=== PATIENT | female | born 1980 | race Caucasian/White ===

== ENCOUNTER 2018-04-13 21:25 | Emergency (ER) | payer MEDICAID, SELFPAY ==
[2018-04-13 21:27] VITALS: BP 140/98; PULSE 75; RESP 24; TEMP 36.5; O2SAT 97; BMI 44.1
--- NOTE | 2018-04-13 21:43 | EKG12_ITS ---
Test Reason : CP Blood Pressure : / mmHG Vent. Rate : 077 BPM Atrial Rate : 077 BPM P-R Int : 132 ms QRS Dur : 072 ms QT Int : 406 ms P-R-T Axes : 064 058 047 degrees QTc Int : 459 ms Normal sinus rhythm Nonspecific ST abnormality Abnormal ECG Confirmed by ASHLI OLIVAS, POLLY ([id number]), editor managing newspaper SHAHEEN REILLY ([id number]) on 04/18/2018 1:58:03 PM Referred By: Confirmed By:POLLY CORNELIUS MD
--- NOTE | 2018-04-13 21:45 | RAD_ITS ---
STUDY: X-RAY CHEST REASON FOR EXAM: Female, 37 years old. Chest pain TECHNIQUE: Single AP portable view of the chest. COMPARISON: 04/28/2017. FINDINGS: The lungs are clear and expanded. There is no demonstrated pleural abnormality. Normal size heart. Normal mediastinum and juan a. Normal visualized pulmonary arteries. Normal visualized aortic arch and descending thoracic aorta. Normal visualized thoracic spine. Normal visualized ribs, clavicles, and shoulders. There is no demonstrated abnormality of the visualized soft tissue structures of the upper abdomen. RAD/Chest 1 View (Portable) IMPRESSION: Normal x-ray examination of the chest. Electronically Signed: Romulo Hatfield MD at 22:01 EDT , Service support ,
[2018-04-13 22:14] LABS: Absolute Lymphocyte Count 3.07 X10^3/ul (0.83-4.51); Absolute Neutrophil Count 4.2 X10^3/uL (2.0-7.7); Basophil# 0.01 X10^3/uL; Basophil% 0.1 % (0-1); Eosinophil# 0.15 X10^3/uL; Hematocrit 41.8 % (37-47); Hemoglobin 14.4 g/dl (12.0-15.0); Lymphocyte # 3.07 X10^3/ul (4.0); Lymphocyte % 40.1 % (19-41); Mean Corp Hgb Conc 34.4 g/gl (32-36); Mean Corpuscular Hgb 30.1 pg (27.0-32.0); Mean Corpuscular Volume 87.4 fL (81-99); Mean Platelet Vol. 9.5 fl (6.2-12.0); Monocyte# 0.23 X10^3/uL; Neutrophil # 4.19 X10^3/uL (2.7-7.7); Neutrophil % 54.7 % (47-70); POSITIVE COUNT NO; POSITIVE DIFFERENTIAL NO; POSITIVE MORPHOLOGY NO; Platelet Count 190 K/mm3 (150-450); RBC Distribution Width CV 13.1 % (11.6-14.6); RBC Distribution Width SD 41.9 fl (35.1-43.9); Red Blood Count 4.78 M/mm3 (4.2-5.4); White Blood Count 7.7 K/mm3 (4.4-11.0)
[2018-04-13 22:31] LABS: Anion Gap 7 (5-15); BUN 10 mg/dL (7-18); BUN/Creat Ratio 14.8 RATIO (10-20); Calcium,Total 8.2 mg/dL (8.5-10.1); Chloride 107 mmol/L (98-107); Creatinine, Serum 0.68 mg/dL (0.55-1.02); EST Glomerular Filtration Rate 103 mL/min (>60); Est Glom Filt Rate - Afr Amer 125 mL/min (>60); Estimated Creatinine Clearance 84.65 ml/min; Glucose 115 mg/dL (74-106); Potassium 3.8 mmol/L (3.5-5.1); Sodium Level 141 mmol/L (136-145)
[2018-04-13 23:16] LABS: D-Dimer Quantitative (DVT/PE) 0.45 FEU/ug/m (0.27-0.49)
[2018-04-13 23:19] VITALS: BP 142/99; PULSE 67; RESP 15; O2SAT 99
[2018-04-14 00:25] VITALS: BP 162/94; PULSE 71; RESP 14; O2SAT 96
[2018-04-14 01:47] VITALS: BP 168/96; PULSE 77; RESP 22; O2SAT 98
[2018-04-14 02:06] VITALS: BP 144/81; PULSE 70; RESP 10; O2SAT 96
--- NOTE | 2018-04-14 02:11 | ED.VISSUMM ---
- ER Visit Summary Date of Service: 04/14/18 Chief Complaint: Acute shortness of breath and chest pain. History of Present Illness: The patient is a 37 F who presents with acute shortness of breath and chest pain that started at 1999. The pain is not as intense. There is no alleviating, exacerbating or precipitate factors. She states she was sitting when this occurred. She had similar episode in the past. She did not seem medical attention because he did not have a ride at that time. She denies history of PE or DVT. She has no risk factors for PE or DVT. She denies any fever, chills night sweats. Denies a ocular, visual auditory symptoms. She denies any GI, or symptoms. She denies myalgias arthralgias, neck or back pain. She denies headache, weakness, anesthesia, paresthesia or motor weakness. There is a history of depression/anxiety. She has no other complaints. Past medical history of bipolar depressive disorder, morbid obesity. She denies history of hiatal hernia or reflux. Physical Examination: Vital signs are marked for an elevated blood pressure 140/98. Head is atraumatic normocephalic. Pupils are equal round reactive. Extraocular muscles are intact. TMs are pearly white with landmarks noted. Nares patent with no drainage. Posterior pharynx without erythema or exudate. Uvula is midline. There is no dysphonia or dysphasia. Trachea is midline. There is no stridor with auscultation of the neck. Heart is regular without murmur, gallop or rub. S1 and S2 are normal. Lungs are clear to auscultation with good movement of air bilaterally. There is no reproducible chest pain. There are no skin lesions noted. Abdomen is soft and nontender. There is no guarding or peritoneal findings. There is no palpable pulsatile mass. There is no abdominal bruit. Mosley sign is negative. Negative Rovsing sign. There is no evidence of inguinal or umbilical hernia. There is no asymmetry, swelling, discoloration, leg vein distention, palpable cords or tenderness along the distribution of the deep venous system. Neuro exam is nonfocal. Test Results: CBC is normal. BMP is remarkable glucose of 115 which is insignificant. D-dimer is normal, 0.45. Total chest x-ray interpreted by me as negative. Cardiac silhouette, mediastinum and lung parenchyma normal. There is no normality of the muscle skeletal structures. Emergency Department Course and Treatment: Since patient has not PERC negative a d-dimer was obtained. To evaluate her acute shortness of breath with chest pain a chest x-ray was obtained. Since she reports similar episode and believe she had improvement when she took an antacid she was treated with GI cocktail. Treatment Plan: Patient was reassessed at 0210. Her pain has resolved. She was informed that her workup is negative. Disposition: Discharged to home with prescription for H2 rubén. She states she is in the process of changing doctors. Impression: Chest pain secondary to GI etiology, gastritis This note was generated with [employer] dictation software. It may contain incorrect words, spelling, and punctuation that were not noted in review of the chart prior to signing ED Disposition - Plan for ED Patient: Disposition: Home or Assisted Living Chief Complaint: Chest Pain Instructions: ED Gastritis Prescriptions: Famotidine [Pepcid] 20 mg PO BID #60 tab Referrals: Care Physician,No Primary [Primary Care Provider] - Doctor,Your [STAFF PHYSICIAN] - 1-2 Weeks Additional Instructions: Your prescription was electronically transmitted to [facility]
--- NOTE | 2018-04-14 02:17 | ED.DCSUM_ITS ---
- ER Visit Summary Date of Service: 04/14/18 Chief Complaint: Acute shortness of breath and chest pain. History of Present Illness: The patient is a 37 F who presents with acute shortness of breath and chest pain that started at 1999. The pain is not as intense. There is no alleviating, exacerbating or precipitate factors. She states she was sitting when this occurred. She had similar episode in the past. She did not seem medical attention because he did not have a ride at that time. She denies history of PE or DVT. She has no risk factors for PE or DVT. She denies any fever, chills night sweats. Denies a ocular, visual auditory symptoms. She denies any GI, or symptoms. She denies myalgias arthralgias, neck or back pain. She denies headache, weakness, anesthesia, paresthesia or motor weakness. There is a history of depression/anxiety. She has no other complaints. Past medical history of bipolar depressive disorder, morbid obesity. She denies history of hiatal hernia or reflux. Physical Examination: Vital signs are marked for an elevated blood pressure 140/ 98. Head is atraumatic normocephalic. Pupils are equal round reactive. Extraocular muscles are intact. TMs are pearly white with landmarks noted. Nares patent with no drainage. Posterior pharynx without erythema or exudate. Uvula is midline. There is no dysphonia or dysphasia. Trachea is midline. There is no stridor with auscultation of the neck. Heart is regular without murmur, gallop or rub. S1 and S2 are normal. Lungs are clear to auscultation with good movement of air bilaterally. There is no reproducible chest pain. There are no skin lesions noted. Abdomen is soft and nontender. There is no guarding or peritoneal findings. There is no palpable pulsatile mass. There is no abdominal bruit. Mosley sign is negative. Negative Rovsing sign. There is no evidence of inguinal or umbilical hernia. There is no asymmetry, swelling , discoloration, leg vein distention, palpable cords or tenderness along the distribution of the deep venous system. Neuro exam is nonfocal. Test Results: CBC is normal. BMP is remarkable glucose of 115 which is insignificant. D-dimer is normal, 0.45. Total chest x-ray interpreted by me as negative. Cardiac silhouette, mediastinum and lung parenchyma normal. There is no normality of the muscle skeletal structures. Emergency Department Course and Treatment: Since patient has not PERC negative a d-dimer was obtained. To evaluate her acute shortness of breath with chest pain a chest x-ray was obtained. Since she reports similar episode and believe she had improvement when she took an antacid she was treated with GI cocktail. Treatment Plan: Patient was reassessed at 0210. Her pain has resolved. She was informed that her workup is negative. Disposition: Discharged to home with prescription for H2 rubén. She states she is in the process of changing doctors. Impression: Chest pain secondary to GI etiology, gastritis This note was generated with [employer] dictation software. It may contain incorrect words, spelling, and punctuation that were not noted in review of the chart prior to signing ED Disposition - Plan for ED Patient: Disposition: Home or Assisted Living Chief Complaint: Chest Pain Instructions: ED Gastritis Prescriptions: Famotidine [Pepcid] 20 mg PO BID #60 tab Referrals: Care Physician,No Primary [Primary Care Provider] - Doctor,Your [STAFF PHYSICIAN] - 1-2 Weeks Additional Instructions: Your prescription was electronically transmitted to [facility]
[2018-04-14 02:26] VITALS: BP 144/81; PULSE 68; RESP 15; O2SAT 95
--- NOTE | 2018-04-14 02:26 | ED.RN ---
IV DC'ED, CATHETER INTACT, SMALL GAUZE DRESSING PLACED. DISCHARGE INSTRUCTIONS GIVEN TO AND REVIEWED WITH PATIENT, PATIENT DENIES QUESTIONS OR CONCERNS AND VOICES UNDERSTANDING OF DISCHARGE INSTRUCTIONS. PT AMBULATES OUT OF ROOM WITHOUT DIFFICULTY.
== END 2018-04-14 02:27 | disposition home or self-care (01) ==
PROVIDERS: Emergency Provider Emergency Medicine
DX: R07.89 Other chest pain (principal); K29.70 Gastritis, unspecified, without bleeding; R06.00 Dyspnea, unspecified; F41.9 Anxiety disorder, unspecified; F32.9 Major depressive disorder, single episode, unspecified; E66.01 Morbid (severe) obesity due to excess calories; Z79.899 Other long term (current) drug therapy; Z72.0 Tobacco use
CPT/HCPCS: 71045; 80048; 84484; 85025; 85379; 93005; 99285; A4216

== ENCOUNTER 2021-04-24 14:52 | Emergency (ER) | payer MEDICAID, SELFPAY ==
[2021-04-24 14:53] VITALS: BP 160/89; PULSE 88; RESP 18; TEMP 36.7; O2SAT 94; BMI 39.4
--- NOTE | 2021-04-24 15:24 | EX.ED.UPPERE ---
HPI History of Present Illness Chief Complaint: Wound Check Informant: patient Occured/Mechanism Comment: Wound check status post left wrist carpal tunnel surgery 2 days ago. Onset/Context/Timing Context: Gradual Onset Timing: Continuous Associated Symptoms Associated Symptoms: Negative for Parasthesia, Weakness and Loss of Funtion Narrative Narrative: 40-year-old female no severe past medical history. 2 to 3 weeks ago had carpal tunnel surgery done on her right wrist is doing very well. 2 to 3 days ago had carpal tunnel surgery done in her left wrist and she noticed fatty tissue and minor dehiscence of the wound in 1 to have it evaluated. She denies any bleeding. She denies any worse pain. She denies any fever, chills, pus or streaks. Prior similar symptoms: No Recent Illness/Hospitalization: No PFSH PFSH Home Medications citalopram 40 mg PO QHS 04/17/16 [History Last Taken 04/12/18] albuterol sulfate [Ventolin HFA] 2 puff INHALATION Q4H PRN PRN #1 inhaler 05/01/17 [Rx Last Taken Unknown] clonazepam [Klonopin] 0.5 mg PO DAILY 08/14/17 [History Last Taken 04/13/18] albuterol sulfate 2.5 mg INHALATION Q6HWA.RT PRN 09/28/17 [History Last Taken Unknown] famotidine 20 mg PO BID #60 tab 04/14/18 [Rx Last Taken Unknown] Allergy/AdvReac Type Severity Reaction Status Date / Time No Known Allergies Allergy Verified 04/24/21 14:56 Social History Smoking Status: Former smoker ROS ROS ED ROS Narrative Patient denies any recent illness. Review of Systems ROS Unobtainable: Denies due to encephalopathy Constitutional Constitutional ED: Denies frequent falls Eyes Eyes: Denies change in vision ENT ENT ED: Denies ear pain or sore throat Cardiovascular Cardiovascular: Denies chest pain Respiratory/Chest Respiratory/Chest: Denies dyspnea Gastrointestinal Gastrointestinal: Denies abdominal pain or vomiting Genitourinary Genitourinary ED: Denies dysuria Musculoskeletal Musculoskeletal: Denies myalgias Integumentary Denies rash Neurologic Neurologic: Denies headache(s) Psychiatric Psychiatric: Denies depression Endocrine Endocrinology: Denies polyuria Hematologic/Lymphatic Hematologic/Lymphatic: Denies easy bruising Allergic/Immunologic Allergic/Immunologic ED: Denies urticaria EXAM Physical Exam Narrative Exam Narrative: Middle-aged female no acute distress. Clinically looks well. Status post carpal tunnel in the left wrist. Wound is clean and dry. There is minimal dehiscence. There is small amount of adipose tissue coming out of the wound. There is no signs of infection nor bleeding. No redness. No pus no streaks. She has normal range of motion of her left wrist. Able to open close her left hand. Has normal cap refill and touch sensation. Hand is neurovascular intact. Otherwise exam unremarkable. Const Vital Signs: 04/24/21 14:53 Temperature 98.0 F Temperature Source Temporal Pulse Rate 88 Respiratory Rate 18 Blood Pressure 160/89 H Blood Pressure Mean 112 Pulse Ox 94 Oxygen Delivery Method Room Air HEENT normocephalic and atraumatic Eyes PERRL and EOMs intact bilaterally Neck full ROM and supple General: Negative for tenderness Chest Wall inspection of chest normal Resp normal respiratory effort and clear to auscultation bilaterally Cardio regular rate, regular rhythm, S1 normal heart sound and no murmurs GI non-tender and non-distended Auscultation: normoactive bowel sounds Palpation: soft Back/Spine no CVA tenderness Extremity normal to inspection and full ROM Extremity Narrative: Well-healed right wrist carpal tunnel incision dry and clean. Healing left wrist more recent carpal tunnel incision small dehiscence. Small amount of adipose tissue. No signs of infection. Left hand neurovascular intact. General Extremety ED: Negative for edema General Extremity: Negative for edema Neuro oriented x3, moves all extremities and no focal motor deficits Sensorium / Orientation: alert, oriented to person, oriented to place and oriented to time Psych mental status grossly normal Skin Rashes: no rashes MDM MDM MDM Narrative Medical decision making narrative: Her left wrist carpal tunnel surgery incision has a small dehiscence and a small amount of adipose tissue. There is no signs of infection. I reassured the patient. Its healing well. There is no signs of infection. To be cleaned and dressed to be discharged home. Follow-up with orthopedic physician as needed. Discharge Plan Triage Chief Complaint: Wound Check ED Provider: Jonn Preciado Dx/Rx/DC Orders Clinical Impression: Encounter for post surgical wound check Instructions: ED Post Op Wound Check, General Prescriptions: No Action citalopram 20 MG tablet 40 mg PO QHS RF: 0 albuterol sulfate [Ventolin HFA] 1 INHALER inhaler 2 puff inhalation Q4H PRN PRN (Reason: Wheezing) Qty: 1 RF: 0 clonazepam [Klonopin] 0.5 MG tablet 0.5 mg PO DAILY RF: 0 albuterol sulfate 2.5 MG/3 ML Vial.Neb. 2.5 mg inhalation Q6HWA.RT PRN (Reason: Sob &/Or Wheezing) RF: 0 famotidine 20 MG tablet 20 mg PO BID Qty: 60 RF: 0 Primary Care Provider: Joe White Referrals: Joe White MD [Primary Care Provider] - None Activity Restrictions/Additional Instructions: Keep your left wrist incision clean. Apply antibiotic ointment daily. Watch for any signs of infection such as pus, redness, fever, red streaks or swelling is seen follow-up with orthopedic physician or return to the emergency department. Keep your scheduled appointment with your orthopedic physician. Disposition Disposition: Home, self care
[2021-04-24 16:15] VITALS: RESP 18
== END 2021-04-24 16:20 | disposition home or self-care (01) ==
PROVIDERS: Emergency Provider Emergency Medicine; PCP Family Medicine
DX: T81.30XA Disruption of wound, unspecified, initial encounter (principal); Z87.891 Personal history of nicotine dependence
CPT/HCPCS: 99282

== ENCOUNTER → 2021-06-09 14:01 | Outpatient (CLI) | payer MEDICAID, SELFPAY ==
--- NOTE | 2021-06-09 14:05 | VDLE_ITS ---
Reason For Study: PAIN RIGHT GSV is normal. CFV is compressible, spontaneous, phasic, competent and demonstrates normal augmentation. FV is compressible, spontaneous, phasic, competent and demonstrates normal augmentation. POP V is compressible, spontaneous, phasic, competent and demonstrates normal augmentation. T/P Trunk is compressible. PTV is compressible. RT PerV is compressible. Procedure Exam performed in department. A preliminary report was called and/or faxed to [facility]. VL/Venous Duplex US, Unilateral Interpretation Summary There is no evidence of right lower extremity deep vein thrombosis. Right great saphenous vein appears patent and compressible segmentally. Ordering Physician: Carmencita Bravo Referring Physician: SAJAN IVY Performed By: Amada Bah, RDCS, RVT
== END ==
PROVIDERS: PCP Family Medicine; Referring Provider Physician Assistant; Visit Provider Physician Assistant
DX: M79.661 Pain in right lower leg (principal)
CPT/HCPCS: 93971

== ENCOUNTER 2021-08-13 10:22 | Emergency (ER) | payer MEDICAID, SELFPAY ==
[2021-08-13 10:26] VITALS: BP 153/99; PULSE 103; RESP 18; TEMP 36.3; O2SAT 96; BMI 37.8
--- NOTE | 2021-08-13 11:21 | EDS_ITS ---
HPI History of Present Illness Chief Complaint: Wound Informant: patient Narrative Narrative: Patient is a 40-year-old female with history of skin abscesses presenting with left breast abscess. Patient states she think she has infected cyst. She notes it feels warm is been worse over the past few days. Has been draining on its own. Patient was on a course of clindamycin last month for a groin abscess. She has been applying mupirocin to this 1. She notes has been having ongoing issues with nausea and is out of Phenergan. She states that helps her the best. She does have a couple doses of Zofran left. It is unchanged. She denies any fever or chills. No other complaints at this time. [facility] Medical History Carpal tunnel syndrome, bilateral Home Medications albuterol sulfate [Ventolin HFA] 2 puff INHALATION Q4H PRN PRN #1 inhaler 05/01/17 [Rx Last Taken Unknown] albuterol sulfate 2.5 mg INHALATION Q6HWA.RT PRN 09/28/17 [History Last Taken Unknown] famotidine 20 mg PO BID #60 tab 04/14/18 [Rx Last Taken Unknown] cephalexin 500 mg PO Q6 7 Days #28 cap 08/13/21 [Rx Last Taken Unknown] ondansetron 4 mg PO Q6H PRN #14 tab 08/13/21 [Rx Last Taken Unknown] promethazine 12.5 mg PO Q6H PRN #14 tab 08/13/21 [Rx Last Taken Unknown] sulfamethoxazole-trimethoprim [Bactrim DS] 1 tab PO Q12H #14 tab 08/13/21 [Rx Last Taken Unknown] Allergy/AdvReac Type Severity Reaction Status Date / Time No Known Allergies Allergy Verified 08/13/21 10:23 Social History Smoking Status: Current every day smoker tobacco type: cigarettes ROS ROS ED Constitutional Constitutional ED: Denies chills or fever(s) Eyes Eyes: Denies change in vision ENT ENT ED: Denies sore throat Cardiovascular Cardiovascular: Denies chest pain Respiratory/Chest Respiratory/Chest: Denies cough or dyspnea Gastrointestinal Gastrointestinal: Reports nausea; Denies abdominal pain, diarrhea or vomiting Genitourinary Genitourinary ED: Denies dysuria Musculoskeletal Musculoskeletal: Denies arthralgias or myalgias Integumentary Denies rash Neurologic Neurologic: Denies headache(s) Psychiatric Psychiatric: Denies depression EXAM Physical Exam Const Vital Signs: 08/13/21 10:26 08/13/21 12:27 Temperature 97.4 F L Temperature Source Temporal Pulse Rate 103 H 86 Respiratory Rate 18 16 Blood Pressure 153/99 H Blood Pressure Mean 117 Pulse Ox 96 96 Oxygen Delivery Method Room Air Positive well nourished and well developed General Appearance ED: well developed HEENT Reports moist mucous membranes Negative for tenderness Eyes PERRL Neck no lymphadenopathy and supple Chest Wall inspection of chest normal Resp normal respiratory effort and clear to auscultation bilaterally Cardio regular rate, regular rhythm and no murmurs GI normal to inspection, nondistended, normoactive bowel sounds Extremity normal to inspection General Extremety ED: Negative for tenderness Neuro oriented x3 Sensorium / Orientation: alert Motor Exam: Negative for general weakness Psych mental status grossly normal Skin Skin Narrative: Patient has a 2 cm x 3 cm area of erythema with central induration and a central draining area on the left breast and a left outer quadrant. No fluctuance appreciated. MDM MDM MDM Narrative Medical decision making narrative: Patient is evaluated for abscess to her left breast. It does not involve the nipple. It is already partially midrange. Will apply let and deroof it to encourage further drainage. No purulence is ex pressed with this. Will place on Bactrim and Keflex. Will refer to surgery on- call, Dr. Cooper for further outpatient follow-up. Patient is given a prescription for Zofran and Phenergan to help with her chronic nausea and to help her better tolerate antibiotics. Patient counseled on return precautions. Discharge Plan Triage Chief Complaint: Wound ED Provider: Chio Tyson Dx/Rx/DC Orders Clinical Impression: Abscess of breast, left Instructions: ED Abscess Antibiotic Treatment Only Prescriptions: New ondansetron 4 mg tablet,disintegrating 4 mg PO Q6H PRN (Reason: nausea and vomiting) Qty: 14 RF: 0 promethazine 12.5 mg tablet 12.5 mg PO Q6H PRN (Reason: nausea and vomiting) Qty: 14 RF: 0 sulfamethoxazole-trimethoprim [Bactrim DS] 800-160 mg tablet 1 tab PO Q12H Qty: 14 RF: 0 cephalexin 500 mg capsule 500 mg PO Q6 7 Days Qty: 28 RF: 0 No Action albuterol sulfate [Ventolin HFA] 1 INHALER inhaler 2 puff inhalation Q4H PRN PRN (Reason: Wheezing) Qty: 1 RF: 0 albuterol sulfate 2.5 MG/3 ML solution for nebulization 2.5 mg inhalation Q6HWA.RT PRN (Reason: Sob &/Or Wheezing) RF: 0 famotidine 20 MG tablet 20 mg PO BID Qty: 60 RF: 0 Primary Care Provider: Joe White Referrals: Leonidas Cooper MD [STAFF PHYSICIAN] - Joe White MD [Primary Care Provider] - Activity Restrictions/Additional Instructions: Continue to do warm compresses. Follow-up with surgery for further evaluation. Disposition Disposition: Home, Self Care Discharge Date/Time: 08/13/21 12:28
[2021-08-13] MEDS: Smz/Tmp Ds Tablet 1 TABLET PO (11:36)
[2021-08-13] MEDS: Cephalexin 250 MG Capsule 500 MG PO (11:36)
[2021-08-13] MEDS: proMETHazine 25 MG Tablet 12.5 MG PO (11:36)
[2021-08-13] MEDS: Lidocaine/Epi/Tetracaine 50 ML 1 APPLIC TOPICAL (11:39)
[2021-08-13 12:27] VITALS: PULSE 86; RESP 16; O2SAT 96
== END 2021-08-13 12:28 | disposition home or self-care (01) ==
PROVIDERS: Emergency Provider Emergency Medicine; PCP Family Medicine
DX: N61.1 Abscess of the breast and nipple (principal); G56.03 Carpal tunnel syndrome, bilateral upper limbs; Z79.899 Other long term (current) drug therapy; F17.210 Nicotine dependence, cigarettes, uncomplicated
CPT/HCPCS: 99283

== ENCOUNTER 2021-08-31 13:29 | Emergency (ER) | payer MEDICAID, SELFPAY ==
[2021-08-31 13:30] VITALS: BP 171/103; PULSE 93; RESP 16; TEMP 37.2; O2SAT 95; BMI 37.4
[2021-08-31 13:34] VITALS: BP 171/103; PULSE 93; RESP 16; TEMP 37.2; O2SAT 95
--- NOTE | 2021-08-31 14:06 | CT_ITS ---
STUDY: CT ABDOMEN AND PELVIS WITH CONTRAST REASON FOR EXAM: Female, 40 years old. abd pain x yrs. mucus in stool x days. diarrhea. RADIATION DOSAGE (If Supplied By Facility): CTDIvol = ( 17.30 ) mGy, DLP = ( 1017.33 ) mGycm TECHNIQUE: Transaxial images were obtained from the dome of the diaphragm to the symphysis pubis with oral contrast. Oral and amp;amp; IV Gastrografin and amp;amp; 100mL Isovue-300 was administered. Sagittal and coronal images were reconstructed. Individualized dose optimization techniques were used for this CT. COMPARISON: None. FINDINGS: The visualized lung bases are unremarkable. The visualized portions of the heart are within normal limits. Normal liver. Normal gallbladder and extrahepatic biliary system. Normal spleen. Normal pancreas. Normal bilateral adrenal glands. Normal right kidney. Normal left kidney. Normal visualized stomach. Normal small intestine. Normal colon. The appendix is visualized and appears normal. Normal abdominal aorta. Normal inferior vena cava. Normal retroperitoneum. Normal urinary bladder. Unremarkable uterus and ovaries. A left adnexal clip is present. A second left lower adnexal clip is also present, likely displaced from the right adnexal region. Normal abdominal wall. Normal osseous structures. CT/Abdomen/Pelvis WITH Contrast IMPRESSION: 1. No demonstrated acute process of the abdomen and pelvis. Electronically Signed: Jose Morin MD at 16:49 EDT , Service support ,
[2021-08-31 14:13] LABS: Absolute Lymphocyte Count 2.88 X10^3/uL (0.83-4.51); Absolute Neutrophil Count 6.2 X10^3/uL (2.0-7.7); Basophil# 0.04 X10^3/uL; Basophil% 0.4 % (0-1); Eosinophil# 0.13 X10^3/uL; Eosinophils% 1.3 % (0-5); Hematocrit 39.9 % (37-47); Hemoglobin 14.3 g/dL (12.0-15.0); Lymphocyte # 2.88 X10^3/ul (0.83-4.51); Lymphocyte % 29.8 % (19-41); Mean Corp Hgb Conc 35.8 g/dL (32-36); Mean Corpuscular Hgb 30.7 pg (27.0-32.0); Mean Corpuscular Volume 85.6 fL (81-99); Mean Platelet Vol. 9.8 fl (6.2-12.0); Monocyte# 0.33 X10^3/uL; Monocyte% 3.4 % (0-10); NRBC Flagged by Analyzer 0 % (0-5); Neutrophil # 6.24 X10^3/uL (2.7-7.7); Neutrophil % 64.8 % (47-70); Platelet Count 229 K/mm3 (150-450); RBC Distribution Width CV 12.8 % (11.6-14.6); RBC Distribution Width SD 39.5 fl (35.1-43.9); Red Blood Count 4.66 M/mm3 (4.2-5.4); White Blood Count 9.7 K/mm3 (4.4-11.0)
[2021-08-31] MEDS: 0.9% Normal Saline 1,000 ML 1000 ML IV (14:15)
[2021-08-31] MEDS: Ondansetron 4 MG/2 ML Vial IV (14:16)
[2021-08-31 14:25] LABS: ALB/GLOB Ratio 0.9 RATIO (0.9-2.4); AST(SGOT) 15 U/L (15-37); Alanine Aminotransfer ALT/SGPT 24 U/L (13-56); Albumin, Serum 3.4 g/dL (3.2-5.0); Alkaline Phosphatase 75 U/L (45-117); Anion Gap 8 (5-15); BUN 7 mg/dL (7-18); Calcium,Total 8.5 mg/dL (8.5-10.1); Chloride 107 mmol/L (98-107); Creatinine, Serum 0.78 mg/dL (0.55-1.02); EST Glomerular Filtration Rate 86 mL/min (>60); Est Glom Filt Rate - Afr Amer 104 mL/min (>60); Estimated Creatinine Clearance 71.62 ml/min; Globulin 3.6 g/dL (2.2-4.2); Glucose 119 mg/dL (74-106); Potassium 3.4 mmol/L (3.5-5.1); Sodium Level 142 mmol/L (136-145)
[2021-08-31 14:26] LABS: Red Blood Cells-Urine 0 SEEN /hpf (0-5)
[2021-08-31 14:28] LABS: Color, Urine Yellow (Yellow); Glucose, Dipstick Normal (Normal); Ketone-Dipstick 5 mg/dl (Negative); Leukocyte Esterase-Dipstick 500 /ul (Negative); Nitrite-Dipstick Negative (Negative); Occult Blood-Urine Negative /ul (Negative); Protein-Dipstick 15 mg/dl (Negative); Urine Bilirubin Dipstick Negative (Negative); Urine Clarity Cloudy (Clear); Urine Urobilinogen Normal (Normal)
[2021-08-31 14:35] LABS: Bacteria 1+ /hpf (None Seen); Mucous, Urine 1+ /hpf (<or=2+); Squamous Epithelial Cells - UA 5-10 SEEN /hpf (5-10); White Blood Cells 5-10 SEEN /hpf (0-5)
[2021-08-31 14:39] LABS: Internal QC Validated? YES +Cl - CLEAR BKGD; Pregnancy, Serum, hCG Quali. NEGATIVE Negative
--- NOTE | 2021-08-31 14:58 | EDS_ITS ---
HPI History of Present Illness Chief Complaint: Abd Pain Informant: patient Narrative Narrative: 40-year-old female presenting with abdominal pain. Patient states this has been going on for quite some time but worsened over the past several days. She complains of mucousy stool. She has nausea with no vomiting. She denies fever. Prior similar symptoms: Yes Recent Illness/Hospitalization: No PFSH PFSH Medical History Carpal tunnel syndrome, bilateral Home Medications albuterol sulfate [Ventolin HFA] 2 puff INHALATION Q4H PRN PRN #1 inhaler 05/01/17 [Rx Last Taken Unknown] albuterol sulfate 2.5 mg INHALATION Q6HWA.RT PRN 09/28/17 [History Last Taken Unknown] ondansetron 4 mg PO Q6H PRN #14 tab 08/13/21 [Rx Last Taken Unknown] promethazine 12.5 mg PO Q6H PRN #14 tab 08/13/21 [Rx Last Taken Unknown] gabapentin 300 mg PO TID 08/31/21 [History Last Taken Unknown] Allergy/AdvReac Type Severity Reaction Status Date / Time carbinoxamine [From [facility]] Allergy Rash Verified 08/31/21 13:32 pseudoephedrine [From [facility]] Allergy Rash Verified 08/31/21 13:32 Social History Smoking Status: Current every day smoker tobacco type: cigarettes ROS ROS ED Constitutional Constitutional ED: Denies fever(s) Eyes Eyes: Denies change in vision ENT ENT ED: Denies rhinorrhea or sore throat Cardiovascular Cardiovascular: Denies chest pain or palpitations Respiratory/Chest Respiratory/Chest: Denies cough or dyspnea Gastrointestinal Gastrointestinal: Reports abdominal pain, diarrhea and nausea; Denies vomiting Genitourinary Genitourinary ED: Denies dysuria Musculoskeletal Musculoskeletal: Denies myalgias Integumentary Denies rash Neurologic Neurologic: Denies headache(s) Psychiatric Psychiatric: Denies suicidal thoughts EXAM Physical Exam Const Vital Signs: 08/31/21 13:30 08/31/21 13:34 Temperature 98.9 F 98.9 F Temperature Source Temporal Temporal Pulse Rate 93 93 Respiratory Rate 16 16 Blood Pressure 171/103 H 171/103 H Blood Pressure Mean 125 125 Pulse Ox 95 95 Oxygen Delivery Method Room Air Room Air Positive well nourished and well developed General Appearance ED: well developed HEENT Reports normocephalic and head/scalp atraumatic Eyes PERRL and EOMs intact bilaterally Neck supple General: Negative for tenderness Chest Wall inspection of chest normal Resp normal respiratory effort and clear to auscultation bilaterally Cardio regular rate and regular rhythm GI non-distended Palpation: soft and tender LLQ and RLQ; Negative for guarding or rebound tenderness present no CVA tenderness Extremity normal to inspection Neuro oriented x3 Sensorium / Orientation: alert Psych mental status grossly normal Skin no rashes or lesions noted MDM MDM MDM Narrative Medical decision making narrative: Patient was given IV fluids, Zofran. CBC, chemistries unremarkable. hCG negative. CT abdomen pelvis is pending at this time. Patient will be signed out to oncoming physician for further evaluation. Lab Data Attestation: I reviewed the patient's lab results. Labs: Laboratory Results - last 24 hr 08/31/21 08/31/21 08/31/21 13:40 13:40 14:15 WBC 9.7 RBC 4.66 Hgb 14.3 Hct 39.9 MCV 85.6 MCH 30.7 MCHC 35.8 RDW Std Deviation 39.5 RDW Coeff of Camille 12.8 Plt Count 229 MPV 9.8 Immature Gran % (Auto) 0.300 Neut % (Auto) 64.8 Lymph % (Auto) 29.8 [place] % (Auto) 3.4 Eos % (Auto) 1.3 Baso % (Auto) 0.4 Absolute Neuts (auto) 6.2 Absolute Lymphs (auto) 2.88 Nucleated RBC % 0 Sodium 142 Potassium 3.4 L Chloride 107 Carbon Dioxide 27.0 Anion Gap 8 BUN 7 Creatinine 0.78 Estim Creat Clear Calc 71.62 Est GFR (MDRD) Af Amer 104 Est GFR (MDRD) Non-Af 86 BUN/Creatinine Ratio 9.0 L Glucose 119 H Calcium 8.5 Total Bilirubin 0.40 AST 15 ALT 24 Alkaline Phosphatase 75 Total Protein 7.0 Albumin 3.4 Globulin 3.6 Albumin/Globulin Ratio 0.9 Serum , Qual NEGATIVE Urine Color Urine Clarity Urine pH Ur Specific [place] Urine Protein Urine Glucose (UA) Urine Ketones Urine Occult Blood Urine Nitrite Urine Bilirubin Urine Urobilinogen Ur Leukocyte Esterase Urine RBC Urine WBC Ur Squamous Epith Cells Urine Bacteria Urine Mucus 08/31/21 14:15 WBC RBC Hgb Hct MCV MCH MCHC RDW Std Deviation RDW Coeff of Camille Plt Count MPV Immature Gran % (Auto) Neut % (Auto) Lymph % (Auto) [place] % (Auto) Eos % (Auto) Baso % (Auto) Absolute Neuts (auto) Absolute Lymphs (auto) Nucleated RBC % Sodium Potassium Chloride Carbon Dioxide Anion Gap BUN Creatinine Estim Creat Clear Calc Est GFR (MDRD) Af Amer Est GFR (MDRD) Non-Af BUN/Creatinine Ratio Glucose Calcium Total Bilirubin AST ALT Alkaline Phosphatase Total Protein Albumin Globulin Albumin/Globulin Ratio Serum , Qual Urine Color Yellow Urine Clarity Cloudy Urine pH 5.0 Ur Specific [place] 1.020 Urine Protein 15 H Urine Glucose (UA) Normal Urine Ketones 5 H Urine Occult Blood Negative Urine Nitrite Negative Urine Bilirubin Negative Urine Urobilinogen Normal Ur Leukocyte Esterase 500 H Urine RBC 0 SEEN Urine WBC 5-10 SEEN Ur Squamous Epith Cells 5-10 SEEN Urine Bacteria 1+ Urine Mucus 1+ Discharge Plan Triage Chief Complaint: Abd Pain ED Provider: Rosio Salinas Dx/Rx/DC Orders Clinical Impression: Abdominal pain Prescriptions: No Action albuterol sulfate [Ventolin HFA] 1 INHALER inhaler 2 puff inhalation Q4H PRN PRN (Reason: Wheezing) Qty: 1 RF: 0 albuterol sulfate 2.5 MG/3 ML solution for nebulization 2.5 mg inhalation Q6HWA.RT PRN (Reason: Sob &/Or Wheezing) RF: 0 ondansetron 4 mg tablet,disintegrating 4 mg PO Q6H PRN (Reason: nausea and vomiting) Qty: 14 RF: 0 promethazine 12.5 mg tablet 12.5 mg PO Q6H PRN (Reason: nausea and vomiting) Qty: 14 RF: 0 gabapentin 300 mg Capsule 300 mg PO TID RF: 0 Primary Care Provider: Joe White Referrals: Joe White MD [Primary Care Provider] -
[2021-08-31 16:08] VITALS: BP 137/98; PULSE 73; RESP 16; O2SAT 96
[2021-08-31] MEDS: Dicyclomine 10 MG Capsule 20 MG PO (16:53)
[2021-08-31] MEDS: Ketorolac 30 MG/ML Syringe IV (16:53)
[2021-08-31 18:33] VITALS: BP 154/94; PULSE 78; RESP 16; TEMP 36.9; O2SAT 95
== END 2021-08-31 18:35 | disposition home or self-care (01) ==
PROVIDERS: Emergency Provider Emergency Medicine; PCP Family Medicine
DX: R10.9 Unspecified abdominal pain (principal); R11.0 Nausea; K52.9 Noninfective gastroenteritis and colitis, unspecified; G56.03 Carpal tunnel syndrome, bilateral upper limbs; F17.210 Nicotine dependence, cigarettes, uncomplicated
CPT/HCPCS: 74177; 80053; 81001; 84703; 85025; 96361; 96374; 96375; 99284; J7030; Q9967; A4216; J2405

== ENCOUNTER 2021-09-01 23:13 | Emergency (ER) | payer MEDICAID, SELFPAY ==
[2021-09-01 23:14] VITALS: BP 149/101; PULSE 96; RESP 18; TEMP 36.6; O2SAT 98; BMI 36.6
--- NOTE | 2021-09-02 00:05 | EX.ED.DYSGE1 ---
HPI History of Present Illness Chief Complaint: GI Bleed Informant: patient Narrative Narrative: 40-year-old female presented to the emergency room with abdominal pain. Patient states that she was seen in the emergency room yesterday with several days of diarrhea mucousy stools. She notes nausea but no vomiting. She states that anytime she eats or drinks anything she has diarrhea. She notes dark red blood with the bowel movements. She had CBC CMP lipase and a CT scan that were negative as well as a negative urinalysis. She was discharged home with Ilya and referred to GI. She states she did not receive a GI call back today has presented here to the emergency room tonight stating that she did not sleep last night and that she is getting worse. [facility] Medical History Carpal tunnel syndrome, bilateral Home Medications gabapentin 300 mg PO TID 08/31/21 [History Last Taken Unknown] ketorolac 10 mg PO Q8H PRN #15 tab 09/02/21 [Rx Last Taken Unknown] Allergy/AdvReac Type Severity Reaction Status Date / Time carbinoxamine [From [facility]] Allergy Rash Verified 08/31/21 13:32 pseudoephedrine [From [facility]] Allergy Rash Verified 08/31/21 13:32 Social History (Updated 09/02/21 @ 00:[address] Cayetano Collins DO) Smoking Status: Current every day smoker tobacco type: cigarettes substance use type: does not use ROS ROS ED Constitutional Constitutional ED: Denies chills or weight loss Eyes Eyes: Denies change in vision or diplopia ENT ENT ED: Denies ear pain, rhinorrhea or sore throat Cardiovascular Cardiovascular: Denies chest pain, orthopnea, palpitations or racing heartbeat Respiratory/Chest Respiratory/Chest: Denies cough, dyspnea or orthopnea Gastrointestinal Gastrointestinal: Reports abdominal pain, diarrhea, nausea and other Details: Dark blood with bowel movements ; Denies vomiting Genitourinary Genitourinary ED: Denies dysuria, hematuria or urinary frequency Musculoskeletal Musculoskeletal: Denies arthralgias or myalgias Integumentary Denies abscess or rash Neurologic Neurologic: Denies headache(s) or weakness Psychiatric Psychiatric: Denies anxiety, depression, suicidal ideation or suicidal thoughts Endocrine Endocrinology: Denies polydipsia, polyphagia or polyuria Allergic/Immunologic Allergic/Immunologic ED: Denies mouth swelling, tongue swelling or urticaria EXAM Physical Exam Const Vital Signs: 09/01/21 23:14 Temperature 98 F Temperature Source Temporal Pulse Rate 96 Respiratory Rate 18 Blood Pressure 149/101 H Blood Pressure Mean 117 Pulse Ox 98 Oxygen Delivery Method Room Air Positive well nourished, well developed and obese General Appearance ED: well developed Nutritional Appearance: obese HEENT Reports normocephalic, head/scalp atraumatic and moist mucous membranes Eyes PERRL and EOMs intact bilaterally Neck no lymphadenopathy, supple and no JVD Resp normal respiratory effort and clear to auscultation bilaterally Cardio regular rate, regular rhythm and no murmurs GI non-distended GI Narrative: Diffuse tenderness to palpation out of proportion to examination Auscultation: normoactive bowel sounds Palpation: soft; Negative for guarding or rebound tenderness present Back/Spine no CVA tenderness and normal ROM Extremity normal to inspection General Extremety ED: Negative for edema General Extremity: Negative for edema Neuro oriented x3 and CN's II-XII intact bilaterally Sensorium / Orientation: alert Motor Exam: strength 5/5 throughout Psych mental status grossly normal Mood & Affect: Negative for depressed or tearful Skin no rashes or lesions noted and no wounds MDM MDM MDM Narrative Medical decision making narrative: Basic blood work showed a potassium of 3.1. Hemoglobin is stable. White count 10.6. Lipase of 81. Patient received a dose of Toradol and on repeat examination is sleeping. At this point I think the patient is stable. I will write for her to have Toradol at home as it seems to be very helpful for her. She already has Bentyl and Zofran. Following up with GI Lab Data Attestation: I reviewed the patient's lab results. Labs: Laboratory Results - last 24 hr 09/02/21 09/02/21 00:10 00:10 WBC 10.6 RBC 4.96 Hgb 15.1 H Hct 42.7 MCV 86.1 MCH 30.4 MCHC 35.4 RDW Std Deviation 39.7 RDW Coeff of Camille 12.8 Plt Count 238 MPV 9.7 Immature Gran % (Auto) 0.400 Neut % (Auto) 60.3 Lymph % (Auto) 33.0 [place] % (Auto) 4.3 Eos % (Auto) 1.4 Baso % (Auto) 0.6 Absolute Neuts (auto) 6.4 Absolute Lymphs (auto) 3.49 Nucleated RBC % 0 Sodium 140 Potassium 3.1 L Chloride 105 Carbon Dioxide 30.0 Anion Gap 5 BUN 7 Creatinine 0.81 Estim Creat Clear Calc 68.97 Est GFR (MDRD) Af Amer 100 Est GFR (MDRD) Non-Af 83 BUN/Creatinine Ratio 8.7 L Glucose 115 H Calcium 9.0 Total Bilirubin 0.50 AST 23 ALT 27 Alkaline Phosphatase 73 Total Protein 7.3 Albumin 3.6 Globulin 3.7 Albumin/Globulin Ratio 1.0 Lipase 81 Discharge Plan Triage Chief Complaint: GI Bleed ED Provider: Cayetano Collins Dx/Rx/DC Orders Clinical Impression: Abdominal pain, Hematochezia Instructions: ED Lower GI Bleeding (Stable) Prescriptions: New ketorolac 10 mg tablet 10 mg PO Q8H PRN (Reason: pain) Qty: 15 RF: 0 No Action gabapentin 300 mg Capsule 300 mg PO TID RF: 0 Primary Care Provider: Joe White Referrals: Joe White MD [Primary Care Provider] - Johny Chauhan DO [STAFF PHYSICIAN] - As soon as possible Disposition Disposition: Home, Self Care
[2021-09-02] MEDS: Ketorolac 30 MG/ML Syringe IV (00:18)
[2021-09-02 00:21] LABS: Absolute Lymphocyte Count 3.49 X10^3/uL (0.83-4.51); Absolute Neutrophil Count 6.4 X10^3/uL (2.0-7.7); Basophil# 0.06 X10^3/uL; Basophil% 0.6 % (0-1); Eosinophil# 0.15 X10^3/uL; Eosinophils% 1.4 % (0-5); Hematocrit 42.7 % (37-47); Hemoglobin 15.1 g/dL (12.0-15.0); Lymphocyte # 3.49 X10^3/ul (0.83-4.51); Mean Corp Hgb Conc 35.4 g/dL (32-36); Mean Corpuscular Hgb 30.4 pg (27.0-32.0); Mean Corpuscular Volume 86.1 fL (81-99); Mean Platelet Vol. 9.7 fl (6.2-12.0); Monocyte# 0.45 X10^3/uL; Monocyte% 4.3 % (0-10); NRBC Flagged by Analyzer 0 % (0-5); Neutrophil # 6.38 X10^3/uL (2.7-7.7); Neutrophil % 60.3 % (47-70); Platelet Count 238 K/mm3 (150-450); RBC Distribution Width CV 12.8 % (11.6-14.6); RBC Distribution Width SD 39.7 fl (35.1-43.9); Red Blood Count 4.96 M/mm3 (4.2-5.4); White Blood Count 10.6 K/mm3 (4.4-11.0)
[2021-09-02 00:51] LABS: AST(SGOT) 23 U/L (15-37); Alanine Aminotransfer ALT/SGPT 27 U/L (13-56); Albumin, Serum 3.6 g/dL (3.2-5.0); Alkaline Phosphatase 73 U/L (45-117); Anion Gap 5 (5-15); BUN 7 mg/dL (7-18); BUN/Creat Ratio 8.7 RATIO (10-20); Chloride 105 mmol/L (98-107); Creatinine, Serum 0.81 mg/dL (0.55-1.02); EST Glomerular Filtration Rate 83 mL/min (>60); Est Glom Filt Rate - Afr Amer 100 mL/min (>60); Estimated Creatinine Clearance 68.97 ml/min; Globulin 3.7 g/dL (2.2-4.2); Glucose 115 mg/dL (74-106); Lipase 81 U/L (73-393); Potassium 3.1 mmol/L (3.5-5.1); Protein, Total 7.3 g/dL (6.4-8.2); Sodium Level 140 mmol/L (136-145)
== END 2021-09-02 01:37 | disposition home or self-care (01) ==
PROVIDERS: Emergency Provider Emergency Medicine; PCP Family Medicine
DX: R10.9 Unspecified abdominal pain (principal); K92.1 Melena; R19.7 Diarrhea, unspecified; R11.0 Nausea; E66.9 Obesity, unspecified; Z68.36 Body mass index [BMI] 36.0-36.9, adult; G56.03 Carpal tunnel syndrome, bilateral upper limbs; F17.210 Nicotine dependence, cigarettes, uncomplicated
CPT/HCPCS: 80053; 83690; 85025; 96374; 99282; A4216

== ENCOUNTER 2021-09-27 10:46 | Day surgery (SDC) | payer MEDICAID, SELFPAY ==
[2021-09-27] VITALS (7 sets, daily range): BP systolic 117–154; BP diastolic 89–99; PULSE 84–92; RESP 16–20; TEMP 36.1–36.5; O2SAT 97–100; BMI 37.5
--- NOTE | 2021-09-27 | COLBX_PTH ---
PATIENT: RG DIA LOC: EN U#:[id number] AGE/SX: 40/F ROOM: RE09/27/[address]: Dr. Johny Chauhan DO : 1980 BED: DIS: 09/27/2021 SPEC #: [id number] RECD: 09/27/21 12:20 STATUS: YINA EDGARDO #: [id number] LANDEN: 09/27/21 00:[address]: Johny Chauhan DEPT: SURGICAL PATHOLOGY RECD BY: James Ferrara ENTERED: 09/27/21 13:34 SP TYPE: COLON BX OTHR DR: Dr. Joe White MD Tissues: A - Duodenum, NOS B - Gastric mucous membrane C - Esophageal mucous membrane D - Ileum, NOS E - COLON BIOPSY Procedures: Special Stain Group II Surgery Specimen Level IV Alcian Blue/PAS (control) HEADER OPERATION: Colonoscopy, EGD ([facility]) PRE-OP DIAGNOSIS: Nausea, vomiting, abdominal pain TISSUE SUBMITTED: A ? Duodenum biopsy, B ? Antrum biopsy for H. pylori and pathology, C ? Distal esophagus biopsy, D ? Terminal ileum biopsy, E ? Random colonic biopsy MICROSCOPIC DIAGNOSIS A. Duodenum, biopsy: Focal gastric metaplasia. B. Gastric antrum, biopsy: Chronic gastritis, moderate to severe. See comment. C. Distal esophagus, biopsy: Gastroesophageal junctional mucosa with moderate chronic gastritis. Focal changes of reflux. No evidence of goblet cell metaplasia. See comment. D. Terminal ileum, biopsy: No pathologic change. E. Colon, random biopsy: No significant pathologic change. See comment. AM:thuy 09/28/2021 COMMENT B. The results of immunohistochemistry for Helicobacter pylori will be reported separately ([id number]). C. Alcian blue/PAS stain with matched control supports the above diagnosis. E. The mucosa contains increased number of eosinophils. The significance of this is unclear. Clinical correlation is suggested. MICROSCOPIC DESCRIPTION Slides are reviewed. GROSS DESCRIPTION A - Received in fixative is one container labeled with the patient's name and designated duodenum biopsy. The specimen consists of multiple irregular fragments of light castellanos soft tissue that in aggregate measure 1 x 0.2 x 0.1 cm. The specimen is totally submitted in one cassette. B - Received in fixative is one container labeled with the patient's name and designated gastric antrum. The specimen consists of multiple irregular fragments of light castellanos soft tissue that in aggregate measure 1 x 0.3 x 0.1 cm. The specimen is totally submitted in one cassette. C - Received in fixative is one container labeled with the patient's name and designated distal esophagus biopsy. The specimen consists of two irregular fragments of light castellanos soft tissue that in aggregate measure 1 x 0.5 x 0.1 cm. The specimen is totally submitted in one cassette. D - Received in fixative is one container labeled with the patient's name and designated terminal ileum biopsy. The specimen consists of two irregular fragments of light castellanos soft tissue that in aggregate measure 0.3 x 0.2 x 0.1 cm. The specimen is totally submitted in one cassette. E - Received in fixative is one container labeled with the patient's name and designated random colon biopsy. The specimen consists of multiple irregular fragments of light castellanos soft tissue that in aggregate measure 2 x 0.6 x 0.1 cm. The specimen is totally submitted in one cassette. / SJ:rg 09/27/21 TC:3 CPT: 36001 x5, 61839
[2021-09-27] MEDS: Lactated Ringers 1,000 ML 15 ML IV (11:05)
--- NOTE | 2021-09-27 11:12 | HP.PCM_ITS ---
History and Physical Date of Admission: 09/27/21 HPI Chief Complaint: Increased SOB Details: RG DIA, is a 40 F who presents to the office today for further evaluation of intractable nausea vomiting. She says she has had episodes where she felt bloated on intermittent basis. Now she feels bloated on a daily basis and is making her nauseous and not been able to eat anything solid. She is able to keep down chicken broth and other liquids to avoid dehydration. She went to the ED twice on 1011 and 1013 for the evaluation of intractable nausea vomiting. Her biochemical profile was normal. She did have increase hemoglobin of 15.6. She has a pre-existing diagnosis of asthma. And she does smoke cigarettes. She denied any marijuana usage. She also had a CT scan abdomen pelvis that was reported to be normal. She has also been having some lower GI bleeding. She has no family history of colon cancer or inflammatory bowel disease. She took antibiotics approximately 3 months ago for a sebaceous cyst infection of the breast. The ER physicians sent her for referral to gastroenterology due to the negative work-up in the ED. She has been having intermittent nausea with feelings of fullness for the last week that has progressed to almost constant nausea. Dark blood and mucous noted in stool on a couple occasions. She is now having black diarrhea. ED visit the last Monday and Monday where they did a CT scan which she reports as being normal. They gave her a blue pill to stop intestinal spasms. ED documentation reports Ketorolac but she does not think this is what it's called. Ongoing issues for the last several years include bloating and gassiness with alternating constipation and diarrhea with no blood in stool. Diet changes include greasy food limitation. NO history of EGD or colonoscopy ROS Const Constitutional: Positive for fatigue Eyes Eyes: Positive for blurry vision Gastro GI: Positive for bloating, change in bowel habits, diarrhea, heartburn, Blood in stool and nausea/dyspepsia Musc Musculoskeletal: Positive for back pain Psych Psychiatric: Positive for anxiety and Positive for depression Endo Endocrine: Positive for fatigue Exam Const General: cooperative and comfortable Nutritional Appearance: average body habitus and well nourished [facility] Head: normal to inspection Ears: hearing grossly normal bilaterally Nose: external nose normal Face and sinus: normal facial exam Mouth: oral mucosae normal Throat: posterior oropharynx normal Eyes General: appearance normal, both eyes and all related structures Neck Neck: normal visual inspection Chest Chest palpation & inspection: normal inspection of the chest and normal palpation of entire chest wall Resp Effort & Inspection: normal respiratory effort Auscultation: Bilateral: Clear to Auscultation Cardio Palpation: normal PMI Rate: regular rate Rhythm: regular rhythm GI Inspection: normal to inspection Auscultation: normal bowel sounds Percussion: normal to percussion Palpation: no hepatosplenomegaly Skin General: no rashes or lesions noted Neuro General: patient alert Extrem General: normal to inspection Psych Affect: normal affect Quality Reporting Tobacco Screening ([facility] 138) Smoking Status: Current every day smoker Assessment and Plan Assessment and Plan (1) Tobacco dependence: Status: Chronic Plan - Dr. Mcclain Friend, DO: Discussed effects of nicotine on a system that is already sensitive and not under control. This is not the best option for relaxation. I think she does not because she is not on any medicines for her anxiety and the nicotine helps her relax and sometimes helps her stomach. I will give her a short course of Xanax for 5 days to take twice a day to hopefully alleviate some of the symptoms as she gets transitioned onto a longer acting medicine. (2) Hyperglycemia, drug-induced: Status: Acute Plan - Dr. Mcclain Friend, DO: Glucose tolerance test was was abnormal. This could mean that she has diabetes mellitus. She may need to get a hemoglobin A1c. But this would definitely contribute to some of the GI symptoms that she is having. (3) Nausea & vomiting: Status: Acute Plan - Dr. Mcclain Friend, DO: Nausea vomiting could be secondary to underlying gastroparesis, gastritis or peptic ulcer disease. This will be evaluated upper GI tract evaluation. I will give her a twice a day PPI therapy also along with a scopolamine patch. (4) Abdominal pain: Status: Acute
[2021-09-27 11:16] LABS: Internal QC Validated? YES +Cl - CLEAR BKGD; Pregnancy, Urine Negative Negative
--- NOTE | 2021-09-27 11:44 | OP.EGD_ITS ---
Patient Name: Pricila Kearns Procedure Date: 09/27/2021 11:14 AM Date of : 1980 Age: 40 Procedure: Upper GI endoscopy Indications: Epigastric abdominal pain Providers: Johny Chauhan DO Referring MD: Joe White Medicines: See the Anesthesia note for documentation of the administered medications Patient Profile: This is a 40 year old female. Refer to note in patient chart for documentation of history and physical. Patient has symptoms. The symptoms first began 2014. She is status post EGD for biopsy within the past five years. Complications: No immediate complications. Procedure: Pre-Anesthesia Assessment: - Prior to the procedure, a History and Physical was performed, and patient medications and allergies were reviewed. The patient is competent. The risks and benefits of the procedure and the sedation options and risks were discussed with the patient. All questions were answered and informed consent was obtained. Patient identification and proposed procedure were verified by the physician in the pre-procedure area. Mental Status Examination: alert and oriented. Airway Examination: normal oropharyngeal airway and neck mobility. Respiratory Examination: clear to auscultation. CV Examination: normal. Prophylactic Antibiotics: The patient does not require prophylactic antibiotics. Prior Anticoagulants: The patient has taken no previous anticoagulant or antiplatelet agents. ASA Grade Assessment: II - A patient with mild systemic disease. After reviewing the risks and benefits, the patient was deemed in satisfactory condition to undergo the procedure. The anesthesia plan was to use moderate sedation / analgesia (conscious sedation). Immediately prior to administration of medications, the patient was re-assessed for adequacy to receive sedatives. The heart rate, respiratory rate, oxygen saturations, blood pressure, adequacy of pulmonary ventilation, and response to care were monitored throughout the procedure. The physical status of the patient was re-assessed after the procedure. After obtaining informed consent, the endoscope was passed under direct vision. Throughout the procedure, the patient's blood pressure, pulse, and oxygen saturations were monitored continuously. The Endoscope was introduced through the mouth, and advanced to the second part of duodenum. The upper GI endoscopy was accomplished without difficulty. The patient tolerated the procedure well. Moderate Sedation: Moderate (conscious) sedation was administered by the endoscopy nurse and supervised by the endoscopist. The patient's oxygen saturation, heart rate, blood pressure and response to care were monitored. Total physician intraservice time was 15 minutes. Moderate (conscious) sedation was administered by the endoscopy nurse and supervised by the endoscopist. The patient's oxygen saturation, heart rate, blood pressure and response to care were monitored. Total physician intraservice time was 15 minutes. Scope In: 11:31:21 AM Scope Out: 11:40:02 AM Total Procedure Duration Time 0 hours 8 minutes 41 seconds Findings: LA Grade A (one or more mucosal breaks less than 5 mm, not extending between tops of 2 mucosal folds) esophagitis with no bleeding was found 34 to 35 cm from the incisors. Biopsies were taken with a cold forceps for histology. Verification of patient identification for the specimen was done. Estimated blood loss was minimal. Patchy mild inflammation characterized by congestion (edema), erythema and linear erosions was found in the entire examined stomach. Biopsies were taken with a cold forceps for histology. Verification of patient identification for the specimen was done. Estimated blood loss was minimal. Scattered mild inflammation characterized by congestion (edema) was found in the duodenal bulb. Biopsies were taken with a cold forceps for histology. Impression: - LA Grade A reflux esophagitis. Biopsied. - Gastritis. Biopsied. - Duodenitis. Biopsied. Recommendation: - Await pathology results. - Repeat upper endoscopy in 1 year for surveillance based on pathology results. - Return to GI clinic in 2 weeks. - Continue present medications. Procedure Code(s): --- Professional --- 58024, Esophagogastroduodenoscopy, flexible, transoral; with biopsy, single or multiple G0500, Moderate sedation services provided by the same physician or other qualified health home health caregiver performing a gastrointestinal endoscopic service that sedation supports, requiring the presence of an independent trained observer to assist in the monitoring of the patient's level of consciousness and physiological status; initial 15 minutes of intra-service time; patient age 5 years or older (additional time may be reported with 57331, as appropriate) G0500, Moderate sedation services provided by the same physician or other qualified health home health caregiver performing a gastrointestinal endoscopic service that sedation supports, requiring the presence of an independent trained observer to assist in the monitoring of the patient's level of consciousness and physiological status; initial 15 minutes of intra-service time; patient age 5 years or older (additional time may be reported with 58426, as appropriate) CPT copyright 2017 [employer]. All rights reserved. The codes documented in this report are preliminary and upon pattern ruler review may be revised to meet current compliance requirements. Johny Chauhan DO 09/27/2021 11:44:09 AM This report has been signed electronically. Number of Addenda: 1 Note Initiated On: 09/27/2021 11:14 AM Addendum Number: 1 Addendum Date: 07/22/2022 6:18:41 AM MAC was used instead of moderate sedation for this patient. Johny Chauhan DO 07/22/2022 6:18:46 AM This report has been signed electronically.
--- NOTE | 2021-09-27 11:45 | IMM_PTH ---
PATIENT: RG DIA LOC: EN U#:[id number] AGE/SX: 40/F ROOM: RE09/27/[address]: Dr. Johny Chauhan DO : 1980 BED: DIS: 09/27/2021 SPEC #: [id number] RECD: 09/27/21 14:56 STATUS: YINA RELeonor #: [id number] LANDEN: 09/27/21 11:[address]: Johny Chauhan DEPT: IMMUNOHISTOCHEMISTRY RECD BY: Elda Tavera ENTERED: 09/27/21 14:57 SP TYPE: IMMUNO OTHR DR: Dr. Joe White MD Tissues: B - Stomach, NOS Procedures: H Pylori (initial) PHYSICIAN & INSTITUTION [place] [id number] SPECIMEN INFORMATION: Tissue Source: B ? Antrum biopsy Clinical Info: Nausea, vomiting, abdominal pain Specimen Number: [id number] CPT code: 18330 METHODOLOGY: Deparaffinized sections of prefer/formalin-fixed tissue or PAP/DQ stained slides are incubated with monoclonal/polyclonal antibodies/oligonucleotide probes. Localization is made via biotin free immunoperoxidase method. Appropriate controls are performed and reacted as expected. Results on target cell population are indicated in the following table: RESULTS: ANTIBODY / CLONE RESULT Block B H Pylori (polyclonal) negative These tests were developed and their performance characteristics determined by [facility]. They may not have been cleared or approved by the U.S. Food and Drug Administration. The FDA has determined that such clearance or approval is not necessary. INTERPRETATION: B. Antrum biopsy: Negative for Helicobacter pylori organisms. AM:thuy 09/28/2021
--- NOTE | 2021-09-27 11:45 | OP.CCLET_ITS ---
07/22/2022 Joe White [address] [place] [address] Re : Upper GI endoscopy procedure for Pricila Kearns Dear Dr. White This procedure was performed on Monday, September 27, 2021. My impressions and recommendations are as follows: Impressions : - LA Grade A reflux esophagitis. Biopsied. - Gastritis. Biopsied. - Duodenitis. Biopsied. Recommendations : - Await pathology results. - Repeat upper endoscopy in 1 year for surveillance based on pathology results. - Return to GI clinic in 2 weeks. - Continue present medications. My findings are described in the full procedure note, which is enclosed. If I can be of further assistance, please feel free to contact me at . Sincerely, Johny Chauhan, 09/27/2021 11:44:09 AM This report has been signed electronically.
--- NOTE | 2021-09-27 12:10 | OP.COLON_ITS ---
Patient Name: Pricila Kearns Procedure Date: 09/27/2021 11:42 AM Date of : 1980 Age: 40 Procedure: Colonoscopy Indications: Abdominal pain in the left lower quadrant, Chronic diarrhea, Clinically significant diarrhea of unexplained origin Providers: Johny Chauhan DO Referring MD: Joe White Medicines: See the Anesthesia note for documentation of the administered medications Patient Profile: This is a 40 year old female. Refer to note in patient chart for documentation of history and physical. Patient has symptoms. The symptoms first began 2014. She is status post EGD for biopsy within the past five years. Last Colonoscopy: 3 years ago. Complications: No immediate complications. Procedure: Pre-Anesthesia Assessment: - Prior to the procedure, a History and Physical was performed, and patient medications and allergies were reviewed. The patient is competent. The risks and benefits of the procedure and the sedation options and risks were discussed with the patient. All questions were answered and informed consent was obtained. Patient identification and proposed procedure were verified by the physician in the pre-procedure area. Mental Status Examination: alert and oriented. Airway Examination: normal oropharyngeal airway and neck mobility. Respiratory Examination: clear to auscultation. CV Examination: normal. Prophylactic Antibiotics: The patient does not require prophylactic antibiotics. Prior Anticoagulants: The patient has taken no previous anticoagulant or antiplatelet agents. ASA Grade Assessment: II - A patient with mild systemic disease. After reviewing the risks and benefits, the patient was deemed in satisfactory condition to undergo the procedure. The anesthesia plan was to use moderate sedation / analgesia (conscious sedation). Immediately prior to administration of medications, the patient was re-assessed for adequacy to receive sedatives. The heart rate, respiratory rate, oxygen saturations, blood pressure, adequacy of pulmonary ventilation, and response to care were monitored throughout the procedure. The physical status of the patient was re-assessed after the procedure. After I obtained informed consent, the scope was passed under direct vision. Throughout the procedure, the patient's blood pressure, pulse, and oxygen saturations were monitored continuously. The Colonoscope was introduced through the anus and advanced to the terminal ileum. The colonoscopy was performed without difficulty. The patient tolerated the procedure well. The quality of the bowel preparation was good. Moderate Sedation: Moderate (conscious) sedation was administered by the endoscopy nurse and supervised by the endoscopist. The patient's oxygen saturation, heart rate, blood pressure and response to care were monitored. Moderate (conscious) sedation was personally administered by an anesthesia professional. The following parameters were monitored: oxygen saturation, heart rate, blood pressure, and response to care. Total physician intraservice time was 15 minutes. Scope In: 11:48:18 AM Scope Withdrawal Time 0 hours 11 minutes 37 seconds Scope Out: 12:04:40 PM Total Procedure Duration Time 0 hours 16 minutes 22 seconds Findings: The perianal and digital rectal examinations were normal. The colon (entire examined portion) appeared normal. Biopsies for histology were taken with a cold forceps from the ascending colon, right colon, left colon, transverse colon, right transverse colon, left transverse colon, descending colon, sigmoid colon and rectum for evaluation of microscopic colitis. Estimated blood loss was minimal. A few small-mouthed diverticula were found in the sigmoid colon. A patchy area of the terminal ileum was congested. This was biopsied with a cold forceps. Verification of patient identification for the specimen was done. Estimated blood loss was minimal. Impression: - The entire examined colon is normal. Biopsied. - Diverticulosis in the sigmoid colon. - Congested mucosa in the terminal ileum. Biopsied. Recommendation: - Discharge patient to home. - Resume previous diet. - Continue present medications. - Await pathology results. - Repeat colonoscopy in 5 years for surveillance based on pathology results. - Return to GI office in 2 weeks. Procedure Code(s): --- Professional --- 76080, Colonoscopy, flexible; with biopsy, single or multiple Diagnosis Code(s): --- Professional --- K63.89, Other specified diseases of intestine R10.32, Left lower quadrant pain K52.9, Noninfective gastroenteritis and colitis, unspecified R19.7, Diarrhea, unspecified K57.30, Diverticulosis of large intestine without perforation or abscess without bleeding CPT copyright 2017 [employer]. All rights reserved. The codes documented in this report are preliminary and upon belt buckle maker review may be revised to meet current compliance requirements. Johny Chauhan DO 09/27/2021 12:09:50 PM This report has been signed electronically. Number of Addenda: 1 Note Initiated On: 09/27/2021 11:42 AM Addendum Number: 1 Addendum Date: 07/22/2022 6:18:57 AM MAC was used instead of moderate sedation for this patient. Johny Chauhan DO 07/22/2022 6:19:05 AM This report has been signed electronically.
--- NOTE | 2021-09-27 12:11 | OP.CCLET_ITS ---
07/22/2022 Joe White [address] [place] [address] Re : Colonoscopy procedure for Priicla Kearns Dear Dr. White This procedure was performed on Monday, September 27, 2021. My impressions and recommendations are as follows: Impressions : - The entire examined colon is normal. Biopsied. - Diverticulosis in the sigmoid colon. - Congested mucosa in the terminal ileum. Biopsied. Recommendations : - Discharge patient to home. - Resume previous diet. - Continue present medications. - Await pathology results. - Repeat colonoscopy in 5 years for surveillance based on pathology results. - Return to GI office in 2 weeks. My findings are described in the full procedure note, which is enclosed. If I can be of further assistance, please feel free to contact me at . Sincerely, Johny Friend, 09/27/2021 12:09:50 PM This report has been signed electronically.
== END 2021-09-27 12:57 | disposition home or self-care (01) ==
LOC: EN 10:46 → AC 10:50
PROVIDERS: Anesthesiology; PCP Family Medicine; Referring Provider Family Medicine; Visit Provider Internal Medicine Gastroenterology
PROC: 0DJD8ZZ Inspection of Lower Intestinal Tract, Via Natural or Artificial Opening Endoscopic (ICD-10-PCS; CPT 45378; principal; 2021-09-27 11:40)
DX: K29.50 Unspecified chronic gastritis without bleeding (principal); K29.80 Duodenitis without bleeding; K57.30 Diverticulosis of large intestine without perforation or abscess without bleeding; K21.00 Gastro-esophageal reflux disease with esophagitis, without bleeding; K52.9 Noninfective gastroenteritis and colitis, unspecified; K63.89 Other specified diseases of intestine; F41.9 Anxiety disorder, unspecified; F31.9 Bipolar disorder, unspecified; G56.03 Carpal tunnel syndrome, bilateral upper limbs; F43.10 Post-traumatic stress disorder, unspecified; J44.9 Chronic obstructive pulmonary disease, unspecified; Z79.899 Other long term (current) drug therapy; F17.210 Nicotine dependence, cigarettes, uncomplicated
CPT/HCPCS: 43239; 45380; 81025; 87426; 88305; 88313; 88342; C9803; J7120; J2405

== ENCOUNTER → 2021-10-13 10:34 | Outpatient (CLI) | payer MEDICAID, SELFPAY ==
[2021-10-17 04:06] LABS: Beef <0.10 kU/L (Class 0); Clam <0.10 kU/L (Class 0); Codfish <0.10 kU/L (Class 0); Corn <0.10 kU/L (Class 0); Egg, White <0.10 kU/L (Class 0); Egg, Whole <0.10 kU/L (Class 0); Milk (Cow) <0.10 kU/L (Class 0); Peanut <0.10 kU/L (Class 0); Pork <0.10 kU/L (Class 0); SCALLOP <0.10 kU/L (Class 0); SESAME SEED <0.10 kU/L (Class 0); Shrimp <0.10 kU/L (Class 0); Soybean <0.10 kU/L (Class 0); Walnut, (Food) <0.10 kU/L (Class 0); Wheat <0.10 kU/L (Class 0)
[2021-10-17 08:02] LABS: Chocolate <0.10 kU/L (Class 0)
== END ==
PROVIDERS: PCP Family Medicine; Referring Provider Internal Medicine Gastroenterology; Visit Provider Internal Medicine Gastroenterology
DX: R10.9 Unspecified abdominal pain (principal); R11.2 Nausea with vomiting, unspecified
CPT/HCPCS: 36415; 86003; 86005

== ENCOUNTER 2021-12-11 16:39 | Emergency (ER) | payer MEDICAID, SELFPAY ==
[2021-12-11 16:39] VITALS: BP 179/103; PULSE 94; RESP 16; TEMP 36.5; O2SAT 97; BMI 37.8
--- NOTE | 2021-12-11 16:54 | ED.VIS.LOWEX ---
HPI History of Present Illness Chief Complaint: Lower Extremity Injury Detail of Chief Complaint: Atraumatic left foot pain Informant: patient Occured/Mechanism Mechanism/Context: No injury and No blunt trauma Onset/Context/Timing Onset: Days Context: Gradual Onset Timing: Continuous Current Severity: Mild Maximum Severity: Mild Associated Symptoms Associated Symptoms: Negative for Parasthesia, Weakness and Loss of Funtion Narrative Narrative: 41-year-old female denies any past medical history the chart has listed bipolar disorder. Complaining of left foot pain for approximately a month. She denies any known fall injury or trauma but is just assuming that she may have injured it. She denies any fever or redness. Is never had surgery to this extremity. Has been worked up in the past but has never had a DVT. She denies any calf or upper leg pain. Says is more uncomfortable with walking. She denies any fever. Prior similar symptoms: No Recent Illness/Hospitalization: No PFSH PFSH Medical History Abdominal pain Anxiety Asthma Back pain Bipolar disorder Carpal tunnel syndrome, bilateral COPD (chronic obstructive pulmonary disease) Depression Easy bruising History of echocardiogram History of posttraumatic stress disorder (PTSD) Marijuana use Nausea Nausea & vomiting Shortness of breath on exertion Smoker Home Medications gabapentin 300 mg PO TID 08/31/21 [History Last Taken Unknown] ketorolac 10 mg PO Q8H PRN #15 tab 09/02/21 [Rx Last Taken Unknown] alprazolam 0.5 mg tablet 0.5 mg PO BID #14 tab 09/03/21 [Rx Last Taken Unknown] scopolamine base 1 mg over 3 days transdermal patch 1 patch TRANSDERMAL Q3D PRN #4 ea 09/03/21 [Rx Last Taken Unknown] albuterol sulfate 1 inh INHALATION Q6H PRN 09/09/21 [History Last Taken Unknown] tiotropium bromide [Spiriva with HandiHaler] 1 cap INHALATION BID 09/09/21 [History Last Taken Unknown] pantoprazole 40 mg tablet,delayed release 40 mg PO DAILY #180 tab 10/05/21 [Rx Last Taken Unknown] sucralfate 1 gram tablet 1 g PO BID #60 tab 10/05/21 [Rx Last Taken Unknown] Allergy/AdvReac Type Severity Reaction Status Date / Time carbinoxamine [From [facility]] Allergy Rash Verified 12/11/21 16:41 pseudoephedrine [From [facility]] Allergy Rash Verified 12/11/21 16:41 Surgical History History of History of carpal tunnel surgery of left wrist History of carpal tunnel surgery of right wrist History of hysteroscopy History of loop electrical excision procedure (LEEP) History of open reduction and internal fixation (ORIF) procedure Hx of prior ablation treatment Social History Smoking Status: Current every day smoker tobacco type: cigarettes substance use type: does not use ROS ROS ED ROS Narrative Denies recent illness. Review of Systems ROS Unobtainable: Denies due to encephalopathy Constitutional Constitutional ED: Denies fever(s) Eyes Eyes: Denies change in vision ENT ENT ED: Denies ear pain Cardiovascular Cardiovascular: Denies chest pain Respiratory/Chest Respiratory/Chest: Denies dyspnea Gastrointestinal Gastrointestinal: Denies abdominal pain, diarrhea, nausea or vomiting Genitourinary Genitourinary ED: Denies dysuria Musculoskeletal Musculoskeletal: Denies myalgias Integumentary Denies rash Neurologic Neurologic: Denies headache(s) Psychiatric Psychiatric: Denies depression Endocrine Endocrinology: Denies polyuria Hematologic/Lymphatic Hematologic/Lymphatic: Denies easy bruising Allergic/Immunologic Allergic/Immunologic ED: Denies urticaria EXAM Physical Exam Narrative Exam Narrative: 41-year-old female no acute distress. Vital signs stable blood pressure elevated 179/103. H EENT exam unremarkable. Neck nontender. Lungs clear to auscultation. Heart regular rhythm. Abdomen soft nontender. Moving all 4 extremities. Neurovascularly intact. Specifically left thigh, knee, lower leg and calf are nontender no deformity. No noted redness or swelling. Left ankle nontender. Normal DP pulse. Achilles tendon intact. Normal dorsi plantarflexion. She complains of discomfort in her foot and states it is swollen. The foot does not look swollen to me compared to the other. There is no redness or warmth. No cellulitis. She is able to wiggle her toes. There is no bony deformity. There is no signs of a puncture wound. There is no cellulitis. Otherwise exam unremarkable. Const Vital Signs: 12/11/21 16:39 Temperature 97.7 F L Temperature Source Temporal Pulse Rate 94 Respiratory Rate 16 Blood Pressure 179/103 H Blood Pressure Mean 128 Pulse Ox 97 Oxygen Delivery Method Room Air Positive well nourished, well developed and obese; Negative for cachectic, contractures or unkempt General Appearance ED: well developed and NAD; Negative for unkempt, cachectic or contractures Nutritional Appearance: obese; Negative for cachectic HEENT Reports moist mucous membranes normocephalic and atraumatic Neck full ROM and supple Thyroid: Negative for tender Chest Wall inspection of chest normal and palpation of chest normal Resp normal respiratory effort, no retractions and clear to auscultation bilaterally Auscultation: Negative for rales, rhonchi or wheezes Cardio regular rate, regular rhythm, S1 normal heart sound, S2 normal heart sound and no murmurs GI non-tender, non-distended and no masses Auscultation: normoactive bowel sounds Palpation: soft; Negative for tender, guarding or rebound tenderness present Back/Spine no CVA tenderness General Back: Negative for CVA tenderness Cervical Spine: Negative for cervical spine tenderness Thoracic Spine / Upper Back: Negative for thoracic spinal tenderness Extremity normal to inspection and full ROM Extremity Narrative: Left foot appears normal. Normal dorsi plantarflexion. Normal DP pulse. No redness. No swelling. No bony deformity. Normal cap refill. Able to wiggle her toes. Normal touch sensation. No signs of gout. General Extremety ED: Negative for cyanosis or edema General Extremity: Negative for cyanosis or edema Neuro oriented x3 and moves all extremities Sensorium / Orientation: alert, oriented to person, oriented to place and oriented to time; Negative for orientation impaired, confused, lethargic or stuporous Motor Exam: strength 5/5 throughout Psych mental status grossly normal Appearance: Negative for unkempt Mood & Affect: anxious Skin no wounds Lesions: no lesions Rashes: no rashes MDM MDM MDM Narrative Medical decision making narrative: 41-year-old female history of bipolar complaining of left atraumatic foot pain. Exam is benign. X-ray being obtained. There is no signs of infection. Repeat exam likely to change. Discharged home. Motrin for pain. Follow-up with podiatry if not improving. Radiography Diagnostic Testing: Clinical Impression(s) from Imaging Studies Foot X-Ray 12/11/21 16:58 IMPRESSION: Unremarkable x-ray examination of the foot. Electronically Signed: Ham Vo MD ([place]) at 17:13 EST , Service support , Left foot x-ray, 3 views, interpreted by myself shows no acute abnormality. No fracture. No foreign body. Also read by the radiologist. Discharge Plan Triage Chief Complaint: Lower Extremity Injury ED Provider: Jonn Preciado Dx/Rx/DC Orders Clinical Impression: Foot pain Prescriptions: No Action scopolamine base 1 mg over 3 days patch 3 day 1 patch transdermal Q3D PRN (Reason: nausea and vomiting) Qty: 4 RF: 0 alprazolam 0.5 mg tablet 0.5 mg PO BID Qty: 14 RF: 0 gabapentin 300 mg Capsule 300 mg PO TID RF: 0 ketorolac 10 mg tablet 10 mg PO Q8H PRN (Reason: pain) Qty: 15 RF: 0 albuterol sulfate 90 mcg/actuation Hfa Aerosol Inhaler 1 inh INHALATION Q6H PRN (Reason: SOB) RF: 0 Spiriva with HandiHaler 18 mcg Capsule, W/Inhalation Device 1 cap INHALATION BID RF: 0 sucralfate [Carafate] 1 gram tablet 1 g PO BID Qty: 60 RF: 0 pantoprazole [Protonix] 40 mg tablet,delayed release (DR/EC) 40 mg PO DAILY Qty: 180 RF: 0 Primary Care Provider: Joe White Referrals: Homero Gibbs DPM [STAFF PHYSICIAN] - 1 Week if not improving Joe White MD [Primary Care Provider] - As Needed Activity Restrictions/Additional Instructions: Motrin for pain and swelling. Follow-up with your doctor or a local [facility]riman helper for further evaluation if not improving. Your x-rays today were unremarkable. Disposition Disposition: Home, Self Care
--- NOTE | 2021-12-11 16:58 | RAD_ITS ---
STUDY: X-RAY - LEFT FOOT CLINICAL: Female, 41 years old. INCREASING PAIN TO LATERAL LEFT FOOT ANKLE AREA. SWELLING. TECHNIQUE: 3 view(s) of the foot. COMPARISON: None. FINDINGS: Normal talus, calcaneus, and tarsal bones. Normal visualized subtalar, talonavicular, calcaneocuboid, tarsal and tarsometatarsal articulations. Normal metatarsi. Normal metatarsophalangeal joint of the great toe. Normal tibial and fibular sesamoid bones. Normal interphalangeal joint of the great toe. Normal phalanges of the great toe. Normal second through fifth metatarsophalangeal joints. Normal interphalangeal joints and phalanges of the lesser toes. The soft tissue structures are unremarkable. RAD/Foot min 3 Views IMPRESSION: Unremarkable x-ray examination of the foot. Electronically Signed: Ham Vo MD ([place]) at 17:13 EST , Service support ,
== END 2021-12-11 17:36 | disposition home or self-care (01) ==
PROVIDERS: Emergency Provider Emergency Medicine; PCP Family Medicine; Visit Provider Emergency Medicine
DX: M79.672 Pain in left foot (principal); F17.210 Nicotine dependence, cigarettes, uncomplicated; E66.9 Obesity, unspecified
CPT/HCPCS: 73630; 99282

== ENCOUNTER 2022-12-25 15:49 | Emergency (ER) | payer MEDICAID, SELFPAY ==
[2022-12-25 15:50] VITALS: BP 137/97; PULSE 90; RESP 18; TEMP 36.1; O2SAT 98; BMI 39.6
--- NOTE | 2022-12-25 16:08 | EDS_ITS ---
HPI HPI - GI History of Present Illness Chief Complaint: Abd Pain Detail of Chief Complaint: Right-sided abdominal pain Informant: patient Abdominal Pain/Flank Pain Onset: Today (070) Timing: Continuous Quality: Aching Location: - (10 cm to the right of the umbilicus and radiates to the back) Current Severity: Mild Maximum Severity: Moderate Worsened by: Movement Relieved by: - (Supine position) Nausea/Vomiting/Emesis GI Symptom: Positive for Nausea; Negative for Vomiting Diarrhea/Melena/Hematochezia GI Symptom: Negative for Diarrhea, Melena or Hematochezia Associated Symptoms Associated Symptoms: Negative for Dysuria, Frequency, Hematuria or Urgency LMP: Status post uterine ablation Narrative Narrative: Patient is a 42-year-old woman who presents with right-sided abdominal pain that wraps around her back that started at 0730. She does endorse nausea without vomiting or diarrhea. She denies anorexia. 3 hours prior to presentation she had chicken strips. She does report intolerance to greasy and fried foods. There is no family history of cholelithiasis. She denies pain radiating to the intrascapular region. She denies fever, chills night sweats. She denies cough, shortness of breath or difficulty breathing. She denies history of renal or ureteral lithiasis. She denies history of ovarian cysts. She denies dysuria, frequency, urgency or hematuria. She denies trauma. She has not noted a rash. She has not taken anything for the discomfort. She denies prior symptoms. Prior similar symptoms: No Recent Illness/Hospitalization: No PFSH PFSH Medical History Abdominal pain Anxiety Asthma Back pain Bipolar disorder Carpal tunnel syndrome, bilateral COPD (chronic obstructive pulmonary disease) Depression Easy bruising History of echocardiogram History of posttraumatic stress disorder (PTSD) Marijuana use Nausea Nausea & vomiting Shortness of breath on exertion Smoker Home Medications gabapentin 300 mg capsule 300 mg PO TID 08/31/21 [History Last Taken Unknown] ketorolac 10 mg tablet 10 mg PO Q8H PRN pain #15 tabs 09/02/21 [Rx Last Taken Unknown] albuterol sulfate 90 mcg/actuation aerosol inhaler 1 inh inhalation Q6H PRN SOB 09/09/21 [History Last Taken Unknown] tiotropium bromide 18 mcg capsule with inhalation device (Spiriva with HandiHaler) 1 cap inhalation BID 09/09/21 [History Last Taken Unknown] Allergy/AdvReac Type Severity Reaction Status Date / Time carbinoxamine [From [facility]] Allergy Rash Verified 12/25/22 15:51 pseudoephedrine [From [facility]] Allergy Rash Verified 12/25/22 15:51 Surgical History History of History of carpal tunnel surgery of left wrist History of carpal tunnel surgery of right wrist History of hysteroscopy History of loop electrical excision procedure (LEEP) History of open reduction and internal fixation (ORIF) procedure Hx of prior ablation treatment Social History (Updated 12/25/22 @ 16:[address] Jamie Bess MD) household members: children Smoking Status: Current every day smoker tobacco type: cigarettes substance use type: does not use ROS ROS ED Constitutional Constitutional ED: Denies chills, fever(s), subjective, sweats or weight loss ENT ENT ED: Denies ear pain, rhinorrhea or sore throat Cardiovascular Cardiovascular: Denies chest pain or palpitations Respiratory/Chest Respiratory/Chest: Denies cough, dyspnea or dyspnea on exertion Gastrointestinal Gastrointestinal: Reports abdominal pain and nausea; Denies constipation, diarrhea, melena or vomiting Genitourinary Genitourinary ED: Denies dysuria, hematuria or urinary frequency Musculoskeletal Musculoskeletal: Reports other Details: Right flank ; Denies arthralgias, back pain, myalgias or neck pain Integumentary Denies Abrasions or rash Neurologic Neurologic: Denies headache(s) or paresthesias Psychiatric Psychiatric: Denies anxiety or depression Endocrine Endocrinology: Denies polydipsia, polyphagia or polyuria Hematologic/Lymphatic Hematologic/Lymphatic: Denies easy bleeding or easy bruising EXAM Physical Exam Const Vital Signs: 12/25/22 15:50 12/25/22 18:00 12/25/22 20:54 Temperature 97 F L 98.2 F Temperature Source Temporal Temporal Pulse Rate 90 78 68 Respiratory Rate 18 16 16 Blood Pressure 137/97 H 148/78 H 143/90 H Blood Pressure Mean 110 101 107 Pulse Ox 98 98 95 Oxygen Delivery Method Room Air Room Air Room Air Positive well nourished, well developed and obese Constitutional Narrative: Patient does not appear well. She grimaces when asked to rise from supine position. General Appearance ED: well developed; Negative for pallor Nutritional Appearance: obese HEENT Reports TM's clear and moist mucous membranes HEENT Narrative: Nares patent. Posterior pharynx out erythema or exudate. Uvula midline. normocephalic and atraumatic Tympanic Membrane ED: Yes TM's clear Eyes PERRL and EOMs intact bilaterally General Eye ED: Negative for pale conjunctiva or scleral icterus Neck no lymphadenopathy, supple and no JVD Resp normal respiratory effort and clear to auscultation bilaterally Cardio regular rate, regular rhythm, S1 normal heart sound, S2 normal heart sound and no murmurs GI non-distended and no masses; Negative for non-tender Auscultation: hypoactive bowel sounds Palpation: soft and tender other (Right side. There is also tenderness in the right upper quadrant with a negative [place] sign.); Negative for guarding, rigid, hepatomegaly, splenomegaly, hernia, mass, pulsatile mass or rebound tenderness present Back/Spine Back/Spine Narrative: Reports right sided CVA tenderness. General Back: CVA tenderness Cervical Spine: Negative for cervical spine tenderness Thoracic Spine / Upper Back: Negative for thoracic spinal tenderness Lumbar Spine / Lower Back: Negative for lumbar spinal tenderness Extremity full ROM General Extremety ED: Negative for edema or tenderness General Extremity: Negative for edema Neuro CN's II-XII intact bilaterally, moves all extremities and no sensory deficits noted Sensorium / Orientation: alert Psych Mood & Affect: depressed Skin no wounds General Skin Exam: Negative for jaundice or pallor Lesions: no lesions Rashes: no rashes MDM MDM MDM Narrative Medical decision making narrative: Patient presents with right-sided abdominal pain this may represent appendicitis, gynecologic pathology i.e. ovarian cyst, urologic i.e. ureteral lithiasis also need to consider infection. Since patient is not having diarrhea, blood or mucus per rectum doubt inflammatory bowel disorder. Patient did have an EGD performed by Dr. Chauhan that revealed grade 1 esophageal reflux with esophagitis. Biopsies were taken. Biopsies were negative. Review of past history also indicates that patient had a uterine ablation. There was no complication. To evaluate patient's presentation laboratory studies were ordered as well as UA. Since patient drove herself she was treated with IV Toradol since she has no contraindication for pain and Zofran for nausea. CAT scan reveals no abnormality. Uncertain the cause of her leukocytosis. Plan charge to home with close follow-up. Lab Data Attestation: I reviewed the patient's lab results. Lab results narrative: White count is elevated with mild shift. There is no bandemia. Comprehensive metabolic panel is unremarkable i.e. electrolytes, CO2 anion gap, transaminases. Glucose is elevated. UA reveals 5-10 epithelial cells with only 0-5 WBCs and no bacteria. With right lower quadrant abdominal pain elevated white count will obtain CT to assess for atypical appendicitis. This may represent a retrocecal appendicitis. Labs: Laboratory Results - last 24 hr 12/25/22 12/25/22 12/25/22 16:00 16:00 17:10 WBC 14.1 H RBC 4.83 Hgb 14.8 Hct 42.8 MCV 88.6 MCH 30.6 MCHC 34.6 RDW Std Deviation 42.4 RDW Coeff of Camille 13.0 Plt Count 270 MPV 9.8 Immature Gran % (Auto) 0.900 Neut % (Auto) 71.4 H Lymph % (Auto) 22.8 [place] % (Auto) 3.8 Eos % (Auto) 0.8 Baso % (Auto) 0.3 Absolute Neuts (auto) 10.1 H Absolute Lymphs (auto) 3.21 Nucleated RBC % 0 Sodium 138 Potassium 3.9 Chloride 105 Carbon Dioxide 24.0 Anion Gap 9 BUN 7 Creatinine 0.77 Estim Creat Clear Calc 71.09 Est GFR (MDRD) Af Amer 106 Est GFR (MDRD) Non-Af 88 BUN/Creatinine Ratio 9.1 L Glucose 218 H Calcium 8.3 L Total Bilirubin 0.30 Direct Bilirubin 0.06 AST 10 L ALT 26 Alkaline Phosphatase 92 Total Protein 6.8 Albumin 3.4 Globulin 3.4 Lipase 185 Urine Color Yellow Urine Clarity Sl. Cloudy Urine pH 7.0 Ur Specific [place] 1.010 Urine Protein 15 H Urine Glucose (UA) 50 H Urine Ketones Negative Urine Occult Blood Negative Urine Nitrite Negative Urine Bilirubin Negative Urine Urobilinogen 1 H Ur Leukocyte Esterase 25 H Urine RBC 0 SEEN Urine WBC 0-5 SEEN Ur Squamous Epith Cells 5-10 SEEN Amorphous Sediment 1+ PHOS Urine Bacteria 0 SEEN Urine Mucus 0 SEEN Radiography Diagnostic Testing: Clinical Impression(s) from Imaging Studies Abdomen/Pelvis CT 12/25/22 18:15 IMPRESSION: 1. Fatty liver. 2. Collapsed follicle measuring 1.8 cm left ovary. 3. No acute abdominal pelvic abnormality. Electronically Signed: Leonidas Harris MD at 19:23 EST , Discharge Plan Triage Chief Complaint: Abd Pain ED Provider: Jamie Bess Dx/Rx/DC Orders Clinical Impression: Right-sided abdominal pain of unknown cause, Leukocytosis, Cyst of left ovary Instructions: ED Abdominal Pain Unkn Cause Fem, ED Ovarian Cyst Prescriptions: No Action gabapentin 300 mg Capsule 300 mg PO TID ketorolac 10 mg tablet 10 mg PO Q8H PRN (Reason: pain) Qty: 15 0RF albuterol sulfate 90 mcg/actuation Hfa Aerosol Inhaler 1 inh INHALATION Q6H PRN (Reason: SOB) Spiriva with HandiHaler 18 mcg Capsule, W/Inhalation Device 1 cap INHALATION BID Primary Care Provider: Joe White Referrals: Joe White MD [Primary Care Provider] - 1-2 Days if not improving Disposition Disposition: Home, Self Care
[2022-12-25] MEDS: Ondansetron 4 MG/2 ML Vial IV (16:19)
[2022-12-25] MEDS: Ketorolac 15 MG/ML Vial IV (16:19)
[2022-12-25] MEDS: 0.9% Normal Saline 1,000 ML 125 ML IV (16:19)
[2022-12-25 16:31] LABS: Absolute Lymphocyte Count 3.21 X10^3/uL (0.83-4.51); Absolute Neutrophil Count 10.1 X10^3/uL (2.0-7.7); Basophil# 0.04 X10^3/uL; Basophil% 0.3 % (0-1); Eosinophil# 0.11 X10^3/uL; Eosinophils% 0.8 % (0-5); Hematocrit 42.8 % (37-47); Hemoglobin 14.8 g/dL (12.0-15.0); Lymphocyte # 3.21 X10^3/ul (0.83-4.51); Lymphocyte % 22.8 % (19-41); Mean Corp Hgb Conc 34.6 g/dL (32-36); Mean Corpuscular Hgb 30.6 pg (27.0-32.0); Mean Corpuscular Volume 88.6 fL (81-99); Mean Platelet Vol. 9.8 fl (6.2-12.0); Monocyte# 0.53 X10^3/uL; Monocyte% 3.8 % (0-10); NRBC Flagged by Analyzer 0 % (0-5); Neutrophil # 10.05 X10^3/uL (2.7-7.7); Neutrophil % 71.4 % (47-70); Platelet Count 270 K/mm3 (150-450); RBC Distribution Width SD 42.4 fl (35.1-43.9); Red Blood Count 4.83 M/mm3 (4.2-5.4); White Blood Count 14.1 K/mm3 (4.4-11.0)
[2022-12-25 16:38] LABS: AST(SGOT) 10 U/L (15-37); Alanine Aminotransfer ALT/SGPT 26 U/L (13-56); Albumin, Serum 3.4 g/dL (3.2-5.0); Alkaline Phosphatase 92 U/L (45-117); Anion Gap 9 (5-15); BUN 7 mg/dL (7-18); BUN/Creat Ratio 9.1 RATIO (10-20); Bilirubin, Direct 0.06 mg/dL (0.00-0.30); Calcium,Total 8.3 mg/dL (8.5-10.1); Chloride 105 mmol/L (98-107); Creatinine, Serum 0.77 mg/dL (0.55-1.02); EST Glomerular Filtration Rate 88 mL/min (>60); Est Glom Filt Rate - Afr Amer 106 mL/min (>60); Estimated Creatinine Clearance 71.09 ml/min; Globulin 3.4 g/dL (2.2-4.2); Glucose 218 mg/dL (74-106); Lipase 185 U/L (73-393); Potassium 3.9 mmol/L (3.5-5.1); Protein, Total 6.8 g/dL (6.4-8.2); Sodium Level 138 mmol/L (136-145)
[2022-12-25 17:15] LABS: Bacteria 0 SEEN /hpf (None Seen); Mucous, Urine 0 SEEN /hpf (<or=2+); Red Blood Cells-Urine 0 SEEN /hpf (0-5)
[2022-12-25 17:18] LABS: Color, Urine Yellow (Yellow); Glucose, Dipstick 50 mg/dl (Normal); Ketone-Dipstick Negative (Negative); Leukocyte Esterase-Dipstick 25 /ul (Negative); Nitrite-Dipstick Negative (Negative); Occult Blood-Urine Negative /ul (Negative); Protein-Dipstick 15 mg/dl (Negative); Urine Bilirubin Dipstick Negative (Negative); Urine Clarity Sl. Cloudy (Clear); Urine Urobilinogen 1 mg/dl (Normal)
[2022-12-25 17:26] LABS: Amorphous Sediment 1+ PHOS; Squamous Epithelial Cells - UA 5-10 SEEN /hpf (5-10); White Blood Cells 0-5 SEEN /hpf (0-5)
[2022-12-25 18:00] VITALS: BP 148/78; PULSE 78; RESP 16; O2SAT 98
--- NOTE | 2022-12-25 18:15 | CT_ITS ---
EXAM: CT ABDOMEN AND PELVIS WITH INTRAVENOUS CONTRAST CLINICAL INDICATION: Right lower quadrant pain, leukocytosis TECHNIQUE: Helically acquired images were obtained of the abdomen and pelvis with intravenous contrast. This CT exam was performed using one or more of the following dose reduction techniques: automated exposure control, adjustment of the mA and/or kV according to patient size, and/or use of iterative reconstruction technique. This report was created using [employer] report generation technology. CONTRAST: 100 cc of Isovue-370 IV. RADIATION DOSE: CTDIvol = 17.79 mGy, DLP = 1064.00 mGy-cm. COMPARISON: 08/31/2021. FINDINGS: LOWER THORAX: Unremarkable. Lung bases are clear. No cardiomegaly. No significant pericardial effusion. ABDOMEN: LIVER: There is diffuse low-attenuation of the liver. GALLBLADDER AND BILE DUCTS: Unremarkable. No calcified gallstones. No gallbladder distention or wall edema. No intra- or extrahepatic biliary ductal dilation. PANCREAS: Unremarkable. No focal cystic or solid mass. SPLEEN: Unremarkable. Normal size without focal cystic or solid mass. ADRENALS: Unremarkable. No nodules. KIDNEYS AND URETERS: Unremarkable. Normal renal size and position. No hydronephrosis. STOMACH AND BOWEL: Unremarkable. No stomach or bowel distention. No focal inflammatory change. PELVIS: APPENDIX: Normal appendix. BLADDER: Unremarkable. REPRODUCTIVE: Collapsed follicle measuring 1.8 cm left ovary. ABDOMEN and PELVIS: INTRAPERITONEAL SPACE: Unremarkable. No ascites or other fluid collection. No free air. BONES/JOINTS: Unremarkable. No suspicious lytic or blastic abnormality. SOFT TISSUES: Unremarkable. No discrete abdominal or pelvic wall hernia. VASCULATURE: Unremarkable. Abdominal aorta is non-dilated. LYMPH NODES: Unremarkable. No enlarged lymph nodes. CT/Abdomen/Pelvis W IV Cont ONLY IMPRESSION: 1. Fatty liver. 2. Collapsed follicle measuring 1.8 cm left ovary. 3. No acute abdominal pelvic abnormality. Electronically Signed: Leonidas Harris MD at 19:23 EST ,
[2022-12-25 20:54] VITALS: BP 143/90; PULSE 68; RESP 16; TEMP 36.8; O2SAT 95
--- NOTE | 2022-12-25 22:10 | ED.RN ---
Patient upset she had to wait for discharge during 2 stroke alerts with same MD on those alerts. She removed her own IV and requested a band aid when this nurse offered to remove it for her. Patient upset and states she has seen people walk by her room ten times. We still do not have papers/orders for dc/ Bandage given to patient and Dr Bess aware to get dc ready. Went back to let patient know but already gone from the room.
== END 2022-12-25 22:13 | disposition home or self-care (01) ==
PROVIDERS: Emergency Provider Emergency Medicine; PCP Family Medicine; Visit Provider Emergency Medicine
DX: R10.9 Unspecified abdominal pain (principal); D72.829 Elevated white blood cell count, unspecified; N83.202 Unspecified ovarian cyst, left side; F17.210 Nicotine dependence, cigarettes, uncomplicated; E66.9 Obesity, unspecified
CPT/HCPCS: 74177; 80048; 80076; 81001; 83690; 85025; 96374; 96375; 99283; J7030; Q9967; A4216; J2405

== ENCOUNTER 2023-01-30 07:45 | Emergency (ER) | payer MEDICAID, SELFPAY ==
[2023-01-30] VITALS (9 sets, daily range): BP systolic 153–180; BP diastolic 86–97; PULSE 72–118; RESP 12–24; TEMP 35.9–37.2; O2SAT 91–95; BMI 40.6
--- NOTE | 2023-01-30 07:52 | EDS_ITS ---
HPI History of Present Illness Chief Complaint: Shortness of Breath Informant: patient Onset/Context/Timing Onset: Yesterday Context: gradual Timing: Continuous Quality: Positive for Orthopnea and Wheezing Worsened by: Lying flat Relieved by: other (Sitting up) Associated Symptoms cough and sore throat; Negative for rhinorrhea, post nasal drip, ear pain, fever, chills or sweats Chest Pain: Positive for Continuous and Tightness Narrative Narrative: Patient presents with shortness of breath that has been getting worse since yesterday. Patient states she started having some cold symptoms yesterday. Patient states it is gotten progressively worse throughout the night. Patient states her breathing feels like it is shallow. Patient states it is worse whenever she lays down and better with sitting up. Patient has a COPD. Patient also admits to a sore throat and cough. Patient denies any sputum production. Patient denies any fevers or chills. PE Risk Factors: Negative for Cancer, OCP + Smoking + > 35, Prior DVT or PE, Recent immobilization, Recent surgery or Recent travel PFSH PFSH Medical History Abdominal pain Anxiety Asthma Back pain Bipolar disorder Carpal tunnel syndrome, bilateral COPD (chronic obstructive pulmonary disease) Depression Easy bruising History of echocardiogram History of posttraumatic stress disorder (PTSD) Marijuana use Nausea Nausea & vomiting Shortness of breath on exertion Smoker Home Medications gabapentin 300 mg capsule 300 mg PO TID 08/31/21 [History Last Taken Unknown] ketorolac 10 mg tablet 10 mg PO Q8H PRN pain #15 tabs 09/02/21 [Rx Last Taken Unknown] tiotropium bromide 18 mcg capsule with inhalation device (Spiriva with HandiHaler) 1 cap inhalation BID 09/09/21 [History Last Taken Unknown] albuterol sulfate 90 mcg/actuation aerosol inhaler 1 inh inhalation Q6H PRN SOB #1 g 01/30/23 [Rx Last Taken Unknown] prednisone 20 mg tablet 60 mg PO DAILY #15 TABLETS 01/30/23 [Rx Last Taken Unknown] sucralfate 1 gram tablet 1 g PO TIDCM 01/30/23 [History Last Taken Unknown] Allergy/AdvReac Type Severity Reaction Status Date / Time carbinoxamine [From [facility]] Allergy Rash Verified 01/30/23 07:51 pseudoephedrine [From [facility]] Allergy Rash Verified 01/30/23 07:51 Surgical History History of History of carpal tunnel surgery of left wrist History of carpal tunnel surgery of right wrist History of hysteroscopy History of loop electrical excision procedure (LEEP) History of open reduction and internal fixation (ORIF) procedure Hx of prior ablation treatment Social History household members: children Smoking Status: Current every day smoker tobacco type: cigarettes substance use type: does not use ROS ROS ED Constitutional Constitutional ED: Denies chills or fever(s) Eyes Eyes: Denies blurry vision or change in vision ENT ENT ED: Reports sore throat; Denies rhinorrhea Cardiovascular Cardiovascular: Reports chest pain; Denies palpitations Respiratory/Chest Respiratory/Chest: Reports cough and dyspnea Gastrointestinal Gastrointestinal: Reports nausea; Denies vomiting Genitourinary Genitourinary ED: Denies dysuria or hematuria Musculoskeletal Musculoskeletal: Reports back pain; Denies neck pain Integumentary Denies abscess or rash Neurologic Neurologic: Reports headache(s); Denies weakness Allergic/Immunologic Allergic/Immunologic ED: Denies mouth swelling or urticaria EXAM Physical Exam Const Vital Signs: 01/30/23 07:46 01/30/23 07:52 01/30/23 07:52 Temperature 96.7 F L 96.7 F L Temperature Source Oral Oral Pulse Rate 118 H 109 H Respiratory Rate 20 H 24 H Respiratory Effort Short of Breath Respiratory Depth Deep Respiratory Pattern Tachypnea Blood Pressure 180/97 H 180/97 H Blood Pressure Mean 124 124 Pulse Ox 95 94 Oxygen Delivery Method Room Air Room Air Room Air 01/30/23 08:22 01/30/23 09:20 01/30/23 09:25 Temperature 98.9 F Temperature Source Oral Pulse Rate 108 H 108 H 110 H Respiratory Rate 20 H 12 18 Respiratory Effort Respiratory Depth Respiratory Pattern Normal Normal Blood Pressure 162/90 H Blood Pressure Mean 114 Pulse Ox 91 Oxygen Delivery Method Room Air 01/30/23 10:13 01/30/23 10:13 01/30/23 10:31 Temperature 98.3 F Temperature Source Temporal Pulse Rate 112 H 112 H 118 H Respiratory Rate 18 18 18 Respiratory Effort Respiratory Depth Respiratory Pattern Normal Blood Pressure 153/90 H 153/90 H Blood Pressure Mean 111 111 Pulse Ox 92 92 Oxygen Delivery Method Room Air Room Air 01/30/23 11:13 Temperature 97.5 F L Temperature Source Temporal Pulse Rate 118 H Respiratory Rate 22 H Respiratory Effort Respiratory Depth Respiratory Pattern Blood Pressure 156/86 H Blood Pressure Mean 109 Pulse Ox 93 Oxygen Delivery Method Room Air Positive well nourished, well developed and obese General Appearance ED: well developed and NAD Nutritional Appearance: obese HEENT Reports moist mucous membranes Neck supple and no JVD Resp normal respiratory effort Auscultation: wheezes expiratory wheezes and throughout Cardio regular rhythm Rate: tachycardic GI normal to inspection, nondistended, normoactive bowel sounds and non-tender Palpation: soft Extremity normal to inspection General Extremety ED: Negative for edema or tenderness General Extremity: Negative for edema Neuro oriented x3, CN's II-XII intact bilaterally and no sensory deficits noted Sensorium / Orientation: alert Motor Exam: strength 5/5 throughout Psych mental status grossly normal Skin no rashes or lesions noted MDM MDM MDM Narrative Medical decision making narrative: Differential diagnosis includes COPD exacerbation, pneumonia, upper respiratory infection, COVID infection, influenza infection, cardiac ischemia, cardiac dysrhythmia, pulmonary embolism, and pneumothorax. EKG will be obtained to assess for cardiac dysrhythmia and cardiac ischemia. Chest x-ray will be obtained to assess for pneumonia, pneumothorax, and congestive heart failure. CBC will be obtained to assess for anemia and leukocytosis. Basic metabolic pro file will be obtained to assess for electrolyte abnormality and renal function. High-sensitivity troponin will be obtained to assess for cardiac ischemia. D- dimer will be obtained to assess for pulmonary embolism. COVID-19 rapid antigen will be obtained to assess for COVID infection. Influenza A and B antigens will be obtained to assess for influenza infection. Lab Data Attestation: I reviewed the patient's lab results. Lab results narrative: CBC was reviewed and was within normal limits. Basic metabolic profile was reviewed and was within normal limits except for mildly elevated glucose of 207. D-dimer was reviewed and was normal at 0.32. High-sensitivity troponin was reviewed and was normal at 6. COVID-19 rapid antigen was reviewed and was negative. Influenza A and influenza B rapid antigens were reviewed and were negative. Labs: Laboratory Results - last 24 hr 01/30/23 01/30/23 01/30/23 07:56 07:56 07:56 WBC 10.2 RBC 4.96 Hgb 15.0 Hct 44.8 MCV 90.3 MCH 30.2 MCHC 33.5 RDW Std Deviation 43.7 RDW Coeff of Camille 13.3 Plt Count 220 MPV 9.7 Immature Gran % (Auto) 0.500 Neut % (Auto) 87.5 H Lymph % (Auto) 7.4 L [place] % (Auto) 3.6 Eos % (Auto) 0.7 Baso % (Auto) 0.3 Absolute Neuts (auto) 8.9 H Absolute Lymphs (auto) 0.75 L Nucleated RBC % 0 D-Dimer Quant (PE/DVT) 0.32 Sodium 139 Potassium 3.9 Chloride 102 Carbon Dioxide 30.0 Anion Gap 7 BUN 5 L Creatinine 0.69 Estim Creat Clear Calc 79.33 Est GFR (MDRD) Af Amer 120 Est GFR (MDRD) Non-Af 99 BUN/Creatinine Ratio 7.3 L Glucose 207 H Calcium 9.0 Troponin I High Sens 6 Radiography Chest X-Ray - ED: 2 View, Read by ED Physician, Read by Radiologist and No Acute Disease Diagnostic Testing: Clinical Impression(s) from Imaging Studies Chest X-Ray 01/30/23 08:10 IMPRESSION: No acute pulmonary process Electronically Signed: Gera Scherer MD at 8:53 EDT Reading Location ID and State: [facility] / [place] , Service support , [place] and lateral chest x-ray was obtained. There are 2 views. On my independent interpretation, lung madrigal are clear. There is normal cardiac silhouette. Bony thorax is normal. There is no acute process noted. Radiologist also interpreted the x-ray and agrees. EKG Initial EKG: Attestation: I personally reviewed and interpreted this EKG as follows: Interpretation: Sinus Tachycardia (108) and Non-Specific ST Changes Comments: EKG was obtained. On my independent interpretation, it showed a sinus tachycardia with a rate of 108. UT interval, QRS interval, and QTc intervals were all normal. [place] was normal. There are nonspecific ST-T wave changes. Prior EKG tracings: available for review Prior: Unchanged (04/13/2018) Treatment and Re-Evaluation :: Smoking cessation was discussed. Patient was given a DuoNeb aerosol here. Patient was still having some wheezing on reevaluation. Patient was given a dose of prednisone. Patient was given a repeat albuterol aerosol. The patient was advised of her findings. Patient was advised that this is most likely an exacerbation of her COPD. Patient still having some wheezing on reevaluation. Patient was given a repeat albuterol aerosol. Patient was able to ambulate to the bathroom and back without any difficulty. Patient feels better and wants to go home. Patient was given a prescription for prednisone. Patient was also given a prescription for an albuterol inhaler. Patient was instructed to follow-up with her primary care physician in 5 to 7 days. Patient understood and was agreeable with the plan. All questions were answered. Discharge Plan Triage Chief Complaint: Shortness of Breath ED Provider: Haroon Garcia Dx/Rx/DC Orders Clinical Impression: COPD with acute exacerbation, Tobacco dependence Instructions: ED COPD Flare Prescriptions: New prednisone 20 mg tablet 60 mg PO DAILY Qty: 15 0RF Continued albuterol sulfate 90 mcg/actuation Hfa Aerosol Inhaler 1 inh INHALATION Q6H PRN (Reason: SOB) Qty: 1 0RF No Action gabapentin 300 mg Capsule 300 mg PO TID ketorolac 10 mg tablet 10 mg PO Q8H PRN (Reason: pain) Qty: 15 0RF Spiriva with HandiHaler 18 mcg Capsule, W/Inhalation Device 1 cap INHALATION BID sucralfate 1 gram tablet 1 g PO TIDCM Label Comments: Take 1 tablet by mouth before meals and at bedtime. Primary Care Provider: Joe White Referrals: Joe White MD [Primary Care Provider] - 3-5 Days Disposition Disposition: Home, Self Care
--- NOTE | 2023-01-30 07:59 | EKG12_ITS ---
Test Reason : SOB Blood Pressure : / mmHG Vent. Rate : 108 BPM Atrial Rate : 108 BPM P-R Int : 126 ms QRS Dur : 074 ms QT Int : 348 ms P-R-T Axes : 054 057 038 degrees QTc Int : 466 ms Sinus tachycardia Nonspecific ST and T wave abnormality Abnormal ECG When compared with ECG of 13-APR-2018 21:32, Nonspecific T wave abnormality now evident in Lateral leads Confirmed by CHARMAINE OLIVAS, JANEL ([id number]), editor newspaper BATSHEVA MURPHY ([id number]) on 02/01/2023 11:31:11 AM Referred By: Confirmed By:JANEL MONTANO MD
--- NOTE | 2023-01-30 08:10 | RAD_ITS ---
STUDY: X-RAY CHEST REASON FOR EXAM: Female, 42 years old. Diffuse shortness of breath TECHNIQUE: PA and lateral views of the chest. COMPARISON: 04/13/2018 FINDINGS: EKG leads overlie the chest The lungs are clear and expanded. There is no demonstrated pleural abnormality. Normal size heart. Normal mediastinum and juan a. Normal visualized pulmonary arteries. Normal visualized aortic arch and descending thoracic aorta. Normal visualized thoracic spine. Normal visualized ribs, clavicles, and shoulders. There is no demonstrated abnormality of the visualized soft tissue structures of the upper abdomen. RAD/Chest PA and Lateral IMPRESSION: No acute pulmonary process Electronically Signed: Gera Scherer MD at 8:53 EDT ,
[2023-01-30 08:15] LABS: Absolute Lymphocyte Count 0.75 X10^3/uL (0.83-4.51); Absolute Neutrophil Count 8.9 X10^3/uL (2.0-7.7); Basophil# 0.03 X10^3/uL; Basophil% 0.3 % (0-1); Eosinophil# 0.07 X10^3/uL; Eosinophils% 0.7 % (0-5); Hematocrit 44.8 % (37-47); Lymphocyte # 0.75 X10^3/ul (0.83-4.51); Lymphocyte % 7.4 % (19-41); Mean Corp Hgb Conc 33.5 g/dL (32-36); Mean Corpuscular Hgb 30.2 pg (27.0-32.0); Mean Corpuscular Volume 90.3 fL (81-99); Mean Platelet Vol. 9.7 fl (6.2-12.0); Monocyte# 0.37 X10^3/uL; Monocyte% 3.6 % (0-10); NRBC Flagged by Analyzer 0 % (0-5); Neutrophil # 8.93 X10^3/uL (2.7-7.7); Neutrophil % 87.5 % (47-70); Platelet Count 220 K/mm3 (150-450); RBC Distribution Width CV 13.3 % (11.6-14.6); RBC Distribution Width SD 43.7 fl (35.1-43.9); Red Blood Count 4.96 M/mm3 (4.2-5.4); White Blood Count 10.2 K/mm3 (4.4-11.0)
[2023-01-30] MEDS: Ipratropium/Albuterol Sulfate 3 ML AMPUL.NEB INHALATION (08:18)
[2023-01-30 08:29] LABS: D-Dimer Quantitative (DVT/PE) 0.32 FEU/ug/m (0.27-0.49)
[2023-01-30 08:33] LABS: Anion Gap 7 (5-15); BUN 5 mg/dL (7-18); BUN/Creat Ratio 7.3 RATIO (10-20); Chloride 102 mmol/L (98-107); Creatinine, Serum 0.69 mg/dL (0.55-1.02); EST Glomerular Filtration Rate 99 mL/min (>60); Est Glom Filt Rate - Afr Amer 120 mL/min (>60); Estimated Creatinine Clearance 79.33 ml/min; Glucose 207 mg/dL (74-106); Potassium 3.9 mmol/L (3.5-5.1); Sodium Level 139 mmol/L (136-145); Troponin-I HS 6 pg/mL (3.0-54.0)
[2023-01-30] MEDS: Albuterol 2.5 MG/3 ML VIAL.NEB. INHALATION ×2 (09:25→10:30)
[2023-01-30] MEDS: Acetaminophen 500 MG Tablet 1000 MG PO (09:27)
[2023-01-30] MEDS: predniSONE 20 MG Tablet 60 MG PO (09:27)
== END 2023-01-30 11:49 | disposition home or self-care (01) ==
PROVIDERS: Emergency Provider Emergency Medicine; PCP Family Medicine; Visit Provider Emergency Medicine
DX: J44.1 Chronic obstructive pulmonary disease with (acute) exacerbation (principal); J02.9 Acute pharyngitis, unspecified; R06.01 Orthopnea; R73.9 Hyperglycemia, unspecified; Z20.822 Contact with and (suspected) exposure to COVID-19; E66.9 Obesity, unspecified; F17.210 Nicotine dependence, cigarettes, uncomplicated; Z79.899 Other long term (current) drug therapy
CPT/HCPCS: 71046; 80048; 84484; 85025; 85379; 87428; 93005; 94640; 99285; A4216

== ENCOUNTER 2023-08-08 11:20 | Emergency (ER) | payer MEDICAID, SELFPAY ==
[2023-08-08 11:21] VITALS: BP 168/99; PULSE 86; RESP 18; TEMP 36.1; O2SAT 96; BMI 42.1
--- NOTE | 2023-08-08 11:49 | EDS_ITS ---
HPI <AG Antonio - Last Filed: 08/08/23 14:19> History of Present Illness Chief Complaint: Nausea/Vomiting/Diarrhea Narrative Narrative: Patient is a 42-year-old female with history of anxiety, depression, COPD, asthma, chronic stomach issues who presents to the emergency department for ongoing abdominal discomfort, nausea and vomiting diarrhea. Patient did used to see Dr. Chauhan from gastroenterology however she missed the appointment she is not sure if she is allowed back to the practice. Patient has had Carafate, she is on Prilosec, however states last evening she began vomiting bile and having diarrhea. She believe this is a flareup, this has happened several times before. Patient denies any fever or chills. Patient denies any localized abdominal pain. Last abdominal surgery was a 8 years ago. Patient states that she does eat marijuana daily secondary to PTSD which she has a marijuana card. PFSH <AG Antonio - Last Filed: 08/08/23 14:19> PFSH Medical History Abdominal pain Anxiety Asthma Back pain Bipolar disorder Carpal tunnel syndrome, bilateral COPD (chronic obstructive pulmonary disease) Depression Easy bruising History of echocardiogram History of posttraumatic stress disorder (PTSD) Marijuana use Nausea Nausea & vomiting Shortness of breath on exertion Smoker Home Medications gabapentin 300 mg capsule 300 mg PO TID 08/31/21 [History Last Taken Unknown] ketorolac 10 mg tablet 10 mg PO Q8H PRN pain #15 tabs 09/02/21 [Rx Last Taken Unknown] tiotropium bromide 18 mcg capsule with inhalation device (Spiriva with HandiHaler) 1 cap inhalation BID 09/09/21 [History Last Taken Unknown] albuterol sulfate 90 mcg/actuation aerosol inhaler 1 inh inhalation Q6H PRN SOB #1 g 01/30/23 [Rx Last Taken Unknown] prednisone 20 mg tablet 60 mg (3 x 20 mg) PO DAILY #15 TABLETS 01/30/23 [Rx Last Taken Unknown] sucralfate 1 gram tablet 1 g PO TIDCM 01/30/23 [History Last Taken Unknown] promethazine 25 mg tablet 25 mg PO TID PRN nausea and vomiting #20 tabs 08/08/23 [Rx Last Taken Unknown] Allergy/AdvReac Type Severity Reaction Status Date / Time carbinoxamine [From [facility]] Allergy Rash Verified 08/08/23 11:21 pseudoephedrine [From [facility]] Allergy Rash Verified 08/08/23 11:21 Surgical History History of History of carpal tunnel surgery of left wrist History of carpal tunnel surgery of right wrist History of hysteroscopy History of loop electrical excision procedure (LEEP) History of open reduction and internal fixation (ORIF) procedure Hx of prior ablation treatment Social History household members: children Smoking Status: Light Smoker (<10/day) substance use type: does not use ROS <AG Antonio - Last Filed: 08/08/23 14:19> ROS ED ROS Narrative Constitutional: Negative for fever, chills, weight loss, weakness Eyes: Negative for vision loss, vision change, double vision ENT: Negative for any sore throat, ear pain, congestion Cardiovascular: Negative for any chest pain, tightness, palpitations Respiratory: Negative for any cough, sputum production, hemoptysis, dyspnea, dyspnea on exertion, orthopnea Gastrointestinal: Negative for any constipation, blood in stool, blood in vomit. Positive for abdominal pain, nausea, vomiting, diarrhea : Negative for any urinary frequency, dysuria, retention, blood in urine Muscle skeletal: Negative for any muscle joint pain, stiffness, myalgias, arthralgias, neck pain, back pain Neurological: Negative for any headache, syncope, numbness or tingling, dizziness Skin: Negative for any rashes, lumps, itching, abrasions, lacerations Psychiatric: Negative for any depression, anxiety, stress, suicidal ideation, homicidal ideation Hematologic: Negative for any easy bruising, excessive bruising, easy bleeding Allergies: Negative for any eczema, hives, rash EXAM <AG Antonio - Last Filed: 08/08/23 14:19> Physical Exam Narrative Exam Narrative: Vital signs reviewed. Patient looks generally well, patient appears nontoxic. She has had issues like this in the past. HEET: Head normocephalic atraumatic, TMs clear bilaterally. Posterior pharynx is clear, dry mucous membranes. Nares clear bilaterally. Neck: Supple with no lymphadenopathy or tenderness. No signs of meningismus, negative jolt sign. Cardiac: Regular rate and rhythm no murmurs gallops or rubs, equal peripheral pu lses bilaterally. Respiratory: Lungs clear to auscultation bilaterally. No chest tenderness. Abdomen: Soft, nontender, nondistended. No abdominal bruit or pulsatile masses. No hepatosplenomegaly Extremities: No peripheral edema, no signs of gross trauma or deformity. Active full range of motion of all extremities. Neuro: Cranial nerves II through XII intact, no focal neurological deficits. Skin: Clean dry and intact with no rash, purpura, petechiae, vesicles or pustules. Backs/flank: No CVA tenderness, no midline spinal tenderness, no deformity. Psych: Normal mood and affect. No SI, HI or acute psychosis. Const Vital Signs: 08/08/23 11:21 Temperature 96.9 F L Temperature Source Temporal Pulse Rate 86 Respiratory Rate 18 Blood Pressure 168/99 H Blood Pressure Mean 122 Pulse Ox 96 Oxygen Delivery Method Room Air <Dr. Haroon Garcia DO - Last Filed: 08/08/23 15:49> Physical Exam Const Vital Signs: 08/08/23 11:21 Temperature 96.9 F L Temperature Source Temporal Pulse Rate 86 Respiratory Rate 18 Blood Pressure 168/99 H Blood Pressure Mean 122 Pulse Ox 96 Oxygen Delivery Method Room Air MDM <AG Antonio - Last Filed: 08/08/23 14:19> [facility] Lab Data Labs: Laboratory Results - last 24 hr 08/08/23 08/08/23 12:12 12:20 WBC 7.3 RBC 4.37 Hgb 13.3 Hct 38.6 MCV 88.3 MCH 30.4 MCHC 34.5 RDW Std Deviation 40.5 RDW Coeff of Camille 12.5 Plt Count 210 MPV 9.4 Immature Gran % (Auto) 0.400 Neut % (Auto) 70.2 H Lymph % (Auto) 23.5 [place] % (Auto) 4.0 Eos % (Auto) 1.5 Baso % (Auto) 0.4 Absolute Neuts (auto) 5.1 Absolute Lymphs (auto) 1.72 Nucleated RBC % 0 Sodium 135 L Potassium 3.8 Chloride 100 Carbon Dioxide 30.0 Anion Gap 5 BUN 12 Creatinine 0.78 Estim Creat Clear Calc 70.18 Est GFR (MDRD) Af Amer 103 Est GFR (MDRD) Non-Af 85 BUN/Creatinine Ratio 15.4 Glucose 210 H Calcium 8.2 L Total Bilirubin 0.70 AST 39 H ALT 74 H Alkaline Phosphatase 71 Total Protein 6.5 Albumin 3.1 L Globulin 3.4 Albumin/Globulin Ratio 0.9 Lipase 17 Urine Color Yellow Urine Clarity Sl. Cloudy Urine pH 6.0 Ur Specific [place] 1.015 Urine Protein 15 H Urine Glucose (UA) Normal Urine Ketones Negative Urine Occult Blood Negative Urine Nitrite Negative Urine Bilirubin Negative Urine Urobilinogen Normal Ur Leukocyte Esterase 25 H Urine RBC 0 SEEN Urine WBC 0-5 SEEN Ur Squamous Epith Cells 0-5 SEEN Urine Bacteria 0 SEEN Urine Mucus 0 SEEN Urine Test Negative Treatment and Re-Evaluation :: Patient appears generally well, patient appears nontoxic, vital signs are stable. Patient presents to the emergency department for ongoing issues of nausea vomiting diarrhea. Patient states this does happen sometimes. She will receive basic laboratory values, IV fluids Zofran GI cocktail as well as dicyclomine. Patient will have a urinalysis to rule out any UTI. At this time, do not believe that a CAT scan is indicated secondary to having no abdominal discomfort, and this being a chronic issue. On reassessment, the patient was feeling much better. Patient was able to pass a p.o. challenge. Patient's labs showed normal CBC, patient's chemistries show slight elevation of blood glucose of 210, AST was 39 with ALT of 74, this could be from nausea and vomiting. Patient's lipase was negative. Patient did well with IV fluids, Zofran. Patient's urinalysis negative for any infection. At this time, patient be discharged home. There is no evidence of any bowel obstruction, no signs or symptoms of appendicitis, acute cholecystitis. Patient be given Phenergan for home, instructed return for any worsening symptoms. All questions were answered, patient stable for discharge. <Dr. Haroon Garcia, DO - Last Filed: 08/08/23 15:49> [facility] Narrative Medical decision making narrative: I have personally performed a face to face assessment of the patient and have reviewed the MERCEDES Note. I performed a substantive portion of the visit including all aspects of the following. My burleson findings include: History: Patient presents with nausea and vomiting that began last night. Patient states that she has been vomiting up stomach contents and bile. Patient denies any hematemesis or coffee-ground emesis. Patient admits to some mild upper abdominal pain from the vomiting. Patient denies any diarrhea. Patient denies any melena or hematochezia. Patient denies any fevers or chills. Exam: Vital signs are stable. Patient is afebrile. Patient is in no acute distress. Oral mucosa is pink and moist. Neck is supple. Trachea is midline. There is no JVD. Heart was regular rate and rhythm. Lungs are clear and equal bilaterally. Abdomen is soft. Bowel sounds are normal. There is some mild upper abdominal tenderness. There is no rebound or guarding noted. Cranial nerves II through XII are intact. There are no focal motor or sensory deficits noted. Medical Decision Making: Differential diagnosis includes gastritis, gastroenteritis, pancreatitis, urinary tract infection, cholecystitis, cholelithiasis, peptic ulcer disease, duodenal ulcer, and . CBC will be obtained to assess for leukocytosis and anemia. Comprehensive metabolic profile will be obtained to assess for hepatic function, renal function, and electrolyte abnormality. Lipase will be obtained to assess for pancreatitis. Urinalysis will be obtained to assess for urinary tract infection. Urine hCG will be obtained to assess for . Patient was given IV fluids, Bentyl, and Zofran. CBC was reviewed and was within normal limits. Comprehensive metabolic profile was reviewed. Glucose was slightly elevated at 210. The remainder was within normal limits. Lipase was reviewed and was normal at 17. Urinalysis was reviewed. There is no evidence of urinary tract infection or hematuria. Urine hCG was reviewed and was negative. Patient was feeling better on reevaluation. Patient was given a GI cocktail. Patient was instructed to follow-up with her primary care physician in 5 to 7 days. Patient was instructed return if worse in any way. Patient understood and was agreeable with the plan. All questions were answ ered. Lab Data Labs: Laboratory Results - last 24 hr 08/08/23 08/08/23 12:12 12:20 WBC 7.3 RBC 4.37 Hgb 13.3 Hct 38.6 MCV 88.3 MCH 30.4 MCHC 34.5 RDW Std Deviation 40.5 RDW Coeff of Camille 12.5 Plt Count 210 MPV 9.4 Immature Gran % (Auto) 0.400 Neut % (Auto) 70.2 H Lymph % (Auto) 23.5 [place] % (Auto) 4.0 Eos % (Auto) 1.5 Baso % (Auto) 0.4 Absolute Neuts (auto) 5.1 Absolute Lymphs (auto) 1.72 Nucleated RBC % 0 Sodium 135 L Potassium 3.8 Chloride 100 Carbon Dioxide 30.0 Anion Gap 5 BUN 12 Creatinine 0.78 Estim Creat Clear Calc 70.18 Est GFR (MDRD) Af Amer 103 Est GFR (MDRD) Non-Af 85 BUN/Creatinine Ratio 15.4 Glucose 210 H Calcium 8.2 L Total Bilirubin 0.70 AST 39 H ALT 74 H Alkaline Phosphatase 71 Total Protein 6.5 Albumin 3.1 L Globulin 3.4 Albumin/Globulin Ratio 0.9 Lipase 17 Urine Color Yellow Urine Clarity Sl. Cloudy Urine pH 6.0 Ur Specific [place] 1.015 Urine Protein 15 H Urine Glucose (UA) Normal Urine Ketones Negative Urine Occult Blood Negative Urine Nitrite Negative Urine Bilirubin Negative Urine Urobilinogen Normal Ur Leukocyte Esterase 25 H Urine RBC 0 SEEN Urine WBC 0-5 SEEN Ur Squamous Epith Cells 0-5 SEEN Urine Bacteria 0 SEEN Urine Mucus 0 SEEN Urine Test Negative Discharge Plan Triage Chief Complaint: Nausea/Vomiting/Diarrhea ED Midlevel Provider: Leif Chappell ED Provider: Haroon Garcia Dx/Rx/DC Orders Clinical Impression: Nausea & vomiting Instructions: ED Vomiting (Adult) Prescriptions: New promethazine 25 mg tablet 25 mg PO TID PRN (Reason: nausea and vomiting) Qty: 20 0RF No Action gabapentin 300 mg Capsule 300 mg PO TID ketorolac 10 mg tablet 10 mg PO Q8H PRN (Reason: pain) Qty: 15 0RF Spiriva with HandiHaler 18 mcg Capsule, W/Inhalation Device 1 cap INHALATION BID sucralfate 1 gram tablet 1 g PO TIDCM Patient Comments: Take 1 tablet by mouth before meals and at bedtime. prednisone 20 mg tablet 60 mg PO DAILY Qty: 15 0RF albuterol sulfate 90 mcg/actuation Hfa Aerosol Inhaler 1 inh INHALATION Q6H PRN (Reason: SOB) Qty: 1 0RF Primary Care Provider: Joe White Referrals: Joe White MD [Primary Care Provider] - Activity Restrictions/Additional Instructions: Please follow-up with Dr. Chauhan. Disposition Disposition: Home, Self Care
[2023-08-08] MEDS: 0.9% Normal Saline (1000mL) 1,000 ML 1000 ML IV (12:17)
[2023-08-08] MEDS: Dicyclomine 10 MG Capsule 20 MG PO (12:17)
[2023-08-08] MEDS: Mag Hydrox/Al Hydrox/Simeth 30 ML UDC PO (12:18)
[2023-08-08] MEDS: Ondansetron 4 MG/2 ML Vial IV (12:18)
[2023-08-08 12:33] LABS: Bacteria 0 SEEN /hpf (None Seen); Mucous, Urine 0 SEEN /hpf (<or=2+); Red Blood Cells-Urine 0 SEEN /hpf (0-5)
[2023-08-08 12:38] LABS: Absolute Lymphocyte Count 1.72 X10^3/uL (0.83-4.51); Absolute Neutrophil Count 5.1 X10^3/uL (2.0-7.7); Basophil# 0.03 X10^3/uL; Basophil% 0.4 % (0-1); Eosinophil# 0.11 X10^3/uL; Eosinophils% 1.5 % (0-5); Hematocrit 38.6 % (37-47); Hemoglobin 13.3 g/dL (12.0-15.0); Lymphocyte # 1.72 X10^3/ul (0.83-4.51); Lymphocyte % 23.5 % (19-41); Mean Corp Hgb Conc 34.5 g/dL (32-36); Mean Corpuscular Hgb 30.4 pg (27.0-32.0); Mean Corpuscular Volume 88.3 fL (81-99); Mean Platelet Vol. 9.4 fl (6.2-12.0); Monocyte# 0.29 X10^3/uL; NRBC Flagged by Analyzer 0 % (0-5); Neutrophil # 5.14 X10^3/uL (2.7-7.7); Neutrophil % 70.2 % (47-70); Platelet Count 210 K/mm3 (150-450); RBC Distribution Width CV 12.5 % (11.6-14.6); RBC Distribution Width SD 40.5 fl (35.1-43.9); Red Blood Count 4.37 M/mm3 (4.2-5.4); White Blood Count 7.3 K/mm3 (4.4-11.0)
[2023-08-08 12:41] LABS: Color, Urine Yellow (Yellow); Glucose, Dipstick Normal (Normal); Ketone-Dipstick Negative (Negative); Leukocyte Esterase-Dipstick 25 /ul (Negative); Nitrite-Dipstick Negative (Negative); Occult Blood-Urine Negative /ul (Negative); Protein-Dipstick 15 mg/dl (Negative); Specific Gravity, Urine 1.015 (1.002-1.030); Urine Bilirubin Dipstick Negative (Negative); Urine Clarity Sl. Cloudy (Clear); Urine Urobilinogen Normal (Normal)
[2023-08-08 12:49] LABS: Internal QC Validated? YES +Cl - CLEAR BKGD; Squamous Epithelial Cells - UA 0-5 SEEN /hpf (5-10); White Blood Cells 0-5 SEEN /hpf (0-5)
[2023-08-08 12:50] LABS: Pregnancy, Urine Negative Negative; Record Kit Lot#,Urine Preg HCG0000667200
[2023-08-08 12:51] LABS: ALB/GLOB Ratio 0.9 RATIO (0.9-2.4); AST(SGOT) 39 U/L (15-37); Alanine Aminotransfer ALT/SGPT 74 U/L (13-56); Albumin, Serum 3.1 g/dL (3.2-5.0); Alkaline Phosphatase 71 U/L (45-117); Anion Gap 5 (5-15); BUN 12 mg/dL (7-18); BUN/Creat Ratio 15.4 RATIO (10-20); Calcium,Total 8.2 mg/dL (8.5-10.1); Chloride 100 mmol/L (98-107); Creatinine, Serum 0.78 mg/dL (0.55-1.02); EST Glomerular Filtration Rate 85 mL/min (>60); Est Glom Filt Rate - Afr Amer 103 mL/min (>60); Estimated Creatinine Clearance 70.18 ml/min; Globulin 3.4 g/dL (2.2-4.2); Glucose 210 mg/dL (74-106); Lipase 17 U/L (13-75); Potassium 3.8 mmol/L (3.5-5.1); Protein, Total 6.5 g/dL (6.4-8.2); Sodium Level 135 mmol/L (136-145)
== END 2023-08-08 14:35 | disposition home or self-care (01) ==
PROVIDERS: Nurse Practitioner; Emergency Provider Emergency Medicine; PCP Family Medicine; Visit Provider Emergency Medicine
DX: R11.2 Nausea with vomiting, unspecified (principal); J44.9 Chronic obstructive pulmonary disease, unspecified; F17.200 Nicotine dependence, unspecified, uncomplicated; Z79.899 Other long term (current) drug therapy
CPT/HCPCS: 80053; 81001; 81025; 83690; 85025; 96361; 96374; 99283; J7030; A4216; J2405

== ENCOUNTER 2023-12-27 08:58 | Emergency (ER) | payer MEDICAID, SELFPAY ==
[2023-12-27 08:59] VITALS: BP 155/89; PULSE 93; RESP 16; TEMP 36.6; O2SAT 97; BMI 41.6
[2023-12-27] MEDS: Ipratropium/Albuterol Sulfate 3 ML AMPUL.NEB INHALATION (09:23)
[2023-12-27 09:26] VITALS: PULSE 94; RESP 22; O2SAT 98
--- NOTE | 2023-12-27 09:33 | EX.ED.DYSGE1 ---
HPI History of Present Illness Chief Complaint: Cough Informant: patient Narrative Narrative: Patient states she has been coughing and sick since before . Patient states she started with congestion and cough. She has probably had myalgias and fevers off-and-on. Those portions of gotten better. She said it sounds like she was checked for COVID. But she had the flu back then. She then had pneumonia. She was treated with Augmentin and azithromycin at the same time in mid or early November. She was also given what sounds like a Medrol Dosepak. She states she is still having symptoms. She did quit smoking before all this happened. She is not having chest pain. No documented fever. No sputum production now. She is not worse but she is just not getting better. She has a nebulizer and has albuterol but no Atrovent. PFSH PFSH Medical History Abdominal pain Anxiety Asthma Back pain Bipolar disorder Carpal tunnel syndrome, bilateral COPD (chronic obstructive pulmonary disease) Depression Easy bruising History of echocardiogram History of posttraumatic stress disorder (PTSD) Marijuana use Nausea Nausea & vomiting Shortness of breath on exertion Smoker Home Medications gabapentin 300 mg capsule 300 mg PO TID 08/31/21 [History Last Taken Unknown] tiotropium bromide 18 mcg capsule with inhalation device (Spiriva with HandiHaler) 1 cap inhalation BID 09/09/21 [History Last Taken Unknown] albuterol sulfate 90 mcg/actuation aerosol inhaler 1 inh inhalation Q6H PRN SOB #1 g 01/30/23 [Rx Last Taken Unknown] sucralfate 1 gram tablet 1 g PO TIDCM 01/30/23 [History Last Taken Unknown] ipratropium bromide 0.02 % solution for inhalation 2.5 ml inhalation Q8H PRN shortness of breath or wheezing #75 mL 12/27/23 [Rx Last Taken Unknown] levofloxacin 500 mg tablet 500 mg PO DAILY #7 tabs 12/27/23 [Rx Last Taken Unknown] prednisone 20 mg tablet 60 mg (3 x 20 mg) PO DAILY #15 TABLETS 12/27/23 [Rx Last Taken Unknown] Allergy/AdvReac Type Severity Reaction Status Date / Time carbinoxamine [From [facility]] Allergy Rash Verified 12/27/23 08:59 pseudoephedrine [From [facility]] Allergy Rash Verified 12/27/23 08:59 Surgical History History of History of carpal tunnel surgery of left wrist History of carpal tunnel surgery of right wrist History of hysteroscopy History of loop electrical excision procedure (LEEP) History of open reduction and internal fixation (ORIF) procedure Hx of prior ablation treatment Social History household members: children Smoking Status: Light Smoker (<10/day) substance use type: does not use ROS ROS ED ROS Narrative A complete review of systems was performed and is negative except as documented in the history of present illness. Some specific details below. Constitutional: Fevers and chills seem to have resolved. Myalgias are better. EYE: No discharge, visual complaints, or pain. ENT: No difficulty swallowing. No swelling. No pain. No reflux symptoms. Some nasal congestion. No sore throat. CV: No chest pain palpitations or syncope. Respiratory: See history of present illness. GI: No abdominal pain. No nausea vomiting. She had some soft stools but that is gone. : No frequency dysuria or hematuria. Musculoskeletal: No recent trauma. Myalgias have improved. No swelling. Skin: No rash. Nondiaphoretic. Neuro: No weakness or numbness. Endocrine: No polyuria or polydipsia. EXAM Physical Exam Narrative Exam Narrative: CONSTITUTIONAL: Patient is nontoxic in appearance. The patient looks comfortable. Work of breathing looks normal. She carries on normal conversation without difficulty and speaks quickly. HEENT: No notable trauma. Mucous membranes moist. No sinus tenderness. No indication of pain with swallowing. EYES: No conjunctival injection. No proptosis. NECK:No JVD. No stridor. CARDIOVASCULAR: Regular rate. Regular rhythm. No notable murmur. No JVD. RESPIRATORY: No respiratory distress. Breathing is unlabored. But she does have expiratory wheezing. She has a dry cough. Saturations are normal at 98% on room air showing no hypoxia. GASTROINTESTINAL: Not distended. Bowel sounds are normal. No tenderness. No guarding. No rebound. No palpable mass. No bruit is heard. GENITOURINARY: No tenderness over the bladder. No CVA tenderness. MUSCULOSKELETAL: Atraumatic. No peripheral edema. No cord. No tenderness along the deep venous system. No asymmetry. No distended veins. NEUROLOGICAL: Patient is alert and appropriate. No focal deficit noted. SKIN: No noted rashes. No diaphoresis. PSYCHIATRIC: Patient is calm. Mood is appropriate. Const Vital Signs: 12/27/23 08:59 12/27/23 09:13 12/27/23 09:26 Temperature 97.8 F Temperature Source Temporal Pulse Rate 93 94 Respiratory Rate 16 22 H Respiratory Effort Short of Breath Labored Respiratory Depth Normal Respiratory Pattern Normal Normal Blood Pressure 155/89 H Blood Pressure Mean 111 Pulse Ox 97 Oxygen Delivery Method Room Air 12/27/23 09:26 12/27/23 11:23 Temperature Temperature Source Pulse Rate 84 Respiratory Rate 18 Respiratory Effort Respiratory Depth Respiratory Pattern Blood Pressure 149/98 H Blood Pressure Mean 115 Pulse Ox 98 95 Oxygen Delivery Method Room Air Room Air MDM MDM MDM Narrative Medical decision making narrative: My independent interpretation of the x-ray shows mild haziness but I did not see any clearly defined infiltrate. There is a little blurring of the left cardiac border. This is read as suggestive of early lingular infiltrate. With the above findings and continued symptoms we will treat with Levaquin. I will also add prednisone. Patient states that the DuoNeb helped her breathing and it is better than it has been in 2 or 3 months. She has albuterol and a nebulizer but I will write for Atrovent also. We discussed how to use this. Radiography Diagnostic Testing: Clinical Impression(s) from Imaging Studies Chest X-Ray 12/27/23 09:48 IMPRESSION: Findings suggestive of early lingular infiltrate. Electronically Signed: Jairon Murray MD at 10:20 EST , Discharge Plan Triage Chief Complaint: Cough ED Provider: Kevin Laws Dx/Rx/DC Orders Clinical Impression: COPD with acute exacerbation, Lingular pneumonia Clinical Impression: (Ruled Out): Hyperglycemia, drug-induced, Dysmenorrhea Instructions: ED Pneumonia (Adult) Prescriptions: New prednisone 20 mg tablet 60 mg PO DAILY Qty: 15 0RF levofloxacin [levofloxacin] 500 mg tablet 500 mg PO DAILY Qty: 7 0RF ipratropium bromide 0.02 % solution 2.5 ml inhalation Q8H PRN (Reason: shortness of breath or wheezing) Qty: 75 2RF No Action gabapentin 300 mg Capsule 300 mg PO TID tiotropium bromide [Spiriva with HandiHaler] 18 mcg Capsule, W/Inhalation Device 1 cap INHALATION BID sucralfate 1 gram tablet 1 g PO TIDCM Patient Comments: Take 1 tablet by mouth before meals and at bedtime. albuterol sulfate 90 mcg/actuation Hfa Aerosol Inhaler 1 inh INHALATION Q6H PRN (Reason: SOB) Qty: 1 0RF Primary Care Provider: Joe White Referrals: Joe White MD [Primary Care Provider] - 3-5 Days if not improving Disposition Disposition: Home, Self Care
--- NOTE | 2023-12-27 09:48 | RAD_ITS ---
STUDY: X-RAY CHEST REASON FOR EXAM: Female, 43 years old. Cough. TECHNIQUE: PA and lateral views of the chest. COMPARISON: Comparison made with prior study January 30, 2023. FINDINGS: Hyperinflation. Questionable early lingular infiltrate. There is no demonstrated pleural abnormality. Normal size heart. Normal mediastinum and juan a. Normal visualized pulmonary arteries. Normal visualized aortic arch and descending thoracic aorta. Normal visualized thoracic spine. Normal visualized ribs, clavicles, and shoulders. There is no demonstrated abnormality of the visualized soft tissue structures of the upper abdomen. RAD/Chest PA and Lateral IMPRESSION: Findings suggestive of early lingular infiltrate. Electronically Signed: Jairon Murray MD at 10:20 [facility] ,
[2023-12-27] MEDS: predniSONE 20 MG Tablet 60 MG PO (09:54)
[2023-12-27 11:23] VITALS: BP 149/98; PULSE 84; RESP 18; O2SAT 95
[2023-12-27 11:37] VITALS: BP 167/105; PULSE 86; RESP 18; O2SAT 94
--- OUTSIDE RECORDS SUMMARY | 2023-12-27 11:54 | XMS RPT_ITS | CCD ---
Author Name Unknown Address [address] [place] [address] Organization [facility] Care Team Providers Care Instructor Decorating Name Role Phone Renetta Hyde Unavailable Unavailable Renetta Call LPN Unavailable Unavaila Sajan Pizarro MD Primary Care Provider Sajan White MD Primary Care Provider Sajan White MD Primary Care Provider DR SAJAN WHITE MD Primary Care Physician TOM OLIVAS, EMMA Rodríguez Attending Mellisa WHITE MD., DR. MOELLER Primary Care Unavail SAJAN Shoemaker Primary Care Unavailable SAJAN WHITE Attending Unavailable SAJAN WHITE Primary Care Unavailable SAJAN WHITE Attending Unavailable SAJAN WHITE Primary Care Unavailable SAJAN WHITE Referring Unavailable SAJAN WHITE Primary Care Unavailable SAJAN WHITE Attending Unavailable SAJAN WHITE Primary Care Unavailable SAJAN WHITE Primary Care Unavailable AISHA LUNA Referring Unavailable SAJAN WHITE Primary Care Unavailable AISHA LUNA Attending Unavailable SAJAN WHITE Primary Care Unavailable AISHA LUNA Referring Unavailable SAJAN WHITE Attending Unavailable SAJAN WHITE Primary Care Unavailable SAJAN WHITE Attending Unavailable SAJAN WHITE Primary Care Unavailable LAKESHA DIAZ Referring Unavailable ELDERBROCK, SAJAN D Primary Care Unavailable ELDERBROCK, SAJAN D Primary Care Unavailable ANTONY CISNEROS Attending Unavailable ELDERBROCK, SAJAN D Primary Care Unavailable ELDERBROCK, SAJAN D Primary Care Unavailable ELDERBROCK, SAJAN D Primary Care Unavailable LAKESHA DIAZ Referring Unavailable ELDERBROCK, SAJAN D Primary Care Unavailable AISHA LUNA Attending Unavailable ELDERBROCK, SAJAN D Primary Care Unavailable TAMEKA PINEDA Attending Unavailable ELDERBROCK, SAJAN D Primary Care Unavailable TAMEKA PINEDA Referring Unavailable ELDERBROCK, SAJAN D Primary Care Unavailable LAKESHA DIAZ Referring Unavailable ELDERBROCK, SAJAN Nakul Primary Care Unavailable LAKESHA DIAZ Attending Unavailable ELDERBROCK, SAJAN D Primary Care Unavailable ELDERBROCK, SAJAN D Referring Unavailable ELDERBROCK, SAJAN D Primary Care Unavailable ELDERBROCK, SAJAN D Referring Unavailable ELDERBROCK, SAJAN D Primary Care Unavailable ELDERBROCK, SAJAN D Referring Unavailable LAKESHA DIAZ Attending Unavailable ELDERBROCK, SAJAN Nakul Primary Care Unavailable LAKESHA DIAZ Referring Unavailable ELDERBROCK, SAJAN D Primary Care Unavailable Allergies Allergy Classification Reported Allergen(s) Allergy Type Date of Onset Reaction(s) Facility (20 sources) Brompheniramine / Pseudoephedrine; Translations: [BROMPHENIRAMINE-PSE UDOEPHEDRIN] Drug Allergy 5 Rash [facility] Work Phone: Medications Current Medications Medication Drug Class(es) Dates Sig (Normalized) Sig (Original) albuterol MDI (90 mcg/inh) CFC free inhalation aerosol (1 source) Start: 03-13-2018 take 2 puff(s) by inhalation four times daily as needed for wheezing albuterol MDI (90 mcg/inh) CFC free inhalation aerosol 2 puff(s), Inhalation, QID, PRN as needed for wheezing, # 1 EA, 0 Refill(s), Pharmacy: [facility] Start Date: 03/13/18 Status: Ordered amoxicillin 875 mg / clavulanate 125 mg oral tablet (3 sources) Penicillin-class Antibacterial Start: 04-18-2022 End: 04-25-2022 take 1 tablet by mouth twice daily amoxicillin-clavu lanic acid (AUGMENTIN) 875-125 mg per tablet Indications: Non-recurrent acute suppurative otitis media of both ears without spontaneous rupture of tympanic membranes Take 1 tablet by mouth twice daily for 7 days. 14 tablet 0 04/18/2022 04/25/2022 Active Completed/Discontinued Medications Medication Drug Class(es) Dates Sig (Normalized) Sig (Original) [id number] 200 actuat albuterol 0.09 mg/actuat metered dose inhaler (20 sources) beta2-Adrenergic Agonist Start: 12-25-2023 take 2 puff(s) by inhalation every four hours as needed for wheezing albuterol HFA (PROAIR HFA) 90 mcg/actuation inhaler Indications: Wheeze Inhale 2 Puffs as instructed every 4 hours as needed for wheezing/shortnes s of breath. 18 g 5 12/25/2023 Active Problems Active Problems Problem Classification Problem Date Documented Date Episodic/Chronic Allergic reactions (3 sources) Allergic condition; Translations: [Allergy, unspecified, initial encounter] Episodic Anxiety disorders (20 sources) Anxiety state; Translations: [Generalized anxiety disorder] Onset: 06-17-2009 06-17-2009 Chronic Asthma (20 sources) Exacerbation of asthma; Translations: [Unspecified asthma with (acute) exacerbation] Onset: 12-13-2023 Chronic Attention-deficit, conduct, and disruptive behavior disorders (20 sources) Attention-deficit hyperactivity disorder, unspecified type; Translations: [Attention deficit disorder with hyperactivity] Onset: 06-26-2008 06-26-2008 Chronic Chronic obstructive pulmonary disease and bronchiectasis (9 sources) Acute exacerbation of chronic obstructive airways disease; Translations: [Chronic obstructive pulmonary disease with (acute) exacerbation] Onset: 03-27-2023 Chronic Gastritis and duodenitis (3 sources) Gastritis; Translations: [Gastritis, unspecified, without bleeding] Episodic Influenza (1 source) Influenza-like illness; Translations: [Influenza due to unidentified influenza virus with other respiratory manifestations] Episodic Menstrual disorders (20 sources) Dysmenorrhea; Translations: [Dysmenorrhea, unspecified] Onset: 02-14-2012 02-14-2012 Chronic Mood disorders (20 sources) Depressive disorder; Translations: [Other specified depressive episodes] Onset: 06-17-2009 06-17-2009 Chronic Other circulatory disease (1 source) Elevated blood-pressure reading, without diagnosis of hypertension; Translations: [Elevated blood pressure reading without diagnosis of hypertension] Onset: 12-13-2023 Episodic Other connective tissue disease (1 source) Muscle pain; Translations: [Myalgia, unspecified site] 10-07-2023 Episodic Other lower respiratory disease (1 source) Cough; Translations: [Cough] Episodic Other lower respiratory disease (1 source) H/O: asthma; Translations: [Personal history of other diseases of the respiratory system] Episodic Other lower respiratory disease (1 source) Dyspnea; Translations: [Shortness of breath] Episodic Other lower respiratory disease (3 sources) Multiple nodules of lung; Translations: [Other nonspecific abnormal finding of lung field] 08-09-2023 Episodic Other lower respiratory disease (1 source) Wheezing; Translations: [Wheezing] 12-25-2023 Episodic Other lower respiratory disease (1 source) Other nonspecific abnormal finding of lung field; Translations: [Lung nodules] Onset: 10-17-2023 Episodic Other nervous system disorders (8 sources) Carpal tunnel syndrome of right wrist; Translations: [Carpal tunnel syndrome, right upper limb] Chronic Other nervous system disorders (1 source) Neuropathy 05-28-2016 Chronic Other nutritional; endocrine; and metabolic disorders (20 sources) Obesity; Translations: [Other obesity due to excess calories] Onset: 02-14-2012 03-24-2021 Chronic Other nutritional; endocrine; and metabolic disorders (18 sources) Obesity caused by energy imbalance; Translations: [Other obesity due to excess calories] Onset: 02-14-2012 03-24-2021 Chronic Other nutritional; endocrine; and metabolic disorders (2 sources) Severe obesity; Translations: [Morbid (severe) obesity due to excess calories] 05-31-2023 Chronic Other nutritional; endocrine; and metabolic disorders (4 sources) Body mass index 40+ - severely obese; Translations: [Morbid (severe) obesity due to excess calories] Onset: 10-24-2023 10-24-2023 Chronic Other screening for suspected conditions (not mental disorders or infectious disease) (4 sources) Imaging of thorax abnormal; Translations: [Abnormal findings on diagnostic imaging of other specified body structures] Onset: 08-07-2023 05-31-2023 Chronic Other upper respiratory infections (3 sources) Acute upper respiratory infection; Translations: [Acute upper respiratory infection, unspecified] Episodic Otitis media and related conditions (1 source) Acute suppurative otitis media without spontaneous rupture of ear drum; Translations: [Acute suppurative otitis media without spontaneous rupture of ear drum, bilateral] Episodic Personality disorders (20 sources) Borderline personality disorder; Translations: [Borderline personality disorder] 09-19-2012 Chronic Residual codes; unclassified (2 sources) Electronic cigarette user; Translations: [Other problems related to lifestyle] 05-31-2023 Episodic Skin and subcutaneous tissue infections (1 source) Abscess of skin and/or subcutaneous tissue; Translations: [Cutaneous abscess, unspecified] Onset: 12-30-2022 Episodic Substance-related disorders (20 sources) Tobacco user; Translations: [Nicotine dependence, unspecified, uncomplicated] 09-19-2012 Chronic Suicide and intentional self-inflicted injury (1 source) Suicide 03-10-2018 Episodic Unclassified (2 sources) No current problems or disability 04-04-2017 Past or Other Problems Problem Classification Problem Date Documented Date Episodic/Chronic Abdominal pain (20 sources) Unspecified symptom associated with female genital organs Onset: 02-14-2012 02-14-2012 Episodic Cancer of cervix (20 sources) Low grade squamous intraepithelial lesion on cervical Papanicolaou smear; Translations: [Low grade squamous intraepithelial lesion on cytologic smear of cervix (LGSIL)] Onset: 08-04-2021 08-04-2021 Episodic Other lower respiratory disease (1 source) Shortness of breath; Translations: [SOB (shortness of breath)] Onset: 03-28-2023 Episodic Other screening for suspected conditions (not mental disorders or infectious disease) (3 sources) Patient encounter status; Translations: [Encounter for screening mammogram for malignant neoplasm of breast] Onset: 03-03-2023 Episodic Screening and history of mental health and substance abuse codes (3 sources) Ex-cigarette smoker; Translations: [Personal history of nicotine dependence] Onset: 03-28-2023 05-31-2023 Episodic Sexually transmitted infections (not HIV or hepatitis) (20 sources) Human papillomavirus deoxyribonucleic acid test positive, high risk on cervical specimen; Translations: [Cervical high risk human papillomavirus (HPV) DNA test positive] Onset: 08-04-2021 08-04-2021 Episodic Results Test Name Value Interpretation Reference Range Facil ity Vital Signs Date Time Vital Sign Value Performing Clinician Facility 11-08-2023 09:29-0500 Body temperature 98.4 [degF] Gerri Praisler-Wood SANDER OPERATOR.PORCELAIN TECHNICIAN Work Phone: [facility] 11-08-2023 09:29-0500 Body weight 100.97 kg Gerri Praisler-Wood SANDER OPERATOR.PORCELAIN TECHNICIAN Work Phone: [facility] 11-08-2023 09:29-0500 Diastolic blood pressure 84 mm[Hg] Gerri Praisler-Wood SANDER OPERATOR.PORCELAIN TECHNICIAN Work Phone: [facility] 11-08-2023 09:29-0500 Heart rate 83 /min Gerri Praisler-Wood SANDER OPERATOR.PORCELAIN TECHNICIAN Work Phone: [facility] 11-08-2023 09:29-0500 Respiratory rate 18 /min Gerri Praisler-Wood SANDER OPERATOR.PORCELAIN TECHNICIAN Work Phone: [facility] 11-08-2023 09:29-0500 SaO2% (BldA) [Mass fraction] 97 % Gerri Praisler-Wood SANDER OPERATOR.PORCELAIN TECHNICIAN Work Phone: [facility] 11-08-2023 09:29-0500 Systolic blood pressure 136 mm[Hg] Gerri Praisler-Wood SANDER OPERATOR.PORCELAIN TECHNICIAN Work Phone: [facility] 10-24-2023 14:50-0500 Body weight 100.25 kg Lakesha Diaz MD Work Phone: [facility] 10-24-2023 14:50-0500 Diastolic blood pressure 90 mm[Hg] Lakesha Diaz MD Work Phone: [facility] 10-24-2023 14:50-0500 Heart rate 89 /min Lakesha Diaz MD Work Phone: [facility] 10-24-2023 14:50-0500 Respiratory rate 16 /min Lakesha Diaz MD Work Phone: [facility] 10-24-2023 14:50-0500 SaO2% (BldA) [Mass fraction] 96 % Lakesha Diaz MD Work Phone: [facility] 10-24-2023 14:50-0500 Systolic blood pressure 130 mm[Hg] Lakesha Diaz MD Work Phone: [facility] 10-07-2023 14:16-0500 Body temperature 97.5 [degF] Marika Aaron APRN.PORCELAIN TECHNICIAN Work Phone: [facility] 10-07-2023 14:16-0500 Body weight 100.25 kg Marika Aaron APRN.PORCELAIN TECHNICIAN Work Phone: [facility] 10-07-2023 14:16-0500 Diastolic blood pressure 84 mm[Hg] Marika Aaron APRN.PORCELAIN TECHNICIAN Work Phone: [facility] 10-07-2023 14:16-0500 Heart rate 91 /min Marika Aaron APRN.PORCELAIN TECHNICIAN Work Phone: [facility] 10-07-2023 14:16-0500 Respiratory rate 18 /min Marika Aaron APRN.PORCELAIN TECHNICIAN Work Phone: [facility] 10-07-2023 14:16-0500 SaO2% (BldA) [Mass fraction] 98 % Marika Aaron APRN.PORCELAIN TECHNICIAN Work Phone: [facility] 10-07-2023 14:16-0500 Systolic blood pressure 152 mm[Hg] Marika Aaron APRN.PORCELAIN TECHNICIAN Work Phone: [facility] 09-01-2023 14:01-0400 Body weight 98.79 kg Sajan White MD Work Phone: [facility] 09-01-2023 14:01-0400 Diastolic blood pressure 78 mm[Hg] Sajan White MD Work Phone: [facility] 09-01-2023 14:01-0400 Heart rate 74 /min Sajan White MD Work Phone: [facility] 09-01-2023 14:01-0400 Respiratory rate 16 /min Sajan White MD Work Phone: [facility] 09-01-2023 14:01-0400 Systolic blood pressure 130 mm[Hg] Sajan White MD Work Phone: [facility] 07-26-2023 09:25-0400 Body weight 98.88 kg Aisha Luna PA-C Work Phone: [facility] 05-31-2023 09:29-0400 Body weight 98.88 kg Aisha Luna PA-C Work Phone: [facility] 05-09-2023 08:51-0400 Body temperature 98.8 [degF] Antony Cisneros SANDER OPERATOR.PORCELAIN TECHNICIAN Work Phone: [facility] 05-09-2023 08:51-0400 Body weight 100.15 kg Antony Mehdi SANDER OPERATOR.PORCELAIN TECHNICIAN Work Phone: [facility] 05-09-2023 08:51-0400 Diastolic blood pressure 91 mm[Hg] Antony Cisneros SANDER OPERATOR.PORCELAIN TECHNICIAN Work Phone: [facility] 05-09-2023 08:51-0400 Heart rate 84 /min Antony Cisneros SANDER OPERATOR.PORCELAIN TECHNICIAN Work Phone: [facility] 05-09-2023 08:51-0400 Respiratory rate 16 /min Antony Cisneros SANDER OPERATOR.PORCELAIN TECHNICIAN Work Phone: [facility] 05-09-2023 08:51-0400 SaO2% (BldA) [Mass fraction] 96 % Antony Cisneros SANDER OPERATOR.PORCELAIN TECHNICIAN Work Phone: [facility] 05-09-2023 08:51-0400 Systolic blood pressure 147 mm[Hg] Antony Mehdi SANDER OPERATOR.PORCELAIN TECHNICIAN Work Phone: [facility] 03-28-2023 08:18-0400 Body height 157 cm Pulm Wstr Work Phone: [facility] 03-28-2023 08:18-0400 Body weight 95.71 kg Pulm Wstr Work Phone: [facility] 03-28-2023 08:18-0400 Heart rate 70 /min Pulm Wstr Work Phone: [facility] 03-28-2023 08:18-0400 Respiratory rate 12 /min Pulm Wstr Work Phone: [facility] 03-28-2023 08:18-0400 SaO2% (BldA) [Mass fraction] 96 % Pulm Wstr Work Phone: [facility] 02-03-2023 10:35-0400 Body weight 93.44 kg Sajan White MD Work Phone: [facility] 02-03-2023 10:35-0400 Diastolic blood pressure 90 mm[Hg] Sajan White MD Work Phone: [facility] 02-03-2023 10:35-0400 Heart rate 98 /min Sajan White MD Work Phone: [facility] 02-03-2023 10:35-0400 Respiratory rate 20 /min Sajan White MD Work Phone: [facility] 02-03-2023 10:35-0400 SaO2% (BldA) [Mass fraction] 91 % Sajan White MD Work Phone: [facility] 02-03-2023 10:35-0400 Systolic blood pressure 150 mm[Hg] Sajan White MD Work Phone: [facility] 12-30-2022 09:30-0500 Body height 95.5 cm EMMA SANTOS MD [facility] 12-30-2022 09:30-0500 Body temperature 99.32 [degF] EMMA SANTOS MD [facility] 12-30-2022 09:30-0500 Body weight 95.5 kg EMMA SANTOS MD [facility] 12-30-2022 09:30-0500 Diastolic Blood Pressure Non-Invasive 88 1 EMMA SANTOS MD [facility] 12-30-2022 09:30-0500 Heart rate 86 /min EMMA SANTOS MD [facility] 12-30-2022 09:30-0500 Respiratory rate 20 /min EMMA SANTOS MD [facility] 12-30-2022 09:30-0500 Systolic Blood Pressure Non-Invasive 164 1 EMMA SANTOS MD [facility] 12-29-2022 09:57-0500 Body weight 93.62 kg Sajan White MD Work Phone: [facility] 12-29-2022 09:57-0500 Diastolic blood pressure 80 mm[Hg] Sajan White MD Work Phone: [facility] 12-29-2022 09:57-0500 Heart rate 88 /min Sajan White MD Work Phone: [facility] 12-29-2022 09:57-0500 Respiratory rate 18 /min Sajan White MD Work Phone: [facility] 12-29-2022 09:57-0500 Systolic blood pressure 128 mm[Hg] Sajan White MD Work Phone: [facility] 12-01-2022 10:42-0500 Body temperature 99.39 [degF] Mitchell Goodman SANDER OPERATOR.PORCELAIN TECHNICIAN Work Phone: [facility] 12-01-2022 10:42-0500 Body weight 92.99 kg Mitchell Goodman SANDER OPERATOR.PORCELAIN TECHNICIAN Work Phone: [facility] 12-01-2022 10:42-0500 Diastolic blood pressure 80 mm[Hg] Mitchell Goodman SANDER OPERATOR.PORCELAIN TECHNICIAN Work Phone: [facility] 12-01-2022 10:42-0500 Heart rate 106 /min Mitchell Goodman SANDER OPERATOR.PORCELAIN TECHNICIAN Work Phone: [facility] 12-01-2022 10:42-0500 Respiratory rate 18 /min Mitchell Rex SANDER OPERATOR.PORCELAIN TECHNICIAN Work Phone: [facility] 12-01-2022 10:42-0500 SaO2% (BldA) [Mass fraction] 97 % Mitchell Rex SANDER OPERATOR.PORCELAIN TECHNICIAN Work Phone: [facility] 12-01-2022 10:42-0500 Systolic blood pressure 122 mm[Hg] Mitchell Rex SANDER OPERATOR.PORCELAIN TECHNICIAN Work Phone: [facility] 05-27-2022 11:05-0400 Body weight 91.17 kg Tamekasheila Englishhof SANDER OPERATOR.PORCELAIN TECHNICIAN Work Phone: [facility] 05-27-2022 11:05-0400 Diastolic blood pressure 90 mm[Hg] Tameka Tannhof SANDER OPERATOR.PORCELAIN TECHNICIAN Work Phone: [facility] 05-27-2022 11:05-0400 Heart rate 95 /min Tameka Tannhof SANDER OPERATOR.PORCELAIN TECHNICIAN Work Phone: [facility] 05-27-2022 11:05-0400 Respiratory rate 16 /min Tameka Tannhof SANDER OPERATOR.PORCELAIN TECHNICIAN Work Phone: [facility] 05-27-2022 11:05-0400 SaO2% (BldA) [Mass fraction] 97 % Tameka Tannhof SANDER OPERATOR.PORCELAIN TECHNICIAN Work Phone: [facility] 05-27-2022 11:05-0400 Systolic blood pressure 140 mm[Hg] Tameka Tannhof SANDER OPERATOR.PORCELAIN TECHNICIAN Work Phone: [facility] 04-26-2022 14:35-0400 Body weight 91.9 kg Sajan White MD Work Phone: [facility] 04-26-2022 14:35-0400 Diastolic blood pressure 74 mm[Hg] Sajan White MD Work Phone: [facility] 04-26-2022 14:35-0400 Heart rate 78 /min Sajan White MD Work Phone: [facility] 04-26-2022 14:35-0400 Respiratory rate 18 /min Sajan White MD Work Phone: [facility] 04-26-2022 14:35-0400 Systolic blood pressure 120 mm[Hg] Sajan White MD Work Phone: [facility] 04-18-2022 13:13-0400 Body temperature 99.7 [degF] Rayray Del Cid MD Work Phone: [facility] 04-18-2022 13:13-0400 Body weight 89.81 kg Rayray Del Cid MD Work Phone: [facility] 04-18-2022 13:13-0400 Diastolic blood pressure 82 mm[Hg] Rayray Del Cid MD Work Phone: [facility] 04-18-2022 13:13-0400 Heart rate 116 /min Rayray Del Cid MD Work Phone: [facility] 04-18-2022 13:13-0400 Respiratory rate 18 /min Rayray Del Cid MD Work Phone: [facility] 04-18-2022 13:13-0400 SaO2% (BldA) [Mass fraction] 95 % Rayray Del Cid MD Work Phone: [facility] 04-18-2022 13:13-0400 Systolic blood pressure 132 mm[Hg] Rayray Del Cid MD Work Phone: [facility] Encounters Encounter Date Encounter Type Care Provider Facility Start: 12-25-2023 End: 12-25-2023 Gabriel Diaz MD Work Phone: Pulmonary Medicine Procedures Date Procedure Procedure Detail Performing Clinician Start: 10-17-2023 Ct thorax w/o contra st material Aisha Luna PA-C Work Phone: Start: 08-07-2023 Ct thorax w/o contra st material Aisha LEBLANC-C Work Phone: Start: 03-28-2023 Brncdilat rspse spmt ry pre&post-brncdilat admn Lakesha Diaz MD Work Phone: Start: 03-27-2023 Radiologic exam ches t 2 views Lakesha Diaz MD Work Phone: Start: 03-03-2023 End: 03-03-2023 Mammography Bulk Order Provider Start: 12-01-2022 STREP A MOLECULAR (POC) Gege Nealarnaldo DAY Start: 08-03-2021 Mammography Rayray kline MD Work Phone: Ablation - action (q ualifier value) EMMA SANTOS MD section EMMA CARROLL MD Loop electrosurgical excision procedure EMMA SANTOS MD Open reduction of fr acture with internal fixation EMMA SANTOS MD Plan of Treatment Date Care Activity Detail Author Start: 07-14-2031 Urine microalbumin profile [facility] Start: 02-14-2027 HPV TESTING HPV TESTING [facility] Start: 02-14-2027 Screening for malign ant neoplasm of cervix HPV Testing [facility] Start: 01-19-2027 PAP TESTING PAP TESTING [facility] Start: 01-19-2027 Screening for malign ant neoplasm of cervix Pap Testing [facility] Start: 12-13-2024 Annual PCP Team Hydraulic Operator cathleen Disease Visit Annual PCP Team Chronic Disease Visit [facility] Start: 10-24-2024 End: 11-22-2024 Ct thorax w/o contrast material CT CHEST WO IVCON Radiology Routine Lung nodules Expected: 10/24/2024, Expires: 11/22/2024 [facility] [place] Work Phone: Immunizations Immunization Date Immunization Notes Care Provider Fa cility 07-14-2021 tetanus toxoid, redu nati diphtheria toxoid, and acellular pertussis vaccine, adsorbed Rayray Del Cid MD Work Phone: [facility] 10-06-2016 influenza virus vaccine, unspecified formulation Aisha Luna PA-C Work Phone: [facility] 09-19-2012 influenza virus vaccine, unspecified formulation Rayray Del Cid MD Work Phone: [facility] Work Phone: 10-02-2006 influenza virus vaccine, unspecified formulation Rayray Del Cid MD Work Phone: [facility] Work Phone: 09-12-2006 diphtheria and tetan us toxoids, adsorbed for pediatric use Rayray Del Cid MD Work Phone: [facility] Work Phone: Payers Date Payer Category Payer Medicaid [id number] 2022 Medicaid [id number] 2015 Medicaid [facility] MEDIC AID [facility] MEDICAID [id number] 2015-Present [phone] [address] [place] [address] Medicaid [id number] 2015 Medicaid [id number] 1979 Unknown [id number] Social History Date Type Detail Facility Start: 11-24-2016 End: 12-01-2022 Tobacco smoking status NHIS Smokes tobacco daily [facility] Work Phone: End: 11-20-2022 History of tobacco use Cigarette Smoker [facility] Work Phone: Start: 04-18-2022 End: 12-25-2023 Alcohol intake Current non-drinker of alcohol (finding) [facility] Start: 05-20-2010 End: 12-01-2022 Tobacco Comment Pt is trying to quit [facility] Start: 1980 Sex Assigned At Female [facility] Start: 07-17-2021 End: 05-27-2022 Exposure to SARS-CoV-2 (event) Not sure [facility] Start: 11-24-2016 End: 03-28-2023 Cigarettes smoked current (pack per day) - Reported 1 [facility] Start: 11-24-2016 End: 10-24-2023 Tobacco use and exposure Smokeless tobacco non-user [facility] Work Phone: Start: 01-25-2023 End: 02-16-2023 History SDOH Alcohol Frequency 1 [facility] Start: 01-25-2023 End: 02-16-2023 History SDOH Alcohol Std Drinks 0 [facility] Start: 01-25-2023 End: 02-16-2023 History SDOH Social Connections Phone 5 [facility] Start: 01-25-2023 End: 02-16-2023 History SDOH Social Connections Get Together 3 [facility] Start: 01-25-2023 End: 02-16-2023 History SDOH Social Connections Membership 2 [facility] Start: 01-25-2023 End: 02-16-2023 History SDOH Social Connections Meetings 98 [facility] Start: 01-25-2023 End: 02-16-2023 History SDOH Social Connections Living 8 [facility] Start: 01-25-2023 End: 02-16-2023 History SDOH Stress 4 [facility] Start: 02-17-2023 End: 10-24-2023 Tobacco smoking status NHIS Ex-smoker [facility] End: 11-20-2022 History of tobacco use Current smoker [facility] Start: 02-15-2023 End: 03-28-2023 Social connection and isolation panel [facility] Do you belong to any clubs or organizations such as jainism groups, unions, fraternal or athletic groups, or school groups? No [facility] How often do you att end meetings of the clubs or organizations you belong to? Patient refused [facility] Are you now , , , , never or living with a partner? Living with partner [facility] How often to you hav e a drink containing alcohol? Never [facility] Do you feel stress - tense, restless, nervous, or anxious, or unable to sleep at night because your mind is troubled all the time - these days [OSQ] Rather much [facility] (I/We) worried whewendy er (my/our) food would run out before (I/we) got money to buy more. DK or Refused [facility] Start: 08-15-2021 Gender identity Identifies as female gender (finding) [facility] Start: 08-15-2021 Sexual orientation Heterosexual (finding) [facility] Functional Status Date Assessment Result Facility 12-30-2022 Functional Status Resting [facility] Mental Status Date Assessment Result Facility 12-30-2022 Mental Status Orientation Oriented x 4 [facility] Clinical Notes 11-04-2020 to 12-25-2023 Telephone Encounter - Erica Nolasco LPN - 12/25/2023 8:55 AM ESTPatient InstructionsPraeev-Gerri Martel APRN.PORCELAIN TECHNICIAN - 11/08/2023 9:46 AM Lakesha Christie MD - 10/24/2023 2:45 PM EST Note Date & Type Note Facility 12-25-2023 Note HNO ID: [id number] Author: VALORIE DAVISON APRN.DAWN Service: ? Author Type: Nurse Practitioner Type: Progress Notes Filed: 12/25/2023 15:38 Note Text: SUBJECTIVE: Rg Dia is a 43 year old female. Who presents today with lingering cough headache and sinus drainage from pneumonia. She has just finished augmentin and zithromax on Monday. She is out of her asthma meds but her pulmonary physician called them in for her today. She is taking excedrin for the symptoms. She would like to be retested for coivd flu and rsv. HPI PAST MEDICAL HISTORY Diagnosis Date Abnormal glandular Papanicolaou smear of cervix 11/20/2000 Abn. Pap smear (cervix) ANXIETY STATE NOS 06/17/2009 Bipolar 2 disorder (HCC) [facility] Borderline personality disorder (HCC) Diabetes mellitus of mother, complicating , childbirth, or the puerperium, unspecified as to episode of care(648.00) Gestational diabetes Lung nodules Pelvic pain 02/14/2012 Tobacco use disorder Unspecified asthma(493.90) FAMILY HISTORY Problem Relation Age of Onset Diabetes Mother other (manic depressive) Mother Eczema Mother Alcohol/Drug Father etoh Lipids Father Allergies Sister Heart Paternal Grandfather Stroke Paternal Grandfather Social History Tobacco Use Smoking status: Former Packs/day: 1.00 Years: 2.00 Additional pack years: 0.00 Total pack years: 2.00 Types: Cigarettes Quit date: 2022 Years since quittin.0 Smokeless tobacco: Never Vaping Use Vaping Use: current everyday user Substances: Nicotine Substance Use Topics Alcohol use: No Comment: History of alcohol abuse Drug use: No Comment: Hx of marijuana ALLERGIES Allergen Reactions Rondec [Bromphenira* Rash Current Outpatient Medications Medication Sig Dispense Refill albuterol HFA (PROAIR HFA) 90 mcg/actuation inhaler Inhale 2 Puffs as instructed every 4 hours as needed for wheezing/shortness of breath. 18 g 5 albuterol (PROVENTIL) 2.5 mg /3 mL (0.083 %) nebulizer solution Use 3 mL via nebulizer every 4 hours as needed for wheezing/shortness of breath. 150 mL 2 gabapentin (NEURONTIN) 300 mg capsule Take 1 capsule by mouth three times a day for 90 days. 90 capsule 2 ondansetron orally disintegrating (ZOFRAN ODT) 4 mg disintegrating tablet Take 1 tablet by mouth every 6 hours as needed for nausea/vomiting. 20 tablet 2 auazyowgpk-iltzdmvq-eyynffltbl (BREZTRI AEROSPHERE) 160-9-4.8 mcg/actuation HFA aerosol inhaler Inhale 2 Puffs as instructed twice daily. 1 Each 5 omeprazole (PRILOSEC) 20 mg capsule Take 1 capsule by mouth daily before breakfast. 1/2 hr before meal. 30 capsule 5 cetirizine (ZYRTEC) 10 mg tablet Take 1 tablet by mouth once daily. 30 tablet 11 No current facility-administered medications for this visit. OBJECTIVE: BP 132/88 Pulse 90 Temp 36.9 ?C (98.4 ?F) Resp 18 Wt 98.4 kg (217 lb) LMP 03/12/2014 SpO2 96% BMI 39.93 kg/m? ROS: All systems reviewed and are otherwise negative Constitutional: Well developed, well nourished, AANDO X3. ENT: Head is atraumatic, airway patent, mucosal membranes moist pink no exudate no airplane captain Neck: full ROM, no meningeal signs Cardiac: heart tones regular rate and rhythm Respiratory: lung with wheezing : no CVA tenderness MS: moves all extremities, no deformities noted Neuro: GCS 15 no focal deficits Skin: warm and dry with out rash, lesion or ecchymosis Psych: alert appropriate, speech clear Diagnostic testing: COVID, Influenza A, Influenza B and RSV testing performed and results will be complete in the next 24-72 hours. The patient will be notified of the results in My Chart. MDM: Patient presented to the [facility] for COVID, Influenza and RSV testing. Rg Dia presents today with symptoms suspicious for likely viral upper respiratory infection. Patient is nontoxic appearing and not in need of emergent medical intervention.Vital signs were evaluated and found to be within normal limits. We discussed the COVID results will be back in the next 1-2 days. In accordance with the CDC guidelines, Rg Dia was instructed to quarantine, if indicated, based on symptoms and exposure. We have discussed over the countermedications to use for their symptoms. They may take Motrin and Tylenol for pain, body aches and fever. 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 They will follow-up with their family doctor in the next 2-3 days. If symptoms worsen they will go straight to the emergency department for further evaluation and treatment. They voiced understanding of the plan of care and are in agreement. ASSESSMENT/PLAN: 1. Exposure to SARS-associated coronavirus - ICD9: V01.82, ICD10: Z20.828 - COVID AND INFLUENZA A/B AND RSV NAAT, ROUTINE Valorie Davison APRN.PORCELAIN TECHNICIAN [facility] 12-25-2023 Miscellaneous Notes Patient called in requesting refills on pended medication. Pharmacy verified [facility]# [phone] Erica Nolasco LPN December 25, 2023 9:09 AM documented in this encounter [facility] 12-13-2023 Note HNO ID: [id number] Author: ABBY FLORES RT(Billy) Service: ? Author Type: Associate Professor Of Counseling Type: Progress Notes Filed: 12/13/2023 13:19 Note Text: Radiology Service Progress Note PATIENT NAME: Rg Dia DATE OF SERVICE: December 13, 2023 TIME: 1:09 PM PATIENT IDENTITY VERIFICATION COMPLETED USING TWO (2) IDENTIFIERS: Name and Date of confirmed by patient verbally. FALL SCREENING: Has the patient had 2 falls in the last year or 1 fall with injury or currently using an Ambulatory Assistive Device (Walker, Cane, Wheelchair, Crutches, etc.)? No PATIENT GENDER DATA: Female. status: : No status: NO. PATIENT RELEVANT IMPLANT DATA REVIEWED: Yes RADIOLOGY DEPARTMENT: General X-ray: Exam(s) Completed: Chest X-Ray PERIPHERAL IV DATA: Not applicable SIGNED BY: Abby Flores RT(R) December 13, 2023 1:09 PM [facility] 12-13-2023 Note HNO ID: [id number] Author: TAMEKA PINEDA APRN.PORCELAIN TECHNICIAN Service: ? Author Type: Nurse Practitioner Type: Progress Notes Filed: 12/13/2023 13:26 Note Text: This is a 43 year old female who presents today with: Patient presents with: Follow Up: EC follow up HISTORY OF PRESENT ILLNESS: Rg Dia is a 43 year old female. Patient presents with: Follow Up: EC follow up Here in the office for cough, has been ongoing for the past month. Cough has been dry. Refers that she had the flu over [place]. Improved but then started to get ill again. Was seen in [facility] on December 11 for asthma exacerbation. History of COPD/Asthma. Denied wanting chest x-ray at that time, started on prednisone taper. Still taking Breztri 2 puffs BID, and Albuterol as needed. Following with pulmonology. Next follow up in April. Tried tessalon perles and Nyquil which was not helpful. Cough seems worse at bedtime. PAST MEDICAL HISTORY: PAST MEDICAL HISTORY Diagnosis Date Abnormal glandular Papanicolaou smear of cervix 11/20/2000 Abn. Pap smear (cervix) ANXIETY STATE NOS 06/17/2009 Bipolar 2 disorder (HCC) [facility] Borderline personality disorder (HCC) Diabetes mellitus of mother, complicating , childbirth, or the puerperium, unspecified as to episode of care(648.00) Gestational diabetes Lung nodules Pelvic pain 02/14/2012 Tobacco use disorder Unspecified asthma(493.90) PAST SURGICAL HISTORY Procedure Laterality Date DELIVERY ONLY 11/23/2014 , low transverse CONIZATION CERVIX W/WO DANDC RPR ELTRD EXC 2000 LEEP-Cervix ENDOMETRIAL ABLTJ THERMAL W/O HYSTEROSCOPIC GUID 2018 [facility] LIG/TRNSXJ FLP TUBE ABDL/VAG APPR UNI/BI 11/23/2014 Tubal ligation PAST SURGICAL HISTORY OF Right fibula sugery ALLERGIES Rondec [Brompheniramine-Pseudoephedrin] MEDICATIONS Current Outpatient Medications Medication Sig predniSONE (DELTASONE) 10 mg tablet Take by mouth 6 pills on day 1, 5 pills on day 2, 4 pills on day 3, 3 pills on day 4, 2 pills on day 5, 1 pill on day 6 albuterol HFA (PROAIR HFA) 90 mcg/actuation inhaler Inhale 2 Puffs as instructed every 6 hours as needed for wheezing/shortness of breath. gabapentin (NEURONTIN) 300 mg capsule Take 1 capsule by mouth three times a day for 90 days. ondansetron orally disintegrating (ZOFRAN ODT) 4 mg disintegrating tablet Take 1 tablet by mouth every 6 hours as needed for nausea/vomiting. ushxnwvvbv-fgxocath-kpmnnufbtb (BREZTRI AEROSPHERE) 160-9-4.8 mcg/actuation HFA aerosol inhaler Inhale 2 Puffs as instructed twice daily. omeprazole (PRILOSEC) 20 mg capsule Take 1 capsule by mouth daily before breakfast. 1/2 hr before meal. cetirizine (ZYRTEC) 10 mg tablet Take 1 tablet by mouth once daily. albuterol (PROVENTIL) 2.5 mg /3 mL (0.083 %) nebulizer solution Use 3 mL via nebulizer every 4 hours as needed for wheezing/shortness of breath. No current facility-administered medications for this visit. FAMILY HISTORY Problem Relation Age of Onset Diabetes Mother other (manic depressive) Mother Eczema Mother Alcohol/Drug Father etoh Lipids Father Allergies Sister Heart Paternal Grandfather Stroke Paternal Grandfather Social History Tobacco Use Smoking status: Former Packs/day: 1.00 Years: 2.00 Additional pack years: 0.00 Total pack years: 2.00 Types: Cigarettes Quit date: 2022 Years since quittin.0 Smokeless tobacco: Never Vaping Use Vaping Use: current everyday user Substances: Nicotine Substance Use Topics Alcohol use: No Comment: History of alcohol abuse Drug use: No Comment: Hx of marijuana REVIEW OF SYSTEMS GENERAL: No weight loss, malaise or fevers/chills HEENT: Negative for frequent or significant headaches, No changes in hearing or vision. NECK: Negative for lumps, goiter, pain and significant neck swelling RESPIRATORY: + Cough CARDIOVASCULAR: Negative for chest pain, leg swelling, orthopnea, or palpitations GI: No nausea, vomiting, or diarrhea/constipation. No hematochezia/melena. No heartburn or reflux symptoms. : No history of dysuria, frequency or incontinence MUSCULOSKELETAL: Negative for joint pain or swelling. SKIN: Negative for lesions, rash, and itching ENDOCRINE: Negative for cold or heat intolerance, polyuria, polydipsia and goiter NEURO: No history of headaches, syncope, paralysis, seizures or tremors MOOD: Negative for depression, anxiety, or suicidal ideation. EXAM: BP 170/87 Pulse 100 Resp 16 Wt 98 kg (216 lb) LMP 03/12/2014 SpO2 93% BMI 39.75 kg/m? BP 170/80 Pulse 100 Resp 16 Wt 98 kg (216 lb) LMP 03/12/2014 SpO2 93% BMI 39.75 kg/m? LMP 03/12/2014 PHYSICAL EXAM: General Appearance: Well appearing, alert, in no acute distress, well-hydrated, well nourished. Skin: Skin color, texture, turgor normal, no suspicious rashes or lesions. Head: Normocephalic, no masses, lesions, tenderness (more content not included)... [facility] 12-11-2023 Note HNO ID: [id number] Author: RAYRAY DEL CID MD Service: ? Author Type: Physician Type: Progress Notes Filed: 12/11/2023 16:56 Note Text: Patient presents with: Cough: congestion, right ear pain and gland x 1 month HPI: Here for cough. Had URI/suspected flu 11/08/23 and improved. Seen 4 days ago for flu-like symptoms of 2 days duration; strep, influenza, COVID, RSV negative. Positive symptoms: Cough, right Earache, Shortness of breath, Wheezing, Chest tightness, Sore throat, Nasal Congestion, Rhinorrhea, Fever, Chills, Headache, Nausea, Diarrhea, Negative symptoms: OTC: Nyquil, Dayquil, Cold Medicine, Ibuprofen, albuterol nebs every 2 hours. Prescribed Tamiflu and tessalon 11/08/23. Reports promethazine with codeine has worked in the past and she came her to get a prescription for it. PAST MEDICAL HISTORY Diagnosis Date Abnormal glandular Papanicolaou smear of cervix 11/20/2000 Abn. Pap smear (cervix) ANXIETY STATE NOS 06/17/2009 Bipolar 2 disorder ([facility] Borderline personality disorder ([facility]) Diabetes mellitus of mother, complicating , childbirth, or the puerperium, unspecified as to episode of care(648.00) Gestational diabetes Lung nodules Pelvic pain 02/14/2012 Tobacco use disorder Unspecified asthma(493.90) MEDICATIONS: Current Outpatient Medications Medication Sig gabapentin (NEURONTIN) 300 mg capsule Take 1 capsule by mouth three times a day for 90 days. ondansetron orally disintegrating (ZOFRAN ODT) 4 mg disintegrating tablet Take 1 tablet by mouth every 6 hours as needed for nausea/vomiting. qykvnltnbn-gkvrecxh-ihqqimpinm (BREZTRI AEROSPHERE) 160-9-4.8 mcg/actuation HFA aerosol inhaler Inhale 2 Puffs as instructed twice daily. omeprazole (PRILOSEC) 20 mg capsule Take 1 capsule by mouth daily before breakfast. 1/2 hr before meal. cetirizine (ZYRTEC) 10 mg tablet Take 1 tablet by mouth once daily. albuterol (PROVENTIL) 2.5 mg /3 mL (0.083 %) nebulizer solution Use 3 mL via nebulizer every 4 hours as needed for wheezing/shortness of breath. albuterol HFA (PROAIR HFA) 90 mcg/actuation inhaler Inhale 2 Puffs as instructed every 6 hours as needed for wheezing/shortness of breath. No current facility-administered medications for this visit. ALLERGIES: ALLERGIES Allergen Reactions Rondec [Bromphenira* Rash VITALS: BP 168/90 Pulse 116 Temp 37.5 ?C (99.5 ?F) Resp 18 Wt 97.1 kg (214 lb) LMP 03/12/2014 SpO2 94% BMI 39.38 kg/m? PHYSICAL EXAM: GEN: mildly ill appearing. Accompanied by her who assists with the history. HEENT: PERRL, EOMI, conjunctiva clear Ears: canals clear RTM without erythema, bulge, or effusion; LTM without erythema, bulge, or effusion Nose: mild congestion Throat: moist mucous membranes, mild erythema, no exudate Neck: supple, no lymphadenopathy HEART: regular rate and rhythm during my exam, no murmurs LUNGS: clear to auscultation, no wheezes or crackles, no increased WOB; wheezy cough Component Latest Ref Rng AND Units 08/30/2021 Hemoglobin A1C 4.3 - 5.6 % 6.1 (H) ASSESSMENT/PLAN: 1. Asthma with acute exacerbation, unspecified asthma severity, unspecified whether persistent - ICD9: 493.92, ICD10: J45.901 (primary diagnosis) 2. Wheeze - ICD9: 786.07, ICD10: R06.2 Refill - ALBUTEROL SULFATE HFA 90 MCG/ACTUATION AEROSOL INHALER - PREDNISONE 10 MG TABLET taper. Denies side effects with prior use. Discussed optional CXR, lung exam is normal. She will follow up with primary care as scheduled in 2 days. Follow up with worsening cough, worsening shortness of breath, increasing chest pain, or late onset fever. Rayray Del Cid MD [facility] 12-07-2023 Note HNO ID: [id number] Author: EJ DAVILA APRN.PORCELAIN TECHNICIAN Service: ? Author Type: Nurse Practitioner Type: Progress Notes Filed: 12/07/2023 15:01 Note Text: Subjective HPI Nontoxic-appearing female presents urgent care [facility] symptoms. Duration of symptoms 2 days. Associated symptoms sore throat body aches chills fatigue cough. Most bothersome symptom today is sore throat sinus pressure. No known sick contacts. Did use Tylenol severe cold today this did help. Denies any high fevers productive cough chest pain shortness of breath pleuritic pain hemoptysis nausea vomiting abdominal pain change in bowel or bladder habits. Past medical history prescription medications allergies reviewed .Patient presents with: Sore Throat: Body aches, chills, MAY x 2 days PAST MEDICAL HISTORY Diagnosis Date Abnormal glandular Papanicolaou smear of cervix 11/20/2000 Abn. Pap smear (cervix) ANXIETY STATE NOS 06/17/2009 Bipolar 2 disorder (HCC) [facility] Borderline personality disorder (HCC) Diabetes mellitus of mother, complicating , childbirth, or the puerperium, unspecified as to episode of care(648.00) Gestational diabetes Lung nodules Pelvic pain 02/14/2012 Tobacco use disorder Unspecified asthma(493.90) PAST SURGICAL HISTORY Procedure Laterality Date DELIVERY ONLY 11/23/2014 , low transverse CONIZATION CERVIX W/WO DANDC RPR ELTRD EXC 2000 LEEP-Cervix ENDOMETRIAL ABLTJ THERMAL W/O HYSTEROSCOPIC GUID 2018 [facility] LIG/TRNSXJ FLP TUBE ABDL/VAG APPR UNI/BI 11/23/2014 Tubal ligation PAST SURGICAL HISTORY OF Right fibula sugery ALLERGIES Rondec [Brompheniramine-Pseudoephedrin] MEDICATIONS gabapentin (NEURONTIN) 300 mg capsule Take 1 capsule by mouth three times a day for 90 days. ondansetron orally disintegrating (ZOFRAN ODT) 4 mg disintegrating tablet Take 1 tablet by mouth every 6 hours as needed for nausea/vomiting. sapuwmukrk-vvlhdjvf-xcrbgteote (BREZTRI AEROSPHERE) 160-9-4.8 mcg/actuation HFA aerosol inhaler Inhale 2 Puffs as instructed twice daily. omeprazole (PRILOSEC) 20 mg capsule Take 1 capsule by mouth daily before breakfast. 1/2 hr before meal. cetirizine (ZYRTEC) 10 mg tablet Take 1 tablet by mouth once daily. albuterol (PROVENTIL) 2.5 mg /3 mL (0.083 %) nebulizer solution Use 3 mL via nebulizer every 4 hours as needed for wheezing/shortness of breath. albuterol HFA (PROAIR HFA) 90 mcg/actuation inhaler Inhale 2 Puffs as instructed every 6 hours as needed for wheezing/shortness of breath. FAMILY HISTORY Problem Relation Age of Onset Diabetes Mother other (manic depressive) Mother Eczema Mother Alcohol/Drug Father etoh Lipids Father Allergies Sister Heart Paternal Grandfather Stroke Paternal Grandfather Social History Tobacco Use Smoking status: Former Packs/day: 1.00 Years: 2.00 Additional pack years: 0.00 Total pack years: 2.00 Types: Cigarettes Quit date: 2022 Years since quittin.0 Smokeless tobacco: Never Vaping Use Vaping Use: current everyday user Substances: Nicotine Substance Use Topics Alcohol use: No Comment: History of alcohol abuse Drug use: No Comment: Hx of marijuana BP 120/76 Pulse 100 Temp 36.7 ?C (98.1 ?F) Resp 18 Wt 99.2 kg (218 lb 12.8 oz) LMP 03/12/2014 SpO2 95% BMI 40.26 kg/m? Review of Systems Constitutional: Positive for chills and malaise/fatigue. Negative for fever. HENT: Positive for congestion and sore throat. Negative for ear discharge, ear pain and sinus pain. Eyes: Negative for blurred vision, pain, discharge and redness. Respiratory: Positive for cough. Negative for hemoptysis, sputum production, shortness of breath, wheezing and stridor. Cardiovascular: Negative for chest pain. Gastrointestinal: Negative for abdominal pain, diarrhea, nausea and vomiting. Musculoskeletal: Positive for myalgias. Skin: Negative for itching and rash. Neurological: Positive for headaches. Negative for dizziness. Objective Physical Exam Constitutional: General: She is not in acute distress. Appearance: She is not diaphoretic. HENT: Head: Normocephalic. Jaw: No trismus, tenderness, swelling or pain on movement. Nose: Congestion present. Mouth/Throat: Mouth: Mucous membranes are moist. Pharynx: Oropharynx is clear. Uvula midline. No pharyngeal swelling, oropharyngeal exudate, posterior oropharyngeal erythema or uvula swelling. Eyes: Conjunctiva/sclera: Conjunctivae normal. Pupils: Pupils are equal, round, and reactive to light. Cardiovascular: Rate and Rhythm: Normal rate and regular rhythm. Heart sounds: Normal heart sounds. Pulmonary: Effort: Pulmonary effort is normal. No tachypnea, accessory muscle usage or respiratory distress. Breath sounds: Normal breath sounds. No stridor. No wheezing, rhonchi or rales. Abdominal: General: There is no distension. Palpations: Abdomen is soft. Te (more content not included)... [facility] 12-07-2023 Note HNO ID: [id number] Author: EJ DAVILA APRN.PORCELAIN TECHNICIAN Service: ? Author Type: Nurse Practitioner Type: Progress Notes Filed: 12/07/2023 15:01 Note Text: Subjective HPI .Patient presents with: Sore Throat: Body aches, chills, MAY x 2 days PAST MEDICAL HISTORY Diagnosis Date Abnormal glandular Papanicolaou smear of cervix 11/20/2000 Abn. Pap smear (cervix) ANXIETY STATE NOS 06/17/2009 Bipolar 2 disorder (HCC) [facility] Borderline personality disorder (HCC) Diabetes mellitus of mother, complicating , childbirth, or the puerperium, unspecified as to episode of care(648.00) Gestational diabetes Lung nodules Pelvic pain 02/14/2012 Tobacco use disorder Unspecified asthma(493.90) PAST SURGICAL HISTORY Procedure Laterality Date DELIVERY ONLY 11/23/2014 , low transverse CONIZATION CERVIX W/WO DANDC RPR ELTRD EXC 2000 LEEP-Cervix ENDOMETRIAL ABLTJ THERMAL W/O HYSTEROSCOPIC GUID 2018 [facility] LIG/TRNSXJ FLP TUBE ABDL/VAG APPR UNI/BI 11/23/2014 Tubal ligation PAST SURGICAL HISTORY OF Right fibula sugery ALLERGIES Rondec [Brompheniramine-Pseudoephedrin] MEDICATIONS gabapentin (NEURONTIN) 300 mg capsule Take 1 capsule by mouth three times a day for 90 days. ondansetron orally disintegrating (ZOFRAN ODT) 4 mg disintegrating tablet Take 1 tablet by mouth every 6 hours as needed for nausea/vomiting. oywbgpwcep-betmkymd-siarpegtel (BREZTRI AEROSPHERE) 160-9-4.8 mcg/actuation HFA aerosol inhaler Inhale 2 Puffs as instructed twice daily. omeprazole (PRILOSEC) 20 mg capsule Take 1 capsule by mouth daily before breakfast. 1/2 hr before meal. cetirizine (ZYRTEC) 10 mg tablet Take 1 tablet by mouth once daily. albuterol (PROVENTIL) 2.5 mg /3 mL (0.083 %) nebulizer solution Use 3 mL via nebulizer every 4 hours as needed for wheezing/shortness of breath. albuterol HFA (PROAIR HFA) 90 mcg/actuation inhaler Inhale 2 Puffs as instructed every 6 hours as needed for wheezing/shortness of breath. FAMILY HISTORY Problem Relation Age of Onset Diabetes Mother other (manic depressive) Mother Eczema Mother Alcohol/Drug Father etoh Lipids Father Allergies Sister Heart Paternal Grandfather Stroke Paternal Grandfather Social History Tobacco Use Smoking status: Former Packs/day: 1.00 Years: 2.00 Additional pack years: 0.00 Total pack years: 2.00 Types: Cigarettes Quit date: 2022 Years since quittin.0 Smokeless tobacco: Never Vaping Use Vaping Use: current everyday user Substances: Nicotine Substance Use Topics Alcohol use: No Comment: History of alcohol abuse Drug use: No Comment: Hx of marijuana BP 120/76 Pulse 100 Temp 36.7 ?C (98.1 ?F) Resp 18 Wt 99.2 kg (218 lb 12.8 oz) LMP 03/12/2014 SpO2 95% BMI 40.26 kg/m? ROS Objective Physical Exam [facility] 11-21-2023 Note HNO ID: [id number] Author: Sajan White MD Service: ? Author Type: Physician Type: Progress Notes Filed: 11/21/2023 3:22 PM Note Text: Chief Complaint Patient presents with: Follow Up For: GI referral; started process for disability update HPI Rg Dia is a 42 year old female who presents here today for follow up . Wants referred to gastro. Taking Prilosec 20 mg daily and Zofran prn nausea. Has cut back on the the Carafate 1 gram to twice a day, states that taking it QID causes her to be constipated. She has tried watching diet and cutting out foods in her diet to help with the nausea. She had issues at times with diarrhea, abdominal cramping. She feels like her food isn't digesting well. Has seen Dr. Chauhan in the past but prefers to see a Gastro provider in [place]. Her last EGD/colonoscopy was 09/27/[address] Chauhan; records scanned in her chart. She has started the process for getting Social Security Disability. She had filled out paperwork for her own assessment, nothing has been completed or needed from providers yet. She is trying to get disability for the COPD and PTSD. She is working with someone at the counseling center for the PTSD currently. PTSD: she feels that the counseling is going well for her. COPD: Using Albuterol for nebulizer prn, Albuterol inhaler prn, and Budesonide inhaler BID. Past medical history, appointments, medications, allergies reviewed. Previous Medical History PAST MEDICAL HISTORY Diagnosis Date Abnormal glandular Papanicolaou smear of cervix 11/20/2000 Abn. Pap smear (cervix) ANXIETY STATE NOS 06/17/2009 Bipolar 2 disorder (HCC) [facility] Borderline personality disorder (HCC) Diabetes mellitus of mother, complicating , childbirth, or the puerperium, unspecified as to episode of care(648.00) Gestational diabetes Lung nodules Pelvic pain 02/14/2012 Tobacco use disorder Unspecified asthma(493.90) Previous Surgical History PAST SURGICAL HISTORY Procedure Laterality Date DELIVERY ONLY 11/23/2014 , low transverse CONIZATION CERVIX W/WO DANDC RPR ELTRD EXC 2000 LEEP-Cervix ENDOMETRIAL ABLTJ THERMAL W/O HYSTEROSCOPIC GUID 2018 [facility] LIG/TRNSXJ FLP TUBE ABDL/VAG APPR UNI/BI 11/23/2014 Tubal ligation PAST SURGICAL HISTORY OF Right fibula sugery Family History FAMILY HISTORY Problem Relation Age of Onset Diabetes Mother other (manic depressive) Mother Eczema Mother Alcohol/Drug Father etoh Lipids Father Allergies Sister Heart Paternal Grandfather Stroke Paternal Grandfather Patient Allergies ALLERGIES Allergen Reactions Rondec [Bromphenira* Rash Current Medications Current Outpatient Medications on File Prior to Visit Medication Sig ondansetron orally disintegrating (ZOFRAN ODT) 4 mg disintegrating tablet Take 1 tablet by mouth every 6 hours as needed for nausea/vomiting. gabapentin (NEURONTIN) 300 mg capsule Take 1 capsule by mouth three times a day for 90 days. izsiepnlip-rurfzmkk-icmundluaa (BREZTRI AEROSPHERE) 160-9-4.8 mcg/actuation HFA aerosol inhaler Inhale 2 Puffs as instructed twice daily. omeprazole (PRILOSEC) 20 mg capsule Take 1 capsule by mouth daily before breakfast. 1/2 hr before meal. cetirizine (ZYRTEC) 10 mg tablet Take 1 tablet by mouth once daily. albuterol (PROVENTIL) 2.5 mg /3 mL (0.083 %) nebulizer solution Use 3 mL via nebulizer every 4 hours as needed for wheezing/shortness of breath. albuterol HFA (PROAIR HFA) 90 mcg/actuation inhaler Inhale 2 Puffs as instructed every 6 hours as needed for wheezing/shortness of breath. No current facility-administered medications on file prior to visit. Social History Social History Tobacco Use Smoking status: Former Packs/day: 1.00 Years: 2.00 Additional pack years: 0.00 Total pack years: 2.00 Types: Cigarettes Quit date: 2022 Years since quittin.0 Smokeless tobacco: Never Vaping Use Vaping Use: current everyday user Substances: Nicotine Substance Use Topics Alcohol use: No Comment: History of alcohol abuse Drug use: No Comment: Hx of marijuana EXAM: BP 148/94 Pulse 96 Resp 16 Wt 98.8 kg (217 lb 12.8 oz) LMP 03/12/2014 BMI 40.08 kg/m? General Appearance: Well appearing, alert, in no acute distress, well-hydrated, well nourished. and Overweight. Lungs: Lungs clear to auscultation. No wheezing, rhonchi, rales.. Heart: RRR without murmur, gallop, or rubs. No ectopy. Abdomen: Normal abdominal exam, Abdomen soft, non-tender. Bowel sounds normal. No masses, organomegaly. Health Maintenance List Hepatitis B Vaccine(1 of 3 - 3-dose series) Never done Hepatitis C Screening Never done Covid-19 Vaccine(1) due on 12/29/2023 Influenza Vaccine(1) due on 05/19/2024 Pneumococcal Vaccine(1 of 2 - PCV) due on 09/01/2024 Mammogram Screening due on 03/03/2024 Annual PCP Team Chronic Disease Visit due on 09/01/2024 Pap Jesika (more content not included)... [facility] 11-08-2023 Note HNO ID: [id number] Author: Gerri Nguyen APRN.PORCELAIN TECHNICIAN Service: ? Author Type: Nurse Practitioner Type: Progress Notes Filed: 11/08/2023 10:01 AM Note Text: Subjective Cough Associated symptoms include headaches, sore throat (scratchy) and myalgias. Pertinent negatives include no chest pain, no chills, no ear pain and no shortness of breath. Rg Dia is a 42 year old female who presents with one day of nausea, congestion, cough, headache and body aches. Her throat feels scratchy today. Her son is sick with URI symptoms. She has not had a fever. She has been taking mucinex at home. Review of Systems Constitutional: Negative for chills and fever. HENT: Positive for congestion and sore throat (scratchy). Negative for ear pain. Respiratory: Positive for cough. Negative for shortness of breath. Cardiovascular: Negative for chest pain. Gastrointestinal: Positive for nausea. Negative for diarrhea and vomiting. Musculoskeletal: Positive for myalgias. Neurological: Positive for dizziness and headaches. BP 136/84 Pulse 83 Temp 36.9 ?C (98.4 ?F) (Tympanic) Resp 18 Wt 101 kg (222 lb 9.6 oz) LMP 03/12/2014 SpO2 97% BMI 40.96 kg/m? PAST MEDICAL HISTORY Diagnosis Date Abnormal glandular Papanicolaou smear of cervix 11/20/2000 Abn. Pap smear (cervix) ANXIETY STATE NOS 06/17/2009 Bipolar 2 disorder (HCC) [facility] Borderline personality disorder ([facility]) Diabetes mellitus of mother, complicating , childbirth, or the puerperium, unspecified as to episode of care(648.00) Gestational diabetes Lung nodules Pelvic pain 02/14/2012 Tobacco use disorder Unspecified asthma(493.90) PAST SURGICAL HISTORY Procedure Laterality Date DELIVERY ONLY 11/23/2014 , low transverse CONIZATION CERVIX W/WO DANDC RPR ELTRD EXC 2000 LEEP-Cervix ENDOMETRIAL ABLTJ THERMAL W/O HYSTEROSCOPIC GUID 2018 [facility] LIG/TRNSXJ FLP TUBE ABDL/VAG APPR UNI/BI 11/23/2014 Tubal ligation PAST SURGICAL HISTORY OF Right fibula sugery ALLERGIES Rondec [Brompheniramine-Pseudoephedrin] MEDICATIONS ondansetron orally disintegrating (ZOFRAN ODT) 4 mg disintegrating tablet Take 1 tablet by mouth every 6 hours as needed for nausea/vomiting. gabapentin (NEURONTIN) 300 mg capsule Take 1 capsule by mouth three times a day for 90 days. ethkvfcrij-ayrlovce-ughxryimsu (BREZTRI AEROSPHERE) 160-9-4.8 mcg/actuation HFA aerosol inhaler Inhale 2 Puffs as instructed twice daily. omeprazole (PRILOSEC) 20 mg capsule Take 1 capsule by mouth daily before breakfast. 1/2 hr before meal. cetirizine (ZYRTEC) 10 mg tablet Take 1 tablet by mouth once daily. albuterol (PROVENTIL) 2.5 mg /3 mL (0.083 %) nebulizer solution Use 3 mL via nebulizer every 4 hours as needed for wheezing/shortness of breath. albuterol HFA (PROAIR HFA) 90 mcg/actuation inhaler Inhale 2 Puffs as instructed every 6 hours as needed for wheezing/shortness of breath. FAMILY HISTORY Problem Relation Age of Onset Diabetes Mother other (manic depressive) Mother Eczema Mother Alcohol/Drug Father etoh Lipids Father Allergies Sister Heart Paternal Grandfather Stroke Paternal Grandfather Social History Tobacco Use Smoking status: Former Packs/day: 1.00 Years: 2.00 Additional pack years: 0.00 Total pack years: 2.00 Types: Cigarettes Quit date: 2022 Years since quittin.9 Smokeless tobacco: Never Vaping Use Vaping Use: current everyday user Substances: Nicotine Substance Use Topics Alcohol use: No Comment: History of alcohol abuse Drug use: No Comment: Hx of marijuana Objective Physical Exam Vitals and nursing note reviewed. Constitutional: Appearance: Normal appearance. HENT: Right Ear: Tympanic membrane, ear canal and external ear normal. Left Ear: Tympanic membrane, ear canal and external ear normal. Nose: Nose normal. Mouth/Throat: Mouth: Mucous membranes are moist. Pharynx: Oropharynx is clear. Uvula midline. No oropharyngeal exudate or posterior oropharyngeal erythema. Cardiovascular: Rate and Rhythm: Normal rate and regular rhythm. Heart sounds: Normal heart sounds. Pulmonary: Effort: Pulmonary effort is normal. No respiratory distress. Breath sounds: Normal breath sounds. No wheezing or rales. Musculoskeletal: Cervical back: Neck supple. Lymphadenopathy: Cervical: No cervical adenopathy. Skin: General: Skin is warm and dry. Findings: No erythema or rash. Neurological: Mental Status: She is alert. ASSESSMENT/PLAN: 1. Viral URI with cough - ICD9: 465.9, ICD10: J06.9 - Discussed viral etiology and rationale for treatment. - Symptomatic treatment with prn analgesia - Supportive care with fluids and rest - Tamiflu prescription (printed for patient)- she declines testing today. - BENZONATATE 100 MG CAPSULE - Follow-up with your PCP in 3-5 days if symptoms have not improved or sooner if symptoms worse (more content not included)... [facility] 11-08-2023 Instructions Gerri Nguyen APRN.[facility] - 11/08/2023 9:56 AM EST ASSESSMENT/PLAN: 1. Viral URI with cough - ICD9: 465.9, ICD10: J06.9 - Discussed viral etiology and rationale for treatment. - Symptomatic treatment with prn analgesia - Supportive care with fluids and rest - Tamiflu prescription (printed for patient)- she declines testing today. - BENZONATATE 100 MG CAPSULE - Follow-up with your PCP in 3-5 days if symptoms have not improved or sooner if symptoms worsen - Discussed red flags and need for immediate medical evaluation if any occur. - Discussed supportive care treatment with fluids, rest and analgesia. - Discussed expected course of illness Gerri Nguyen APRN.PORCELAIN TECHNICIAN Treatment for Viral Upper Respiratory Tract Infections Your body will kill off the virus by itself. Additionally, you can prime your body's immune system. This may help you get better more quickly. Drink lots of fluids Make sure you are eating well Get plenty of rest We do not have any medications that kill off these viruses. Antibiotics are used to treat bacterial infections; however, they are not active against viral infections. There are some things that might help you feel better, though. Vaporizers, humidifiers, hot showers, and hot fluids help open respiratory and sinus passages [place] Nasal [place] may offer relief of nasal and head congestion Samson's Vapor Rub may relieve congestion Tylenol and Advil help control fevers and headaches Salt water gargles help relieve sore throats Chloraceptic spray or throat lozenges may also help relieve sore throat symptoms Occasionally, viral infections turn into something more serious. You should see your doctor or return to the Urgent Care if: You have fevers for longer than five days You have fevers above 102 degrees You are still sick after 10 days You have shortness of breath or wheezing After several days you are getting worse rather than better documented in this encounter [facility] 11-08-2023 History of Presen t illness Narrative Subjective Cough Associated symptoms include headaches, sore throat (scratchy) and myalgias. Pertinent negatives include no chest pain, no chills, no ear pain and no shortness of breath. Rg Dia is a 42 year old female who presents with one day of nausea, congestion, cough, headache and body aches. Her throat feels scratchy today. Her son is sick with URI symptoms. She has not had a fever. She has been taking mucinex at home. Review of Systems Constitutional: Negative for chills and fever. HENT: Positive for congestion and sore throat (scratchy). Negative for ear pain. Respiratory: Positive for cough. Negative for shortness of breath. Cardiovascular: Negative for chest pain. Gastrointestinal: Positive for nausea. Negative for diarrhea and vomiting. Musculoskeletal: Positive for myalgias. Neurological: Positive for dizziness and headaches. BP 136/84 Pulse 83 Temp 36.9 C (98.4 F) (Tympanic) Resp 18 Wt 101 kg (222 lb 9.6 oz) LMP 03/12/2014 SpO2 97% BMI 40.96 kg/m PAST MEDICAL HISTORY Diagnosis Date Abnormal glandular Papanicolaou smear of cervix 11/20/2000 Abn. Pap smear (cervix) ANXIETY STATE NOS 06/17/2009 Bipolar 2 disorder (HCC) [facility] Borderline personality disorder ([facility]) Diabetes mellitus of mother, complicating , childbirth, or the puerperium, unspecified as to episode of care(648.00) Gestational diabetes Lung nodules Pelvic pain 02/14/2012 Tobacco use disorder Unspecified asthma(493.90) PAST SURGICAL HISTORY Procedure Laterality Date DELIVERY ONLY 11/23/2014 , low transverse CONIZATION CERVIX W/WO D&C RPR ELTRD EXC 2000 LEEP-Cervix ENDOMETRIAL ABLTJ THERMAL W/O HYSTEROSCOPIC GUID 2018 [facility] LIG/TRNSXJ FLP TUBE ABDL/VAG APPR UNI/BI 11/23/2014 Tubal ligation PAST SURGICAL HISTORY OF Right fibula sugery ALLERGIES Rondec [Brompheniramine-Pseudoephedrin] MEDICATIONS ondansetron orally disintegrating (ZOFRAN ODT) 4 mg disintegrating tablet Take 1 tablet by mouth every 6 hours as needed for nausea/vomiting. gabapentin (NEURONTIN) 300 mg capsule Take 1 capsule by mouth three times a day for 90 days. wayluowhht-ictysfkq-kuxwjlzkmy (BREZTRI AEROSPHERE) 160-9-4.8 mcg/actuation HFA aerosol inhaler Inhale 2 Puffs as instructed twice daily. omeprazole (PRILOSEC) 20 mg capsule Take 1 capsule by mouth daily before breakfast. 1/2 hr before meal. cetirizine (ZYRTEC) 10 mg tablet Take 1 tablet by mouth once daily. albuterol (PROVENTIL) 2.5 mg /3 mL (0.083 %) nebulizer solution Use 3 mL via nebulizer every 4 hours as needed for wheezing/shortness of breath. albuterol HFA (PROAIR HFA) 90 mcg/actuation inhaler Inhale 2 Puffs as instructed every 6 hours as needed for wheezing/shortness of breath. FAMILY HISTORY Problem Relation Age of Onset Diabetes Mother other (manic depressive) Mother Eczema Mother Alcohol/Drug Father etoh Lipids Father Allergies Sister Heart Paternal Grandfather Stroke Paternal Grandfather Social History Tobacco Use Smoking status: Former Packs/day: 1.00 Years: 2.00 Additional pack years: 0.00 Total pack years: 2.00 Types: Cigarettes Quit date: 2022 Years since quittin.9 Smokeless tobacco: Never Vaping Use Vaping Use: current everyday user Substances: Nicotine Substance Use Topics Alcohol use: No Comment: History of alcohol abuse Drug use: No Comment: Hx of marijuana Objective Physical Exam Vitals and nursing note reviewed. Constitutional: Appearance: Normal appearance. HENT: Right Ear: Tympanic membrane, ear canal and external ear normal. Left Ear: Tympanic membrane, ear canal and external ear normal. Nose: Nose normal. Mouth/Throat: Mouth: Mucous membranes are moist. Pharynx: Oropharynx is clear. Uvula midline. No oropharyngeal exudate or posterior oropharyngeal erythema. Cardiovascular: Rate and Rhythm: Normal rate and regular rhythm. Heart sounds: Normal heart sounds. Pulmonary: Effort: Pulmonary effort is normal. No respiratory distress. Breath sounds: Normal breath sounds. No wheezing or rales. Musculoskeletal: Cervical back: Neck supple. Lymphadenopathy: Cervical: No cervical adenopathy. Skin: General: Skin is warm and dry. Findings: No erythema or rash. Neurological: Mental Status: She is alert. ASSESSMENT/PLAN: 1. Viral URI with cough - ICD9: 465.9, ICD10: J06.9 - Discussed viral etiology and rationale for treatment. - Symptomatic treatment with prn analgesia - Supportive care with fluids and rest - Tamiflu prescription (printed for patient)- she declines testing today. - BENZONATATE 100 MG CAPSULE - Follow-up with your PCP in 3-5 days if symptoms have not improved or sooner if symptoms worsen - Discussed red flags and need for immediate medical evaluation if any occur. - Discussed supportive care treatment with fluids, rest and analgesia. - Discussed expected course of illness Gerri Nguyen APRN.PORCELAIN TECHNICIAN documented in this encounter [facility] 10-24-2023 Note HNO ID: [id number] Author: Lakesha Diaz MD Service: ? Author Type: Physician Type: Progress Notes Filed: 10/24/2023 8:24 PM Note Text: . Respiratory [place] Note Patient name: Rg Dia PCP: Sajan White MD CC: follow-up COPD and chest CT HPI: Rg Dia 42 year old female recent former smoker, currently vaping with PMH significant for borderline personality disorder, bipolar 2, gestational diabetes, asthma and abnormal chest CT (infiltrate following pneumonia). Current therapy consists of Breztri with as needed albuterol. Follow-up chest CT shows multiple subcentimeter nodules, stable compared to previous chest CT. From a respiratory standpoint, she states she is doing well. No recent URI, ED visit or hospitalization. She denies current cough, sputum production or wheezing. Rare need for albuterol inhaler. HOWARD/SOB at baseline. She has severe obstruction on PFTs. Negative for alpha-1 antitrypsin deficiency. DATA: PFT 03/2023: Labs: Component Ref Range AND Units 7 mo ago Alpha 1 Antitrypsin 90 - 200 mg/dL 126 Imaging / Diagnostic Studies: DATE OF EXAM: Oct 17 2023 8:35AM [facility] 0541 - CT CHEST WO IVCON / CLINICAL HISTORY: Lung nodule Comparison: CT chest dated August 07, 2023 RESULT: Limitations: None. Lines, tubes, and devices: None. Lung parenchyma and airways: Couple of subcentimeter calcified right lower lobe granulomas. Stable bilateral subcentimeter pulmonary nodules with patient financial representative measurements as follows. Stable 3 mm right upper lobe pulmonary nodule (6, 68). Stable 5 mm right middle lobe subpleural nodule (6, 102). Stable 4 mm additional right middle lobe pulmonary nodule (6, 112). Stable 6 mm left lower lobe pulmonary nodule (6, 73). Stable 2 mm left upper lobe nodule (6, 75). Stable 4 mm left lower lobe pulmonary nodule (6, 122). No new or enlarging pulmonary nodules identified. Pleural space: No pleural effusion. No pleural thickening. Lower neck, lymph nodes, and mediastinum: The imaged thyroid gland is normal. No lymphadenopathy in the supraclavicular, axillary, mediastinal, or hilar regions. Heart, pericardium, and thoracic vessels: The thoracic aorta and main pulmonary artery are normal in caliber. The cardiac chambers are normal in size. No coronary artery atherosclerotic calcifications are noted, although the study is not optimized for coronary assessment. No pericardial effusion or thickening. Bones and soft tissues: Degenerative changes. Upper abdomen: Hepatic steatosis. IMPRESSION: Stable subcentimeter pulmonary nodules. I personally reviewed the images as well as with the patient and agree with the above assessment PAST MEDICAL HISTORY Diagnosis Date Abnormal glandular Papanicolaou smear of cervix 11/20/2000 Abn. Pap smear (cervix) ANXIETY STATE NOS 06/17/2009 Bipolar 2 disorder ([facility]) [facility] Borderline personality disorder ([facility]) Diabetes mellitus of mother, complicating , childbirth, or the puerperium, unspecified as to episode of care(648.00) Gestational diabetes Lung nodules Pelvic pain 02/14/2012 Tobacco use disorder Unspecified asthma(493.90) ALLERGIES Allergen Reactions Rondec [Bromphenira* Rash ondansetron orally disintegrating (ZOFRAN ODT) 4 mg disintegrating tablet Take 1 tablet by mouth every 6 hours as needed for nausea/vomiting. gabapentin (NEURONTIN) 300 mg capsule Take 1 capsule by mouth three times a day for 90 days. tnjmiyocwn-uzaqpcun-oijddbcylg (BREZTRI AEROSPHERE) 160-9-4.8 mcg/actuation HFA aerosol inhaler Inhale 2 Puffs as instructed twice daily. omeprazole (PRILOSEC) 20 mg capsule Take 1 capsule by mouth daily before breakfast. 1/2 hr before meal. cetirizine (ZYRTEC) 10 mg tablet Take 1 tablet by mouth once daily. albuterol (PROVENTIL) 2.5 mg /3 mL (0.083 %) nebulizer solution Use 3 mL via nebulizer every 4 hours as needed for wheezing/shortness of breath. albuterol HFA (PROAIR HFA) 90 mcg/actuation inhaler Inhale 2 Puffs as instructed every 6 hours as needed for wheezing/shortness of breath. Social History Tobacco Use Smoking status: Former Packs/day: 1.00 Years: 2.00 Additional pack years: 0.00 Total pack years: 2.00 Types: Cigarettes Quit date: 2022 Years since quittin.9 Smokeless tobacco: Never Vaping Use Vaping Use: current everyday user Substances: Nicotine Substance Use Topics Alcohol use: No Comment: History of alcohol abuse Drug use: No Comment: Hx of marijuana FAMILY HISTORY Problem Relation Age of Onset Diabetes Mother other (manic depressive) Mother Eczema Mother Alcohol/Drug Father etoh Lipids Father Allergies Sister Heart Paternal Grandfather Stroke Paternal Grandfather PAST SURGICAL HISTORY Procedure Laterality Date DELIVERY ONLY 11/23/2014 , low transverse CONIZATION CERVIX W/WO DANDC RPR ELTRD E (more content not included)... [facility] 10-24-2023 History of Presen t illness Narrative Images from the original note were not included. . [facility] Note Patient name: Rg Dia PCP: Sajan White MD CC: follow-up COPD and chest CT HPI: Rg Dia 42 year old female recent former smoker, currently vaping with PMH significant for borderline personality disorder, bipolar 2, gestational diabetes, asthma and abnormal chest CT (infiltrate following pneumonia). Current therapy consists of Breztri with as needed albuterol. Follow-up chest CT shows multiple subcentimeter nodules, stable compared to previous chest CT. From a respiratory standpoint, she states she is doing well. No recent URI, ED visit or hospitalization. She denies current cough, sputum production or wheezing. Rare need for albuterol inhaler. HOWARD/SOB at baseline. She has severe obstruction on PFTs. Negative for alpha-1 antitrypsin deficiency. DATA: PFT 03/2023: Labs: Component Ref Range & Units 7 mo ago Alpha 1 Antitrypsin 90 - 200 mg/dL 126 Imaging / Diagnostic Studies: DATE OF EXAM: Oct 17 2023 8:35AM [facility] 0541 - CT CHEST WO IVCON / CLINICAL HISTORY: Lung nodule Comparison: CT chest dated August 07, 2023 RESULT: Limitations: None. Lines, tubes, and devices: None. Lung parenchyma and airways: Couple of subcentimeter calcified right lower lobe granulomas. Stable bilateral subcentimeter pulmonary nodules with patient financial representative measurements as follows. Stable 3 mm right upper lobe pulmonary nodule (6, 68). Stable 5 mm right middle lobe subpleural nodule (6, 102). Stable 4 mm additional right middle lobe pulmonary nodule (6, 112). Stable 6 mm left lower lobe pulmonary nodule (6, 73). Stable 2 mm left upper lobe nodule (6, 75). Stable 4 mm left lower lobe pulmonary nodule (6, 122). No new or enlarging pulmonary nodules identified. Pleural space: No pleural effusion. No pleural thickening. Lower neck, lymph nodes, and mediastinum: The imaged thyroid gland is normal. No lymphadenopathy in the supraclavicular, axillary, mediastinal, or hilar regions. Heart, pericardium, and thoracic vessels: The thoracic aorta and main pulmonary artery are normal in caliber. The cardiac chambers are normal in size. No coronary artery atherosclerotic calcifications are noted, although the study is not optimized for coronary assessment. No pericardial effusion or thickening. Bones and soft tissues: Degenerative changes. Upper abdomen: Hepatic steatosis. IMPRESSION: Stable subcentimeter pulmonary nodules. I personally reviewed the images as well as with the patient and agree with the above assessment PAST MEDICAL HISTORY Diagnosis Date Abnormal glandular Papanicolaou smear of cervix 11/20/2000 Abn. Pap smear (cervix) ANXIETY STATE NOS 06/17/2009 Bipolar 2 disorder (HCC) [facility] Borderline personality disorder ([facility]) Diabetes mellitus of mother, complicating , childbirth, or the puerperium, unspecified as to episode of care(648.00) Gestational diabetes Lung nodules Pelvic pain 02/14/2012 Tobacco use disorder Unspecified asthma(493.90) ALLERGIES Allergen Reactions Rondec [Bromphenira* Rash ondansetron orally disintegrating (ZOFRAN ODT) 4 mg disintegrating tablet Take 1 tablet by mouth every 6 hours as needed for nausea/vomiting. gabapentin (NEURONTIN) 300 mg capsule Take 1 capsule by mouth three times a day for 90 days. amgnpvuuem-agcfgetc-bfeucepgdz (BREZTRI AEROSPHERE) 160-9-4.8 mcg/actuation HFA aerosol inhaler Inhale 2 Puffs as instructed twice daily. omeprazole (PRILOSEC) 20 mg capsule Take 1 capsule by mouth daily before breakfast. 1/2 hr before meal. cetirizine (ZYRTEC) 10 mg tablet Take 1 tablet by mouth once daily. albuterol (PROVENTIL) 2.5 mg /3 mL (0.083 %) nebulizer solution Use 3 mL via nebulizer every 4 hours as needed for wheezing/shortness of breath. albuterol HFA (PROAIR HFA) 90 mcg/actuation inhaler Inhale 2 Puffs as instructed every 6 hours as needed for wheezing/shortness of breath. Social History Tobacco Use Smoking status: Former Packs/day: 1.00 Years: 2.00 Additional pack years: 0.00 Total pack years: 2.00 Types: Cigarettes Quit date: 2022 Years since quittin.9 Smokeless tobacco: Never Vaping Use Vaping Use: current everyday user Substances: Nicotine Substance Use Topics Alcohol use: No Comment: History of alcohol abuse Drug use: No Comment: Hx of marijuana FAMILY HISTORY Problem Relation Age of Onset Diabetes Mother other (manic depressive) Mother Eczema Mother Alcohol/Drug Father etoh Lipids Father Allergies Sister Heart Paternal Grandfather Stroke Paternal Grandfather PAST SURGICAL HISTORY Procedure Laterality Date DELIVERY ONLY 11/23/2014 , low transverse CONIZATION CERVIX W/WO D&C RPR ELTRD EXC 2000 LEEP-Cervix ENDOMETRIAL ABLTJ THERMAL W/O HYSTEROSCOPIC GUID 2018 [facility] LIG/TRNSXJ FLP TUBE ABDL/VAG APPR UNI/BI 11/23/2014 Tubal ligation PAST SURGICAL HISTORY OF Right fibula sugery PMH, Social history, family history and surgical history reviewed and updated in EMR REVIEW OF SYSTEMS: CONSTITUTIONAL: No fevers, chills, nightsweats, unintended weight loss HEENT: Denies nasal congestion/sinus symptoms, allergy problems. CARDIOVASCULAR: No chest pain, palpitations, orthopnea, PND, edema. PULM: See HPI GI: No dysphagia/odynophagia, reflux INTEGUMENTARY: No new skin changes or rashes PHYSICAL EXAMINATION: BP 130/90 Pulse 89 Resp 16 Wt 221 lb (100.2kg) SpO2 96% LMP 03/12/2014 General Appearance: Obese female, NAD. Skin: Skin color, texture, turgor normal, no suspicious rashes or lesions. Tattoos Head: Normocephalic, no masses, lesions, tenderness or abnormalities. Eyes: Sclera, conjunctiva normal. Oropharynx: Poor dentition, no oral lesions or thrush. Neck: No JVD, no masses, no adenopathy. Lungs: Not labored, normal to percussion, no wheezes or crackles. Heart: Regular rate and rhythm, no murmurs or gallops. Extremities: No edema or clubbing Assessment/Plan: 1. Lung nodules -Stable nodules -Surveillance CT in one year 2. Asthma COPD overlap syndrome -Continue Breztri and as needed albuterol -Update PFT at next visit 3. Class 3 obesity -BMI 40 -Weight loss advised Lakesha Diaz MD [facility] documented in this encounter [facility] 10-17-2023 Note HNO ID: [id number] Author: Ilsa Mcgill RT(R) Service: ? Author Type: Associate Professor Of Counseling Type: Progress Notes Filed: 10/17/2023 1:11 PM Note Text: Radiology Service Progress Note PATIENT NAME: Rg Dia DATE OF SERVICE: October 17, 2023 TIME: 1:11 PM PATIENT IDENTITY VERIFICATION COMPLETED USING TWO (2) IDENTIFIERS: Name and Date of confirmed by patient verbally. FALL SCREENING: Has the patient had 2 falls in the last year or 1 fall with injury or currently using an Ambulatory Assistive Device (Walker, Cane, Wheelchair, Crutches, etc.)? No PATIENT GENDER DATA: Female. status: : No status: NO. PATIENT RELEVANT IMPLANT DATA REVIEWED: Yes RADIOLOGY DEPARTMENT: CT; Exam(s) Completed: Chest PERIPHERAL IV DATA: Not applicable SIGNED BY: RT Mariajose(Billy) October 17, 2023 1:11 PM [facility] 10-17-2023 History of Presen t illness Narrative Radiology Service Progress Note PATIENT NAME: Rg Dia DATE OF SERVICE: October 17, 2023 TIME: 1:11 PM PATIENT IDENTITY VERIFICATION COMPLETED USING TWO (2) IDENTIFIERS: Name and Date of confirmed by patient verbally. FALL SCREENING: Has the patient had 2 falls in the last year or 1 fall with injury or currently using an Ambulatory Assistive Device (Walker, Cane, Wheelchair, Crutches, etc.)? No PATIENT GENDER DATA: Female. status: : No status: NO. PATIENT RELEVANT IMPLANT DATA REVIEWED: Yes RADIOLOGY DEPARTMENT: CT; Exam(s) Completed: Chest PERIPHERAL IV DATA: Not applicable SIGNED BY: RT Mariajose(R) October 17, 2023 1:11 PM documented in this encounter [facility] 10-07-2023 Note HNO ID: [id number] Author: Marika Aaron APRN.PORCELAIN TECHNICIAN Service: ? Author Type: Nurse Practitioner Type: Progress Notes Filed: 10/07/2023 2:27 PM Note Text: Subjective Patient came and said she had a possible swollen lymph node and some muscle discomfort on the left side. Patient says she does sleep with that arm up under her pillow. Patient says she believes that is what caused it. Denies any numbness tingling loss of feeling. Denies any shortness of breath cough chest congestion or chest pressure. Patient denies any other symptoms. The history is provided by the patient. No certified court/medical interpreter was used. Review of Systems Constitutional: Negative. Skin: Negative. Objective Physical Exam Constitutional: Appearance: Normal appearance. Neck: Comments: Patient has tenderness in the area marked above. Pain is reproducible upon palpation. No signs of discoloration noted. No lymph nodes palpable. Pulmonary: Effort: Pulmonary effort is normal. Neurological: Mental Status: She is alert. PAST MEDICAL HISTORY Diagnosis Date Abnormal glandular Papanicolaou smear of cervix 11/20/2000 Abn. Pap smear (cervix) ANXIETY STATE NOS 06/17/2009 Bipolar 2 disorder (HCC) [facility] Borderline personality disorder (HCC) Diabetes mellitus of mother, complicating , childbirth, or the puerperium, unspecified as to episode of care(648.00) Gestational diabetes Pelvic pain 02/14/2012 Tobacco use disorder Unspecified asthma(493.90) PAST SURGICAL HISTORY Procedure Laterality Date DELIVERY ONLY 11/23/2014 , low transverse CONIZATION CERVIX W/WO DANDC RPR ELTRD EXC 2000 LEEP-Cervix ENDOMETRIAL ABLTJ THERMAL W/O HYSTEROSCOPIC GUID 2018 [facility] LIG/TRNSXJ FLP TUBE ABDL/VAG APPR UNI/BI 11/23/2014 Tubal ligation PAST SURGICAL HISTORY OF Right fibula sugery ALLERGIES Rondec [Brompheniramine-Pseudoephedrin] MEDICATIONS ondansetron orally disintegrating (ZOFRAN ODT) 4 mg disintegrating tablet Take 1 tablet by mouth every 6 hours as needed for nausea/vomiting. gabapentin (NEURONTIN) 300 mg capsule Take 1 capsule by mouth three times a day for 90 days. wassdrawxi-hohyujve-qwkbqrmrud (BREZTRI AEROSPHERE) 160-9-4.8 mcg/actuation HFA aerosol inhaler Inhale 2 Puffs as instructed twice daily. omeprazole (PRILOSEC) 20 mg capsule Take 1 capsule by mouth daily before breakfast. 1/2 hr before meal. cetirizine (ZYRTEC) 10 mg tablet Take 1 tablet by mouth once daily. albuterol (PROVENTIL) 2.5 mg /3 mL (0.083 %) nebulizer solution Use 3 mL via nebulizer every 4 hours as needed for wheezing/shortness of breath. albuterol HFA (PROAIR HFA) 90 mcg/actuation inhaler Inhale 2 Puffs as instructed every 6 hours as needed for wheezing/shortness of breath. cyclobenzaprine (FLEXERIL) 10 mg tablet Take 1 tablet by mouth two times a day as needed for muscle spasm for up to 7 days. ibuprofen (MOTRIN) 600 mg tablet Take 1 tablet by mouth every 6 hours as needed for pain for up to 7 days. FAMILY HISTORY Problem Relation Age of Onset Diabetes Mother other (manic depressive) Mother Eczema Mother Alcohol/Drug Father etoh Lipids Father Allergies Sister Heart Paternal Grandfather Stroke Paternal Grandfather Social History Tobacco Use Smoking status: Former Packs/day: 1.00 Years: 2.00 Additional pack years: 0.00 Total pack years: 2.00 Types: Cigarettes Quit date: 2022 Years since quittin.8 Smokeless tobacco: Never Tobacco comments: Pt is trying to quit Vaping Use Vaping Use: current everyday user Substances: Nicotine Substance Use Topics Alcohol use: No Comment: History of alcohol abuse Drug use: No Comment: Hx of marijuana ASSESSMENT/PLAN: 1. Muscle pain - ICD9: 729.1, ICD10: M79.10 - CYCLOBENZAPRINE 10 MG TABLET - IBUPROFEN 600 MG TABLET Patient was educated about proper use of medication and supportive therapies. Patient was educated not to drive or drink on Flexeril. Patient will follow-up if signs and symptoms seem to be getting worse not better. Patient was okay with this care plan. Marika Aaron APRN.[facility] 10-07-2023 History of Presen t illness Narrative Images from the original note were not included. Subjective Patient came and said she had a possible swollen lymph node and some muscle discomfort on the left side. Patient says she does sleep with that arm up under her pillow. Patient says she believes that is what caused it. Denies any numbness tingling loss of feeling. Denies any shortness of breath cough chest congestion or chest pressure. Patient denies any other symptoms. The history is provided by the patient. No certified court/medical interpreter was used. Review of Systems Constitutional: Negative. Skin: Negative. Objective Physical Exam Constitutional: Appearance: Normal appearance. Neck: Comments: Patient has tenderness in the area marked above. Pain is reproducible upon palpation. No signs of discoloration noted. No lymph nodes palpable. Pulmonary: Effort: Pulmonary effort is normal. Neurological: Mental Status: She is alert. PAST MEDICAL HISTORY Diagnosis Date Abnormal glandular Papanicolaou smear of cervix 11/20/2000 Abn. Pap smear (cervix) ANXIETY STATE NOS 06/17/2009 Bipolar 2 disorder ([facility]) [facility] Borderline personality disorder ([facility]) Diabetes mellitus of mother, complicating , childbirth, or the puerperium, unspecified as to episode of care(648.00) Gestational diabetes Pelvic pain 02/14/2012 Tobacco use disorder Unspecified asthma(493.90) PAST SURGICAL HISTORY Procedure Laterality Date DELIVERY ONLY 11/23/2014 , low transverse CONIZATION CERVIX W/WO D&C RPR ELTRD EXC 2000 LEEP-Cervix ENDOMETRIAL ABLTJ THERMAL W/O HYSTEROSCOPIC GUID 2018 Hien OBGYN LIG/TRNSXJ FLP TUBE ABDL/VAG APPR UNI/BI 11/23/2014 Tubal ligation PAST SURGICAL HISTORY OF Right fibula sugery ALLERGIES Rondec [Brompheniramine-Pseudoephedrin] MEDICATIONS ondansetron orally disintegrating (ZOFRAN ODT) 4 mg disintegrating tablet Take 1 tablet by mouth every 6 hours as needed for nausea/vomiting. gabapentin (NEURONTIN) 300 mg capsule Take 1 capsule by mouth three times a day for 90 days. spbkkglfiy-xvsuahta-ubrqwjvffl (BREZTRI AEROSPHERE) 160-9-4.8 mcg/actuation HFA aerosol inhaler Inhale 2 Puffs as instructed twice daily. omeprazole (PRILOSEC) 20 mg capsule Take 1 capsule by mouth daily before breakfast. 1/2 hr before meal. cetirizine (ZYRTEC) 10 mg tablet Take 1 tablet by mouth once daily. albuterol (PROVENTIL) 2.5 mg /3 mL (0.083 %) nebulizer solution Use 3 mL via nebulizer every 4 hours as needed for wheezing/shortness of breath. albuterol HFA (PROAIR HFA) 90 mcg/actuation inhaler Inhale 2 Puffs as instructed every 6 hours as needed for wheezing/shortness of breath. cyclobenzaprine (FLEXERIL) 10 mg tablet Take 1 tablet by mouth two times a day as needed for muscle spasm for up to 7 days. ibuprofen (MOTRIN) 600 mg tablet Take 1 tablet by mouth every 6 hours as needed for pain for up to 7 days. FAMILY HISTORY Problem Relation Age of Onset Diabetes Mother other (manic depressive) Mother Eczema Mother Alcohol/Drug Father etoh Lipids Father Allergies Sister Heart Paternal Grandfather Stroke Paternal Grandfather Social History Tobacco Use Smoking status: Former Packs/day: 1.00 Years: 2.00 Additional pack years: 0.00 Total pack years: 2.00 Types: Cigarettes Quit date: 2022 Years since quittin.8 Smokeless tobacco: Never Tobacco comments: Pt is trying to quit Vaping Use Vaping Use: current everyday user Substances: Nicotine Substance Use Topics Alcohol use: No Comment: History of alcohol abuse Drug use: No Comment: Hx of marijuana ASSESSMENT/PLAN: 1. Muscle pain - ICD9: 729.1, ICD10: M79.10 - CYCLOBENZAPRINE 10 MG TABLET - IBUPROFEN 600 MG TABLET Patient was educated about proper use of medication and supportive therapies. Patient was educated not to drive or drink on Flexeril. Patient will follow-up if signs and symptoms seem to be getting worse not better. Patient was okay with this care plan. Marika Aaron APRN.[facility] documented in this encounter [facility] 09-15-2023 Miscellaneous Notes Phoned [facility] /[facility] pharmacist. She states there is an active rx at pharmacy from May, but pt had requested multiple refills since then but never picked it up so it was returned to stock and deleted. Pharmacist states rx is still active so she will get it filled for pt. Pt notified. Caesar Heredia LPN Patient tried to get her refill of Zyrtec from [facility] (Rx sent on 05/25 and 11 refills). They told her there are no refills for her. She is asking if staff can please call the pharmacy as her allergies are really bad right now, and let her know an update. TY documented in this encounter [facility] 09-01-2023 Note HNO ID: [id number] Author: Sajan White MD Service: ? Author Type: Physician Type: Progress Notes Filed: 09/01/2023 2:28 PM Note Text: Chief Complaint Patient presents with: gi issues Letter: For child support HPI Rg Dia is a 42 year old female who presents here today for gi issues and letter. Declined flu and pneumonia vaccine. Not smoking cigarettes, is vaping. Admits that vaping causes her a different kind of irritation than the cigarette smoking, feels more of a cough in the throat with the vaping than in the lungs. Pt having GI issues. Having a lot of gas build up, bloating, abdominal pain, nausea, intermittent diarrhea and constipation. She states that since she has cut out red meat, red sauces, and feels stress level is a little better which she feels affects her gi issues. Pt is taking Prilosec 20 mg daily. Also has Zofran to use prn. LORNA AND Depression: Improved, is doing counseling every other week at the counseling center. Using Medical Marijuana which she feels is helping. She feels that the counseling and marijuana has helped her a lot. She feels that the counseling was what she really needed, to find the route of her anxiety. She remains unable to work due to her ongoing medical and emotional issues; wants to get on disability for her mental health and physical health, needs to contact a dredge pumper. Has not worked in 6 years. Needs a new letter for Child Support Agency. Letter needs faxed to [facility] Child Support Agency at [phone]. Asthma AND COPD: Follows with Pulm Dr. Diaz regularly. Inhalers and nebulizer are helping significantly. Pain: hands, had carpal tunnel surgery in past and past surgery to right leg, has metal in the leg. She uses Gabapentin 300 mg 1 pill TID as well as the medical marijuana. Past medical history, appointments, medications, allergies reviewed. Previous Medical History PAST MEDICAL HISTORY Diagnosis Date Abnormal glandular Papanicolaou smear of cervix 11/20/2000 Abn. Pap smear (cervix) ANXIETY STATE NOS 06/17/2009 Bipolar 2 disorder (HCC) [facility]ing [facility] Borderline personality disorder ([facility]) Diabetes mellitus of mother, complicating , childbirth, or the puerperium, unspecified as to episode of care(648.00) Gestational diabetes Pelvic pain 02/14/2012 Tobacco use disorder Unspecified asthma(493.90) Previous Surgical History PAST SURGICAL HISTORY Procedure Laterality Date DELIVERY ONLY 11/23/2014 , low transverse CONIZATION CERVIX W/WO DANDC RPR ELTRD EXC 2000 LEEP-Cervix ENDOMETRIAL ABLTJ THERMAL W/O HYSTEROSCOPIC GUID 2018 [facility] LIG/TRNSXJ FLP TUBE ABDL/VAG APPR UNI/BI 11/23/2014 Tubal ligation PAST SURGICAL HISTORY OF Right fibula sugery Family History FAMILY HISTORY Problem Relation Age of Onset Diabetes Mother other (manic depressive) Mother Eczema Mother Alcohol/Drug Father etoh Lipids Father Allergies Sister Heart Paternal Grandfather Stroke Paternal Grandfather Patient Allergies ALLERGIES Allergen Reactions Rondec [Bromphenira* Rash Current Medications Current Outpatient Medications on File Prior to Visit Medication Sig albuterol (PROVENTIL) 2.5 mg /3 mL (0.083 %) nebulizer solution Use 3 mL via nebulizer every 4 hours as needed for wheezing/shortness of breath. albuterol HFA (PROAIR HFA) 90 mcg/actuation inhaler Inhale 2 Puffs as instructed every 6 hours as needed for wheezing/shortness of breath. bcjuokszco-lmmfzdxa-bvqhbryoxe (BREZTRI AEROSPHERE) 160-9-4.8 mcg/actuation HFA aerosol inhaler Inhale 2 Puffs as instructed twice daily. cetirizine (ZYRTEC) 10 mg tablet Take 1 tablet by mouth once daily. gabapentin (NEURONTIN) 300 mg capsule Take 1 capsule by mouth three times a day for 90 days. omeprazole (PRILOSEC) 20 mg capsule Take 1 capsule by mouth daily before breakfast. 1/2 hr before meal. ondansetron orally disintegrating (ZOFRAN ODT) 4 mg disintegrating tablet Take 1 tablet by mouth every 6 hours as needed for nausea/vomiting. No current facility-administered medications on file prior to visit. Social History Social History Tobacco Use Smoking status: Former Packs/day: 1.00 Years: 2.00 Additional pack years: 0.00 Total pack years: 2.00 Types: Cigarettes Quit date: 2022 Years since quittin.7 Smokeless tobacco: Never Tobacco comments: Pt is trying to quit Vaping Use Vaping Use: current everyday user Substances: Nicotine Substance Use Topics Alcohol use: No Comment: History of alcohol abuse Drug use: No Comment: Hx of marijuana EXAM: BP 130/78 Pulse 74 Resp 16 Wt 98.8 kg (217 lb 12.8 oz) LMP 03/12/2014 BMI 40.08 kg/m? General Appearance: Well appearing, alert, in no acute distress, well-hydrated, well nourished. and Overweight. Lungs: Lungs clear to auscultation. No wheezing, rhonchi, rales.. Heart: RRR without murmur, gallop, or rub (more content not included)... [facility] 09-01-2023 History of Presen t illness Narrative Chief Complaint Patient presents with: gi issues Letter: For child support HPI Rg Dia is a 42 year old female who presents here today for gi issues and letter. Declined flu and pneumonia vaccine. Not smoking cigarettes, is vaping. Admits that vaping causes her a different kind of irritation than the cigarette smoking, feels more of a cough in the throat with the vaping than in the lungs. Pt having GI issues. Having a lot of gas build up, bloating, abdominal pain, nausea, intermittent diarrhea and constipation. She states that since she has cut out red meat, red sauces, and feels stress level is a little better which she feels affects her gi issues. Pt is taking Prilosec 20 mg daily. Also has Zofran to use prn. LORNA & Depression: Improved, is doing counseling every other week at the counseling center. Using Medical Marijuana which she feels is helping. She feels that the counseling and marijuana has helped her a lot. She feels that the counseling was what she really needed, to find the route of her anxiety. She remains unable to work due to her ongoing medical and emotional issues; wants to get on disability for her mental health and physical health, needs to contact a dredge pumper. Has not worked in 6 years. Needs a new letter for Child Support Agency. Letter needs faxed to [facility] Child Support Agency at [phone]. Asthma & COPD: Follows with Pulm Dr. Diaz regularly. Inhalers and nebulizer are helping significantly. Pain: hands, had carpal tunnel surgery in past and past surgery to right leg, has metal in the leg. She uses Gabapentin 300 mg 1 pill TID as well as the medical marijuana. Past medical history, appointments, medications, allergies reviewed. Previous Medical History PAST MEDICAL HISTORY Diagnosis Date Abnormal glandular Papanicolaou smear of cervix 11/20/2000 Abn. Pap smear (cervix) ANXIETY STATE NOS 06/17/2009 Bipolar 2 disorder (HCC) [facility]ing Center Borderline personality disorder ([facility]) Diabetes mellitus of mother, complicating , childbirth, or the puerperium, unspecified as to episode of care(648.00) Gestational diabetes Pelvic pain 02/14/2012 Tobacco use disorder Unspecified asthma(493.90) Previous Surgical History PAST SURGICAL HISTORY Procedure Laterality Date DELIVERY ONLY 11/23/2014 , low transverse CONIZATION CERVIX W/WO D&C RPR ELTRD EXC 2000 LEEP-Cervix ENDOMETRIAL ABLTJ THERMAL W/O HYSTEROSCOPIC GUID 2018 Hien OBGYN LIG/TRNSXJ FLP TUBE ABDL/VAG APPR UNI/BI 11/23/2014 Tubal ligation PAST SURGICAL HISTORY OF Right fibula sugery Family History FAMILY HISTORY Problem Relation Age of Onset Diabetes Mother other (manic depressive) Mother Eczema Mother Alcohol/Drug Father etoh Lipids Father Allergies Sister Heart Paternal Grandfather Stroke Paternal Grandfather Patient Allergies ALLERGIES Allergen Reactions Rondec [Bromphenira* Rash Current Medications Current Outpatient Medications on File Prior to Visit Medication Sig albuterol (PROVENTIL) 2.5 mg /3 mL (0.083 %) nebulizer solution Use 3 mL via nebulizer every 4 hours as needed for wheezing/shortness of breath. albuterol HFA (PROAIR HFA) 90 mcg/actuation inhaler Inhale 2 Puffs as instructed every 6 hours as needed for wheezing/shortness of breath. yvtcqzhixn-slcfugcw-nfjjspnaiv (BREZTRI AEROSPHERE) 160-9-4.8 mcg/actuation HFA aerosol inhaler Inhale 2 Puffs as instructed twice daily. cetirizine (ZYRTEC) 10 mg tablet Take 1 tablet by mouth once daily. gabapentin (NEURONTIN) 300 mg capsule Take 1 capsule by mouth three times a day for 90 days. omeprazole (PRILOSEC) 20 mg capsule Take 1 capsule by mouth daily before breakfast. 1/2 hr before meal. ondansetron orally disintegrating (ZOFRAN ODT) 4 mg disintegrating tablet Take 1 tablet by mouth every 6 hours as needed for nausea/vomiting. No current facility-administered medications on file prior to visit. Social History Social History Tobacco Use Smoking status: Former Packs/day: 1.00 Years: 2.00 Additional pack years: 0.00 Total pack years: 2.00 Types: Cigarettes Quit date: 2022 Years since quittin.7 Smokeless tobacco: Never Tobacco comments: Pt is trying to quit Vaping Use Vaping Use: current everyday user Substances: Nicotine Substance Use Topics Alcohol use: No Comment: History of alcohol abuse Drug use: No Comment: Hx of marijuana EXAM: BP 130/78 Pulse 74 Resp 16 Wt 98.8 kg (217 lb 12.8 oz) LMP 03/12/2014 BMI 40.08 kg/m General Appearance: Well appearing, alert, in no acute distress, well-hydrated, well nourished. and Overweight. Lungs: Lungs clear to auscultation. No wheezing, rhonchi, rales.. Heart: RRR without murmur, gallop, or rubs. No ectopy. Health Maintenance List Hepatitis B Vaccine(1 of 3 - 3-dose series) Never done Pneumococcal Vaccine(1 - PCV) Never done Hepatitis C Screening Never done Influenza Vaccine(1) due on 07/21/2023 Covid-19 Vaccine(1) due on 12/29/2023 Mammogram Screening due on 03/03/2024 Annual PCP Team Chronic Disease Visit due on 05/09/2024 Pap Testing due on 01/19/2027 HPV Testing due on 02/14/2027 DTaP,Tdap,Td Vaccine(3 - Td or Tdap) due on 07/14/2031 Alpha-1 Antitrypsin Deficiency Screening Completed Spirometry Completed HIV Screening Completed HPV Vaccine Aged Out Data reviewed none ASSESSMENT/PLAN: 1. Anxiety with depression - ICD9: 300.4, ICD10: F41.8 (primary diagnosis) Continue counseling 2. Tobacco use disorder - ICD9: 305.1, ICD10: F17.200 - Cessation encouraged. - Physiologic and physical aspects of tobacco addiction as well as strategies for quitting were discussed. - Counseling was given focusing on the harmful effects of this addiction especially given the patient's medical condition(s) which will be worsened because of the chemicals in tobacco. 3. Gastritis without bleeding, unspecified chronicity, unspecified gastritis type - ICD9: 535.50, ICD10: K29.70 - ONDANSETRON 4 MG DISINTEGRATING TABLET 4. Bipolar 2 disorder (HCC) - ICD9: 296.89, ICD10: F31.81 Contineu counseling 5. Chronic obstructive pulmonary disease with acute exacerbation (HCC) - ICD9: 491.21, ICD10: J44.1 Follow with Pulm 6. Right carpal tunnel syndrome - ICD9: 354.0, ICD10: G56.01 Letter done Follow up prn I agree with the Chief Complaint, ROS, and Past Histories independently gathered by the clinical support representative and the remaining scribed note accurately describes my personal service to the patient. Medical Decision Making: Problems: Moderate: 2+ stable chronic illnesses Risk: Moderate: Drug management Medical Decision Making Level: 4 - Moderate Sajan White MD The documentation for this note was completed by Marivel Sanchez Ma acting as scribe for Sajan White MD. September 01, 2023 2:01 PM. Marivel Sanchez Ma documented in this encounter [facility] 08-30-2023 Miscellaneous Notes The following approved medication requests have been transmitted electronically. Requested Prescriptions Pending Prescriptions Disp Refills gabapentin (NEURONTIN) 300 mg capsule 90 capsule 2 Sig: Take 1 capsule by mouth three times a day for 90 days. Antony Cisneros APRN.CNP Patient has been identified by name and date of : Yes Requested Prescriptions Pending Prescriptions Disp Refills gabapentin (NEURONTIN) 300 mg capsule 90 capsule 2 Sig: Take 1 capsule by mouth three times a day for 90 days. JUAN ALBERTO:05[birth year]09-23 NOV:09-01-23 Wen March RX INSTRUCTIONS: Patient aware RX will be sent to pharmacy. No need to notify patient. Wen March documented in this encounter [facility] 08-07-2023 Note HNO ID: [id number] Author: Ilsa Mcgill RT(R) Service: ? Author Type: Associate Professor Of Counseling Type: Progress Notes Filed: 08/07/2023 8:51 AM Note Text: Radiology Service Progress Note PATIENT NAME: Rg Dia DATE OF SERVICE: August 07, 2023 TIME: 8:51 AM PATIENT IDENTITY VERIFICATION COMPLETED USING TWO (2) IDENTIFIERS: Name and Date of confirmed by patient verbally. FALL SCREENING: Has the patient had 2 falls in the last year or 1 fall with injury or currently using an Ambulatory Assistive Device (Walker, Cane, Wheelchair, Crutches, etc.)? No PATIENT GENDER DATA: Female. status: : No status: NO. PATIENT RELEVANT IMPLANT DATA REVIEWED: Yes RADIOLOGY DEPARTMENT: CT; Exam(s) Completed: Chest PERIPHERAL IV DATA: Not applicable SIGNED BY: RT Mariajose(R) August 07, 2023 8:51 AM [facility] 08-07-2023 History of Presen t illness Narrative Radiology Service Progress Note PATIENT NAME: Rg Dia DATE OF SERVICE: August 07, 2023 TIME: 8:51 AM PATIENT IDENTITY VERIFICATION COMPLETED USING TWO (2) IDENTIFIERS: Name and Date of confirmed by patient verbally. FALL SCREENING: Has the patient had 2 falls in the last year or 1 fall with injury or currently using an Ambulatory Assistive Device (Walker, Cane, Wheelchair, Crutches, etc.)? No PATIENT GENDER DATA: Female. status: : No status: NO. PATIENT RELEVANT IMPLANT DATA REVIEWED: Yes RADIOLOGY DEPARTMENT: CT; Exam(s) Completed: Chest PERIPHERAL IV DATA: Not applicable SIGNED BY: RT Mariajose(R) August 07, 2023 8:51 AM documented in this encounter [facility] 07-28-2023 Miscellaneous Notes JUAN ALBERTO: 07/26/23 Patient phones requesting refills as follows: Requested Prescriptions Pending Prescriptions Disp Refills djtrejozdx-blvlfwkg-bhjthlngra (BREZTRI AEROSPHERE) 160-9-4.8 mcg/actuation HFA aerosol inhaler 1 Each 5 Sig: Inhale 2 Puffs as instructed twice daily. Please review and advise. Shira March LPN documented in this encounter [facility] 07-26-2023 Note HNO ID: [id number] Author: Aisha Luna PA-C Service: ? Author Type: Physician Senior Fund Accountant Type: Progress Notes Filed: 07/26/2023 3:03 PM Note Text: Patient: Rg Dia PCP: Sajan White MD CC: follow up HPI: Rg Dia 42 year old obese female recent former smoker, currently vaping with PMH significant for borderline personality disorder, bipolar 2, gestational diabetes, and asthma. Previous CXR 03/2023 demonstrated a faint peripheral lingular infiltrate consistent with pneumonia. She had recently been seen in [facility] prior to this CXR and treated with antibiotics and prednisone. Patient did not have follow-up CXR done until yesterday at which time her CXR showed persistent patchy density in the lingula. Current maintenance therapy with Breztri and as needed Albuterol. Is struggling with heat and humidity. States she is staying inside on the days that are bad. Denies significant cough or sputum production. No wheezing. Lower extremity edema. No GERD or reflux, on Omeprazole. Currently vaping. PAST MEDICAL HISTORY Diagnosis Date Abnormal glandular Papanicolaou smear of cervix 11/20/2000 Abn. Pap smear (cervix) ANXIETY STATE NOS 06/17/2009 Bipolar 2 disorder ([facility] Borderline personality disorder ([facility]) Diabetes mellitus of mother, complicating , childbirth, or the puerperium, unspecified as to episode of care(648.00) Gestational diabetes Pelvic pain 02/14/2012 Tobacco use disorder Unspecified asthma(493.90) Allergies: Rondec [Bromphenira* Rash omeprazole (PRILOSEC) 20 mg capsule Take 1 capsule by mouth daily before breakfast. 1/2 hr before meal. ervktqdzps-grkhxqoa-yajknyzbsg (BREZTRI AEROSPHERE) 160-9-4.8 mcg/actuation HFA aerosol inhaler Inhale 2 Puffs as instructed twice daily. cetirizine (ZYRTEC) 10 mg tablet Take 1 tablet by mouth once daily. gabapentin (NEURONTIN) 300 mg capsule Take 1 capsule by mouth three times daily for 90 days. albuterol (PROVENTIL) 2.5 mg /3 mL (0.083 %) nebulizer solution Use 3 mL via nebulizer every 4 hours as needed for wheezing/shortness of breath. sucralfate (CARAFATE) 1 gram tablet Take 1 tablet by mouth before meals and at bedtime. ondansetron orally disintegrating (ZOFRAN ODT) 4 mg disintegrating tablet Take 1 tablet by mouth every 6 hours as needed for nausea/vomiting. albuterol HFA (PROAIR HFA) 90 mcg/actuation inhaler Inhale 2 Puffs as instructed every 6 hours as needed for wheezing/shortness of breath. Social History Tobacco Use Smoking status: Former Packs/day: 1.00 Years: 2.00 Additional pack years: 0.00 Total pack years: 2.00 Types: Cigarettes Quit date: 2022 Years since quittin.6 Smokeless tobacco: Never Tobacco comments: Pt is trying to quit Vaping Use Vaping Use: current everyday user Substances: Nicotine Substance Use Topics Alcohol use: No Comment: History of alcohol abuse Drug use: No Comment: Hx of marijuana Family History Problem Relation Age of Onset Diabetes Mother other (manic depressive) Mother Eczema Mother Alcohol/Drug Father etoh Lipids Father Allergies Sister Heart Paternal Grandfather Stroke Paternal Grandfather PAST SURGICAL HISTORY Procedure Laterality Date DELIVERY ONLY 11/23/2014 , low transverse CONIZATION CERVIX W/WO DANDC RPR ELTRD EXC 2000 LEEP-Cervix ENDOMETRIAL ABLTJ THERMAL W/O HYSTEROSCOPIC GUID 2018 Hien OBGYN LIG/TRNSXJ FLP TUBE ABDL/VAG APPR UNI/BI 11/23/2014 Tubal ligation PAST SURGICAL HISTORY OF Right fibula sugery I reviewed the past medical history, family history, social history and surgical history with changes noted above and updated in EMR. IMMUNIZATIONS Prevnar - xx Pneumovax 23 - xx Influenza - xx COVID-19 - xx ROS: CONSTITUTIONAL: No fevers, chills, nightsweats, unintended weight loss HEENT: Denies current nasal congestion/sinus symptoms, problematic allergy problems. EYES: No diplopia or blurry vision. CARDIOVASCULAR: No chest pain, palpitations, orthopnea, PND PULM: See HPI GI: No dysphagia/odynophagia, problematic reflux NEURO: No new balance problems, peripheral weakness/paresthesias or numbness of concern. MUSC-SKEL: No new joint pain, swelling, or erythema. PSY: No concerns regarding depression, anxiety. Bipolar disorder INTEGUMENTARY: No new skin changes, rashes, eczema PHYSICAL EXAMINATION: BP (P) 138/90 Pulse (P) 84 Resp (P) 15 Wt 98.9 kg (218 lb) LMP 03/12/2014 SpO2 (P) 98% BMI 40.12 kg/m? Gen: No acute distress. Cooperative with examination. HEENT: Normocephalic. Sclera, conjunctiva clear. Oral hygeine and dentition good. No thrush. Resp: No stridor, accessory respiratory muscle use, supra-sternal or intercostal retractions. No wheezes, crackles. CV: Regular rythm. Heart tones normal. Radial pulses normal. Abd: Non distended. MSK: No kyphoscoliosis. Ext: Warm (more content not included)... [facility] 07-26-2023 History of Presen t illness Narrative Images from the original note were not included. Patient: Rg Dia PCP: Sajan White MD CC: follow up HPI: Rg Dia 42 year old obese female recent former smoker, currently vaping with PMH significant for borderline personality disorder, bipolar 2, gestational diabetes, and asthma. Previous CXR 03/2023 demonstrated a faint peripheral lingular infiltrate consistent with pneumonia. She had recently been seen in [facility] prior to this CXR and treated with antibiotics and prednisone. Patient did not have follow-up CXR done until yesterday at which time her CXR showed persistent patchy density in the lingula. Current maintenance therapy with Breztri and as needed Albuterol. Is struggling with heat and humidity. States she is staying inside on the days that are bad. Denies significant cough or sputum production. No wheezing. Lower extremity edema. No GERD or reflux, on Omeprazole. Currently vaping. PAST MEDICAL HISTORY Diagnosis Date Abnormal glandular Papanicolaou smear of cervix 11/20/2000 Abn. Pap smear (cervix) ANXIETY STATE NOS 06/17/2009 Bipolar 2 disorder ([facility] Borderline personality disorder ([facility]) Diabetes mellitus of mother, complicating , childbirth, or the puerperium, unspecified as to episode of care(648.00) Gestational diabetes Pelvic pain 02/14/2012 Tobacco use disorder Unspecified asthma(493.90) Allergies: Rondec [Bromphenira* Rash omeprazole (PRILOSEC) 20 mg capsule Take 1 capsule by mouth daily before breakfast. 1/2 hr before meal. riomtwzujg-broqvydu-laquinhdlh (BREZTRI AEROSPHERE) 160-9-4.8 mcg/actuation HFA aerosol inhaler Inhale 2 Puffs as instructed twice daily. cetirizine (ZYRTEC) 10 mg tablet Take 1 tablet by mouth once daily. gabapentin (NEURONTIN) 300 mg capsule Take 1 capsule by mouth three times daily for 90 days. albuterol (PROVENTIL) 2.5 mg /3 mL (0.083 %) nebulizer solution Use 3 mL via nebulizer every 4 hours as needed for wheezing/shortness of breath. sucralfate (CARAFATE) 1 gram tablet Take 1 tablet by mouth before meals and at bedtime. ondansetron orally disintegrating (ZOFRAN ODT) 4 mg disintegrating tablet Take 1 tablet by mouth every 6 hours as needed for nausea/vomiting. albuterol HFA (PROAIR HFA) 90 mcg/actuation inhaler Inhale 2 Puffs as instructed every 6 hours as needed for wheezing/shortness of breath. Social History Tobacco Use Smoking status: Former Packs/day: 1.00 Years: 2.00 Additional pack years: 0.00 Total pack years: 2.00 Types: Cigarettes Quit date: 2022 Years since quittin.6 Smokeless tobacco: Never Tobacco comments: Pt is trying to quit Vaping Use Vaping Use: current everyday user Substances: Nicotine Substance Use Topics Alcohol use: No Comment: History of alcohol abuse Drug use: No Comment: Hx of marijuana Family History Problem Relation Age of Onset Diabetes Mother other (manic depressive) Mother Eczema Mother Alcohol/Drug Father etoh Lipids Father Allergies Sister Heart Paternal Grandfather Stroke Paternal Grandfather PAST SURGICAL HISTORY Procedure Laterality Date DELIVERY ONLY 11/23/2014 , low transverse CONIZATION CERVIX W/WO D&C RPR ELTRD EXC 2000 LEEP-Cervix ENDOMETRIAL ABLTJ THERMAL W/O HYSTEROSCOPIC GUID 2018 Hien OBGYN LIG/TRNSXJ FLP TUBE ABDL/VAG APPR UNI/BI 11/23/2014 Tubal ligation PAST SURGICAL HISTORY OF Right fibula sugery I reviewed the past medical history, family history, social history and surgical history with changes noted above and updated in EMR. IMMUNIZATIONS Prevnar - xx Pneumovax 23 - xx Influenza - xx COVID-19 - xx ROS: CONSTITUTIONAL: No fevers, chills, nightsweats, unintended weight loss HEENT: Denies current nasal congestion/sinus symptoms, problematic allergy problems. EYES: No diplopia or blurry vision. CARDIOVASCULAR: No chest pain, palpitations, orthopnea, PND PULM: See HPI GI: No dysphagia/odynophagia, problematic reflux NEURO: No new balance problems, peripheral weakness/paresthesias or numbness of concern. MUSC-SKEL: No new joint pain, swelling, or erythema. PSY: No concerns regarding depression, anxiety. Bipolar disorder INTEGUMENTARY: No new skin changes, rashes, eczema PHYSICAL EXAMINATION: BP (P) 138/90 Pulse (P) 84 Resp (P) 15 Wt 98.9 kg (218 lb) LMP 03/12/2014 SpO2 (P) 98% BMI 40.12 kg/m Gen: No acute distress. Cooperative with examination. HEENT: Normocephalic. Sclera, conjunctiva clear. Oral hygeine and dentition good. No thrush. Resp: No stridor, accessory respiratory muscle use, supra-sternal or intercostal retractions. No wheezes, crackles. CV: Regular rythm. Heart tones normal. Radial pulses normal. Abd: Non distended. MSK: No kyphoscoliosis. Ext: Warm and well perfused. No clubbing, cyanosis. Trace bilateral edema. Skin: No rash, ecchymoses. Neuro: Mental status normal. Affect normal. No tremor. DATA: PFT, 03/28/2023 Review of pulmonary function test show severe obstruction with improvement post bronchodilators. Normal diffusing capacity CXR, 07/25/2023 COMPARISON: 03/27/2023 RESULT: Lines, tubes, and devices: None. Lungs and pleura: Persistent patchy density in the lingula. Best seen on the lateral view.. No lung mass. No pleural effusion. No pneumothorax. Cardiomediastinal silhouette: Normal cardiomediastinal silhouette. Bones and soft tissues: Unremarkable. IMPRESSION: Persistent patchy density in the lingula. Best seen on the lateral view. CT scans recommended for complete evaluation. Labs Component Latest Ref Rng & Units 03/28/2023 Alpha 1 Antitrypsin 90 - 200 mg/dL 126 Abs Eosin <0.46 k/uL 0.16 IgE <114.0 kU/l 20.8 ASSESSMENT/PLAN: 1. Asthma-COPD overlap syndrome (HCC) - ICD9: 493.20, ICD10: J44.9 (primary diagnosis) Longstanding asthma now with a component of COPD. Continue Breztri twice daily. Albuterol HFA inhaler, 2 inhalations 10-15 minutes prior to activities associated with shortness of breath, and as needed for rescue relief of shortness of breath or wheezing, up to 4 times daily. Encouraged patient to stop vaping. 2. Abnormal CXR - ICD9: 793.2, ICD10: R93.89 CXR demonstrates persistent patchy density. Will proceed with CT chest. Patient may require flexible bronchoscopy. - CT CHEST WO IVCON 3. Former cigarette smoker - ICD9: V15.82, ICD10: Z87.891 Former smoker with sequelae of mild COPD Continue cessation from tobacco and recommend cessation of vaping Does not qualify for low-dose chest CT for cancer screening based on age 3. Current every day vaping - ICD9: V69.8, ICD10: Z72.89 Encouraged patient to stop vaping. 5. Class 3 severe obesity due to excess calories with body mass index (BMI) of 40.0 to 44.9 in adult, unspecified whether serious comorbidity present (HCC) - ICD9: 278.01, V85.41, ICD10: E66.01, Z68.41 Weight loss advised. Portions of this documentation were copied and pasted from previous office visit notes in order to provide a cohesive continuity of the history. The note has been reviewed and edited and updated as necessary. Aisha Luna PA-C documented in this encounter [facility] 07-25-2023 Note HNO ID: [id number] Author: Ilene Matute RT(Billy) Service: ? Author Type: Technologist Type: Progress Notes Filed: 07/25/2023 9:32 AM Note Text: Radiology Service Progress Note PATIENT NAME: Rg Dia DATE OF SERVICE: July 25, 2023 TIME: 9:32 AM PATIENT IDENTITY VERIFICATION COMPLETED USING TWO (2) IDENTIFIERS: Name and Date of confirmed by patient verbally. FALL SCREENING: Has the patient had 2 falls in the last year or 1 fall with injury or currently using an Ambulatory Assistive Device (Walker, Cane, Wheelchair, Crutches, etc.)? No PATIENT GENDER DATA: Female. status: : No status: NO. PATIENT RELEVANT IMPLANT DATA REVIEWED: Not Applicable RADIOLOGY DEPARTMENT: General X-ray: Exam(s) Completed: Chest X-Ray PERIPHERAL IV DATA: Not applicable SIGNED BY: RT Indira(R) July 25, 2023 9:32 AM [facility] 07-17-2023 Miscellaneous Notes OK to refill as ordered Sajan White MD documented in this encounter [facility] 06-19-2023 Miscellaneous Notes JUAN ALBERTO 05/31/23 Patient phones requesting refills as follows: Requested Prescriptions Pending Prescriptions Disp Refills nepmnfkmpw-zdljqtog-acmqdctayg (BREZTRI AEROSPHERE) 160-9-4.8 mcg/actuation HFA aerosol inhaler 1 Each 5 Sig: Inhale 2 Puffs as instructed twice daily. Please review and advise. Shira March LPN documented in this encounter [facility] 05-31-2023 Note HNO ID: [id number] Author: Aisha Luna PA-C Service: ? Author Type: Physician Senior Fund Accountant Type: Progress Notes Filed: 05/31/2023 11:29 AM Note Text: Patient: Rg Dia PCP: Sajan White MD CC: asthma follow up HPI: Rg Dia 42 year old obese female recent former smoker, currently vaping with PMH significant for borderline personality disorder, bipolar 2, gestational diabetes, and asthma. Initially seen by Dr. Diaz 03/28 at which time patient was changed to Breztri. However, she thought Breztri was a rescue inhaler and has been using her Flovent and Spiriva daily. Cough is improved since she stopped smoking. She is currently vaping. Some wheezing with heat and humidity. Exertional dyspnea with climbing stairs, walking inclines. Is worse with humidity. Previous CXR demonstrated a faint peripheral lingular infiltrate consistent with pneumonia. She had recent been seen in [facility] prior to this CXR and treated with antibiotics and prednisone. Patient did not have follow-up CXR done. PAST MEDICAL HISTORY Diagnosis Date Abnormal glandular Papanicolaou smear of cervix 11/20/2000 Abn. Pap smear (cervix) ANXIETY STATE NOS 06/17/2009 Bipolar 2 disorder ([facility]) [facility]ing [facility] Borderline personality disorder ([facility]) Diabetes mellitus of mother, complicating , childbirth, or the puerperium, unspecified as to episode of care(648.00) Gestational diabetes Pelvic pain 02/14/2012 Tobacco use disorder Unspecified asthma(493.90) Allergies: Rondec [Bromphenira* Rash cetirizine (ZYRTEC) 10 mg tablet Take 1 tablet by mouth once daily. gabapentin (NEURONTIN) 300 mg capsule Take 1 capsule by mouth three times daily for 90 days. djcjttgqzg-szcicunw-nsbhsjjyhe (BREZTRI AEROSPHERE) 160-9-4.8 mcg/actuation HFA aerosol inhaler Inhale 2 Puffs as instructed twice daily. omeprazole (PRILOSEC) 20 mg capsule Take 1 capsule by mouth daily before breakfast. 1/2 hr before meal. tiotropium bromide (SPIRIVA RESPIMAT) 2.5 mcg/actuation inhaler Inhale 2 Puffs as instructed once daily. albuterol (PROVENTIL) 2.5 mg /3 mL (0.083 %) nebulizer solution Use 3 mL via nebulizer every 4 hours as needed for wheezing/shortness of breath. sucralfate (CARAFATE) 1 gram tablet Take 1 tablet by mouth before meals and at bedtime. ondansetron orally disintegrating (ZOFRAN ODT) 4 mg disintegrating tablet Take 1 tablet by mouth every 6 hours as needed for nausea/vomiting. fluticasone (FLOVENT HFA) 110 mcg/actuation inhaler Inhale 1 Puff as instructed twice daily. Shake well before use. Rinse mouth after use. albuterol HFA (PROAIR HFA) 90 mcg/actuation inhaler Inhale 2 Puffs as instructed every 6 hours as needed for wheezing/shortness of breath. Social History Tobacco Use Smoking status: Former Packs/day: 1.00 Years: 2.00 Total pack years: 2.00 Types: Cigarettes Quit date: 2022 Years since quittin.5 Smokeless tobacco: Never Tobacco comments: Pt is trying to quit Vaping Use Vaping Use: current everyday user Substances: Nicotine Substance Use Topics Alcohol use: No Comment: History of alcohol abuse Drug use: No Comment: Hx of marijuana Family History Problem Relation Age of Onset Diabetes Mother other (manic depressive) Mother Eczema Mother Alcohol/Drug Father etoh Lipids Father Allergies Sister Heart Paternal Grandfather Stroke Paternal Grandfather PAST SURGICAL HISTORY Procedure Laterality Date DELIVERY ONLY 11/23/2014 , low transverse CONIZATION CERVIX W/WO DANDC RPR ELTRD EXC 2000 LEEP-Cervix ENDOMETRIAL ABLTJ THERMAL W/O HYSTEROSCOPIC GUID 2018 [facility] L[facility]/TRNSXJ FLP TUBE ABDL/VAG APPR UNI/BI 11/23/2014 Tubal ligation PAST SURGICAL HISTORY OF Right fibula sugery I reviewed the past medical history, family history, social history and surgical history with changes noted above and updated in EMR. IMMUNIZATIONS Prevnar - xx Pneumovax 23 - xx Influenza - xx COVID-19 - xx ROS: CONSTITUTIONAL: No fevers, chills, nightsweats, unintended weight loss HEENT: Denies current nasal congestion/sinus symptoms, problematic allergy problems. EYES: No diplopia or blurry vision. CARDIOVASCULAR: No chest pain, palpitations, orthopnea, PND, edema. PULM: See HPI GI: No dysphagia/odynophagia, problematic reflux : No urinary complaints, including dysuria, gross hematuria or pyuria. NEURO: No new balance problems, peripheral weakness/paresthesias or numbness of concern. MUSC-SKEL: No new joint pain, swelling, or erythema. PSY: No concerns regarding depression, anxiety. Bipolar disorder INTEGUMENTARY: No new skin changes, rashes, eczema PHYSICAL EXAMINATION: BP (P) 124/82 Pulse (P) 82 Resp (P) 16 Wt 98.9 kg (218 lb) LMP 03/12/2014 SpO2 (P) 97% BMI 40.12 kg/m? Gen: No acute distress. Cooperative with examination. HEENT: Normocephalic. Sclera, conjunctiva cl (more content not included)... [facility] 05-31-2023 History of Presen t illness Narrative Images from the original note were not included. Patient: Rg Dia PCP: Sajan White MD CC: asthma follow up HPI: Rg Dia 42 year old obese female recent former smoker, currently vaping with PMH significant for borderline personality disorder, bipolar 2, gestational diabetes, and asthma. Initially seen by Dr. Diaz 03/28 at which time patient was changed to Bradleytrkayli. However, she thought Breztri was a rescue inhaler and has been using her Flovent and Spiriva daily. Cough is improved since she stopped smoking. She is currently vaping. Some wheezing with heat and humidity. Exertional dyspnea with climbing stairs, walking inclines. Is worse with humidity. Previous CXR demonstrated a faint peripheral lingular infiltrate consistent with pneumonia. She had recent been seen in [facility] prior to this CXR and treated with antibiotics and prednisone. Patient did not have follow-up CXR done. PAST MEDICAL HISTORY Diagnosis Date Abnormal glandular Papanicolaou smear of cervix 11/20/2000 Abn. Pap smear (cervix) ANXIETY STATE NOS 06/17/2009 Bipolar 2 disorder ([facility] Borderline personality disorder ([facility]) Diabetes mellitus of mother, complicating , childbirth, or the puerperium, unspecified as to episode of care(648.00) Gestational diabetes Pelvic pain 02/14/2012 Tobacco use disorder Unspecified asthma(493.90) Allergies: Rondec [Bromphenira* Rash cetirizine (ZYRTEC) 10 mg tablet Take 1 tablet by mouth once daily. gabapentin (NEURONTIN) 300 mg capsule Take 1 capsule by mouth three times daily for 90 days. yhkjrsyqdv-yxnxafoz-fgmfealepz (BREZTRI AEROSPHERE) 160-9-4.8 mcg/actuation HFA aerosol inhaler Inhale 2 Puffs as instructed twice daily. omeprazole (PRILOSEC) 20 mg capsule Take 1 capsule by mouth daily before breakfast. 1/2 hr before meal. tiotropium bromide (SPIRIVA RESPIMAT) 2.5 mcg/actuation inhaler Inhale 2 Puffs as instructed once daily. albuterol (PROVENTIL) 2.5 mg /3 mL (0.083 %) nebulizer solution Use 3 mL via nebulizer every 4 hours as needed for wheezing/shortness of breath. sucralfate (CARAFATE) 1 gram tablet Take 1 tablet by mouth before meals and at bedtime. ondansetron orally disintegrating (ZOFRAN ODT) 4 mg disintegrating tablet Take 1 tablet by mouth every 6 hours as needed for nausea/vomiting. fluticasone (FLOVENT HFA) 110 mcg/actuation inhaler Inhale 1 Puff as instructed twice daily. Shake well before use. Rinse mouth after use. albuterol HFA (PROAIR HFA) 90 mcg/actuation inhaler Inhale 2 Puffs as instructed every 6 hours as needed for wheezing/shortness of breath. Social History Tobacco Use Smoking status: Former Packs/day: 1.00 Years: 2.00 Total pack years: 2.00 Types: Cigarettes Quit date: 2022 Years since quittin.5 Smokeless tobacco: Never Tobacco comments: Pt is trying to quit Vaping Use Vaping Use: current everyday user Substances: Nicotine Substance Use Topics Alcohol use: No Comment: History of alcohol abuse Drug use: No Comment: Hx of marijuana Family History Problem Relation Age of Onset Diabetes Mother other (manic depressive) Mother Eczema Mother Alcohol/Drug Father etoh Lipids Father Allergies Sister Heart Paternal Grandfather Stroke Paternal Grandfather PAST SURGICAL HISTORY Procedure Laterality Date DELIVERY ONLY 11/23/2014 , low transverse CONIZATION CERVIX W/WO D&C RPR ELTRD EXC 2000 LEEP-Cervix ENDOMETRIAL ABLTJ THERMAL W/O HYSTEROSCOPIC GUID 2018 [facility] LIG/TRNSXJ FLP TUBE ABDL/VAG APPR UNI/BI 11/23/2014 Tubal ligation PAST SURGICAL HISTORY OF Right fibula sugery I reviewed the past medical history, family history, social history and surgical history with changes noted above and updated in EMR. IMMUNIZATIONS Prevnar - xx Pneumovax 23 - xx Influenza - xx COVID-19 - xx ROS: CONSTITUTIONAL: No fevers, chills, nightsweats, unintended weight loss HEENT: Denies current nasal congestion/sinus symptoms, problematic allergy problems. EYES: No diplopia or blurry vision. CARDIOVASCULAR: No chest pain, palpitations, orthopnea, PND, edema. PULM: See HPI GI: No dysphagia/odynophagia, problematic reflux : No urinary complaints, including dysuria, gross hematuria or pyuria. NEURO: No new balance problems, peripheral weakness/paresthesias or numbness of concern. MUSC-SKEL: No new joint pain, swelling, or erythema. PSY: No concerns regarding depression, anxiety. Bipolar disorder INTEGUMENTARY: No new skin changes, rashes, eczema PHYSICAL EXAMINATION: BP (P) 124/82 Pulse (P) 82 Resp (P) 16 Wt 98.9 kg (218 lb) LMP 03/12/2014 SpO2 (P) 97% BMI 40.12 kg/m Gen: No acute distress. Cooperative with examination. HEENT: Normocephalic. Sclera, conjunctiva clear. Oral hygeine and dentition adequate. No thrush. Resp: No stridor, accessory respiratory muscle use, supra-sternal or intercostal retractions. No wheezes, crackles. CV: Regular rythm. Heart tones normal. Radial pulses normal. Abd: Non distended. MSK: No kyphoscoliosis. Ext: Warm and well perfused. No clubbing, cyanosis, edema. Skin: No rash, ecchymoses. Neuro: Mental status normal. Affect normal. No tremor. DATA: PFT, 03/28/2023 Review of pulmonary function test show severe obstruction with improvement post bronchodilators. Normal diffusing capacity Labs Component Latest Ref Rng & Units 03/28/2023 Alpha 1 Antitrypsin 90 - 200 mg/dL 126 Abs Eosin <0.46 k/uL 0.16 IgE <114.0 kU/l 20.8 ASSESSMENT/PLAN: 1. Asthma-COPD overlap syndrome (HCC) - ICD9: 493.20, ICD10: J44.9 (primary diagnosis) Longstanding asthma now with component of COPD. Alpha-1 antitrypsin normal. Discussed inhalers with patient. She will start the Breztri twice daily and stop the Flovent and Spiriva. Rinse mouth after each use to help prevent oral thrush. Albuterol HFA inhaler, 2 inhalations 10-15 minutes prior to activities associated with shortness of breath, and as needed for rescue relief of shortness of breath or wheezing, up to 4 times daily. Continue smoking cessation. Patient encouraged to stop vaping. 2. Abnormal CXR - ICD9: 793.2, ICD10: R93.89 CXR today to evaluate for resolution of pneumonia. 3. Former cigarette smoker - ICD9: V15.82, ICD10: Z87.891 Former smoker with sequelae of mild COPD Continue cessation from tobacco and recommend cessation of vaping Does not qualify for low-dose chest CT for cancer screening based on age 4. Current every day vaping - ICD9: V69.8, ICD10: Z72.89 See #1 and #3. 5. Class 3 severe obesity due to excess calories with body mass index (BMI) of 40.0 to 44.9 in adult, unspecified whether serious comorbidity present (HCC) - ICD9: 278.01, V85.41, ICD10: E66.01, Z68.41 Weight loss advised. Portions of this documentation were copied and pasted from previous office visit notes in order to provide a cohesive continuity of the history. The note has been reviewed and edited and updated as necessary. Aisha Luna PA-C documented in this encounter [facility] 05-16-2023 Note HNO ID: [id number] Author: ASAEL Disla Service: ? Author Type: Therapist Type: Progress Notes Filed: 05/16/2023 11:08 AM Note Text: Behavioral Health Social Work Progress Note Patient identified for [facility] from: PCP Reason for referral: [facility] Behavioral Health Resources: Psychology - talk therapy [facility] encounter type: MyChart Message, Chart Review Attempts to Outreach: 3 attempts Referral made: Psychology - External, Psychology - Internal Psychology-Internal referral type: Therapy Psychology-External referral type: Therapy Reason for external referral: Patient choice, Wait times at [facility] too long Final Disposition: Resources given Patient Discharged?: Yes Patient reported that caregiver was able to meet their needs today?: N/A therapist sent patient MyChart follow up message offering assistance with linkage to behavioral health services. AUDRA Disla May 16, 2023 [facility] 05-16-2023 History of Presen t illness Narrative Behavioral Health Social Work Progress Note Patient identified for [facility] from: PCP Reason for referral: [facility] Behavioral Health Resources: Psychology - talk therapy [facility] encounter type: MyChart Message, Chart Review Attempts to Outreach: 3 attempts Referral made: Psychology - External, Psychology - Internal Psychology-Internal referral type: Therapy Psychology-External referral type: Therapy Reason for external referral: Patient choice, Wait times at [facility] too long Final Disposition: Resources given Patient Discharged?: Yes Patient reported that caregiver was able to meet their needs today?: N/A therapist sent patient MyChart follow up message offering assistance with linkage to behavioral health services. AUDRA Disla May 16, 2023 documented in this encounter [facility] 05-09-2023 Miscellaneous Notes Behavioral Health Social Work Progress Note Patient identified for [facility] from: PCP Reason for referral: Resources Behavioral Health Resources: Psychiatry med management [facility] encounter type: Telephone Encounter Attempts to Outreach: 1 attempt Referral made: Psychiatry - Internal, Psychiatry - External Psychiatry-Internal referral type: Medication Management Psychiatry-External referral type: Medication Management Patient Discharged?: No Phone call placed today that went to [employer]. Left my contact information and brief nature of call. Initial outreach also completed via [facility] sending list of in network providers with insurance. AUDRA Disla May 09, 2023 documented in this encounter [facility] 05-09-2023 Note HNO ID: [id number] Author: Antony Cisneros APRN.PORCELAIN TECHNICIAN Service: ? Author Type: Nurse Practitioner Type: Progress Notes Filed: 05/09/2023 9:10 AM Note Text: Chief Complaint Patient presents with: Anxiety HPI Rg Dia is a 42 year old female who presents here today for Above Complaints. follow up for anxiety. Patient here for discussion of increased anxiety, panic attacks. Patient has a prior history of anxiety and depression, bipolar 2 disorder, ADHD. She is on no current medications at this time. Reviewing patient's documentation, she has tried Celexa, Paxil, Zoloft, Effexor, BuSpar, Prozac, hydroxyzine, Xanax in the past. Previously Celexa did work for depression but not anxiety. As of May 2022 she was seeing a counselor at the [facility] [place] [facility] and was waiting for a psychiatry appointment. Was on the wait list. At this time, the patient states that she has been having panic attacks 1-2 times a day. She states that it is affecting her daily life. Does not feel that she can go to the park with her children. She is frustrated. She states that she was on the waiting list at the counseling center [facility] but was notified that she was removed from the wait list. She does not know why. She has not followed up with anybody else. She states that she did call [facility] intensive outpatient therapy but got nowhere. She does recognize that she has bipolar 2 disorder also. She denies any thoughts of self-harm at this point. She has been on antipsychotics in the past but had many side effects. She is visibly frustrated that there is no provider in family or mental health that can help her. She is tearful. Past medical history, appointments, medications, allergies reviewed. EXAM: BP 147/91 Pulse 84 Temp 37.1 ?C (98.8 ?F) (Left Tympanic) Resp 16 Wt 100.2 kg (220 lb 12.8 oz) LMP 03/12/2014 SpO2 96% BMI 40.63 kg/m? General Appearance: Well appearing, alert, in no acute distress, well-hydrated, well nourished.. Tearful ASSESSMENT/PLAN: 1. Anxiety with depression - ICD9: 300.4, ICD10: F41.8 (primary diagnosis) -Patient has been on many SSRIs, Paxil, BuSpar, antipsychotics without any improvement. She has been on other waiting list for mental health professionals in the past but these have fallen through. I discussed with her that prescribing benzodiazepines such as Ativan, Xanax, Klonopin, Valium are not recommended long-term. I discussed with her given her mental health history, I do not feel comfortable with giving her these types of medications. I did sympathize with the patient that she was going through a real problem in her life that required specialty mental health care. I encouraged her to call [place]. I will put in a behavioral health consult with hopes of getting her into some type of psychiatry within our [facility] system. Patient was frustrated, tearful but safe to go home given no SI or HI. - CONSULT TO PRIMARY CARE BEHAVIORAL HEALTH ADULT 2. Bipolar 2 disorder (HCC) - ICD9: 296.89, ICD10: F31.81 - CONSULT TO PRIMARY CARE BEHAVIORAL HEALTH ADULT Antony Cisneros APRN.PORCELAIN TECHNICIAN This note was partly generated using ICU Metrix voice recognition dictation and may contain some misspelled or inaccurate words missed on review. [facility] 05-09-2023 History of Presen t illness Narrative Chief Complaint Patient presents with: Anxiety HPI Rg Dia is a 42 year old female who presents here today for Above Complaints. follow up for anxiety. Patient here for discussion of increased anxiety, panic attacks. Patient has a prior history of anxiety and depression, bipolar 2 disorder, ADHD. She is on no current medications at this time. Reviewing patient's documentation, she has tried Celexa, Paxil, Zoloft, Effexor, BuSpar, Prozac, hydroxyzine, Xanax in the past. Previously Celexa did work for depression but not anxiety. As of May 2022 she was seeing a [facility] and was waiting for a psychiatry appointment. Was on the wait list. At this time, the patient states that she has been having panic attacks 1-2 times a day. She states that it is affecting her daily life. Does not feel that she can go to the park with her children. She is frustrated. She states that she was on the waiting list at the counseling center [facility] but was notified that she was removed from the wait list. She does not know why. She has not followed up with anybody else. She states that she did call [facility] intensive outpatient therapy but got nowhere. She does recognize that she has bipolar 2 disorder also. She denies any thoughts of self-harm at this point. She has been on antipsychotics in the past but had many side effects. She is visibly frustrated that there is no provider in family or mental health that can help her. She is tearful. Past medical history, appointments, medications, allergies reviewed. EXAM: BP 147/91 Pulse 84 Temp 37.1 C (98.8 F) (Left Tympanic) Resp 16 Wt 100.2 kg (220 lb 12.8 oz) LMP 03/12/2014 SpO2 96% BMI 40.63 kg/m General Appearance: Well appearing, alert, in no acute distress, well-hydrated, well nourished.. Tearful ASSESSMENT/PLAN: 1. Anxiety with depression - ICD9: 300.4, ICD10: F41.8 (primary diagnosis) -Patient has been on many SSRIs, Paxil, BuSpar, antipsychotics without any improvement. She has been on other waiting list for mental health professionals in the past but these have fallen through. I discussed with her that prescribing benzodiazepines such as Ativan, Xanax, Klonopin, Valium are not recommended long-term. I discussed with her given her mental health history, I do not feel comfortable with giving her these types of medications. I did sympathize with the patient that she was going through a real problem in her life that required specialty mental health care. I encouraged her to call [place] [facility] [place]. I will put in a behavioral health consult with hopes of getting her into some type of psychiatry within our [facility] system. Patient was frustrated, tearful but safe to go home given no SI or HI. - CONSULT TO PRIMARY CARE BEHAVIORAL HEALTH ADULT 2. Bipolar 2 disorder (HCC) - ICD9: 296.89, ICD10: F31.81 - CONSULT TO PRIMARY CARE BEHAVIORAL HEALTH ADULT Antony Cisneros APRN.CNP This note was partly generated using ICU Metrix voice recognition dictation and may contain some misspelled or inaccurate words missed on review. documented in this encounter [facility] 03-28-2023 Note HNO ID: [id number] Author: Lakesha Diaz MD Service: ? Author Type: Physician Type: Progress Notes Filed: 03/28/2023 12:34 PM Note Text: . Respiratory [place] Note Patient name: Rg Dia PCP: Sajan White MD Referring Physician: Same Consultation requested by Dr. White for an opinion regarding COPD. My final recommendations will be communicated back to the requesting physician by way of shared Medical record or letter to requesting physician via US mail. CC: Shortness of breath HPI: Rg Dia 42 year old obese female recent former smoker, currently vaping with PMH significant for borderline personality disorder, bipolar 2, gestational diabetes, and asthma last seen in pulmonary clinic 20 years ago for wheezing during . Recently seen in [facility] ED for SOB and cough last month, treated with antibiotic, prednisone and albuterol. She has a longstanding history of asthma. No history of allergies requiring immunotherapy and no history of eczema. She has been on Spiriva Respimat and Flovent 110 mcg for years. She recently quit smoking several months ago but is vaping. Prior to smoking cessation, she states she was using her Spiriva 3-4 times a day. Main symptoms are shortness of breath with activity, exposure to humidity and exposure to certain odors. She denies current cough or sputum production. No audible wheezing. She has daytime fatigue. Probable sleep apnea and is currently undergoing evaluation for CPAP. She does not feel that her current inhaled therapy is adequately controlling her symptoms. Pulmonary function test show severe obstruction with some improvement postbronchodilator. Chest x-ray shows a faint peripheral lingular infiltrate consistent with pneumonia. No current fevers, chills, chest pain. DATA: PFT: Review of pulmonary function test show severe obstruction with improvement post bronchodilators. Normal diffusing capacity Labs: Review of past labs do not show eosinophilia Imaging / Diagnostic Studies: DATE OF EXAM: Mar 27 2023 10:27AM [id number] - XR CHEST 2V FRONTAL/LAT / CLINICAL HISTORY: Chronic obstructive pulmonary disease with acute exacerbation ([facility]) MQ: [id number] EXAM DATE/TIME: 03/27/2023 10:27 AM COMPARISON: 12/18/2020 RESULT: Lines, tubes, and devices: None. Lungs and pleura: No consolidation. No lung mass. No pleural effusion. No pneumothorax. Patchy airspace opacity in the lingula Cardiomediastinal silhouette: Normal cardiomediastinal silhouette. Bones and soft tissues: Unremarkable. IMPRESSION: Patchy airspace opacity in the lingula. Follow-up recommended Chest x-ray shows possible peripheral infiltrate in the lingula CXR [facility] 01/30/23: Reviewed and shows a normal chest PAST MEDICAL HISTORY Diagnosis Date Abnormal glandular Papanicolaou smear of cervix 11/20/2000 Abn. Pap smear (cervix) ANXIETY STATE NOS 06/17/2009 Bipolar 2 disorder ([facility] Borderline personality disorder ([facility]) Diabetes mellitus of mother, complicating , childbirth, or the puerperium, unspecified as to episode of care(648.00) Gestational diabetes Pelvic pain 02/14/2012 Tobacco use disorder Unspecified asthma(493.90) ALLERGIES Allergen Reactions Rondec [Bromphenira* Rash gabapentin (NEURONTIN) 300 mg capsule Take 1 capsule by mouth three times daily for 90 days. omeprazole (PRILOSEC) 20 mg capsule Take 1 capsule by mouth daily before breakfast. 1/2 hr before meal. tiotropium bromide (SPIRIVA RESPIMAT) 2.5 mcg/actuation inhaler Inhale 2 Puffs as instructed once daily. albuterol (PROVENTIL) 2.5 mg /3 mL (0.083 %) nebulizer solution Use 3 mL via nebulizer every 4 hours as needed for wheezing/shortness of breath. sucralfate (CARAFATE) 1 gram tablet Take 1 tablet by mouth before meals and at bedtime. ondansetron orally disintegrating (ZOFRAN ODT) 4 mg disintegrating tablet Take 1 tablet by mouth every 6 hours as needed for nausea/vomiting. fluticasone (FLOVENT HFA) 110 mcg/actuation inhaler Inhale 1 Puff as instructed twice daily. Shake well before use. Rinse mouth after use. cetirizine (ZYRTEC) 10 mg tablet Take 1 tablet by mouth once daily. albuterol HFA (PROAIR HFA) 90 mcg/actuation inhaler Inhale 2 Puffs as instructed every 6 hours as needed for wheezing/shortness of breath. gyobuwbcxj-ntvvopzc-ukgjoitrni (BREZTRI AEROSPHERE) 160-9-4.8 mcg/actuation HFA aerosol inhaler Inhale 2 Puffs as instructed twice daily. celecoxib (CELEBREX) 100 mg capsule Take 1 capsule by mouth twice daily as needed for pain. Social History Tobacco Use Smoking status: Former Packs/day: 1.00 Years: 2.00 Pack years: 2.00 Types: Cigarettes Quit date: 2022 Years since quittin.3 Smokeless tobacco: Never Tobacco comments: Pt is trying to quit Vaping Use Vaping Use: current everyday user Substances: Nicotine Substance Use Topics Alcoho (more content not included)... [facility] 03-28-2023 Note HNO ID: [id number] Author: RASHAD Cali Service: ? Author Type: Respiratory Therapist Type: Progress Notes Filed: 03/28/2023 8:19 AM Note Text: PULM FUNCTION SMARTBLOCK: Provider: Lakesha Diaz MD Assisting Tech: RASHAD Cali Spirometry w/BD: 1 DLCO: 1 [facility] 03-28-2023 History of Presen t illness Narrative PULM FUNCTION SMARTBLOCK: Provider: Lakesha Diaz MD Assisting Tech: RASHAD Cali Spirometry w/BD: 1 DLCO: 1 documented in this encounter [facility] 03-27-2023 Note HNO ID: [id number] Author: RT Ash(Billy) Service: ? Author Type: Technologist Type: Progress Notes Filed: 03/27/2023 10:28 AM Note Text: Radiology Service Progress Note PATIENT NAME: Rg Dia DATE OF SERVICE: March 27, 2023 TIME: 10:20 AM PATIENT IDENTITY VERIFICATION COMPLETED USING TWO (2) IDENTIFIERS: Name and Date of confirmed by patient verbally. FALL SCREENING: Has the patient had 2 falls in the last year or 1 fall with injury or currently using an Ambulatory Assistive Device (Walker, Cane, Wheelchair, Crutches, etc.)? No PATIENT GENDER DATA: Female. status: : No status: NO. PATIENT RELEVANT IMPLANT DATA REVIEWED: Not Applicable RADIOLOGY DEPARTMENT: General X-ray: Exam(s) Completed: Chest X-Ray PERIPHERAL IV DATA: Not applicable SIGNED BY: RT Ash(R) March 27, 2023 10:20 AM [facility] 03-27-2023 History of Presen t illness Narrative Radiology Service Progress Note PATIENT NAME: Rg Dia DATE OF SERVICE: March 27, 2023 TIME: 10:20 AM PATIENT IDENTITY VERIFICATION COMPLETED USING TWO (2) IDENTIFIERS: Name and Date of confirmed by patient verbally. FALL SCREENING: Has the patient had 2 falls in the last year or 1 fall with injury or currently using an Ambulatory Assistive Device (Walker, Cane, Wheelchair, Crutches, etc.)? No PATIENT GENDER DATA: Female. status: : No status: NO. PATIENT RELEVANT IMPLANT DATA REVIEWED: Not Applicable RADIOLOGY DEPARTMENT: General X-ray: Exam(s) Completed: Chest X-Ray PERIPHERAL IV DATA: Not applicable SIGNED BY: RT Ash(R) March 27, 2023 10:20 AM documented in this encounter [facility] 03-06-2023 Miscellaneous Notes March 06, 2023 PID: [id number] Rg Dia [address] [facility] [address] [place] [id number] Dear Ms. Dia, We are pleased to inform you that the results of your recent breast imaging exam on 03/03/2023 are normal. Your mammogram demonstrates that you have dense breast tissue, which could hide abnormalities. Dense breast tissue, in and of itself, is a relatively common condition. Therefore, this information is not provided to cause undue concern; rather, it is to raise your awareness and promote discussion with your health care provider regarding the presence of dense breast tissue in addition to other risk factors. Early detection of cancer is very important. We also understand recommendations regarding breast cancer screening are controversial. Please discuss with your primary care provider which strategy is best for you and whether a mammogram is right for you. Your imaging studies and report will be kept on file at [facility] as part of your permanent medical record and are available for your continuing care. Thank you for allowing us to help in meeting your health care needs. Sincerely, Dr. Adams Interpreting Radiologist [facility] (Normal over 40) documented in this encounter [facility] 03-03-2023 Note HNO ID: [id number] Author: RT Fior(Billy) Service: ? Author Type: Technologist Type: Progress Notes Filed: 03/03/2023 9:38 AM Note Text: Radiology Service Progress Note PATIENT NAME: Rg Dia DATE OF SERVICE: March 03, 2023 TIME: 9:37 AM PATIENT IDENTITY VERIFICATION COMPLETED USING TWO (2) IDENTIFIERS: Name and Date of confirmed by patient verbally. FALL SCREENING: Has the patient had 2 falls in the last year or 1 fall with injury or currently using an Ambulatory Assistive Device (Walker, Cane, Wheelchair, Crutches, etc.)? No PATIENT GENDER DATA: Female. status: : No status: NO. PATIENT RELEVANT IMPLANT DATA REVIEWED: Not Applicable RADIOLOGY DEPARTMENT: Mammography PERIPHERAL IV DATA: Not applicable SIGNED BY: RT Fior(R) March 03, 2023 9:37 AM [facility] 03-03-2023 History of Presen t illness Narrative Radiology Service Progress Note PATIENT NAME: Rg Dia DATE OF SERVICE: March 03, 2023 TIME: 9:37 AM PATIENT IDENTITY VERIFICATION COMPLETED USING TWO (2) IDENTIFIERS: Name and Date of confirmed by patient verbally. FALL SCREENING: Has the patient had 2 falls in the last year or 1 fall with injury or currently using an Ambulatory Assistive Device (Walker, Cane, Wheelchair, Crutches, etc.)? No PATIENT GENDER DATA: Female. status: : No status: NO. PATIENT RELEVANT IMPLANT DATA REVIEWED: Not Applicable RADIOLOGY DEPARTMENT: Mammography PERIPHERAL IV DATA: Not applicable SIGNED BY: RT Fior(R) March 03, 2023 9:37 AM documented in this encounter [facility] 02-17-2023 Note HNO ID: [id number] Author: Sajan White MD Service: ? Author Type: Physician Type: Progress Notes Filed: 02/17/2023 9:36 AM Note Text: Chief Complaint Patient presents with: F/U 1 month HPI Rg Dia is a 42 year old female who presents here today for a 1 month follow up. Pt here today with significant other for a f/u. Recently seen in the office for hosp f/u due to COPD/pulmonary issues on 02/03/23. Was written a letter to be faxed to Child support that she's not able to work. GI - Pt seen on 12/29 for an ED f/u due to abdominal pain. Pt was given Zofran 4 mg q 6 hrs prn, Prilosec 20 mg daily and Carafate 1 gram po before meals and at bedtime. Pt has seen GI, Dr. Chauhan who's dx her with gastritis and esophagitis. Admits to not f/u with Dr. Chauhan routinely and no showing his appt's. Overall she does feel she is doing better, especially with quitting smoking. Has some days where her stomach will bother her. Does note Carafate causes her to bloat. Pulm - Doing much better, quit smoking and switched to vaping which has been very helpful. She is coughing up stuff from smoking. Only doing 2 Albuterol treatments daily where before when she was ill she was doing one every 3-4 hours. On Flovent and Spiriva. Was going through Spiriva quickly but feels this may improve with stopping smoking over a week ago. She is wanting to see Pulmonary, to officially dx her with COPD for disability. Due to taking abx and Prednisone she is battling with a yeast vaginal infection. She is having swelling and a lot of itching. Did do 3 day course of Monistat which helped some, but did not completely resolve it. Past medical history, appointments, medications, allergies reviewed. Previous Medical History PAST MEDICAL HISTORY Diagnosis Date Abnormal glandular Papanicolaou smear of cervix 2000 Abn. Pap smear (cervix) ANXIETY STATE NOS 06/17/2009 Bipolar 2 disorder ([facility] Borderline personality disorder ([facility]) Diabetes mellitus of mother, complicating , childbirth, or the puerperium, unspecified as to episode of care(648.00) Gestational diabetes Pelvic pain 02/14/2012 Tobacco use disorder Unspecified asthma(493.90) Previous Surgical History PAST SURGICAL HISTORY Procedure Laterality Date DELIVERY ONLY 11/23/2014 , low transverse CONIZATION CERVIX W/WO DANDC RPR ELTRD EXC 2000 LEEP-Cervix ENDOMETRIAL ABLTJ THERMAL W/O HYSTEROSCOPIC GUID 2018 [facility] LIG/TRNSXJ FLP TUBE ABDL/VAG APPR UNI/BI 11/23/2014 Tubal ligation PAST SURGICAL HISTORY OF Right fibula sugery Family History FAMILY HISTORY Problem Relation Age of Onset Diabetes Mother other (manic depressive) Mother Alcohol/Drug Father etoh Lipids Father Heart Paternal Grandfather Stroke Paternal Grandfather Patient Allergies ALLERGIES Allergen Reactions Rondec [Bromphenira* Rash Current Medications Current Outpatient Medications on File Prior to Visit Medication Sig doxycycline (VIBRA-TABS) 100 mg tablet Take 1 tablet by mouth twice daily for 10 days. predniSONE (DELTASONE) 20 mg tablet Take 1 tablet by mouth once daily. Take 4 pills daily for 3 days, then take 3 pills daily for 3 days, then take 2 pills daily for 3 days, then take 1 pill daily for 3 days omeprazole (PRILOSEC) 20 mg capsule Take 1 capsule by mouth daily before breakfast. 1/2 hr before meal. sucralfate (CARAFATE) 1 gram tablet Take 1 tablet by mouth before meals and at bedtime. ondansetron orally disintegrating (ZOFRAN ODT) 4 mg disintegrating tablet Take 1 tablet by mouth every 6 hours as needed for nausea/vomiting. gabapentin (NEURONTIN) 300 mg capsule Take 1 capsule by mouth three times daily for 90 days. fluticasone (FLOVENT HFA) 110 mcg/actuation inhaler Inhale 1 Puff as instructed twice daily. Shake well before use. Rinse mouth after use. cetirizine (ZYRTEC) 10 mg tablet Take 1 tablet by mouth once daily. tiotropium bromide (SPIRIVA RESPIMAT) 2.5 mcg/actuation inhaler Inhale 2 Puffs as instructed once daily. albuterol HFA (PROAIR HFA) 90 mcg/actuation inhaler Inhale 2 Puffs as instructed every 6 hours as needed for wheezing/shortness of breath. albuterol (PROVENTIL) 2.5 mg /3 mL (0.083 %) nebulizer solution Use 3 mL via nebulizer every 4 hours as needed for wheezing/shortness of breath. No current facility-administered medications on file prior to visit. Social History Social History Tobacco Use Smoking status: Every Day Packs/day: 1.00 Years: 2.00 Pack years: 2.00 Types: Cigarettes Smokeless tobacco: Never Tobacco comments: Pt is trying to quit Vaping Use Vaping Use: Never used Substance Use Topics Alcohol use: No Comment: History of alcohol abuse Drug use: No Comment: Hx of marijuana EXAM: BP 138/88 (BP Site: Left Arm, BP Position: Sitting, BP Cuff Size: Regular Adult) Pulse 92 Resp 20 Wt 92.6 kg (204 lb 3.2 oz) LMP (more content not included)... [facility] 02-03-2023 Note HNO ID: [id number] Author: Sajan White MD Service: ? Author Type: Physician Type: Progress Notes Filed: 02/03/2023 4:49 PM Note Text: Chief Complaint Patient presents with: ED Follow-up HPI Rg Dia is a 42 year old female who presents here today for ER Follow Up.. Pt went to [facility] ER on 01/30/23 c/o SOB. Labs and CXR were done. Pt was discharged home on Prednisone 60 mg daily #15 tablets and instructed to continue use of Albuterol inhaler. She just took her last dose of Prednisone today. Denies any improvement on the Prednisone, breathing has worsened. She has tried several OTC cold medications, like mucinex day and night. She has been coughing a lot. She even is using a Humidifier. She is a smoking, states she cut way back, is only smoking a few cigarettes a day. She states this is the worse she has ever felt, she stated she is having panic attacks. She isn't sure why she was not admitted to ER, feels she should be admitted. She is using the nebulizer tx a lot more than every 4-6 hours. She does not see a music copyist. Requests note that she is not able to work; she had been getting for the last 5 years form Psychiatry, but they will not do this any longer. Working on applying to [employer] disability. Below copied from [facility] [employer]: Chief Complaint: Shortness of Breath Informant: patient Onset/Context/Timing Onset: Yesterday Context: gradual Timing: Continuous Quality: Positive for Orthopnea and Wheezing Worsened by: Lying flat Relieved by: other (Sitting up) Associated Symptoms cough and sore throat; Negative for rhinorrhea, post nasal drip, ear pain, fever, chills or sweats Chest Pain: Positive for Continuous and Tightness Narrative Narrative: Patient presents with shortness of breath that has been getting worse since yesterday. Patient states she started having some cold symptoms yesterday. Patient states it is gotten progressively worse throughout the night. Patient states her breathing feels like it is shallow. Patient states it is worse whenever she lays down and better with sitting up. Patient has a COPD. Patient also admits to a sore throat and cough. Patient denies any sputum production. Patient denies any fevers or chills. PE Risk Factors: Negative for Cancer, OCP + Smoking + > 35, Prior DVT or PE, Recent immobilization, Recent surgery or Recent travel MDM Narrative Medical decision making narrative: Differential diagnosis includes COPD exacerbation, pneumonia, upper respiratory infection, COVID infection, influenza infection, cardiac ischemia, cardiac dysrhythmia, pulmonary embolism, and pneumothorax. EKG will be obtained to assess for cardiac dysrhythmia and cardiac ischemia. Chest x-ray will be obtained to assess for pneumonia, pneumothorax, and congestive heart failure. CBC will be obtained to assess for anemia and leukocytosis. Basic metabolic profile will be obtained to assess for electrolyte abnormality and renal function. High-sensitivity troponin will be obtained to assess for cardiac ischemia. D-dimer will be obtained to assess for pulmonary embolism. COVID-19 rapid antigen will be obtained to assess for COVID infection. Influenza A and B antigens will be obtained to assess for influenza infection. Past medical history, appointments, medications, allergies reviewed. Previous Medical History PAST MEDICAL HISTORY Diagnosis Date Abnormal glandular Papanicolaou smear of cervix 2000 Abn. Pap smear (cervix) ANXIETY STATE NOS 06/17/2009 Bipolar 2 disorder ([facility]) [facility] Borderline personality disorder ([facility]) Diabetes mellitus of mother, complicating , childbirth, or the puerperium, unspecified as to episode of care(648.00) Gestational diabetes Pelvic pain 02/14/2012 Tobacco use disorder Unspecified asthma(493.90) Previous Surgical History PAST SURGICAL HISTORY Procedure Laterality Date DELIVERY ONLY 11/23/2014 , low transverse CONIZATION CERVIX W/WO DANDC RPR ELTRD EXC 2000 LEEP-Cervix ENDOMETRIAL ABLTJ THERMAL W/O HYSTEROSCOPIC GUID 2017 [facility] LIG/TRNSXJ FLP TUBE ABDL/VAG APPR UNI/BI 11/23/2014 Tubal ligation PAST SURGICAL HISTORY OF Right fibula sugery Family History FAMILY HISTORY Problem Relation Age of Onset Diabetes Mother other (manic depressive) Mother Alcohol/Drug Father etoh Lipids Father Heart Paternal Grandfather Stroke Paternal Grandfather Patient Allergies ALLERGIES Allergen Reactions Rondec [Bromphenira* Rash Current Medications Current Outpatient Medications on File Prior to Visit Medication Sig omeprazole (PRILOSEC) 20 mg capsule Take 1 capsule by mouth daily before breakfast. 1/2 hr before meal. sucralfate (CARAFATE) 1 gram tablet Take 1 tablet by mouth before meals and at bedtime. ondansetron orally disintegrating (ZOFRAN ODT) 4 mg disintegrating tablet Take 1 tablet by mouth every 6 hours as needed (more content not included)... [facility] 02-03-2023 Nurse Note Child support letter has been faxed to [phone]. Porsha Griffin Ma documented in this encounter [facility] 02-03-2023 History of Presen t illness Narrative Chief Complaint Patient presents with: ED Follow-up HPI Rg Dia is a 42 year old female who presents here today for ER Follow Up.. Pt went to [facility] ER on 01/30/23 c/o SOB. Labs and CXR were done. Pt was discharged home on Prednisone 60 mg daily #15 tablets and instructed to continue use of Albuterol inhaler. She just took her last dose of Prednisone today. Denies any improvement on the Prednisone, breathing has worsened. She has tried several OTC cold medications, like mucinex day and night. She has been coughing a lot. She even is using a Humidifier. She is a smoking, states she cut way back, is only smoking a few cigarettes a day. She states this is the worse she has ever felt, she stated she is having panic attacks. She isn't sure why she was not admitted to ER, feels she should be admitted. She is using the nebulizer tx a lot more than every 4-6 hours. She does not see a music copyist. Requests note that she is not able to work; she had been getting for the last 5 years form Psychiatry, but they will not do this any longer. Working on applying to [employer] disability. Below copied from [facility] [employer]: Chief Complaint: Shortness of Breath Informant: patient Onset/Context/Timing Onset: Yesterday Context: gradual Timing: Continuous Quality: Positive for Orthopnea and Wheezing Worsened by: Lying flat Relieved by: other (Sitting up) Associated Symptoms cough and sore throat; Negative for rhinorrhea, post nasal drip, ear pain, fever, chills or sweats Chest Pain: Positive for Continuous and Tightness Narrative Narrative: Patient presents with shortness of breath that has been getting worse since yesterday. Patient states she started having some cold symptoms yesterday. Patient states it is gotten progressively worse throughout the night. Patient states her breathing feels like it is shallow. Patient states it is worse whenever she lays down and better with sitting up. Patient has a COPD. Patient also admits to a sore throat and cough. Patient denies any sputum production. Patient denies any fevers or chills. PE Risk Factors: Negative for Cancer, OCP + Smoking + > 35, Prior DVT or PE, Recent immobilization, Recent surgery or Recent travel MDM Narrative Medical decision making narrative: Differential diagnosis includes COPD exacerbation, pneumonia, upper respiratory infection, COVID infection, influenza infection, cardiac ischemia, cardiac dysrhythmia, pulmonary embolism, and pneumothorax. EKG will be obtained to assess for cardiac dysrhythmia and cardiac ischemia. Chest x-ray will be obtained to assess for pneumonia, pneumothorax, and congestive heart failure. CBC will be obtained to assess for anemia and leukocytosis. Basic metabolic profile will be obtained to assess for electrolyte abnormality and renal function. High-sensitivity troponin will be obtained to assess for cardiac ischemia. D-dimer will be obtained to assess for pulmonary embolism. COVID-19 rapid antigen will be obtained to assess for COVID infection. Influenza A and B antigens will be obtained to assess for influenza infection. Past medical history, appointments, medications, allergies reviewed. Previous Medical History PAST MEDICAL HISTORY Diagnosis Date Abnormal glandular Papanicolaou smear of cervix 2000 Abn. Pap smear (cervix) ANXIETY STATE NOS 06/17/2009 Bipolar 2 disorder ([facility] Borderline personality disorder ([facility]) Diabetes mellitus of mother, complicating , childbirth, or the puerperium, unspecified as to episode of care(648.00) Gestational diabetes Pelvic pain 02/14/2012 Tobacco use disorder Unspecified asthma(493.90) Previous Surgical History PAST SURGICAL HISTORY Procedure Laterality Date DELIVERY ONLY 11/23/2014 , low transverse CONIZATION CERVIX W/WO D&C RPR ELTRD EXC 2000 LEEP-Cervix ENDOMETRIAL ABLTJ THERMAL W/O HYSTEROSCOPIC GUID 2018 [facility] LIG/TRNSXJ FLP TUBE ABDL/VAG APPR UNI/BI 11/23/2014 Tubal ligation PAST SURGICAL HISTORY OF Right fibula sugery Family History FAMILY HISTORY Problem Relation Age of Onset Diabetes Mother other (manic depressive) Mother Alcohol/Drug Father etoh Lipids Father Heart Paternal Grandfather Stroke Paternal Grandfather Patient Allergies ALLERGIES Allergen Reactions Rondec [Bromphenira* Rash Current Medications Current Outpatient Medications on File Prior to Visit Medication Sig omeprazole (PRILOSEC) 20 mg capsule Take 1 capsule by mouth daily before breakfast. 1/2 hr before meal. sucralfate (CARAFATE) 1 gram tablet Take 1 tablet by mouth before meals and at bedtime. ondansetron orally disintegrating (ZOFRAN ODT) 4 mg disintegrating tablet Take 1 tablet by mouth every 6 hours as needed for nausea/vomiting. gabapentin (NEURONTIN) 300 mg capsule Take 1 capsule by mouth three times daily for 90 days. fluticasone (FLOVENT HFA) 110 mcg/actuation inhaler Inhale 1 Puff as instructed twice daily. Shake well before use. Rinse mouth after use. cetirizine (ZYRTEC) 10 mg tablet Take 1 tablet by mouth once daily. tiotropium bromide (SPIRIVA RESPIMAT) 2.5 mcg/actuation inhaler Inhale 2 Puffs as instructed once daily. albuterol HFA (PROAIR HFA) 90 mcg/actuation inhaler Inhale 2 Puffs as instructed every 6 hours as needed for wheezing/shortness of breath. albuterol (PROVENTIL) 2.5 mg /3 mL (0.083 %) nebulizer solution Use 3 mL via nebulizer every 4 hours as needed for wheezing/shortness of breath. No current facility-administered medications on file prior to visit. Social History Social History Tobacco Use Smoking status: Every Day Packs/day: 1.00 Years: 2.00 Pack years: 2.00 Types: Cigarettes Smokeless tobacco: Never Tobacco comments: Pt is trying to quit Vaping Use Vaping Use: Never used Substance Use Topics Alcohol use: No Comment: History of alcohol abuse Drug use: No Comment: Hx of marijuana EXAM: BP 150/90 Pulse 98 Resp 20 Wt 93.4 kg (206 lb) LMP 03/12/2014 SpO2 91% BMI 38.29 kg/m General Appearance: NAD, able to speak in full sentences with mild dyspnea noted. Lungs: diffuse wheezing. Heart: RRR without murmur, gallop, or rubs. No ectopy. Health Maintenance List HEPATITIS B(1 of 3 - 3-dose series) Never done PNEUMOCOCCAL(1 - PCV) Never done SPIROMETRY Never done HEPATITIS C SCREENING Never done MAMMOGRAM due on 08/03/2022 INFLUENZA(1) due on 05/19/2023 COVID-19 VACCINE(1) due on 12/29/2023 ANNUAL PCP TEAM CHRONIC DISEASE VISIT due on 12/29/2023 PAP TESTING due on 01/19/2027 HPV TESTING due on 02/14/2027 DTAP,TDAP,TD(3 - Td or Tdap) due on 07/14/2031 HIV SCREENING Completed Data reviewed [facility] Er reports from 01/30/23 ASSESSMENT/PLAN: 1. Chronic obstructive pulmonary disease with acute exacerbation (HCC) - ICD9: 491.21, ICD10: J44.1 Will give higher steroid burst, place on doxycyline If not improving with this she may need to return to ER Follow up prn I agree with the Chief Complaint, ROS, and Past Histories independently gathered by the clinical support representative and the remaining scribed note accurately describes my personal service to the patient. Medical Decision Making: Problems: Moderate: 1+ chronic illnesses with change Risk: Moderate: Drug management Medical Decision Making Level: 4 - Moderate Sajan White MD The documentation for this note was completed by Marivel Sanchez Ma acting as scribe for Sajan White MD. February 03, 2023 10:32 AM. Marivel Sanchez Ma documented in this encounter [facility] 01-13-2023 Miscellaneous Notes Addressed in other refill request. Marivel Sanchez Ma documented in this encounter [facility] 01-13-2023 Miscellaneous Notes Pt notified via mychart she should have one more refill on file at [facility] for Gabapentin 300 mg. Marivel Sanchez Ma documented in this encounter [facility] 12-30-2022 Hospital Discharg e instructions Patient Education 12/30/2022 09:38:50 ABSCESS, I and D Abscess [Incision & Drainage] An abscess (sometimes called a boil ) occurs when bacteria get trapped under the skin and begin to grow. Pus forms inside the abscess as the body responds to the bacteria. An abscess can occur with an insect bite, ingrown hair, blocked oil gland, pimple, cyst, or puncture wound. Treatment of your abscess has required an incision to drain the pus. If the abscess pocket was large, a gauze packing may have been inserted. This will need to be removed and possibly replaced on your next visit. Antibiotics are not required in the treatment of a simple abscess, unless the infection is spreading into the skin around the wound (known as cellulitis ). Healing of the wound will take about one to two weeks depending on the size of the abscess. Healthy tissue will grow from the bottom and sides of the opening until it seals over. Home Care: The wound may drain for the first two days. Cover the wound with a clean dry dressing. If the dressing becomes soaked with blood or pus, change it. If a gauze packing was placed inside the abscess cavity, you may be advised to remove it yourself. You may do this in the shower. Once the packing is removed, you should wash the area in the shower or bath 3 to 4 times a day, until the skin opening has closed. If you were prescribed antibiotics, take them as directed until they are all gone. You may use acetaminophen (Tylenol) or ibuprofen (Motrin, Advil) to control pain, unless another pain medicine was prescribed. [ NOTE: If you have liver disease or ever had a stomach ulcer, talk with your doctor before using these medicines.] Follow Up with your doctor as advised by our staff. If a gauze packing was inserted in your wound, it should be removed in 1-2 days. Check your wound every day for the signs of worsening infection listed below. Get Prompt Medical Attention if any of the following occur: Increasing redness or swelling Red streaks in the skin leading away from the wound Increasing local pain or swelling Continued pus draining from the wound two days after treatment Fever of 100.4 F (38 C) or higher, or as directed by your healthcare provider [id number] [employer]. [address] [place] [address]757. All rights reserved. This information is not intended as a substitute for professional medical care. Always follow your healthcare professional's instructions. Follow Up Care 12/30/2022 09:22:46 With:SAJAN WHITE MD Address: [address] [facility] [place] [address]- When:2-4 days [facility] Sabinamichi Ordoñez 12-30-2022 Note Discharge Instructions Thank you for allowing [facility] to assist you with your healthcare needs. The following is important discharge information regarding your hospital visit. Diagnosis from Today's Visit Abscess Buttock [id number] What to Do Next Instructions from Your Care Team No qualifying data available. Post Acute Orders No qualifying data available. You Need to Schedule the Following Appointments Follow Up with SAJAN WHITE MD When Within 2-4 days [facility] [address] [facility] [place] [address] Allergies NKA Medications Please ask your primary doctor or pharmacist before taking any other medication not listed, including over the counter drugs, herbal medications, vitamins and or supplements as they may interact with your home medications. What How Much When Why Instructions Last Dose New doxycycline (doxycycline hyclate 100 mg oral capsule) 1 cap by mouth Two (2) times a day Abscess Duration: 10 Days Printed Prescription Unchanged albuterol (albuterol MDI (90 mcg/ inh) CFC free inhalation aerosol) 2 puff(s) by inhalation Four (4) times a day as needed for as needed for wheezing Unchanged citalopram (CeleXA 20 mg oral tablet) 1 tab(s) by mouth Daily at bedtime Unchanged famotidine (Pepcid 20 mg oral tablet) 1 tab(s) by mouth Two (2) times a day Duration: 30 Days Unchanged gabapentin (gabapentin 600 mg oral tablet) 1 tab(s) by mouth Three (3) times a day Please take this list to your next doctor s visit. Bring all medications you take, including over the counter medications, herbals and other supplements with you to your doctor s visit. Patients and families are reminded to discard old lists and to update any records with all medication providers or retail pharmacies. Medication Leaflets doxycycline (oral/injection) (DOX i DANIELLE middleton) Acticlate, Adoxa, Alodox, Avidoxy, Doryx, Mondoxyne NL, Monodox, Morgidox, Okebo, Oracea, Oraxyl, Targadox, Vibramycin What is the most important information I should know about doxycycline? You should not take this medicine if you are allergic to any tetracycline antibiotic. Children younger than 8 years old should use doxycycline only in cases of severe or life-threatening conditions. This medicine can cause permanent yellowing or graying of the teeth in children Using doxycycline during could harm the unborn baby or cause permanent tooth discoloration later in the baby's life. What is doxycycline? Doxycycline is a tetracycline antibiotic that Doxycycline is used to treat many different bacterial infections, such as acne, urinary tract infections, intestinal infections, eye infections, gonorrhea, chlamydia, periodontitis (gum disease), and others. Doxycycline is also used to treat blemishes, bumps, and acne-like lesions caused by rosacea. Doxycycline will not treat facial redness caused by rosacea. Some forms of doxycycline are used to prevent malaria, to treat anthrax, or to treat infections caused by mites, ticks, or lice. Doxycycline may also be used for purposes not listed in this medication guide. What should I discuss with my healthcare provider before taking doxycycline? You should not take this medicine if you are allergic to doxycycline or other tetracycline antibiotics such as demeclocycline, minocycline, tetracycline, or tigecycline. Tell your doctor if you have ever had: liver disease; kidney disease; asthma or sulfite allergy; increased pressure inside your skull; or if you also take isotretinoin, seizure medicine, or a blood thinner such as warfarin (Coumadin). If you are using doxycycline to treat gonorrhea, your doctor may test you to make sure you do not also have syphilis, another sexually transmitted disease. Taking this medicine during may affect tooth and bone development in the unborn baby. Taking doxycycline during the last half of can cause permanent tooth discoloration later in the baby's life. Tell your doctor if you are or if you become . Doxycycline can make control pills less effective. Ask your doctor about using a non-hormonal control (condom, diaphragm with spermicide) to prevent . Doxycycline can pass into breast milk and may affect bone and tooth development in a nursing infant. Do not breastfeed while you are taking doxycycline. Doxycycline can cause permanent yellowing or graying of the teeth in children younger than 8 years old. Children should use doxycycline only in cases of severe or life-threatening conditions such as anthrax or [place] spotted fever. The benefit of treating a serious condition may outweigh any risks to the child's tooth development. How should I take doxycycline? Follow all directions on your prescription label and read all medication guides or instruction sheets. Use the medicine exactly as directed. Take doxycycline with a full glass of water. Drink plenty of liquids while you are taking doxycycline. Read and carefully follow any Instructions for Use provided with your medicine. Ask your doctor or pharmacist if you do not understand these instructions. Most brands of doxycyline may be taken with food or milk if the medicine upsets your stomach. Different brands of doxycycline may have different instructions about taking them with or without food. Take Oracea on an empty stomach, at least 1 hour before or 2 hours after a meal. You may need to split a doxycycline tablet to get the correct dose. Follow your doctor's instructions. Swallow a delayed-release capsule or tablet whole. Do not crush, chew, break, or open it. Measure liquid medicine with the dosing syringe provided, or with a special dose-measuring spoon or medicine cup. If you do not have a dose-measuring device, ask your pharmacist for one. If you take doxycycline to prevent malaria: Start taking the medicine 1 or 2 days before entering an area where malaria is common. Continue taking the medicine every day during your stay and for at least 4 weeks after you leave the area. Doxycycline is usually given by injection only if you are unable to take the medicine by mouth. A healthcare provider will give you this injection as an infusion into a vein. Use this medicine for the full prescribed length of time, even if your symptoms quickly improve. Skipping doses can increase your risk of infection that is resistant to medication. Doxycycline will not treat a viral infection such as the flu or a common cold. Store at room temperature away from moisture, heat, and light. Throw away any unused medicine after the expiration date on the label has passed. Using doxycycline can cause damage to your kidneys. What happens if I miss a dose? Take the medicine as soon as you can, but skip the missed dose if it is almost time for your next dose. Do not take two doses at one time. What happens if I overdose? Seek emergency medical attention or call the Poison Help line at . What should I avoid while taking doxycycline? Do not take iron supplements, multivitamins, calcium supplements, antacids, or laxatives within 2 hours before or after taking doxycycline. Avoid taking any other antibiotics with doxycycline unless your doctor has told you to. Doxycycline could make you sunburn more easily. Avoid sunlight or tanning beds. Wear protective clothing and use sunscreen (SPF 30 or higher) when you are outdoors. Antibiotic medicines can cause diarrhea, which may be a sign of a new infection. If you have diarrhea that is watery or bloody, call your doctor. Do not use anti-diarrhea medicine unless your doctor tells you to. What are the possible side effects of doxycycline? Get emergency medical help if you have signs of an allergic reaction (hives, difficult breathing, swelling in your face or throat) or a severe skin reaction (fever, sore throat, burning in your eyes, skin pain, red or purple skin rash that spreads and causes blistering and peeling). Seek medical treatment if you have a serious drug reaction that can affect many parts of your body. Symptoms may include: skin rash, fever, swollen glands, flu-like symptoms, muscle aches, severe weakness, unusual bruising, or yellowing of your skin or eyes. This reaction may occur several weeks after you began using doxycycline. Call your doctor at once if you have: severe stomach pain, diarrhea that is watery or bloody; throat irritation, trouble swallowing; chest pain, irregular heart rhythm, feeling short of breath; little or no urination; low white blood cell counts--fever, chills, swollen glands, body aches, weakness, pale skin, easy bruising or bleeding; increased pressure inside the skull--severe headaches, ringing in your ears, dizziness, nausea, vision problems, pain behind your eyes; or signs of liver or pancreas problems--loss of appetite, upper stomach pain (that may spread to your back), tiredness, nausea or vomiting, fast heart rate, dark urine, jaundice (yellowing of the skin or eyes). Common side effects may include: nausea, vomiting, upset stomach, loss of appetite; mild diarrhea; skin rash or itching; darkened skin color; or vaginal itching or discharge. This is not a complete list of side effects and others may occur. Call your doctor for medical advice about side effects. You may report side effects to FDA at 4-802-MIJ-3039. What other drugs will affect doxycycline? Sometimes it is not safe to use certain medications at the same time. Some drugs can affect your blood levels of other drugs you take, which may increase side effects or make the medications less effective. Other drugs may affect doxycycline, including prescription and wgla-wat-jbgfasu medicines, vitamins, and herbal products. Tell your doctor about all your current medicines and any medicine you start or stop using. Where can I get more information? Your pharmacist can provide more information about doxycycline. Remember, keep this and all other medicines out of the reach of children, never share your medicines with others, and use this medication only for the indication prescribed. Every effort has been made to ensure that the information provided by [employer]. ('[employer]') is accurate, up-to-date, and complete, but no guarantee is made to that effect. Drug information contained herein may be time sensitive. [employer] information has been compiled for use by healthcare practitioners and consumers in the [place] and therefore [employer] does not warrant that uses outside of the [place] are appropriate, unless specifically indicated otherwise. [employer] drug information does not endorse drugs, diagnose patients or recommend therapy. [employer] drug information is an informational resource designed to assist licensed healthcare practitioners in caring for their patients and/or to serve consumers viewing this service as a supplement to, and not a substitute for, the expertise, skill, knowledge and judgment of healthcare practitioners. The absence of a warning for a given drug or drug combination in no way should be construed to indicate that the drug or drug combination is safe, effective or appropriate for any given patient. [employer] does not assume any responsibility for any aspect of healthcare administered with the aid of information [employer] provides. The information contained herein is not intended to cover all possible uses, directions, precautions, warnings, drug interactions, allergic reactions, or adverse effects. If you have questions about the drugs you are taking, check with your doctor, nurse or pharmacist. Copyright 0281-8225 [employer]. Version: 21.04. Revision Date: 09/23/2020. Education Materials Abscess [Incision & Drainage] An abscess (sometimes called a boil ) occurs when bacteria get trapped under the skin and begin to grow. Pus forms inside the abscess as the body responds to the bacteria. An abscess can occur with an insect bite, ingrown hair, blocked oil gland, pimple, cyst, or puncture wound. Treatment of your abscess has required an incision to drain the pus. If the abscess pocket was large, a gauze packing may have been inserted. This will need to be removed and possibly replaced on your next visit. Antibiotics are not required in the treatment of a simple abscess, unless the infection is spreading into the skin around the wound (known as cellulitis ). Healing of the wound will take about one to two weeks depending on the size of the abscess. Healthy tissue will grow from the bottom and sides of the opening until it seals over. Home Care: The wound may drain for the first two days. Cover the wound with a clean dry dressing. If the dressing becomes soaked with blood or pus, change it. If a gauze packing was placed inside the abscess cavity, you may be advised to remove it yourself. You may do this in the shower. Once the packing is removed, you should wash the area in the shower or bath 3 to 4 times a day, until the skin opening has closed. If you were prescribed antibiotics, take them as directed until they are all gone. You may use acetaminophen (Tylenol) or ibuprofen (Motrin, Advil) to control pain, unless another pain medicine was prescribed. [ NOTE: If you have liver disease or ever had a stomach ulcer, talk with your doctor before using these medicines.] Follow Up with your doctor as advised by our staff. If a gauze packing was inserted in your wound, it should be removed in 1-2 days. Check your wound every day for the signs of worsening infection listed below. Get Prompt Medical Attention if any of the following occur: Increasing redness or swelling Red streaks in the skin leading away from the wound Increasing local pain or swelling Continued pus draining from the wound two days after treatment Fever of 100.4 F (38 C) or higher, or as directed by your healthcare provider [id number] [employer]. [address] [place] [address], [place] [address]. All rights reserved. This information is not intended as a substitute for professional medical care. Always follow your healthcare professional's instructions. Additional Information VACCINATE! IT SAVES LIVES! Members of the community who have not yet received the COVID-19 vaccine and would like to receive it can visit one of [facility] vaccine clinics. There are many vaccine clinic locations within the [facility]. For locations and available times, please visit [email or web address]. It is important to note that some COVID mobile vaccine clinics are held outdoors and may be canceled in rainy or stormy conditions. To learn more about pediatric vaccinations (ages 5-11), we invite you to visit the [facility] webpage. [email or web address] To learn more about the COVID-19 vaccine, we invite you to visit the [place] website for a list of frequently asked questions. [email or web address] [place] [facility] Patient Portal Access Instructions: Stay connected with your healthcare team and access your personal medical information anytime with the [facility] Patient Portal. If you would like a full copy of your medical records please contact the [facility] Medical Records Department Monday through Monday between 8a.m. and 4:30p.m. Please follow the directions below to access the portal: 1.Access the email account you provided upon registration to the hospital.2.Look for an invitation email from [facility].3.Open the email and access the invitation link: Accept Invitation to [facility].Fill in the required madrigal to create your account. Sign into www.[employer] with your username and password that you created in the above steps to stay up to date. You can then view a summary of results, a summary of your visits, and the ability to download your summaries to your computer or send the information securely to a physician. Remember that your healthcare information is confidential, so carefully consider who you will allow to register on the [facility] Patient Portal for access to your information. You can also access the [facility] Patient Portal on the [employer] jay. Simply click on Health Records under Health Data and then click on the [facility] logo. HOW TO SAFELY DISPOSE OF PRESCRIPTION MEDICATIONS Please use one of the following methods to safely dispose of your unused medications. 1.Use a drug disposal kit: the drug disposal pouch allows you to safely discard your old and unused drugs. Ask your nurse to give you one when you are discharged.2.Visit a local take-back location: Many local pharmacies and police departments have programs that collect old and unwanted prescription drugs. Call your local pharmacy or go to [email or web address] to find one close to you.3.Make use of household items: Use cat litter or old coffee grounds to dispose medications if other options are not available. Mix your drugs with these household products, seal them in an airtight container and throw it into the garbage. Call [facility]: [phone] to be sure your drugs can be disposed of in this way. Some medicines may require a different approach.4.Never flush your medications down the toilet. IF YOU HAVE BEEN PRESCRIBED AN OPIOIDS FOR PAIN If you have been prescribed an opioid (such as hydrocodone, oxycodone or morphine), it is critical to understand the possible side effects and risks of opioid pain medications. Even when taken as directed, opioids can have several side effects including: Tolerance, meaning you might need to take more of a medication for the same pain relief. Nausea, vomiting and/or constipation. Sleepiness, dizziness, dry mouth, confusion, depression or itching. Physical dependence, meaning you have withdrawal symptoms when a medication is stopped ? this can develop within a few days. KNOW YOUR RESPONSIBILITIES It is important to know exactly how much and how often to take the opioid pain medications you are prescribed. Never take opioids in higher amounts or more often than prescribed. Do not combine opioids with alcohol or other drugs that cause drowsiness, such as benzodiazepines, also known as benzos, including diazepam and alprazolam, muscle relaxants or sleep aids. Never sell or share prescription opioids. This is illegal. Store opioids in a secure place and out of reach of others (including children, family, friends and visitors). The last page(s) of this document has been signed and retained as a CHART COPY Signatures Patient Education Materials ABSCESS, I and D Medication Leaflets doxycycline (oral/injection) My discharge plan and instructions have been reviewed and explained to me and ISOUTH RACHEL C understand my current condition and have read and understand these discharge instructions. I have received a written copy of the plan/instructions. If I have questions, I am aware that I should contact my doctor. Patient/Liner Man Signature: Date/Time: Relationship to Patient: Witness Name/Signature: Date/Time: [facility] 12-29-2022 Note HNO ID: [id number] Author: Sajan White MD Service: ? Author Type: Physician Type: Progress Notes Filed: 12/29/2022 10:37 AM Note Text: Chief Complaint Patient presents with: Physical ER F/U HPI Rg Dia is a 42 year old female who presents here today for general heck up and ER follow up. Smokes 1 ppd, no interest in quitting at this time. Was in the [facility] ER on 12/25/[address] scan done. She denies any urinary sx but states that her bowels have not been normal for as long as she can remember. She does not eat much. She does have nausea, no vomiting. Eating does make the pain worse. The abdominal pain is off and on, but as of the last several days it has been constant. Pain is sharp and dull. She has seen Dr. Chauhan, Gastro with [facility] in the past had endoscopy and colonoscopy done which showed gastritis and esophagitis. She was treated with medication; she is not sure what type. She stated her sx were getting better for a little while so she didn't follow up, she stated she no showed the follow with Dr. Chauhan. She has been taking Dual Action Advil and some OTC stomach pill but can not recall what it is called. Denies any chest pains, dizziness, or SOB. Asthma: Stable; Is taking Spiriva Respimat daily, ProAir inhaler prn, Albuterol nebulizing solution, Flovent in halers and Zyretc. Anxiety/depression/PTSD: not currently on medication, not well controlled. Planning to get back into counseling. Says that medications have not worked for her, maker her symptoms worse. Below copied from [facility] Loandesk: HPI - GI History of Present Illness Chief Complaint: Abd Pain Detail of Chief Complaint: Right-sided abdominal pain Informant: patient Abdominal Pain/Flank Pain Onset: Today (070) Timing: Continuous Quality: Aching Location: - (10 cm to the right of the umbilicus and radiates to the back) Current Severity: Mild Maximum Severity: Moderate Worsened by: Movement Relieved by: - (Supine position) Nausea/Vomiting/Emesis GI Symptom: Positive for Nausea; Negative for Vomiting Diarrhea/Melena/Hematochezia GI Symptom: Negative for Diarrhea, Melena or Hematochezia Associated Symptoms Associated Symptoms: Negative for Dysuria, Frequency, Hematuria or Urgency LMP: Status post uterine ablation Narrative Narrative: Patient is a 42-year-old woman who presents with right-sided abdominal pain that wraps around her back that started at 0730. She does endorse nausea without vomiting or diarrhea. She denies anorexia. 3 hours prior to presentation she had chicken strips. She does report intolerance to greasy and fried foods. There is no family history of cholelithiasis. She denies pain radiating to the intrascapular region. She denies fever, chills night sweats. She denies cough, shortness of breath or difficulty breathing. She denies history of renal or ureteral lithiasis. She denies history of ovarian cysts. She denies dysuria, frequency, urgency or hematuria. She denies trauma. She has not noted a rash. She has not taken anything for the discomfort. She denies prior symptoms. [facility] Narrative Medical decision making narrative: Patient presents with right-sided abdominal pain this may represent appendicitis, gynecologic pathology i.e. ovarian cyst, urologic i.e. ureteral lithiasis also need to consider infection. Since patient is not having diarrhea, blood or mucus per rectum doubt inflammatory bowel disorder. Patient did have an EGD performed by Dr. Chauhan that revealed grade 1 esophageal reflux with esophagitis. Biopsies were taken. Biopsies were negative. Review of past history also indicates that patient had a uterine ablation. There was no complication. To evaluate patient's presentation laboratory studies were ordered as well as UA. Since patient drove herself she was treated with IV Toradol since she has no contraindication for pain and Zofran for nausea. CAT scan reveals no abnormality. Uncertain the cause of her leukocytosis. Plan charge to home with close follow-up. Lab Data Attestation: I reviewed the patient's lab results. Lab results narrative: White count is elevated with mild shift. There is no bandemia. Comprehensive metabolic panel is unremarkable i.e. electrolytes, CO2 anion gap, transaminases. Glucose is elevated. UA reveals 5-10 epithelial cells with only 0-5 WBCs and no bacteria. With right lower quadrant abdominal pain elevated white count will obtain CT to assess for atypical appendicitis. This may represent a retrocecal appendicitis. Abdomen/Pelvis CT 12/25/22 18:15 IMPRESSION: 1. Fatty liver. 2. Collapsed follicle measuring 1.8 cm left ovary. 3. No acute abdominal pelvic abnormality. Past medical history, appointments, medications, allergies reviewed. Previous Medical History PAST MEDICAL HISTORY Diagnosis Date Abnormal glandular Papanicolaou smear of cervix 2000 Abn. Pap smear (cervi (more content not included)... [facility] 12-29-2022 History of Presen t illness Narrative Chief Complaint Patient presents with: Physical ER F/U HPI Rg Dia is a 42 year old female who presents here today for general heck up and ER follow up. Smokes 1 ppd, no interest in quitting at this time. Was in the [facility] ER on 12/25/[address] scan done. She denies any urinary sx but states that her bowels have not been normal for as long as she can remember. She does not eat much. She does have nausea, no vomiting. Eating does make the pain worse. The abdominal pain is off and on, but as of the last several days it has been constant. Pain is sharp and dull. She has seen Herman Lebron with [facility] in the past had endoscopy and colonoscopy done which showed gastritis and esophagitis. She was treated with medication; she is not sure what type. She stated her sx were getting better for a little while so she didn't follow up, she stated she no showed the follow with Dr. Chauhan. She has been taking Dual Action Advil and some OTC stomach pill but can not recall what it is called. Denies any chest pains, dizziness, or SOB. Asthma: Stable; Is taking Spiriva Respimat daily, ProAir inhaler prn, Albuterol nebulizing solution, Flovent in halers and Zyretc. Anxiety/depression/PTSD: not currently on medication, not well controlled. Planning to get back into counseling. Says that medications have not worked for her, maker her symptoms worse. Below copied from [facility] [place]: HPI - GI History of Present Illness Chief Complaint: Abd Pain Detail of Chief Complaint: Right-sided abdominal pain Informant: patient Abdominal Pain/Flank Pain Onset: Today (070) Timing: Continuous Quality: Aching Location: - (10 cm to the right of the umbilicus and radiates to the back) Current Severity: Mild Maximum Severity: Moderate Worsened by: Movement Relieved by: - (Supine position) Nausea/Vomiting/Emesis GI Symptom: Positive for Nausea; Negative for Vomiting Diarrhea/Melena/Hematochezia GI Symptom: Negative for Diarrhea, Melena or Hematochezia Associated Symptoms Associated Symptoms: Negative for Dysuria, Frequency, Hematuria or Urgency LMP: Status post uterine ablation Narrative Narrative: Patient is a 42-year-old woman who presents with right-sided abdominal pain that wraps around her back that started at 0730. She does endorse nausea without vomiting or diarrhea. She denies anorexia. 3 hours prior to presentation she had chicken strips. She does report intolerance to greasy and fried foods. There is no family history of cholelithiasis. She denies pain radiating to the intrascapular region. She denies fever, chills night sweats. She denies cough, shortness of breath or difficulty breathing. She denies history of renal or ureteral lithiasis. She denies history of ovarian cysts. She denies dysuria, frequency, urgency or hematuria. She denies trauma. She has not noted a rash. She has not taken anything for the discomfort. She denies prior symptoms. [facility] Narrative Medical decision making narrative: Patient presents with right-sided abdominal pain this may represent appendicitis, gynecologic pathology i.e. ovarian cyst, urologic i.e. ureteral lithiasis also need to consider infection. Since patient is not having diarrhea, blood or mucus per rectum doubt inflammatory bowel disorder. Patient did have an EGD performed by Dr. Chauhan that revealed grade 1 esophageal reflux with esophagitis. Biopsies were taken. Biopsies were negative. Review of past history also indicates that patient had a uterine ablation. There was no complication. To evaluate patient's presentation laboratory studies were ordered as well as UA. Since patient drove herself she was treated with IV Toradol since she has no contraindication for pain and Zofran for nausea. CAT scan reveals no abnormality. Uncertain the cause of her leukocytosis. Plan charge to home with close follow-up. Lab Data Attestation: I reviewed the patient's lab results. Lab results narrative: White count is elevated with mild shift. There is no bandemia. Comprehensive metabolic panel is unremarkable i.e. electrolytes, CO2 anion gap, transaminases. Glucose is elevated. UA reveals 5-10 epithelial cells with only 0-5 WBCs and no bacteria. With right lower quadrant abdominal pain elevated white count will obtain CT to assess for atypical appendicitis. This may represent a retrocecal appendicitis. Abdomen/Pelvis CT 12/25/22 18:15 IMPRESSION: 1. Fatty liver. 2. Collapsed follicle measuring 1.8 cm left ovary. 3. No acute abdominal pelvic abnormality. Past medical history, appointments, medications, allergies reviewed. Previous Medical History PAST MEDICAL HISTORY Diagnosis Date Abnormal glandular Papanicolaou smear of cervix 2000 Abn. Pap smear (cervix) ANXIETY STATE NOS 06/17/2009 Bipolar 2 disorder ([facility] Borderline personality disorder ([facility]) Diabetes mellitus of mother, complicating , childbirth, or the puerperium, unspecified as to episode of care(648.00) Gestational diabetes Pelvic pain 02/14/2012 Tobacco use disorder Unspecified asthma(493.90) Previous Surgical History PAST SURGICAL HISTORY Procedure Laterality Date DELIVERY ONLY 11/23/2014 , low transverse CONIZATION CERVIX W/WO D&C RPR ELTRD EXC 2000 LEEP-Cervix ENDOMETRIAL ABLTJ THERMAL W/O HYSTEROSCOPIC GUID 2018 [facility] LIG/TRNSXJ FLP TUBE ABDL/VAG APPR UNI/BI 11/23/2014 Tubal ligation PAST SURGICAL HISTORY OF Right fibula sugery Family History FAMILY HISTORY Problem Relation Age of Onset Diabetes Mother other (manic depressive) Mother Alcohol/Drug Father etoh Lipids Father Heart Paternal Grandfather Stroke Paternal Grandfather Patient Allergies ALLERGIES Allergen Reactions Rondec [Bromphenira* Rash Current Medications Current Outpatient Medications on File Prior to Visit Medication Sig gabapentin (NEURONTIN) 300 mg capsule Take 1 capsule by mouth three times daily for 90 days. fluticasone (FLOVENT HFA) 110 mcg/actuation inhaler Inhale 1 Puff as instructed twice daily. Shake well before use. Rinse mouth after use. cetirizine (ZYRTEC) 10 mg tablet Take 1 tablet by mouth once daily. tiotropium bromide (SPIRIVA RESPIMAT) 2.5 mcg/actuation inhaler Inhale 2 Puffs as instructed once daily. albuterol HFA (PROAIR HFA) 90 mcg/actuation inhaler Inhale 2 Puffs as instructed every 6 hours as needed for wheezing/shortness of breath. albuterol (PROVENTIL) 2.5 mg /3 mL (0.083 %) nebulizer solution Use 3 mL via nebulizer every 4 hours as needed for wheezing/shortness of breath. No current facility-administered medications on file prior to visit. Social History Social History Tobacco Use Smoking status: Every Day Packs/day: 1.00 Years: 2.00 Pack years: 2.00 Types: Cigarettes Smokeless tobacco: Never Tobacco comments: Pt is trying to quit Vaping Use Vaping Use: Never used Substance Use Topics Alcohol use: No Comment: History of alcohol abuse Drug use: No Comment: Hx of marijuana EXAM: BP 128/80 Pulse 88 Resp 18 Wt 93.6 kg (206 lb 6.4 oz) LMP 03/12/2014 BMI 38.37 kg/m General Appearance: Well appearing, alert, in no acute distress, well-hydrated, well nourished.. Lungs: Lungs clear to auscultation. No wheezing, rhonchi, rales.. Heart: RRR without murmur, gallop, or rubs. No ectopy. Abdomen: obese, soft, normal bowel sounds, mild mid epigastric and right sided pain with palpation, no masses, no guarding or rebound. Health Maintenance List HEPATITIS B(1 of 3 - 3-dose series) Never done COVID-19 VACCINE(1) Never done PNEUMOCOCCAL(1 - PCV) Never done SPIROMETRY Never done HEPATITIS C SCREENING Never done INFLUENZA(1) due on 07/21/2022 MAMMOGRAM due on 08/03/2022 ANNUAL PCP TEAM CHRONIC DISEASE VISIT due on 05/27/2023 PAP TESTING due on 01/19/2027 HPV TESTING due on 02/14/2027 DTAP,TDAP,TD(3 - Td or Tdap) due on 07/14/2031 HIV SCREENING Completed Data reviewed [facility] ER reports from 12/25/22 ASSESSMENT/PLAN: 1. Gastritis without bleeding, unspecified chronicity, unspecified gastritis type - ICD9: 535.50, ICD10: K29.70 (primary diagnosis) Prilosec and carafate; zofran for nausea - OMEPRAZOLE 20 MG CAPSULE,DELAYED RELEASE - SUCRALFATE 1 GRAM TABLET - ONDANSETRON 4 MG DISINTEGRATING TABLET 2. Tobacco use disorder - ICD9: 305.1, ICD10: F17.200 - Cessation encouraged. - Physiologic and physical aspects of tobacco addiction as well as strategies for quitting were discussed. - Counseling was given focusing on the harmful effects of this addiction especially given the patient's medical condition(s) which will be worsened because of the chemicals in tobacco. 3. Anxiety with depression - ICD9: 300.4, ICD10: F41.8 Follow with mental health providers Follow up in 1 month I agree with the Chief Complaint, ROS, and Past Histories independently gathered by the clinical support representative and the remaining scribed note accurately describes my personal service to the patient. Medical Decision Making: Problems: Moderate: 1+ chronic illnesses with change and 2+ stable chronic illnesses Risk: Moderate: Drug management Medical Decision Making Level: 4 - Moderate Sajan White MD The documentation for this note was completed by Marivel Sanchez Ma acting as scribe for Sajan White MD. December 29, 2022 9:55 AM. Marivel Sanchez Ma documented in this encounter [facility] 12-16-2022 Miscellaneous Notes OK to refill as ordered Sajan White MD Last office visit: 05/27/22 F/u scheduled: none Marivel Sanchez Ma Patient has been identified by name and date of : Yes Requested Prescriptions Pending Prescriptions Disp Refills gabapentin (NEURONTIN) 300 mg capsule 90 capsule 2 Sig: Take 1 capsule by mouth three times daily for 90 days. RX INSTRUCTIONS: Patient aware RX will be sent to pharmacy. No need to notify patient. Lilian Jacome Pss documented in this encounter [facility] 12-01-2022 History of Presen t illness Narrative Subjective HPI HPI Rg Dia is a 41 year old female who presents today for CC of st, cough, congestion, h/a, chills/body aches. This started 2 days ago. Has tried otc mediation for relief. Symptoms are worsened by nothing. Risk factors sick exposures at home/strep. Smoker. Denies possibility of being . .Patient presents with: Sore Throat: MAY x2 days PAST MEDICAL HISTORY Diagnosis Date Abnormal glandular Papanicolaou smear of cervix 2000 Abn. Pap smear (cervix) ANXIETY STATE NOS 06/17/2009 Bipolar 2 disorder (H[facility]) [facility] Borderline personality disorder ([facility]) Diabetes mellitus of mother, complicating , childbirth, or the puerperium, unspecified as to episode of care(648.00) Gestational diabetes Pelvic pain 02/14/2012 Tobacco use disorder Unspecified asthma(493.90) PAST SURGICAL HISTORY Procedure Laterality Date DELIVERY ONLY 11/23/2014 , low transverse CONIZATION CERVIX W/WO D&C RPR ELTRD EXC 2000 LEEP-Cervix ENDOMETRIAL ABLTJ THERMAL W/O HYSTEROSCOPIC GUID 2017 [facility] LIG/TRNSXJ FLP TUBE ABDL/VAG APPR UNI/BI 11/23/2014 Tubal ligation PAST SURGICAL HISTORY OF Right fibula sugery ALLERGIES Rondec [Brompheniramine-Pseudoephedrin] MEDICATIONS gabapentin (NEURONTIN) 300 mg capsule Take 1 capsule by mouth three times daily for 90 days. fluticasone (FLOVENT HFA) 110 mcg/actuation inhaler Inhale 1 Puff as instructed twice daily. Shake well before use. Rinse mouth after use. cetirizine (ZYRTEC) 10 mg tablet Take 1 tablet by mouth once daily. tiotropium bromide (SPIRIVA RESPIMAT) 2.5 mcg/actuation inhaler Inhale 2 Puffs as instructed once daily. albuterol HFA (PROAIR HFA) 90 mcg/actuation inhaler Inhale 2 Puffs as instructed every 6 hours as needed for wheezing/shortness of breath. albuterol (PROVENTIL) 2.5 mg /3 mL (0.083 %) nebulizer solution Use 3 mL via nebulizer every 4 hours as needed for wheezing/shortness of breath. oseltamivir (TAMIFLU) 75 mg capsule Take 1 capsule by mouth twice daily for 5 days. predniSONE (DELTASONE) 20 mg tablet Take 2 tablets by mouth once daily for 5 days. FAMILY HISTORY Problem Relation Age of Onset Diabetes Mother other (manic depressive) Mother Alcohol/Drug Father etoh Lipids Father Heart Paternal Grandfather Stroke Paternal Grandfather Social History Tobacco Use Smoking status: Every Day Packs/day: 1.00 Years: 2.00 Pack years: 2.00 Types: Cigarettes Smokeless tobacco: Never Tobacco comments: Pt is trying to quit Vaping Use Vaping Use: Never used Substance Use Topics Alcohol use: No Comment: History of alcohol abuse Drug use: No Comment: Hx of marijuana Review of Systems Constitutional: Positive for chills, fever and malaise/fatigue. HENT: Positive for congestion and sore throat. Negative for ear discharge, ear pain and nosebleeds. Respiratory: Positive for cough and wheezing. Negative for shortness of breath. Cardiovascular: Negative for chest pain. Musculoskeletal: Negative for neck pain. Skin: Negative for itching and rash. Objective Blood pressure 122/80, pulse 106, temperature 37.4 C (99.4 F), resp. rate 18, weight 93 kg (205 lb), last menstrual period 03/12/2014, SpO2 97 %. Physical Exam Constitutional: General: She is not in acute distress. Appearance: She is not toxic-appearing or diaphoretic. HENT: Head: Normocephalic and atraumatic. Nose: Nose normal. Mouth/Throat: Pharynx: Uvula midline. No pharyngeal swelling, oropharyngeal exudate, posterior oropharyngeal erythema or uvula swelling. Eyes: General: Lids are normal. No scleral icterus. Right eye: No discharge. Left eye: No discharge. Conjunctiva/sclera: Conjunctivae normal. Pupils: Pupils are equal, round, and reactive to light. Neck: Trachea: Trachea normal. Cardiovascular: Rate and Rhythm: Normal rate and regular rhythm. Heart sounds: Normal heart sounds. Pulmonary: Effort: Pulmonary effort is normal. Breath sounds: Wheezing (scattered bilat) present. No decreased breath sounds, rhonchi or rales. Musculoskeletal: Cervical back: Normal range of motion and neck supple. Lymphadenopathy: Cervical: No cervical adenopathy. Right cervical: No superficial cervical adenopathy. Left cervical: No superficial cervical adenopathy. Skin: Findings: No rash. Neurological: Mental Status: She is alert and oriented to person, place, and time. ASSESSMENT/PLAN: 1. Influenza-like illness - ICD9: 487.1, ICD10: J11.1 (primary diagnosis) -discussed expected course -discussed supportive care -discussed red flags and reasons for f/u -discussed contagiousness, reason/when close family members should f/u, and whom to avoid -f/u in 3-5 days if symptoms worsening - OSELTAMIVIR 75 MG CAPSULE - today day 2, will be out of window tomorrow. - PREDNISONE 20 MG TABLET - COVID WITH FLUA+B, ROUTINE 2. Sore throat - ICD9: 462, ICD10: J02.9 Negative, viral - STREP A MOLECULAR (POC) 3. History of asthma - ICD9: V12.69, ICD10: Z87.09 Steroids ordered. Continue inhalers as ordered. Mitchell Goodman APRN.CNP documented in this encounter [facility] 09-20-2022 Miscellaneous Notes The following approved medication requests have been transmitted electronically. Requested Prescriptions Pending Prescriptions Disp Refills gabapentin (NEURONTIN) 300 mg capsule 90 capsule 2 Sig: Take 1 capsule by mouth three times daily for 90 days. Antony Cisneros APRN.CNP Last office visit: 05/27/22 F/u scheduled: none Marivel Sanchez Ma documented in this encounter [facility] 06-24-2022 Miscellaneous Notes Approved. PDMP website checked and validated. All prescriptions have been APPROPRIATELY filled. No suspicious activity was identified. 06/24/2022 by Antony Cisneros APRN.CNP The following approved medication requests have been transmitted electronically. Signed Prescriptions Disp Refills gabapentin (NEURONTIN) 300 mg capsule 90 capsule 2 Sig: Take 1 capsule by mouth three times daily for 90 days. KAYLEIGH: No Authorizing Provider: ANTONY CISNEROS APRN.CNP Last OV: 05/27/22 Next OV: None Last Rx: 03/24/22 #90 w/2. Porsha Griffin Ma documented in this encounter [facility] 05-31-2022 Miscellaneous Notes BEHAVIORAL HEALTH SOCIAL WORK CONSULT NOTE Service Date: May 31, 2022 Patient was identified by name and Patient: Rg Dia [address] [phone] (home) [phone] (cell) PCP: Sajan White MD [address] [facility] [id number] Patient identified for [facility] from: PCP (Tameka Pineda CNP) Reason for referral: [facility] Assessment (failed mental health tx,Anxiety with depression) [facility] encounter type: Telephone Encounter Assessment: [facility] received a consult from Tameka Pineda CNP, for assessment failed mental health tx, Anxiety with depression [facility] reviewed Pt's chart/insurance [facility] contacted Pt -was distracted by son, walking home from his counseling appt -extensive psy hx -3 psych admts,[facility], [facility] , [facility] -h/o outpt tx at [facility], [facility] -currently has counselor at the [facility] -appt is 06-02-22 -reports she is not able to control her anxiety xmonths -grounding, sensory tech not working -h/o being on numerous meds: zoloft, celexa,prozac, lamictal none were effective -h/o being on ativan and xanax, have been effective -wants to be prescribed ativan or xanax -upset PCP will not prescribe since she is on neurontin -can't sleep, can't concentrate, crying periodically -denies suicidal plans or intent -states do I think people would be better off without me, yes, am I going to kill myself no -c/o mental health system not treating her -c/o counselors leaving the agencies, she has abandonment issues -I need to get deeper into my trauma SW informed Pt he could sched an assessment, then she could see psych radio presenter who is scheduling into june -informed Pt there is no guarantee she will be prescribed ativan or xanax -Pt started crying louder, she does not understand why, she has been prescribed in before Pt wants to be seen [facility] for meds -SW recommended she contact [facility] PHP program to see is she meets the criteria -Pt wanted to know how long she would wait to get into PHP -recommended she call to complete an assessment Pt agreed to have info on [facility] PHP program sent to her in [facility] [place] -Pt agreed to call and inform [facility] of the outcome. -sent the following resources in [facility] [place]: [place] [address] PHP Program Crisis line [phone] -will wait to hear from Pt Medications: Current Outpatient Medications on File Prior to Visit Medication Sig fluticasone (FLOVENT HFA) 110 mcg/actuation inhaler Inhale 1 Puff as instructed twice daily. Shake well before use. Rinse mouth after use. cetirizine (ZYRTEC) 10 mg tablet Take 1 tablet by mouth once daily. tiotropium bromide (SPIRIVA RESPIMAT) 2.5 mcg/actuation inhaler Inhale 2 Puffs as instructed once daily. gabapentin (NEURONTIN) 300 mg capsule Take 1 capsule by mouth three times daily for 90 days. albuterol HFA (PROAIR HFA) 90 mcg/actuation inhaler Inhale 2 Puffs as instructed every 6 hours as needed for wheezing/shortness of breath. albuterol (PROVENTIL) 2.5 mg /3 mL (0.083 %) nebulizer solution Use 3 mL via nebulizer every 4 hours as needed for wheezing/shortness of breath. No current facility-administered medications on file prior to visit. Curbside: No Screening Tools: No Substance Use / Abuse: No Outcome / Plan / Referrals: Attempts to Outreach: 1 attempt Referral made: Other ([facility]) Final Disposition: Care established with ([facility] appt on 06-02-22, on waiting list for psychiatry since 04-10, recommended [facility]) Patient Discharged?: Yes Internal Referrals : No Reason for External Referrals : Wait is too long Intervention: Supportive Listening Provided referral information Resources Provided: Other: [facility] Program Crisis line Time Spent: 20 minutes KECIA Mata documented in this encounter [facility] 05-27-2022 Instructions Tameka Pineda APRN.CNP - 05/27/2022 11:16 AM EDT 1.) Consult to [facility], Rogelio will call you for screening. 2.) Recommend making appointment with counselor at [facility] and establish care with psychiatrist. 3.) Follow up as needed. documented in this encounter [facility] 05-27-2022 History of Presen t illness Narrative Chief Complaint Patient presents with: Acute Visit: anxiety/depression HPI Rg Dia is a 41 year old female who presents here today to discuss depression and anxiety. Refers she is [facility] the [facility]. Has tried Celexa, Paxil, zoloft, effexor, buspar, prozac, hydroxyzine, and Xanax in the past. Refers that the Celexa did work for depression but not anxiety. Having panic attacks 3-4 times per day. Seeing counselor at [facility], next appointment next week. Increased sadness, but no SI/HI. Past medical history, appointments, medications, allergies reviewed. Previous Medical History PAST MEDICAL HISTORY Diagnosis Date Abnormal glandular Papanicolaou smear of cervix 2000 Abn. Pap smear (cervix) ANXIETY STATE NOS 06/17/2009 Bipolar 2 disorder (HCC) [facility] Borderline personality disorder ([facility]) Diabetes mellitus of mother, complicating , childbirth, or the puerperium, unspecified as to episode of care(648.00) Gestational diabetes Pelvic pain 02/14/2012 Tobacco use disorder Unspecified asthma(493.90) Previous Surgical History PAST SURGICAL HISTORY Procedure Laterality Date DELIVERY ONLY 11/23/2014 , low transverse CONIZATION CERVIX W/WO D&C RPR ELTRD EXC 2000 LEEP-Cervix ENDOMETRIAL ABLTJ THERMAL W/O HYSTEROSCOPIC GUID 2018 [facility] LIG/TRNSXJ FLP TUBE ABDL/VAG APPR UNI/BI 11/23/2014 Tubal ligation PAST SURGICAL HISTORY OF Right fibula sugery Family History FAMILY HISTORY Problem Relation Age of Onset Diabetes Mother other (manic depressive) Mother Alcohol/Drug Father etoh Lipids Father Heart Paternal Grandfather Stroke Paternal Grandfather Patient Allergies ALLERGIES Allergen Reactions Rondec [Bromphenira* Rash Current Medications Current Outpatient Medications on File Prior to Visit Medication Sig fluticasone (FLOVENT HFA) 110 mcg/actuation inhaler Inhale 1 Puff as instructed twice daily. Shake well before use. Rinse mouth after use. cetirizine (ZYRTEC) 10 mg tablet Take 1 tablet by mouth once daily. tiotropium bromide (SPIRIVA RESPIMAT) 2.5 mcg/actuation inhaler Inhale 2 Puffs as instructed once daily. gabapentin (NEURONTIN) 300 mg capsule Take 1 capsule by mouth three times daily for 90 days. albuterol HFA (PROAIR HFA) 90 mcg/actuation inhaler Inhale 2 Puffs as instructed every 6 hours as needed for wheezing/shortness of breath. albuterol (PROVENTIL) 2.5 mg /3 mL (0.083 %) nebulizer solution Use 3 mL via nebulizer every 4 hours as needed for wheezing/shortness of breath. No current facility-administered medications on file prior to visit. Social History Social History Tobacco Use Smoking status: Current Every Day Smoker Packs/day: 1.00 Years: 2.00 Pack years: 2.00 Types: Cigarettes Smokeless tobacco: Never Used Tobacco comment: Pt is trying to quit Vaping Use Vaping Use: Never used Substance Use Topics Alcohol use: No Comment: History of alcohol abuse Drug use: No Comment: Hx of marijuana REVIEW OF SYSTEMS GENERAL: No weight loss, malaise or fevers/chills HEENT: Negative for frequent or significant headaches, No changes in hearing or vision. NECK: Negative for lumps, goiter, pain and significant neck swelling RESPIRATORY: Negative for cough, hemoptysis, wheezing, dyspnea or shortness of breath CARDIOVASCULAR: Negative for chest pain, leg swelling, orthopnea, or palpitations GI: No nausea, vomiting, or diarrhea/constipation. No hematochezia/melena. No heartburn or reflux symptoms. : No history of dysuria, frequency or incontinence MUSCULOSKELETAL: Negative for joint pain or swelling. SKIN: Negative for lesions, rash, and itching ENDOCRINE: Negative for cold or heat intolerance, polyuria, polydipsia and goiter NEURO: No history of headaches, syncope, paralysis, seizures or tremors MOOD: + Anxiety/sadness EXAM: BP 140/90 Pulse 95 Resp 16 Wt 91.2 kg (201 lb) LMP 03/12/2014 SpO2 97% BMI 37.36 kg/m General Appearance: Well appearing, alert, in no acute distress, well-hydrated, well nourished. Skin: Skin color, texture, turgor normal, no suspicious rashes or lesions. Head: Normocephalic, no masses, lesions, tenderness or abnormalities. Eyes: Anicteric sclera. Extraocular movements are intact. Lungs: Lungs clear to auscultation. No wheezing, rhonchi, rales. Heart: RRR without murmur, gallop, or rubs. No ectopy. Extremities: No deformities, edema, skin discoloration, clubbing or cyanosis. Good capillary refill. Peripheral Pulses: Normal, Capillary refill <2secs, strong peripheral pulses, Pulses palpable. Neurologic: Gait normal. Sensation grossly intact.. Mood: Tearful, good eye contact, engaged. Health Maintenance List COVID-19 VACCINE(1) Never done PNEUMOCOCCAL(1 - PCV) Never done SPIROMETRY Never done MAMMOGRAM due on 08/03/2022 HEPATITIS C SCREENING due on 07/14/2022 INFLUENZA(1) due on 07/21/2022 ANNUAL PCP TEAM CHRONIC DISEASE VISIT due on 04/26/2023 PAP TESTING due on 01/19/2027 HPV TESTING due on 02/14/2027 DTAP,TDAP,TD(3 - Td or Tdap) due on 07/14/2031 HIV SCREENING Completed ASSESSMENT/PLAN: 1. Anxiety with depression - ICD9: 300.4, ICD10: F41.8 - Patient has not had any improvement in symptoms with multiple medications. - Offered to try buspar or hydroxyzine but patient declined. - Uable to prescribe a benzodiazepine due to taking gabapentin. - Recommend consult with behavioral health with possible appointment with Lili SEYMOUR to help with medication. - Instructed to keep appointments with counselor. - CONSULT TO [facility] Follow-up as needed. Discussed treatment plan and patient voices understanding. Patient's questions answered appropriately. Medications and potential side effects were discussed and patient voices understanding. Tameka Pineda APRN.DAWN This note was partially generated using [employer] voice recognition system. Note was reviewed for accuracy. There may be minor misspellings or grammar miscues with [employer] voice recognition. documented in this encounter [facility] 04-26-2022 Instructions Marivel Sanchez Ma - 04/26/2022 2:41 PM EDT Check with your insurance to find out which DME company they cover locally to you can get your Nebulizer machine and supplies through. Please notify office with this information so we can fax orders in for you. documented in this encounter [facility] 04-26-2022 History of Presen t illness Narrative Chief Complaint Patient presents with: Allergies Cough HPI Rg Dia is a 41 year old female who presents here today for a cough. Pt here today for continued cough symptoms. Visit requested by this office. Has not had the COVID vaccine. Did have COVID test done within the last 10 days, test result was negative. Smokes half ppd. Not interested in quitting at this time. Cough has improved. She messaged office yesterday stating that she was having continued issues with cough symptoms despite using Tessalon Pearls and Robitussin cough medication. Pt seen in on 04/18/22 with symptoms of cough, head/chest congestion, sore throat and ear pain x 1 week. Pt was given Augmentin 875 mg to take twice daily, Prednisone 10 mg taper and Tessalon Pearls. Pt tested negative for Covid. Pt contacted the office on 04/21, stating that her cough was not improved and requested additional medication. Asthma: She uses Albuterol inhaler, Spiriva Respimat inhaler and nebulizer. She uses the nebulizer up to 4 times per day as needed. She only uses when she has really bad asthma flare ups. Asthma flares up with season changes. She thinks she has used Flovent in the past. Allergies: Has been having a lot of issues with allergies the past 1-2 years. She has tried generic allergy medication but unable to recall the name. Sx of stuffy nose, watery eyes when outdoors. She did have a lot of sinus drainage but that has started to clear up. She has never used any allergy medications in the past. She has used Prednisone in the past, gets a little shaky from it but nothing she can't tolerate. Has not used Flonase. Pt has hx of alcohol abuse and marijuana. Past medical history, appointments, medications, allergies reviewed. Previous Medical History PAST MEDICAL HISTORY Diagnosis Date Abnormal glandular Papanicolaou smear of cervix 2000 Abn. Pap smear (cervix) ANXIETY STATE NOS 06/17/2009 Bipolar 2 disorder ([facility] Borderline personality disorder ([facility]) Diabetes mellitus of mother, complicating , childbirth, or the puerperium, unspecified as to episode of care(648.00) Gestational diabetes Pelvic pain 02/14/2012 Tobacco use disorder Unspecified asthma(493.90) Previous Surgical History PAST SURGICAL HISTORY Procedure Laterality Date DELIVERY ONLY 11/23/2014 , low transverse CONIZATION CERVIX W/WO D&C RPR ELTRD EXC 2000 LEEP-Cervix ENDOMETRIAL ABLTJ THERMAL W/O HYSTEROSCOPIC GUID 2018 [place] [facility] LIG/TRNSXJ FLP TUBE ABDL/VAG APPR UNI/BI 11/23/2014 Tubal ligation PAST SURGICAL HISTORY OF Right fibula sugery Family History FAMILY HISTORY Problem Relation Age of Onset Diabetes Mother other (manic depressive) Mother Alcohol/Drug Father etoh Lipids Father Heart Paternal Grandfather Stroke Paternal Grandfather Patient Allergies ALLERGIES Allergen Reactions Rondec [Bromphenira* Rash Current Medications Current Outpatient Medications on File Prior to Visit Medication Sig Dextromethorphan-guaiFENesin (ROBITUSSIN DM) 10-200 mg/5 mL liqd Take 5 mL by mouth every 6 hours as needed. amoxicillin-clavulanic acid (AUGMENTIN) 875-125 mg per tablet Take 1 tablet by mouth twice daily for 7 days. benzonatate (TESSALON PERLE) 100 mg capsule Take 1 capsule by mouth every 8 hours as needed for cough for up to 15 days. tiotropium bromide (SPIRIVA RESPIMAT) 2.5 mcg/actuation inhaler Inhale 2 Puffs as instructed once daily. gabapentin (NEURONTIN) 300 mg capsule Take 1 capsule by mouth three times daily for 90 days. albuterol HFA (PROAIR HFA) 90 mcg/actuation inhaler Inhale 2 Puffs as instructed every 6 hours as needed for wheezing/shortness of breath. albuterol (PROVENTIL) 2.5 mg /3 mL (0.083 %) nebulizer solution Use 3 mL via nebulizer every 4 hours as needed for wheezing/shortness of breath. No current facility-administered medications on file prior to visit. Social History Social History Tobacco Use Smoking status: Current Every Day Smoker Packs/day: 1.00 Years: 2.00 Pack years: 2.00 Types: Cigarettes Smokeless tobacco: Never Used Tobacco comment: Pt is trying to quit Vaping Use Vaping Use: Never used Substance Use Topics Alcohol use: No Comment: History of alcohol abuse Drug use: No Comment: Hx of marijuana Review of Symptoms EXAM: BP 120/74 Pulse 78 Resp 18 Wt 91.9 kg (202 lb 9.6 oz) LMP 03/12/2014 BMI 37.66 kg/m General Appearance: Well appearing, alert, in no acute distress, well-hydrated, well nourished. and Overweight. Neck: Supple, no adenopathy; thyroid symmetric, normal size. Lungs: Lungs clear to auscultation. No wheezing, rhonchi, rales.. Heart: RRR without murmur, gallop, or rubs. No ectopy. Health Maintenance List COVID-19 VACCINE(1) Never done PNEUMOCOCCAL(1 - PCV) Never done SPIROMETRY Never done HEPATITIS C SCREENING due on 07/14/2022 ANNUAL PCP TEAM CHRONIC DISEASE VISIT due on 07/14/2022 INFLUENZA(Season Ended) due on 07/21/2022 MAMMOGRAM due on 08/03/2022 PAP TESTING due on 01/19/2027 HPV TESTING due on 02/14/2027 DTAP,TDAP,TD(3 - Td or Tdap) due on 07/14/2031 HIV SCREENING Completed Data reviewed None ASSESSMENT/PLAN: 1. Allergy, initial encounter - ICD9: 995.3, ICD10: T78.40XA (primary diagnosis) Start Zyrtec 10 mg daily Consider short prednisone burst if this is not effective 2. Asthma with acute exacerbation, unspecified asthma severity, unspecified whether persistent - ICD9: 493.92, ICD10: J45.901 Mild intermittent Asthma stable - Continue current meds - Begin Flovent: 110 mcg 2 puffs twice daily - Avoidance of triggers recommended Nebulizer machine and supplies ordered-pt to fine out what DME co to send to. 3. Tobacco use disorder - ICD9: 305.1, ICD10: F17.200 - Cessation encouraged. - Physiologic and physical aspects of tobacco addiction as well as strategies for quitting were discussed. - Counseling was given focusing on the harmful effects of this addiction especially given the patient's medical condition(s) which will be worsened because of the chemicals in tobacco. 4. Cough - ICD9: 786.2, ICD10: R05.9 improved Follow up as needed. I agree with the Chief Complaint, ROS, and Past Histories independently gathered by the clinical support representative and the remaining scribed note accurately describes my personal service to the patient. Medical Decision Making: Problems: Low: Acute, uncomplicated illness or injury Risk: Moderate: Drug management Medical Decision Making Level: 3 - Low Sajan White MD The documentation for this note was completed by Marivel Sanchez Ma acting as scribe for Sajan White MD. April 26, 2022 2:44 PM. Marivel Sanchez Ma documented in this encounter [facility] 04-25-2022 Miscellaneous Notes Pt called and declined visit today but wanted to schedule for tomorrow at 2:20 pm with PCP. Porsha Griffin Ma Sent [employer] message notifying pt of message below. Held appt today at 4:20 pm with PCP in office. Porsha Griffin Ma She would need to be seen to get anything else for her cough Sajan White MD Patient is stating that the Robitussin is not helping and wanting to know if there is something else she can get or if she needs to make an appointment to come in to the office. If you can please contact patient at [phone]. Lilian Jacome Pss documented in this encounter [facility] 04-21-2022 Miscellaneous Notes Pt notified via [facility] that Rx was sent into [facility] in [place]. Porsha Griffin Ma OK for Robitussin as ordered Sajan White MD Pt seen in on 04/18/22. Please review and advise. Porsha Griffin Ma Rg Dia is calling Sajan White MD today with concern regarding Patient Update (cough is keeping her awake at night is there something to help with that the tessalon perles are not helping with that at all)patient is asking for something for her cough especially at night Patient has been identified by name and birthdate. Duration of symptoms: 6 days Person calling: self Call patient at: at home [phone] (home) [phone] (cell) Was an appointment scheduled: No Closing statement: Results or non-symptom based questions: Thank you for calling [facility], your call will be returned within the next business day. Rg Wiggins Pss documented in this encounter [facility] 04-18-2022 History of Presen t illness Narrative Patient presents with: Cough: head and chest congestion, cough, sore throat, ear pain x over 1 week HPI: Feeling sick for 9 days. Positive symptoms: Cough, Chest tightness, wheezing, Sore throat, Earache, Sinus pressure, Nasal Congestion, Rhinorrhea, Body Aches, Malaise, Fatigue, Headache, Nausea, sleep disturbance Negative symptoms: Fever, Vomiting, Diarrhea, OTC: Mucinex, Tylenol, cold medicine, allergy medicine, albuterol nebs every 4-6h Has not had COVID-19 disease or vaccine. PAST MEDICAL HISTORY Diagnosis Date Abnormal glandular Papanicolaou smear of cervix 2000 Abn. Pap smear (cervix) ANXIETY STATE NOS 06/17/2009 Bipolar 2 disorder ([facility] Borderline personality disorder ([facility]) Diabetes mellitus of mother, complicating , childbirth, or the puerperium, unspecified as to episode of care(648.00) Gestational diabetes Pelvic pain 02/14/2012 Tobacco use disorder Unspecified asthma(493.90) MEDICATIONS: Current Outpatient Medications Medication Sig tiotropium bromide (SPIRIVA RESPIMAT) 2.5 mcg/actuation inhaler Inhale 2 Puffs as instructed once daily. gabapentin (NEURONTIN) 300 mg capsule Take 1 capsule by mouth three times daily for 90 days. albuterol HFA (PROAIR HFA) 90 mcg/actuation inhaler Inhale 2 Puffs as instructed every 6 hours as needed for wheezing/shortness of breath. albuterol (PROVENTIL) 2.5 mg /3 mL (0.083 %) nebulizer solution Use 3 mL via nebulizer every 4 hours as needed for wheezing/shortness of breath. No current facility-administered medications for this visit. ALLERGIES: ALLERGIES Allergen Reactions Rondec [Bromphenira* Rash VITALS: BP 132/82 Pulse 116 Temp 37.6 C (99.7 F) Resp 18 Wt 89.8 kg (198 lb) LMP 03/12/2014 SpO2 95% BMI 36.81 kg/m PHYSICAL EXAM: GEN: mildly ill appearing, teary HEENT: PERRL, EOMI, conjunctiva clear Ears: canals clear. TM with erythema, bulge, and effusion (purulent, left opaque, right partially translucent) Sinuses: non-tender frontal sinus, non-tender maxillary sinuses Throat: moist mucous membranes, mild erythema, no exudate Neck: supple, no thyromegaly, no lymphadenopathy HEART: regular rate and rhythm, no murmurs LUNGS: clear to auscultation, no wheezes or crackles, no increased WOB; wheezy cough ASSESSMENT/PLAN: 1. Non-recurrent acute suppurative otitis media of both ears without spontaneous rupture of tympanic membranes - ICD9: 382.00, ICD10: H66.003 (primary diagnosis) - AMOXICILLIN 875 MG-POTASSIUM CLAVULANATE 125 MG TABLET 2. Asthma with acute exacerbation, unspecified asthma severity, unspecified whether persistent - ICD9: 493.92, ICD10: J45.901 - PREDNISONE 10 MG TABLET taper, denies side effects with prior use Continue albuterol - 2019 CORONAVIRUS 3. URI, acute - ICD9: 465.9, ICD10: J06.9 - suspect initiating viral URI, differential includes COVID-19. - Discussed supportive care treatment with home isolation, rest, cold medicine, and analgesia. - Red flags to seek further treatment include chest pain, shortness of breath, and lethargy; in the ER if severe. - 2019 CORONAVIRUS - BENZONATATE 100 MG CAPSULE Rayray Del Cid MD documented in this encounter [facility] documented as of this encounter (statuses as of 04/18/2022) [facility] History of Past illness Narrative* Problem Noted Date Resolved Date Carpal tunnel syndrome of left wrist 04/22/2021 04/22/2021 Carpal tunnel syndrome, right 03/24/2021 Mental disorders of mother, with delivery, with mention of complication(648.42) 06/17/2009 09/19/2012 Other threatened labor, antepartum 03/24/2009 06/10/2009 Supervision of other high-risk (V23.89) 12/01/2008 06/10/2009 Other acne 02/25/2008 09/19/2012 Sebaceous cyst 02/25/2008 09/19/2012 Carbuncle and furuncle of face 02/25/2008 1 Pyoderma, unspecified 02/22/2008 09/19/2012 documented as of this encounter (statuses as of 04/21/2022) [facility] History of Past illness Narrative* Problem Noted Date Resolved Date Carpal tunnel syndrome of left wrist 04/22/2021 04/22/2021 Carpal tunnel syndrome, right 03/24/2021 Mental disorders of mother, with delivery, with mention of complication(648.42) 06/17/2009 09/19/2012 Other threatened labor, antepartum 03/24/2009 06/10/2009 Supervision of other high-risk (V23.89) 12/01/2008 06/10/2009 Other acne 02/25/2008 09/19/2012 Sebaceous cyst 02/25/2008 09/19/2012 Carbuncle and furuncle of face 02/25/2008 1 Pyoderma, unspecified 02/22/2008 09/19/2012 documented as of this encounter (statuses as of 04/25/2022) [facility] History of Past illness Narrative* Problem Noted Date Resolved Date Carpal tunnel syndrome of left wrist 04/22/2021 04/22/2021 Carpal tunnel syndrome, right 03/24/2021 Mental disorders of mother, with delivery, with mention of complication(648.42) 06/17/2009 09/19/2012 Other threatened labor, antepartum 03/24/2009 06/10/2009 Supervision of other high-risk (V23.89) 12/01/2008 06/10/2009 Other acne 02/25/2008 09/19/2012 Sebaceous cyst 02/25/2008 09/19/2012 Carbuncle and furuncle of face 02/25/2008 1 Pyoderma, unspecified 02/22/2008 09/19/2012 documented as of this encounter (statuses as of 04/25/2022) [facility] History of Past illness Narrative* Problem Noted Date Resolved Date Carpal tunnel syndrome of left wrist 04/22/2021 04/22/2021 Carpal tunnel syndrome, right 03/24/2021 Mental disorders of mother, with delivery, with mention of complication(648.42) 06/17/2009 09/19/2012 Other threatened labor, antepartum 03/24/2009 06/10/2009 Supervision of other high-risk (V23.89) 12/01/2008 06/10/2009 Other acne 02/25/2008 09/19/2012 Sebaceous cyst 02/25/2008 09/19/2012 Carbuncle and furuncle of face 02/25/2008 1 Pyoderma, unspecified 02/22/2008 09/19/2012 documented as of this encounter (statuses as of 04/26/2022) [facility] History of Past illness Narrative* Problem Noted Date Resolved Date Carpal tunnel syndrome of left wrist 04/22/2021 04/22/2021 Carpal tunnel syndrome, right 03/24/2021 Mental disorders of mother, with delivery, with mention of complication(648.42) 06/17/2009 09/19/2012 Other threatened labor, antepartum 03/24/2009 06/10/2009 Supervision of other high-risk (V23.89) 12/01/2008 06/10/2009 Other acne 02/25/2008 09/19/2012 Sebaceous cyst 02/25/2008 09/19/2012 Carbuncle and furuncle of face 02/25/2008 1 Pyoderma, unspecified 02/22/2008 09/19/2012 documented as of this encounter (statuses as of 04/27/2022) [facility] History of Past illness Narrative* Problem Noted Date Resolved Date Carpal tunnel syndrome of left wrist 04/22/2021 04/22/2021 Carpal tunnel syndrome, right 03/24/2021 Mental disorders of mother, with delivery, with mention of complication(648.42) 06/17/2009 09/19/2012 Other threatened labor, antepartum 03/24/2009 06/10/2009 Supervision of other high-risk (V23.89) 12/01/2008 06/10/2009 Other acne 02/25/2008 09/19/2012 Sebaceous cyst 02/25/2008 09/19/2012 Carbuncle and furuncle of face 02/25/2008 1 Pyoderma, unspecified 02/22/2008 09/19/2012 documented as of this encounter (statuses as of 05/27/2022) [facility] History of Past illness Narrative* Problem Noted Date Resolved Date Carpal tunnel syndrome of left wrist 04/22/2021 04/22/2021 Carpal tunnel syndrome, right 03/24/2021 Mental disorders of mother, with delivery, with mention of complication(648.42) 06/17/2009 09/19/2012 Other threatened labor, antepartum 03/24/2009 06/10/2009 Supervision of other high-risk (V23.89) 12/01/2008 06/10/2009 Other acne 02/25/2008 09/19/2012 Sebaceous cyst 02/25/2008 09/19/2012 Carbuncle and furuncle of face 02/25/2008 1 Pyoderma, unspecified 02/22/2008 09/19/2012 documented as of this encounter (statuses as of 05/31/2022) [facility] History of Past illness Narrative* Problem Noted Date Resolved Date Carpal tunnel syndrome of left wrist 04/22/2021 04/22/2021 Carpal tunnel syndrome, right 03/24/2021 Mental disorders of mother, with delivery, with mention of complication(648.42) 06/17/2009 09/19/2012 Other threatened labor, antepartum 03/24/2009 06/10/2009 Supervision of other high-risk (V23.89) 12/01/2008 06/10/2009 Other acne 02/25/2008 09/19/2012 Sebaceous cyst 02/25/2008 09/19/2012 Carbuncle and furuncle of face 02/25/2008 1 Pyoderma, unspecified 02/22/2008 09/19/2012 documented as of this encounter (statuses as of 06/08/2022) [facility] of Past illness Narrative* Problem Noted Date Resolved Date Carpal tunnel syndrome of left wrist 04/22/2021 04/22/2021 Carpal tunnel syndrome, right 03/24/2021 Mental disorders of mother, with delivery, with mention of complication(648.42) 06/17/2009 09/19/2012 Other threatened labor, antepartum 03/24/2009 06/10/2009 Supervision of other high-risk (V23.89) 12/01/2008 06/10/2009 Other acne 02/25/2008 09/19/2012 Sebaceous cyst 02/25/2008 09/19/2012 Carbuncle and furuncle of face 02/25/2008 1 Pyoderma, unspecified 02/22/2008 09/19/2012 documented as of this encounter (statuses as of 06/24/2022) [facility] History of Past illness Narrative* Problem Noted Date Resolved Date Carpal tunnel syndrome of left wrist 04/22/2021 04/22/2021 Carpal tunnel syndrome, right 03/24/2021 Mental disorders of mother, with delivery, with mention of complication(648.42) 06/17/2009 09/19/2012 Other threatened labor, antepartum 03/24/2009 06/10/2009 Supervision of other high-risk (V23.89) 12/01/2008 06/10/2009 Other acne 02/25/2008 09/19/2012 Sebaceous cyst 02/25/2008 09/19/2012 Carbuncle and furuncle of face 02/25/2008 1 Pyoderma, unspecified 02/22/2008 09/19/2012 documented as of this encounter (statuses as of 09/12/2022) [facility] History of Past illness Narrative* Problem Noted Date Resolved Date Carpal tunnel syndrome of left wrist 04/22/2021 04/22/2021 Carpal tunnel syndrome, right 03/24/2021 Mental disorders of mother, with delivery, with mention of complication(648.42) 06/17/2009 09/19/2012 Other threatened labor, antepartum 03/24/2009 06/10/2009 Supervision of other high-risk (V23.89) 12/01/2008 06/10/2009 Other acne 02/25/2008 09/19/2012 Sebaceous cyst 02/25/2008 09/19/2012 Carbuncle and furuncle of face 02/25/2008 1 Pyoderma, unspecified 02/22/2008 09/19/2012 documented as of this encounter (statuses as of 09/20/2022) [facility] History of Past illness Narrative* Problem Noted Date Resolved Date Carpal tunnel syndrome of left wrist 04/22/2021 04/22/2021 Carpal tunnel syndrome, right 03/24/2021 Mental disorders of mother, with delivery, with mention of complication(648.42) 06/17/2009 09/19/2012 Other threatened labor, antepartum 03/24/2009 06/10/2009 Supervision of other high-risk (V23.89) 12/01/2008 06/10/2009 Other acne 02/25/2008 09/19/2012 Sebaceous cyst 02/25/2008 09/19/2012 Carbuncle and furuncle of face 02/25/2008 1 Pyoderma, unspecified 02/22/2008 09/19/2012 documented as of this encounter (statuses as of 09/20/2022) [facility] History of Past illness Narrative* Problem Noted Date Resolved Date Carpal tunnel syndrome of left wrist 04/22/2021 04/22/2021 Carpal tunnel syndrome, right 03/24/2021 Mental disorders of mother, with delivery, with mention of complication(648.42) 06/17/2009 09/19/2012 Other threatened labor, antepartum 03/24/2009 06/10/2009 Supervision of other high-risk (V23.89) 12/01/2008 06/10/2009 Other acne 02/25/2008 09/19/2012 Sebaceous cyst 02/25/2008 09/19/2012 Carbuncle and furuncle of face 02/25/2008 1 Pyoderma, unspecified 02/22/2008 09/19/2012 documented as of this encounter (statuses as of 12/01/2022) [facility] History of Past illness Narrative* Problem Noted Date Resolved Date Carpal tunnel syndrome of left wrist 04/22/2021 04/22/2021 Carpal tunnel syndrome, right 03/24/2021 Mental disorders of mother, with delivery, with mention of complication(648.42) 06/17/2009 09/19/2012 Other threatened labor, antepartum 03/24/2009 06/10/2009 Supervision of other high-risk (V23.89) 12/01/2008 06/10/2009 Other acne 02/25/2008 09/19/2012 Sebaceous cyst 02/25/2008 09/19/2012 Carbuncle and furuncle of face 02/25/2008 1 Pyoderma, unspecified 02/22/2008 09/19/2012 documented as of this encounter (statuses as of 12/16/2022) [facility] History of Past illness Narrative* Problem Noted Date Resolved Date Carpal tunnel syndrome of left wrist 04/22/2021 04/22/2021 Carpal tunnel syndrome, right 03/24/2021 Mental disorders of mother, with delivery, with mention of complication(648.42) 06/17/2009 09/19/2012 Other threatened labor, antepartum 03/24/2009 06/10/2009 Supervision of other high-risk (V23.89) 12/01/2008 06/10/2009 Other acne 02/25/2008 09/19/2012 Sebaceous cyst 02/25/2008 09/19/2012 Carbuncle and furuncle of face 02/25/2008 1 Pyoderma, unspecified 02/22/2008 09/19/2012 documented as of this encounter (statuses as of 12/29/2022) [facility]21 History of Past illness Narrative* Problem Noted Date Resolved Date Carpal tunnel syndrome of left wrist 04/22/2021 04/22/2021 Carpal tunnel syndrome, right 03/24/2021 Mental disorders of mother, with delivery, with mention of complication(648.42) 06/17/2009 09/19/2012 Other threatened labor, antepartum 03/24/2009 06/10/2009 Supervision of other high-risk (V23.89) 12/01/2008 06/10/2009 Other acne 02/25/2008 09/19/2012 Sebaceous cyst 02/25/2008 09/19/2012 Carbuncle and furuncle of face 02/25/2008 1 Pyoderma, unspecified 02/22/2008 09/19/2012 documented as of this encounter (statuses as of 01/13/2023) [facility] History of Past illness Narrative* Problem Noted Date Resolved Date Carpal tunnel syndrome of left wrist 04/22/2021 04/22/2021 Carpal tunnel syndrome, right 03/24/2021 Mental disorders of mother, with delivery, with mention of complication(648.42) 06/17/2009 09/19/2012 Other threatened labor, antepartum 03/24/2009 06/10/2009 Supervision of other high-risk (V23.89) 12/01/2008 06/10/2009 Other acne 02/25/2008 09/19/2012 Sebaceous cyst 02/25/2008 09/19/2012 Carbuncle and furuncle of face 02/25/2008 1 Pyoderma, unspecified 02/22/2008 09/19/2012 documented as of this encounter (statuses as of 02/03/2023) [facility] History of Past illness Narrative* Problem Noted Date Resolved Date Carpal tunnel syndrome of left wrist 04/22/2021 04/22/2021 Carpal tunnel syndrome, right 03/24/2021 Mental disorders of mother, with delivery, with mention of complication(648.42) 06/17/2009 09/19/2012 Other threatened labor, antepartum 03/24/2009 06/10/2009 Supervision of other high-risk (V23.89) 12/01/2008 06/10/2009 Other acne 02/25/2008 09/19/2012 Sebaceous cyst 02/25/2008 09/19/2012 Carbuncle and furuncle of face 02/25/2008 1 Pyoderma, unspecified 02/22/2008 09/19/2012 documented as of this encounter (statuses as of 03/08/2023) [facility] History of Past illness Narrative* Problem Noted Date Resolved Date Carpal tunnel syndrome of left wrist 04/22/2021 04/22/2021 Carpal tunnel syndrome, right 03/24/2021 Mental disorders of mother, with delivery, with mention of complication(648.42) 06/17/2009 09/19/2012 Other threatened labor, antepartum 03/24/2009 06/10/2009 Supervision of other high-risk (V23.89) 12/01/2008 06/10/2009 Other acne 02/25/2008 09/19/2012 Sebaceous cyst 02/25/2008 09/19/2012 Carbuncle and furuncle of face 02/25/2008 1 Pyoderma, unspecified 02/22/2008 09/19/2012 documented as of this encounter (statuses as of 03/28/2023) [facility] History of Past illness Narrative* Problem Noted Date Resolved Date Carpal tunnel syndrome of left wrist 04/22/2021 04/22/2021 Carpal tunnel syndrome, right 03/24/2021 Mental disorders of mother, with delivery, with mention of complication(648.42) 06/17/2009 09/19/2012 Other threatened labor, antepartum 03/24/2009 06/10/2009 Supervision of other high-risk (V23.89) 12/01/2008 06/10/2009 Other acne 02/25/2008 09/19/2012 Sebaceous cyst 02/25/2008 09/19/2012 Carbuncle and furuncle of face 02/25/2008 1 Pyoderma, unspecified 02/22/2008 09/19/2012 documented as of this encounter (statuses as of 05/09/2023) [facility] History of Past illness Narrative* Problem Noted Date Resolved Date Carpal tunnel syndrome of left wrist 04/22/2021 04/22/2021 Carpal tunnel syndrome, right 03/24/2021 Mental disorders of mother, with delivery, with mention of complication(648.42) 06/17/2009 09/19/2012 Other threatened labor, antepartum 03/24/2009 06/10/2009 Supervision of other high-risk (V23.89) 12/01/2008 06/10/2009 Other acne 02/25/2008 09/19/2012 Sebaceous cyst 02/25/2008 09/19/2012 Carbuncle and furuncle of face 02/25/2008 1 Pyoderma, unspecified 02/22/2008 09/19/2012 documented as of this encounter (statuses as of 05/09/2023) [facility] History of Past illness Narrative* Problem Noted Date Resolved Date Carpal tunnel syndrome of left wrist 04/22/2021 04/22/2021 Carpal tunnel syndrome, right 03/24/2021 Mental disorders of mother, with delivery, with mention of complication(648.42) 06/17/2009 09/19/2012 Other threatened labor, antepartum 03/24/2009 06/10/2009 Supervision of other high-risk (V23.89) 12/01/2008 06/10/2009 Other acne 02/25/2008 09/19/2012 Sebaceous cyst 02/25/2008 09/19/2012 Carbuncle and furuncle of face 02/25/2008 1 Pyoderma, unspecified 02/22/2008 09/19/2012 documented as of this encounter (statuses as of 05/16/2023) [facility] History of Past illness Narrative* Problem Noted Date Diagnosed Date Resolved Date Carpal tunnel syndrome of left wrist 04/22/2021 04/22/2021 Carpal tunnel syndrome, right 03/24/2021 04/09/2021 Mental disorders of mother, with delivery, with mention of complication(648.42) 06/17/2009 09/19/2012 Other threatened labor, antepartum 03/24/2009 06/10/2009 Supervision of other high-ri sk (V23.89) 12/01/2008 06/10/2009 Other acne 02/25/2008 09/19/2012 Sebaceous cyst 02/25/2008 09/19/2012 Carbuncle and furuncle of face 02/25/2008 09/19/2012 Pyoderma, unspecified 02/22/20082011 documented as of this encounter (statuses as of 05/31/2023) [facility] History of Past illness Narrative* Problem Noted Date Diagnosed Date Resolved Date Carpal tunnel syndrome of left wrist 04/22/2021 04/22/2021 Carpal tunnel syndrome, right 03/24/2021 04/09/2021 Mental disorders of mother, with delivery, with mention of complication(648.42) 06/17/2009 09/19/2012 Other threatened labor, antepartum 03/24/2009 06/10/2009 Supervision of other high-ri sk (V23.89) 12/01/2008 06/10/2009 Other acne 02/25/2008 09/19/2012 Sebaceous cyst 02/25/2008 09/19/2012 Carbuncle and furuncle of face 02/25/2008 09/19/2012 Pyoderma, unspecified 02/22/20082011 documented as of this encounter (statuses as of 06/19/2023) [facility] History of Past illness Narrative* Problem Noted Date Diagnosed Date Resolved Date Carpal tunnel syndrome of left wrist 04/22/2021 04/22/2021 Carpal tunnel syndrome, right 03/24/2021 04/09/2021 Mental disorders of mother, with delivery, with mention of complication(648.42) 06/17/2009 09/19/2012 Other threatened labor, antepartum 03/24/2009 06/10/2009 Supervision of other high-ri sk (V23.89) 12/01/2008 06/10/2009 Other acne 02/25/2008 09/19/2012 Sebaceous cyst 02/25/2008 09/19/2012 Carbuncle and furuncle of face 02/25/2008 09/19/2012 Pyoderma, unspecified 02/22/20082011 documented as of this encounter (statuses as of 07/18/2023) [facility] History of Past illness Narrative* Problem Noted Date Diagnosed Date Resolved Date Carpal tunnel syndrome of left wrist 04/22/2021 04/22/2021 Carpal tunnel syndrome, right 03/24/2021 04/09/2021 Mental disorders of mother, with delivery, with mention of complication(648.42) 06/17/2009 09/19/2012 Other threatened labor, antepartum 03/24/2009 06/10/2009 Supervision of other high-ri sk (V23.89) 12/01/2008 06/10/2009 Other acne 02/25/2008 09/19/2012 Sebaceous cyst 02/25/2008 09/19/2012 Carbuncle and furuncle of face 02/25/2008 09/19/2012 Pyoderma, unspecified 02/22/20082011 documented as of this encounter (statuses as of 07/27/2023) [facility] History of Past illness Narrative* Problem Noted Date Diagnosed Date Resolved Date Carpal tunnel syndrome of left wrist 04/22/2021 04/22/2021 Carpal tunnel syndrome, right 03/24/2021 04/09/2021 Mental disorders of mother, with delivery, with mention of complication(648.42) 06/17/2009 09/19/2012 Other threatened labor, antepartum 03/24/2009 06/10/2009 Supervision of other high-ri sk (V23.89) 12/01/2008 06/10/2009 Other acne 02/25/2008 09/19/2012 Sebaceous cyst 02/25/2008 09/19/2012 Carbuncle and furuncle of face 02/25/2008 09/19/2012 Pyoderma, unspecified 02/22/20082011 documented as of this encounter (statuses as of 07/28/2023) [facility] History of Past illness Narrative* Problem Noted Date Diagnosed Date Resolved Date Carpal tunnel syndrome of left wrist 04/22/2021 04/22/2021 Carpal tunnel syndrome, right 03/24/2021 04/09/2021 Mental disorders of mother, with delivery, with mention of complication(648.42) 06/17/2009 09/19/2012 Other threatened labor, antepartum 03/24/2009 06/10/2009 Supervision of other high-ri sk (V23.89) 12/01/2008 06/10/2009 Other acne 02/25/2008 09/19/2012 Sebaceous cyst 02/25/2008 09/19/2012 Carbuncle and furuncle of face 02/25/2008 09/19/2012 Pyoderma, unspecified 02/22/20082011 documented as of this encounter (statuses as of 08/09/2023) [facility] History of Past illness Narrative* Problem Noted Date Diagnosed Date Resolved Date Carpal tunnel syndrome of left wrist 04/22/2021 04/22/2021 Carpal tunnel syndrome, right 03/24/2021 04/09/2021 Mental disorders of mother, with delivery, with mention of complication(648.42) 06/17/2009 09/19/2012 Other threatened labor, antepartum 03/24/2009 06/10/2009 Supervision of other high-ri sk (V23.89) 12/01/2008 06/10/2009 Other acne 02/25/2008 09/19/2012 Sebaceous cyst 02/25/2008 09/19/2012 Carbuncle and furuncle of face 02/25/2008 09/19/2012 Pyoderma, unspecified 02/22/20082011 documented as of this encounter (statuses as of 08/30/2023) [facility] History of Past illness Narrative* Problem Noted Date Diagnosed Date Resolved Date Carpal tunnel syndrome of left wrist 04/22/2021 04/22/2021 Carpal tunnel syndrome, right 03/24/2021 04/09/2021 Mental disorders of mother, with delivery, with mention of complication(648.42) 06/17/2009 09/19/2012 Other threatened labor, antepartum 03/24/2009 06/10/2009 Supervision of other high-ri sk (V23.89) 12/01/2008 06/10/2009 Other acne 02/25/2008 09/19/2012 Sebaceous cyst 02/25/2008 09/19/2012 Carbuncle and furuncle of face 02/25/2008 09/19/2012 Pyoderma, unspecified 02/22/20082011 documented as of this encounter (statuses as of 09/01/2023) [facility] History of Past illness Narrative* Problem Noted Date Diagnosed Date Resolved Date Carpal tunnel syndrome of left wrist 04/22/2021 04/22/2021 Carpal tunnel syndrome, right 03/24/2021 04/09/2021 Mental disorders of mother, with delivery, with mention of complication(648.42) 06/17/2009 09/19/2012 Other threatened labor, antepartum 03/24/2009 06/10/2009 Supervision of other high-ri sk (V23.89) 12/01/2008 06/10/2009 Other acne 02/25/2008 09/19/2012 Sebaceous cyst 02/25/2008 09/19/2012 Carbuncle and furuncle of face 02/25/2008 09/19/2012 Pyoderma, unspecified 02/22/20082011 documented as of this encounter (statuses as of 09/15/2023) [facility] History of Past illness Narrative* Problem Noted Date Diagnosed Date Resolved Date Carpal tunnel syndrome of left wrist 04/22/2021 04/22/2021 Carpal tunnel syndrome, right 03/24/2021 04/09/2021 Mental disorders of mother, with delivery, with mention of complication(648.42) 06/17/2009 09/19/2012 Other threatened labor, antepartum 03/24/2009 06/10/2009 Supervision of other high-ri sk (V23.89) 12/01/2008 06/10/2009 Other acne 02/25/2008 09/19/2012 Sebaceous cyst 02/25/2008 09/19/2012 Carbuncle and furuncle of face 02/25/2008 09/19/2012 Pyoderma, unspecified 02/22/20082011 documented as of this encounter (statuses as of 09/24/2023) [facility] History of Past illness Narrative* Problem Noted Date Diagnosed Date Resolved Date Carpal tunnel syndrome of left wrist 04/22/2021 04/22/2021 Carpal tunnel syndrome, right 03/24/2021 04/09/2021 Mental disorders of mother, with delivery, with mention of complication(648.42) 06/17/2009 09/19/2012 Other threatened labor, antepartum 03/24/2009 06/10/2009 Supervision of other high-ri sk (V23.89) 12/01/2008 06/10/2009 Other acne 02/25/2008 09/19/2012 Sebaceous cyst 02/25/2008 09/19/2012 Carbuncle and furuncle of face 02/25/2008 09/19/2012 Pyoderma, unspecified 02/22/20082011 documented as of this encounter (statuses as of 09/24/2023) [facility] History of Past illness Narrative* Problem Noted Date Diagnosed Date Resolved Date Carpal tunnel syndrome of left wrist 04/22/2021 04/22/2021 Carpal tunnel syndrome, right 03/24/2021 04/09/2021 Mental disorders of mother, with delivery, with mention of complication(648.42) 06/17/2009 09/19/2012 Other threatened labor, antepartum 03/24/2009 06/10/2009 Supervision of other high-ri sk (V23.89) 12/01/2008 06/10/2009 Other acne 02/25/2008 09/19/2012 Sebaceous cyst 02/25/2008 09/19/2012 Carbuncle and furuncle of face 02/25/2008 09/19/2012 Pyoderma, unspecified 02/22/20082011 documented as of this encounter (statuses as of 09/24/2023) [facility] History of Past illness Narrative* Problem Noted Date Diagnosed Date Resolved Date Carpal tunnel syndrome of left wrist 04/22/2021 04/22/2021 Carpal tunnel syndrome, right 03/24/2021 04/09/2021 Mental disorders of mother, with delivery, with mention of complication(648.42) 06/17/2009 09/19/2012 Other threatened labor, antepartum 03/24/2009 06/10/2009 Supervision of other high-ri sk (V23.89) 12/01/2008 06/10/2009 Other acne 02/25/2008 09/19/2012 Sebaceous cyst 02/25/2008 09/19/2012 Carbuncle and furuncle of face 02/25/2008 09/19/2012 Pyoderma, unspecified 02/22/20082011 documented as of this encounter (statuses as of 10/07/2023) [facility] History of Past illness Narrative* Problem Noted Date Diagnosed Date Resolved Date Carpal tunnel syndrome of left wrist 04/22/2021 04/22/2021 Carpal tunnel syndrome, right 03/24/2021 04/09/2021 Mental disorders of mother, with delivery, with mention of complication(648.42) 06/17/2009 09/19/2012 Other threatened labor, antepartum 03/24/2009 06/10/2009 Supervision of other high-ri sk (V23.89) 12/01/2008 06/10/2009 Other acne 02/25/2008 09/19/2012 Sebaceous cyst 02/25/2008 09/19/2012 Carbuncle and furuncle of face 02/25/2008 09/19/2012 Pyoderma, unspecified 02/22/20082011 documented as of this encounter (statuses as of 10/18/2023) [facility] History of Past illness Narrative* Problem Noted Date Diagnosed Date Resolved Date Carpal tunnel syndrome of left wrist 04/22/2021 04/22/2021 Carpal tunnel syndrome, right 03/24/2021 04/09/2021 Mental disorders of mother, with delivery, with mention of complication(648.42) 06/17/2009 09/19/2012 Other threatened labor, antepartum 03/24/2009 06/10/2009 Supervision of other high-ri sk (V23.89) 12/01/2008 06/10/2009 Other acne 02/25/2008 09/19/2012 Sebaceous cyst 02/25/2008 09/19/2012 Carbuncle and furuncle of face 02/25/2008 09/19/2012 Pyoderma, unspecified 02/22/20082011 documented as of this encounter (statuses as of 10/25/2023) [facility] History of Past illness Narrative* Problem Noted Date Diagnosed Date Resolved Date Carpal tunnel syndrome of left wrist 04/22/2021 04/22/2021 Carpal tunnel syndrome, right 03/24/2021 04/09/2021 Mental disorders of mother, with delivery, with mention of complication(648.42) 06/17/2009 09/19/2012 Other threatened labor, antepartum 03/24/2009 06/10/2009 Supervision of other high-ri sk (V23.89) 12/01/2008 06/10/2009 Other acne 02/25/2008 09/19/2012 Sebaceous cyst 02/25/2008 09/19/2012 Carbuncle and furuncle of face 02/25/2008 09/19/2012 Pyoderma, unspecified 02/22/20082011 documented as of this encounter (statuses as of 11/09/2023) [facility] History of Past illness Narrative* Problem Noted Date Diagnosed Date Resolved Date Carpal tunnel syndrome of left wrist 04/22/2021 04/22/2021 Carpal tunnel syndrome, right 03/24/2021 04/09/2021 Mental disorders of mother, with delivery, with mention of complication(648.42) 06/17/2009 09/19/2012 Other threatened labor, antepartum 03/24/2009 06/10/2009 Supervision of other high-ri sk (V23.89) 12/01/2008 06/10/2009 Other acne 02/25/2008 09/19/2012 Sebaceous cyst 02/25/2008 09/19/2012 Carbuncle and furuncle of face 02/25/2008 09/19/2012 Pyoderma, unspecified 02/22/20082011 documented as of this encounter (statuses as of 12/25/2023) [facility]03-[facility]2021 NoteOccupational Therapy Outpatient Upper Extremity/Hand Evaluation Medical Diagnosis: RIGHT WRIST PAIN, NUMBNESS AND TINGLING Referring Clinician: LUIS EDUARDO PISANO Body Part Being Evaluated: (R) wrist and hand History of Present Illness: 2016 Additional Information: Pt. states that her symptoms started about 6 years ago but have increased over the last coouple of months. Pt. c/o numbness in her (R) thumb, index, middle and radial 1/2 of ring finger. Patient states that they are completely numb all of the time. Demographics: Age: 40Y Gender: Female Primary Language: Khmer Preferred Language: Khmer Initial Evaluation Date: 01/29/2021 Hand Dominance: Right. Past Medical History: ASTHMA Concurrent Services: None. Screening for COVID-19 Does the patient/client present any of the following symptoms? Response Symptoms Cough No Fever No Sore Throat No Shortness of Breath No Fatigue No New Confusion No Has the patient/client traveled outside of the state within the last 14 days to states with confirmed cases of COVID-19? No Has the patient/client been in contact with anyone with a confirmed or suspected diagnosis of COVID-19? No Medical Care Prior to Current Episode: No previous treatment. Medications and Allergies: Significant rehabilitation considerations: NKDA MEDICATIONS: gabapentin Rehabilitation Precautions/Restrictions: none OCCUPATIONAL PROFILE AND HISTORY [facility] PATIENT NAME: RG DIA [address] Rai MEDICAL REC #: [id number] [place] [address] ADMIT DATE: SERVICE DATE: 01/29/21 Occupational Therapy Assessment ATTENDING PHY: Luis Eduardo Pisano Premorbid Functional Level: independent Patient/Caregiver Goals: Patient's functional goals: To decrease pain. To decrease numbness. Pain: Patient currently has pain. Location: (R) hand Type: Constant Quality: Stabbing. numbess, and pins and needles Pain Scale: Visual Analog (VAS). Patient reports a pain level of 10 out of 10. Patient's acceptable level of pain 3 out of 10. Interferes with sleep. physical activity. appetite. Pain is alleviated by: unkown Pain is exacerbated by: use of her right hand Interventions: to be performed later OBJECTIVE / OCCUPATIONAL PERFORMANCE Quick DASH: 1. Open a Tight or New Jar: Unable 2. Doing Heavy Escort Blind: Unable 3. Carrying Bag or Briefcase: Unable 4. Washing Back: Unable 5. Using a Knife to Cut Food: Unable 6. Performing Recreational Impact Activities: Unable 7. Interference with Social Activities during Past Week: Not at All 8. Limited in Work or Daily Activities during Past Week: Very Limited 9. Severity of Arm, Shoulder, or Hand Pain during Past Week: Extreme 10. Severity of Tingling during Past Week: Extreme 11. Difficulty Sleeping during Past Week: Severe Difficulty TOTAL QUICK DASH SCORE: 86.36 Observation: Pt. is holding her right hand in a protective position. Pt. is tearful. Moderate edema present in right hand. Sensation: Impaired as follows: Pt. c/o numbness and tingling in right thumb, index, middle and radial aspect of ring finger. Coordination: Impaired in (R) hand d/t pain and numbness. Self-Care Management: Pt. has difficulty with all of her daily activities. Range of Motion Upper Extremity: Not within functional limits Patient is unable to make a fist. Unable to tolerate formal assessment of motion d/t pain level. [facility] PATIENT NAME: RG DIA [address] Rai MEDICAL REC #: [id number] [place] [address] ADMIT DATE: SERVICE DATE: 01/29/21 Occupational Therapy Assessment ATTENDING AMITA: Luis Eduardo Pisano Strength Upper Extremity: Not within functional limits Impaired d/t pain. Not appropriate for formal testing d/t extreme levels of pain. Interventions: Evaluation LOW Complexity Self Care/Home Management: Pt. education regarding diagnosis and POC. Patient instructed in ways pressure can be increased in the carpal tunnel and ways to avoid increasing the pressure. Discussed splinting. Pt. states that she has obtained a splint but has not found it to be helpful. Pt, instructed to bring her splint to her next appointment so adjustments can be made. Patient instructed in TGE's and median nerve gliding exercises. Stressed importance of not increasing symptoms with the exercises. Pain Reassessment: No significant change in pain during session. Education: The patient's preferred learning method is: Explanation, Demonstration, Printed materials Barriers to Learning: No barriers Learning Needs: Plan of care. Rehabilitation techniques and procedures. Education Provided: Plan of care. Rehab techniques and procedures. see interventions Audience: Patient an (more content not included)...[facility] 12-07-2020 History of Present illness Narrative* Sajan Rocha MD - 12/07/2020 9:49 PM EST DATE OF SERVICE: 12/07/2020 SUBJECTIVE: Patient is a 40-year-old female here today with cough, congestion, body aches, some nausea, diarrhea. No vomiting. She felt chills but no fever. She has had muscle aches and runny nose with some slight headache and fatigue. PAST MEDICAL HISTORY: Significant for and anxiety. MEDICATIONS: Gabapentin, no other medications. ALLERGIES: No known drug allergies. SOCIAL HISTORY: She is a smoker. Did not report alcohol use. FAMILY HISTORY: Unremarkable. OBJECTIVE: Her vital signs are stable. Currently afebrile but pulse oximetry of 94 on room air. General Appearance: She appears ill but in no distress. TMs clear, nares clear, pharynx clear. Neck supple, no lymphadenopathy. Lungs: She has scattered wheezes bilaterally. No rales or rhonchi. Heart: Regular. No murmurs, rubs or gallops. IMPRESSION: Upper respiratory infection, probable COVID-19 infection. PLAN: I did do a COVID-19 test on her. That will be sent out. She is to home quarantine until her test results are back. She has Mucinex at home. She can use that for her symptoms. I also prescribed her a Proair inhaler and a 5 course of prednisone. She is to go the emergency room if her symptoms worsen at all, and contact her primary care doctor if she is not improving in 4 or 5 days. We will call her as soon as test results are back. She is to quarantine at home until then. I did recommend she keep her son home from school until she gets her test results back as well. Sajan Rocha MD /[id number] [facility]SI File#: [id number] END OF DOCUMENT / CHANGE LOG FOLLOWS Last Edited By [employer]. Signed By Sajan Rocha MD #Sajan Etienne MD on 12/11/2020 08:43 ET on 12/11/2020 08:43 ET Revision Number - 2 ^^^ Verified/Reviewed by 12/11/20 [id number] JARED [facility] PATIENT NAME: RG DIA [address] Rai MEDICAL REC #: [id number] [place] [address] [facility] documented in [facility] encounter[facility] History of Present illness Narrative* Sajan Rocha MD - 11/04/2020 11:16 AM EST DATE OF SERVICE: 11/02/2020 SUBJECTIVE: This is a 39-year-old female here today with low back pain. Started a couple of days ago. Said she has been doing a lot around the house. She just got an air conditioner out of her window in her room and felt a sudden pain when she lifted that. That was 3 days ago. Now it has just tightened up and it hurts when she is moving. She denies any numbness or tingling in the legs. There was no fall or traumatic injury. PAST MEDICAL HISTORY: She reports a history of some depression, anxiety, asthma, COPD. MEDICATIONS: Gabapentin. ALLERGIES: None. SOCIAL HISTORY: She is a smoker. Denies alcohol use. FAMILY HISTORY: Unremarkable. OBJECTIVE: Her vitals are stable. She is afebrile. On exam, she looks uncomfortable but not in severe distress despite reporting 10/10 pain. She does have very limited range of motion of the lumbar spine. She is tender paralumbar soft tissue. No midline tenderness. She has got pain with straight leg raise to only about 20 degrees but no radicular symptoms. She has got normal strength and sensation in the lower extremities. IMPRESSION: Lumbar sprain. PLAN: Ice several times a day. Naprosyn 500 b.i.d. with food. Flexeril 10 mg every 8 hours p.r.n. are both prescribed electronically. She is to rest and follow up with her primary doctor if this is not calming down in about 3 days. Sajan Rocha MD /[id number] SSI File#: [id number] END OF DOCUMENT / CHANGE LOG FOLLOWS Last Edited By Elec. Signed By Sajan Rocha MD, Mark MD #HUDMA on 11/06/2020 08:17 ET on 11/06/2020 08:17 ET Revision Number - 2 ^^^ Verified/Reviewed by 11/06/20817 [facility] PATIENT NAME: RG DIA[address] [facility] [address] Rai MEDICAL REC #: [id number] [place] [address] [facility] * Sajan Rocha MD - 11/04/2020 11:03 AM EST $$DICTATION CUT OFF$$ DATE OF SERVICE: 11/02/2020 SUBJECTIVE: This is a 39-year-old Sajan Rocha MD /[id number] SSI File#: [id number] END OF DOCUMENT / CHANGE LOG FOLLOWS Last Edited By Elec. Signed By Sajan Rocha MD #BRYCEMA Sajan Rocha MD #HUDMA on 11/06/2020 08:18 ET on 11/06/2020 08:18 ET Revision Number - 2 ^^^ Verified/Reviewed by 11/06/20817 [facility] PATIENT NAME: RG DIA [address] [facility] [address] Rai MEDICAL REC #: [id number] [place] [address] [facility] No data available for this section [facility] Evaluation note* Diagnosis Non-recurrent acute suppurative otitis media of both ears without spontaneous rupture of tympanic membranes- Primary Asthma with acute exacerbation, unspecified asthma severity, unspecified whether persistent URI, acute Acute upper respiratory infections of unspecified site documented in this encounter [facility] note* Diagnosis Allergy, initial encounter- Primary Asthma with acute exacerbation, unspecified asthma severity, unspecified whether persistent Tobacco use disorder Cough documented in this encounter [facility] note* Diagnosis Anxiety with depression- Primary [facility]* Diagnosis Right carpal tunnel syndrome Carpal tunnel syndrome [facility]* Diagnosis Encounter for screening mammogram for breast cancer documented [facility]* Diagnosis Right carpal tunnel syndrome Carpal tunnel syndrome documented [facility]* Diagnosis Influenza-like illness- Primary Influenza with other respiratory manifestations Sore throat Acute pharyngitis History of asthma Personal history of other diseases of respiratory system documented [facility] this [facility]* Diagnosis Right carpal tunnel syndrome Carpal tunnel syndrome documented [facility]* Diagnosis Gastritis without bleeding, unspecified chronicity, unspecified gastritis type- Primary Tobacco use disorder Anxiety with depression documented [facility]* Diagnosis Right carpal tunnel syndrome Carpal tunnel syndrome documented [facility]* Diagnosis Chronic obstructive pulmonary disease with acute exacerbation (HCC)- Primary Obstructive chronic bronchitis with exacerbation [facility]* Diagnosis Chronic obstructive pulmonary disease with acute exacerbation (HCC) Obstructive chronic bronchitis with exacerbation documented [facility]* Diagnosis SOB (shortness of breath) Shortness of breath documented [facility]* Diagnosis Anxiety with depression- Primary Bipolar 2 disorder (HCC) Other bipolar disorders documented [facility]* Diagnosis Asthma-COPD overlap syndrome (HCC)- Primary Abnormal CXR Other nonspecific abnormal finding of lung field Former cigarette smoker Personal history of tobacco use, presenting hazards to health Current every day vaping Class 3 severe obesity due to excess calories with body mass index (BMI) of 40.0 to 44.9 in adult, unspecified whether serious comorbidity present (HCC) documented [facility]* Diagnosis Gastritis without bleeding, unspecified chronicity, unspecified gastritis type Allergy, initial encounter documented [facility] this [facility]* Diagnosis Asthma-COPD overlap syndrome (HCC)- Primary Abnormal CXR Other nonspecific abnormal finding of lung field Former cigarette smoker Personal history of tobacco use, presenting hazards to health Current every day vaping Class 3 severe obesity due to excess calories with body mass index (BMI) of 40.0 to 44.9 in adult, unspecified whether serious comorbidity present (HCC) documented [facility] this [facility]* Diagnosis Lung nodules- Primary Other nonspecific abnormal finding of lung field documented [facility] this [facility]* Diagnosis Right carpal tunnel syndrome Carpal tunnel syndrome [facility]* Diagnosis Anxiety with depression- Primary Tobacco use disorder Gastritis without bleeding, unspecified chronicity, unspecified gastritis type Bipolar 2 disorder (HCC) Other bipolar disorders Chronic obstructive pulmonary disease with acute exacerbation (HCC) Obstructive chronic bronchitis with exacerbation Right carpal tunnel syndrome Carpal tunnel syndrome documented [facility]* Diagnosis Allergy, initial encounter documented in this encounter [facility]* Diagnosis Abnormal CXR Other nonspecific abnormal finding of lung field documented [facility] this encounter [facility]* Diagnosis Chronic obstructive pulmonary disease with acute exacerbation (HCC) Obstructive chronic bronchitis with exacerbation documented [facility] this [facility]* Diagnosis Encounter for screening mammogram for breast cancer documented in this encounter [facility] note* Diagnosis Muscle pain- Primary Mylagia and myositis, unspecified documented [facility] this encounter [facility]* Diagnosis Lung nodules Other nonspecific abnormal finding of lung field documented [facility] this [facility]* Diagnosis Lung nodules- Primary Other nonspecific abnormal finding of lung field Asthma-COPD overlap syndrome Obesity, Class III, BMI >= 40 Morbid obesity documented in this encounter [facility]* Diagnosis Viral URI with cough- Primary Acute upper respiratory infections of unspecified site documented in this encounter [facility] note* Diagnosis Wheeze Wheezing documented in this encounter [facility] for referral (narrative)* Diagnostic Procedure Only (Routine) - Authorized Specialty Diagnoses / Procedures Referred By Michela giordano Referred To Contact [facility] Diagnoses Encounter for screening mammogram for breast cancer Procedures JUSTYNA SCREENING SCREENING MAMMOGRAPHY BI 2-VIEW BREAST INC CAD Sajan White MD [address] [place] [address] [facility] [address] [place] [id number] Referral ID Status Reason Start Date Expiration Date Visits Requested Visits Authorized [id number] Authorized Auto-Generat ed Referral 2 10/07/2023 1 1 [facility] for referral (narrative)* Diagnostic Procedure Only (Routine) - Closed Specialty Diagnoses / Procedures Referred By Michela t Referred To Contact [facility] Diagnoses Encounter for screening mammogram for breast cancer Procedures JUSTYNA SCREENING SCREENING MAMMOGRAPHY BI 2-VIEW BREAST INC CAD Sajan White MD [address] [place] [address] [facility] [address] [place] [address] Referral ID Status Reason Start Date Expiration Date V isits Requested Visits Authorized [id number] Closed Auto-Generate d Referral 09/07/2022 10/07/2023 1 1 [facility] for referral (narrative)* Outpatient Procedure (Routine) - Authorized Specialty Diagnoses / Procedures Referred By Michela giordano Ref[facility] Diagnoses Asthma-COPD overlap syndrome Procedures SPIROMETRY WITH DILATOR IF OBSTRUCTED BRNCDILAT RSPSE SPMTRY PRE&POST-BRNCDILAT ADMLakesha Dominguez MD [address] [place] [address] [facility] [place] [address] [place] [address] Referral ID Status Reason Start Date Expiration Date Visits Requested Visits Authorized [id number] Authorized Auto-Generat ed Referral 10/24/2023 11/22/2024 1 1 * MRI/CT (Routine) - Pending Review Specialty Diagnoses / Procedures Referred By Michela Referred To Contact CT IMAGING Diagnoses Lung nodules Procedures CT CHEST WO IVCON DIAGNOSTIC COMPUTED TOMOGRAPHY THORAX W/O CNTRST Lakesha Diaz MD [address] [place] [address] [place] [id number] Referral ID Status Reason Start Date Expiration Date Visits Requested Visits Authorized [id number] Pending Review Auto-Generat ed Referral 10/24/2024 11/22/2024 1 1 [facility] for visit Narrative* Diagnostic Procedure Only (Routine) - Closed Specialty Diagnoses / Procedures Referred By Michela giordano Referred To Contact [facility] Diagnoses Encounter for screening mammogram for breast cancer Procedures JUSTYNA SCREENING SCREENING MAMMOGRAPHY BI 2-VIEW BREAST INC CAD Sajan White MD [address] [place] [address] [facility] [address] [place] [address] Referral ID Status Reason Start Date Expiration Date V isits Requested Visits Authorized [id number] Closed Auto-Generate d Referral 09/07/2022 10/07/2023 1 1 [facility] Summary Purpose Family History No Family History Records FoundNo Family History Records FoundNo Family History Records FoundNo Family History Records FoundNo Family History Records Found Advance Directives No Advanced Directives Records FoundDocuments on File Type Date Recorded 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 Advance Directive(s) 04/14/2021 4:26 PM Advance Directive(s) 04/09/2021 12:46 PM Advance Directive(s) 03/22/2021 9:43 AM Advance Directive(s) 10/02/2020 11:13 AM Health Concerns Infection Onset Date Last Indicated Resolved Time COVID-19 Rule-Out 04/18/2022 04/18/2022 Infection Onset Date Last Indicated Resolved Time COVID-19 Rule-Out 03/16/2021 03/15/2021 04/05/2021 8:51 PM EDT COVID-19 Rule-Out 08/09/2021 08/09/2021 08/10/2021 1:31 PM EDT COVID-19 Rule-Out 04/18/2022 04/18/2022 04/19/2022 3:49 AM EDT Infection Onset Date Last Indicated Resolved Time COVID-19 Rule-Out 04/18/2022 04/18/2022 04/19/2022 3:49 AM EDT Reason for Referral Specialty Diagnoses / Procedures Referred By Michela giordano Referred To Contact CT IMAG[facility] Diagnoses Lung nodules Procedures CT CHEST WO IVCON DIAGNOSTIC COMPUTED TOMOGRAPHY THORAX W/O CNTRST Aisha Luna PA-C [address] [place] [address] [place] [address] Referral ID Status Reason Start Date Expiration Date Visits Requested Visits Authorized [id number] Pending Review Auto-Generat ed Referral 3 09/07/2024 1 1 Specialty Diagnoses / Procedures Referred By Michela t Referred To Contact CT [facility] Diagnoses Abnormal CXR Procedures CT CHEST WO IVCON DIAGNOSTIC COMPUTED TOMOGRAPHY THORAX W/O CNTRST Aisha Luna PA-C [address] [place] [address] [place] [address] Referral ID Status Reason Start Date Expiration Date Visits Requested Visits Authorized [id number] Additional Clinical Info Needed Auto-Generat ed Referral 07/26/2023 08/24/2024 1 1 Additional Source Comments INFORMATION SOURCE (unrecogn ized section and content) DATE CREATED AUTHOR AUTHOR'S ORGANIZ ATION 04/16/2021 [facility] DATE CREATED AUTHOR AUTHOR'S ORGANIZ ATION 12/19/2021 [facility] DATE CREATED AUTHOR AUTHOR'S ORGANIZ ATION 01/03/2023 [facility] ([place]) DATE CREATED AUTHOR AUTHOR'S ORGANIZ ATION 12/26/2023 [facility] Source Comments (unrecognize d section and content) In the event this informatio n is protected by the Federal Confidentiality of Alcohol and Drug Abuse Patient Records regulations: The Federal rules restrict any use of the information to criminally investigate or prosecute any alcohol or drug abuse patient.[facility] the event this information is protected by the Federal Confidentiality of Alcohol and Drug Abuse Patient Records regulations: The Federal rules restrict any use of the information to criminally investigate or prosecute any alcohol or drug abuse patient.[facility] the event this information is protected by the Federal Confidentiality of Alcohol and Drug Abuse Patient Records regulations: The Federal rules restrict any use of the information to criminally investigate or prosecute any alcohol or drug abuse patient.[facility] the event this information is protected by the Federal Confidentiality of Alcohol and Drug Abuse Patient Records regulations: The Federal rules restrict any use of the information to criminally investigate or prosecute any alcohol or drug abuse patient.[facility]In the event this information is protected by the Federal Confidentiality of Alcohol and Drug Abuse Patient Records regulations: The Federal rules restrict any use of the information to criminally investigate or prosecute any alcohol or drug abuse patient.[facility] the event this information is protected by the Federal Confidentiality of Alcohol and Drug Abuse Patient Records regulations: The Federal rules restrict any use of the information to criminally investigate or prosecute any alcohol or drug abuse patient.[facility] the event this information is protected by the Federal Confidentiality of Alcohol and Drug Abuse Patient Records regulations: The Federal rules restrict any use of the information to criminally investigate or prosecute any alcohol or drug abuse patient.[facility] HospitalIn the event this information is protected by the Federal Confidentiality of Alcohol and Drug Abuse Patient Records regulations: The Federal rules restrict any use of the information to criminally investigate or prosecute any alcohol or drug abuse patient.[facility] HospitalIn the event this information is protected by the Federal Confidentiality of Alcohol and Drug Abuse Patient Records regulations: The Federal rules restrict any use of the information to criminally investigate or prosecute any alcohol or drug abuse patient.[facility] HospitalIn the event this information is protected by the Federal Confidentiality of Alcohol and Drug Abuse Patient Records regulations: The Federal rules restrict any use of the information to criminally investigate or prosecute any alcohol or drug abuse patient.[facility] HospitalIn the event this information is protected by the Federal Confidentiality of Alcohol and Drug Abuse Patient Records regulations: The Federal rules restrict any use of the information to criminally investigate or prosecute any alcohol or drug abuse patient.[facility] Hospital[facility] the event this information is protected by the Federal Confidentiality of Alcohol and Drug Abuse Patient Records regulations: The Federal rules restrict any use of the information to criminally investigate or prosecute any alcohol or drug abuse patient.[facility] HospitalIn the event this information is protected by the Federal Confidentiality of Alcohol and Drug Abuse Patient Records regulations: The Federal rules restrict any use of the information to criminally investigate or prosecute any alcohol or drug abuse patient.[facility] HospitalIn the event this information is protected by the Federal Confidentiality of Alcohol and Drug Abuse Patient Records regulations: The Federal rules restrict any use of the information to criminally investigate or prosecute any alcohol or drug abuse patient.[facility] the event this information is protected by the Federal Confidentiality of Alcohol and Drug Abuse Patient Records regulations: The Federal rules restrict any use of the information to criminally investigate or prosecute any alcohol or drug abuse patient.[facility] HospitalIn the event this information is protected by the Federal Confidentiality of Alcohol and Drug Abuse Patient Records regulations: The Federal rules restrict any use of the information to criminally investigate or prosecute any alcohol or drug abuse patient.[facility] HospitalIn the event this information is protected by the Federal Confidentiality of Alcohol and Drug Abuse Patient Records regulations: The Federal rules restrict any use of the information to criminally investigate or prosecute any alcohol or drug abuse patient.[facility] the event this information is protected by the Federal Confidentiality of Alcohol and Drug Abuse Patient Records regulations: The Federal rules restrict any use of the information to criminally investigate or prosecute any alcohol or drug abuse patient.[facility] HospitalIn the event this information is protected by the Federal Confidentiality of Alcohol and Drug Abuse Patient Records regulations: The Federal rules restrict any use of the information to criminally investigate or prosecute any alcohol or drug abuse patient.[facility] HospitalIn the event this information is protected by the Federal Confidentiality of Alcohol and Drug Abuse Patient Records regulations: The Federal rules restrict any use of the information to criminally investigate or prosecute any alcohol or drug abuse patient.[facility] HospitalIn the event this information is protected by the Federal Confidentiality of Alcohol and Drug Abuse Patient Records regulations: The Federal rules restrict any use of the information to criminally investigate or prosecute any alcohol or drug abuse patient.[facility] HospitalIn the event this information is protected by the Federal Confidentiality of Alcohol and Drug Abuse Patient Records regulations: The Federal rules restrict any use of the information to criminally investigate or prosecute any alcohol or drug abuse patient.[facility] HospitalIn the event this information is protected by the Federal Confidentiality of Alcohol and Drug Abuse Patient Records regulations: The Federal rules restrict any use of the information to criminally investigate or prosecute any alcohol or drug abuse patient.[facility] HospitalIn the event this information is protected by the Federal Confidentiality of Alcohol and Drug Abuse Patient Records regulations: The Federal rules restrict any use of the information to criminally investigate or prosecute any alcohol or drug abuse patient.[facility] HospitalIn the event this information is protected by the Federal Confidentiality of Alcohol and Drug Abuse Patient Records regulations: The Federal rules restrict any use of the information to criminally investigate or prosecute any alcohol or drug abuse patient.[facility] HospitalIn the event this information is protected by the Federal Confidentiality of Alcohol and Drug Abuse Patient Records regulations: The Federal rules restrict any use of the information to criminally investigate or prosecute any alcohol or drug abuse patient.[facility] HospitalIn the event this information is protected by the Federal Confidentiality of Alcohol and Drug Abuse Patient Records regulations: The Federal rules restrict any use of the information to criminally investigate or prosecute any alcohol or drug abuse patient.[facility] HospitalIn the event this information is protected by the Federal Confidentiality of Alcohol and Drug Abuse Patient Records regulations: The Federal rules restrict any use of the information to criminally investigate or prosecute any alcohol or drug abuse patient.[facility] HospitalIn the event this information is protected by the Federal Confidentiality of Alcohol and Drug Abuse Patient Records regulations: The Federal rules restrict any use of the information to criminally investigate or prosecute any alcohol or drug abuse patient.[facility] HospitalIn the event this information is protected by the Federal Confidentiality of Alcohol and Drug Abuse Patient Records regulations: The Federal rules restrict any use of the information to criminally investigate or prosecute any alcohol or drug abuse patient.[facility] HospitalIn the event this information is protected by the Federal Confidentiality of Alcohol and Drug Abuse Patient Records regulations: The Federal rules restrict any use of the information to criminally investigate or prosecute any alcohol or drug abuse patient.[facility] Hospital[facility] the event this information is protected by the Federal Confidentiality of Alcohol and Drug Abuse Patient Records regulations: The Federal rules restrict any use of the information to criminally investigate or prosecute any alcohol or drug abuse patient.[facility] HospitalIn the event this information is protected by the Federal Confidentiality of Alcohol and Drug Abuse Patient Records regulations: The Federal rules restrict any use of the information to criminally investigate or prosecute any alcohol or drug abuse patient.[facility] HospitalIn the event this information is protected by the Federal Confidentiality of Alcohol and Drug Abuse Patient Records regulations: The Federal rules restrict any use of the information to criminally investigate or prosecute any alcohol or drug abuse patient.[facility] HospitalIn the event this information is protected by the Federal Confidentiality of Alcohol and Drug Abuse Patient Records regulations: The Federal rules restrict any use of the information to criminally investigate or prosecute any alcohol or drug abuse patient.[facility] HospitalIn the event this information is protected by the Federal Confidentiality of Alcohol and Drug Abuse Patient Records regulations: The Federal rules restrict any use of the information to criminally investigate or prosecute any alcohol or drug abuse patient.[facility] HospitalIn the event this information is protected by the Federal Confidentiality of Alcohol and Drug Abuse Patient Records regulations: The Federal rules restrict any use of the information to criminally investigate or prosecute any alcohol or drug abuse patient.[facility] HospitalIn the event this information is protected by the Federal Confidentiality of Alcohol and Drug Abuse Patient Records regulations: The Federal rules restrict any use of the information to criminally investigate or prosecute any alcohol or drug abuse patient.[facility] HospitalIn the event this information is protected by the Federal Confidentiality of Alcohol and Drug Abuse Patient Records regulations: The Federal rules restrict any use of the information to criminally investigate or prosecute any alcohol or drug abuse patient.[facility] HospitalIn the event this information is protected by the Federal Confidentiality of Alcohol and Drug Abuse Patient Records regulations: The Federal rules restrict any use of the information to criminally investigate or prosecute any alcohol or drug abuse patient.[facility] HospitalIn the event this information is protected by the Federal Confidentiality of Alcohol and Drug Abuse Patient Records regulations: The Federal rules restrict any use of the information to criminally investigate or prosecute any alcohol or drug abuse patient.[facility] HospitalIn the event this information is protected by the Federal Confidentiality of Alcohol and Drug Abuse Patient Records regulations: The Federal rules restrict any use of the information to criminally investigate or prosecute any alcohol or drug abuse patient.[facility] Reason for Visit (unrecogniz ed section and content) Reason Comments Patient Update cough is keeping her awake at night is there something to help with that the tessallester perles are not helping with that at all Reason Comments Allergies Cough Reason Comments Acute Visit anxiety/depression Reason Comments Consult Initial SW Pt Outr each Reason Comments Opened In Error Reason Onset Date Comments Refill Request 06/24/2022 Reason Comments Refill Request Reason Onset Date Comments Refill Request 09/20/2022 Reason Comments Sore Throat MAY x2 days Reason Comments Physical ER F/U Reason Onset Date Comments Refill Request 01/13/2023 Reason Comments ED Follow-up Reason Comments Spirometry Specialty Diagnoses / Procedures Referred By Contac t Referred To [facility] Diagnoses Chronic obstructive pulmonary disease with acute exacerbation (HCC) Procedures SPIROMETRY WITH DILATOR IF OBSTRUCTED BRNCDILAT RSPSE SPMTRY PRE&POST-BRNCDILAT Lakesha Albarado MD [address] [place] [address] [facility] [place] [address] [facility] [place] [address] Referral ID Status Reason Start Date Expiration Date V isits Requested Visits Authorized [id number] Closed Auto-Generate d Referral 02/21/2023 03/22/2024 1 1 Specialty Diagnoses / Procedures Referred By Contac t Referred To Contact [facility] Diagnoses SOB (shortness of breath) Procedures LUNG DIFFUSION CAPACITY (DLCO) DIFFUSING CAPACITY Lakesha Diaz MD [address] [place] [address] [facility] [place] [address] [place] [address] Referral ID Status Reason Start Date Expiration Date V isits Requested Visits Authorized [id number] Closed Auto-Generate d Referral 02/21/2023 03/22/2024 1 1 Reason Comments Anxiety Reason Comments BH consult Reason Comments Established Patient 4 week follow up Reason Onset Date Comments Refill Request 06/18/2023 Reason Onset Date Comments Refill Request 07/17/2023 Reason Comments Established Patient 8 week follow up Ast hma-COPD overlap syndrome Reason Onset Date Comments Refill Request 07/28/2023 Reason Onset Date Comments Refill Request 08/30/2023 Reason Comments gi issues Letter For child support Reason Onset Date Comments Medication Problem 09/15/2023 Zyrtec Reason Comments Radiology CT Specialty Diagnoses / Procedures Referred By Contac t Referred To Contact CT IMAGING Diagnoses Abnormal CXR Procedures CT CHEST WO IVCON DIAGNOSTIC COMPUTED TOMOGRAPHY THORAX W/O Aisha Rivas PA-C [address] [employer] [place] [address] [place] [id number] Referral ID Status Reason Start Date Expiration Date V isits Requested Visits Authorized [id number] Closed Auto-Generate d Referral 07/27/2023 09/25/2023 1 1 Reason Comments Pain Left side neck, righ t and left arm Specialty Diagnoses / Procedures Referred By Contac t Referred To Contact CT IMAGING Diagnoses Lung nodules Procedures CT CHEST WO IVCON DIAGNOSTIC COMPUTED TOMOGRAPHY THORAX W/O Aisha Rivas PA-C [address] [place] [address] [place] [id number] Referral ID Status Reason Start Date Expiration Date V isits Requested Visits Authorized [id number] Closed Auto-Generate d Referral 09/22/2023 11/21/2023 1 1 Reason Comments Cough Cough, congestion an d nausea x 1 day Reason Onset Date Comments Refill Request 12/25/2023 Care Teams (unrecognized sec tion and content) Instructor Decorating Relationship Specialty Start Date End Date Sajan White MD [address] [place] [address] PCP - General Family Practice 03/17/21 Instructor Decorating Relationship Specialty Start Date End Date Sajan White MD [address] [place] [address] PCP - General Family Practice 03/17/21 Instructor Decorating Relationship Specialty Start Date End Date Sajan White MD [address] [place] [address] PCP - General Family Practice 03/17/21 Instructor Decorating Relationship Specialty Start Date End Date Sajan White MD [address] [place] [address] [place] [address] PCP - General Family Practice 03/17/21 Instructor Decorating Relationship Specialty Start Date End Date Sajan White MD [address] [facility] [place] [address] PCP - General Family Practice 03/17/21 Instructor Decorating Relationship Specialty Start Date End Date Sajan White MD [address] [facility] [place] [address] PCP - General Family Practice 03/17/21 Instructor Decorating Relationship Specialty Start Date End Date Sajan White MD [address] [place] [address] [place] [address] PCP - General Family Practice 03/17/21 Instructor Decorating Relationship Specialty Start Date End Date Sajan White MD [facility] [place] [address] PCP - General Family Medicine 03/17/21 Instructor Decorating Relationship Specialty Start Date End Date Sajan White MD [address] [place] [address] PCP - General Family Medicine 03/17/21 Instructor Decorating Relationship Specialty Start Date End Date Sajan White MD [address] [place] [address] PCP - General Family Medicine 03/17/21 Instructor Decorating Relationship Specialty Start Date End Date Sajan White MD [address] [place] [address] PCP - General Family Medicine 03/17/21 Instructor Decorating Relationship Specialty Start Date End Date Sajan White MD [address] [place] [address] PCP - General Family Medicine 03/17/21 Instructor Decorating Relationship Specialty Start Date End Date Sajan White MD [address] [place] [address] PCP - General Family Medicine 03/17/21 Instructor Decorating Relationship Specialty Start Date End Date Sajan White MD [address] [place] [address] PCP - General Family Medicine 03/17/21 Instructor Decorating Relationship Specialty Start Date End Date Sajan White MD [address] [place] [address] PCP - General Family Medicine 03/17/21 Instructor Decorating Relationship Specialty Start Date End Date Sajan White MD [address] [place] [address] PCP - General Family Medicine 03/17/21 Instructor Decorating Relationship Specialty Start Date End Date Sajan White MD [address] [place] [address] PCP - General Family Medicine 03/17/21 Instructor Decorating Relationship Specialty Start Date End Date Sajan White MD [address] [place] [address] PCP - General Family Medicine 03/17/21 Instructor Decorating Relationship Specialty Start Date End Date Sajan White MD [address] [place] [address] PCP - General Family Medicine 03/17/21 Instructor Decorating Relationship Specialty Start Date End Date Sajan White MD [address] [place] [address] PCP - General Family Medicine 03/17/21 Instructor Decorating Relationship Specialty Start Date End Date Sajan White MD [address] [place] [address] PCP - General Family Medicine 03/17/21 Instructor Decorating Relationship Specialty Start Date End Date Sajan White MD [address] [place] [address] PCP - General Family Medicine 03/17/21 Instructor Decorating Relationship Specialty Start Date End Date Sajan White MD [address] [place] [address] PCP - General Family Medicine 03/17/21 Instructor Decorating Relationship Specialty Start Date End Date Sajan White MD [address] [place] [address] PCP - General Family Medicine 03/17/21 Instructor Decorating Relationship Specialty Start Date End Date Sajan White MD [address] [place] [address] PCP - General Family Medicine 03/17/21 Instructor Decorating Relationship Specialty Start Date End Date Sajan White MD [address] [place] [address] PCP - General Family Medicine 03/17/21 Instructor Decorating Relationship Specialty Start Date End Date Sajan White MD [address] [place] [address] PCP - General Family Medicine 03/17/21 Instructor Decorating Relationship Specialty Start Date End Date Sajan White MD [address] [place] [address] PCP - General Family Medicine 03/17/21 Instructor Decorating Relationship Specialty Start Date End Date Sajan White MD [address] [place] [address] PCP - General Family Medicine 03/17/21 Instructor Decorating Relationship Specialty Start Date End Date Sajan White MD [address] [place] [address] PCP - General Family Medicine 03/17/21 Instructor Decorating Relationship Specialty Start Date End Date Sajan White MD [address] [place] [address] PCP - General Family Medicine 03/17/21 Instructor Decorating Relationship Specialty Start Date End Date Sajan White MD [address] [place] [address] PCP - General Family Medicine 03/17/21 Instructor Decorating Relationship Specialty Start Date End Date Sajan White MD [address] [place] [address] PCP - General Family Medicine 03/17/21 Care Team (unrecognized sect ion and content) Care Team Personnel Name: SAJAN WHITE MD Member Role: Primary Care Physician Address: Address: [address] [place] [address]- Care Team Related Persons Name: MEGHAN, JERONIMO Name: MEGHAN, JERONIMO Name: MEGHAN, JERONIMO Name: MEGHAN, JERONIMO Name: MEGHAN, JERONIMO Name: MEGHAN, JERONIMO Name: MEGHAN, JERONIMO Name: MEGHAN, JERONIMO Name: MEGHAN, JERONIMO Name: MEGHAN, JERONIMO Name: MEGHAN, JERONIMO FOR RECORDS PERTAINING TO PATIENTS WHO ARE OR HAVE BEEN ENROLLED IN A CHEMICAL DEPENDENCY/SUBSTANCEABUSE PROGRAM, SOME INFORMATION MAY BE OMITTED. This clinical summary was aggregated from multiple sources. Caution should be exercised in using it in the provision of clinical care. This summary normalizes information from multiple sources, and as a consequence, information in this document may materially change the coding, format and clinical context of patient data. In addition, data may be omitted in some cases. CLINICAL DECISIONS SHOULD BE BASED ON THE PRIMARY CLINICAL RECORDS. [employer] provides no warranty or guarantee of the accuracy or completeness of information in this document.
== END 2023-12-27 11:38 | disposition home or self-care (01) ==
PROVIDERS: Emergency Provider Emergency Medicine; PCP Family Medicine; Visit Provider Emergency Medicine
DX: J44.0 Chronic obstructive pulmonary disease with (acute) lower respiratory infection (principal); J44.1 Chronic obstructive pulmonary disease with (acute) exacerbation; Z87.891 Personal history of nicotine dependence; J18.8 Other pneumonia, unspecified organism
CPT/HCPCS: 71046; 99282

== ENCOUNTER 2024-12-06 09:41 | Emergency (ER) | payer MEDICAID, SELFPAY ==
[2024-12-06 09:41] VITALS: BP 185/103; PULSE 106; RESP 14; TEMP 36.1; O2SAT 98; BMI 40.1
--- NOTE | 2024-12-06 10:37 | ED.VIS.GI ---
HPI HPI - GI History of Present Illness Chief Complaint: Constipation Informant: patient Abdominal Pain/Flank Pain Onset: Weeks Nausea/Vomiting/Emesis GI Symptom: Negative for Nausea or Vomiting Diarrhea/Melena/Hematochezia GI Symptom: Negative for Diarrhea, Melena or Hematochezia Associated Symptoms Associated Symptoms: Negative for Dysuria, Frequency, Hematuria or Urgency Narrative Narrative: 44-year-old female history of bipolar. Prior and hysterectomy. States she has had constipation for about 2 weeks. States she has used 2 enemas at home, stool softener and MiraLAX without significant relief. She is having liquid stools this morning but thinks it is coming around the stool that she is unable to express. Denies abdominal pain. Denies denies vomiting. Denies fever or dysuria. Prior similar symptoms: Yes Recent Illness/Hospitalization: No PFSH PFSH Medical History History of posttraumatic stress disorder (PTSD) Bipolar disorder Depression Anxiety Marijuana use Easy bruising Back pain Nausea Smoker COPD (chronic obstructive pulmonary disease) Asthma Shortness of breath on exertion History of echocardiogram Abdominal pain Nausea & vomiting Carpal tunnel syndrome, bilateral Home Medications ?Medication ?Instructions ?Recorded ?Last Taken ?Type gabapentin 300 mg capsule 300 mg PO TID 08/31/21 Unknown History tiotropium bromide 18 mcg capsule 1 cap inhalation BID 09/09/21 Unknown History with inhalation device (Spiriva with HandiHaler) albuterol sulfate 90 mcg/actuation 1 inh inhalation Q6H PRN SOB #1 g 01/30/23 Unknown Rx aerosol inhaler sucralfate 1 gram tablet 1 g PO TIDCM 01/30/23 Unknown History ipratropium bromide 0.02 % 2.5 ml inhalation Q8H PRN 12/27/23 Unknown Rx solution for inhalation shortness of breath or wheezing #75 mL levofloxacin 500 mg tablet 500 mg PO DAILY #7 tabs 12/27/23 Unknown Rx prednisone 20 mg tablet 60 mg (3 x 20 mg) PO DAILY #15 12/27/23 Unknown Rx TABLETS Allergy/AdvReac Type Severity Reaction Status Date / Time carbinoxamine (From [facility]) Allergy Rash Verified 12/06/24 09:42 pseudoephedrine (From [facility]) Allergy Rash Verified 12/06/24 09:42 Surgical History Hx of prior ablation treatment History of hysteroscopy History of History of loop electrical excision procedure (LEEP) History of open reduction and internal fixation (ORIF) procedure History of carpal tunnel surgery of right wrist History of carpal tunnel surgery of left wrist Social History household members: children Smoking Status: Light Smoker (<10/day) substance use type: does not use ROS ROS ED ROS Narrative Constipation. Constitutional Constitutional ED: Denies chills or fever(s) ENT ENT ED: Denies ear pain Cardiovascular Cardiovascular: Denies chest pain Respiratory/Chest Respiratory/Chest: Denies cough Gastrointestinal Gastrointestinal: Reports constipation and nausea; Denies abdominal pain, diarrhea, melena or vomiting Genitourinary Genitourinary ED: Denies dysuria or hematuria Musculoskeletal Musculoskeletal: Denies arthralgias or back pain Integumentary Denies abscess Neurologic Neurologic: Denies headache(s) Psychiatric Psychiatric: Denies anxiety Endocrine Endocrinology: Denies polydipsia Hematologic/Lymphatic Hematologic/Lymphatic: Denies easy bleeding Allergic/Immunologic Allergic/Immunologic ED: Denies mouth swelling EXAM Physical Exam Narrative Exam Narrative: Well-appearing 44-year-old female sitting upright in bed. Significant other at bedside. Vital signs are stable and afebrile. H EENT exam moist mucous membranes. Pupils round reactive light. Normal speech. Lungs clear. Heart regular rhythm rate about 100 no murmur. Abdomen soft nondistended normal bowel sounds without peritoneal signs. No signs of obstruction. She is nontender. There is no hernia or mass. Moving all 4 extremities. Nontender no edema. Normal strength. Neurologically she is awake and alert no focal motor deficits. Const Vital Signs: 12/06/24 09:41 Temperature 96.9 F L Temperature Source Temporal Pulse Rate 106 H Respiratory Rate 14 Blood Pressure 185/103 H Blood Pressure Mean 130 Pulse Ox 98 Oxygen Delivery Method Room Air Positive well nourished and well developed; Negative for cachectic, contractures or unkempt General Appearance ED: well developed and NAD; Negative for unkempt, cachectic, contractures or pallor Nutritional Appearance: Negative for cachectic HEENT Reports moist mucous membranes normocephalic and atraumatic Eyes PERRL and EOMs intact bilaterally Neck no lymphadenopathy, supple and no JVD Resp normal respiratory effort and clear to auscultation bilaterally Cardio regular rate GI non-tender, non-distended and no masses Auscultation: normoactive bowel sounds Palpation: soft; Negative for tender, guarding, hernia, mass, pulsatile mass or rebound tenderness present Back/Spine no CVA tenderness General Back: Negative for CVA tenderness Cervical Spine: Negative for cervical spine tenderness Thoracic Spine / Upper Back: Negative for thoracic spinal tenderness Lumbar Spine / Lower Back: Negative for lumbar spinal tenderness Extremity full ROM General Extremety ED: Negative for edema or tenderness General Extremity: Negative for edema Neuro CN's II-XII intact bilaterally and moves all extremities Sensorium / Orientation: alert, oriented to person, oriented to place and oriented to time; Negative for orientation impaired, confused, lethargic or stuporous Motor Exam: strength 5/5 throughout Psych mental status grossly normal and thought process normal Appearance: Negative for unkempt Attitude: No agitated Mood & Affect: Negative for depressed, anxious or tearful Skin no wounds General Skin Exam: Negative for jaundice or pallor Lesions: no lesions Rashes: no rashes MDM MDM MDM Narrative Medical decision making narrative: 44-year-old complaining of constipation for 1 to 2 weeks. Abdomen is benign and nontender. KUB will be obtained. Repeat exam at 1:15 PM. Patient is emotionally upset. I explained her I apologize I was not unable to get back in her room any sooner. Her x-ray is consistent with constipation. Her repeat abdominal exam is benign and nontender. No peritoneal signs. Should be treated with GoLytely and discharged to home. History & Record Review Discussion w/independent historian: Patient Radiography Diagnostic Testing: Clinical Impression(s) from Imaging Studies KUB X-Ray 12/06/24 10:38 IMPRESSION: Moderate amount of fecal material is seen in the colon. Electronically Signed: Jairon Murray MD at 10:54 EST , KUB 3 views interpreted both by myself and radiologist shows increased stool consistent constipation. No bowel obstruction. No dilated bowel. No air-fluid levels. Discharge Plan Triage Chief Complaint: Constipation ED Provider: Jonn Preciado Dx/Rx/DC Orders Clinical Impression: Constipation Instructions: ED Constipation (Adult) Prescriptions: No Action gabapentin 300 mg Capsule 300 mg PO TID tiotropium bromide [Spiriva with HandiHaler] 18 mcg Capsule, W/Inhalation Device 1 cap INHALATION BID sucralfate 1 gram tablet 1 g PO TIDCM Patient Comments: Take 1 tablet by mouth before meals and at bedtime. albuterol sulfate 90 mcg/actuation Hfa Aerosol Inhaler 1 inh INHALATION Q6H PRN (Reason: SOB) Qty: 1 0RF prednisone 20 mg tablet 60 mg PO DAILY Qty: 15 0RF levofloxacin [levofloxacin] 500 mg tablet 500 mg PO DAILY Qty: 7 0RF ipratropium bromide 0.02 % solution 2.5 ml inhalation Q8H PRN (Reason: shortness of breath or wheezing) Qty: 75 2RF Primary Care Provider: Joe White Referrals: Joe White MD [Primary Care Provider] - 1-2 Days if not improving Activity Restrictions/Additional Instructions: Drink the GoLytely 10 ounce glass every 45 minutes to an hour into you have a bowel movement. Plenty of fluids, fruits vegetables and fiber to help prevent constipation. Follow-up with your doctor if not improving or return if worse. Print Language: Faroese Disposition Disposition: Home, Self Care
--- NOTE | 2024-12-06 10:38 | RAD_ITS ---
STUDY: X-RAY - ABDOMEN/PELVIS REASON FOR EXAM: Female, 44 years old. Constipation TECHNIQUE: Single AP view of the abdomen / pelvis. COMPARISON: None. FINDINGS: Normal visualized lung bases. There is a moderate amount of colonic fecal material. Hepatomegaly. Bilateral tubal ligation clips are seen. Normal visualized osseous structures. RAD/Abdomen Single View IMPRESSION: Moderate amount of fecal material is seen in the colon. Electronically Signed: Jairon Murray MD at 10:54 EST ,
[2024-12-06] MEDS: Electrolyte Solution/Peg's 4000 ML 2000 ML PO (13:44)
[2024-12-06 13:46] VITALS: BP 138/70; PULSE 79; RESP 16; TEMP 36.8; O2SAT 100
== END 2024-12-06 13:46 | disposition home or self-care (01) ==
PROVIDERS: Emergency Provider Emergency Medicine; PCP Family Medicine; Visit Provider Emergency Medicine
DX: R10.9 Unspecified abdominal pain (principal); J44.9 Chronic obstructive pulmonary disease, unspecified; K59.00 Constipation, unspecified; Z90.710 Acquired absence of both cervix and uterus
CPT/HCPCS: 74018; 99282

== ENCOUNTER 2025-01-19 20:46 | Emergency (ER) | payer MEDICAID, SELFPAY ==
[2025-01-19 20:47] VITALS: BP 149/103; PULSE 87; RESP 19; TEMP 36.8; O2SAT 100; BMI 39.9
--- NOTE | 2025-01-19 20:57 | CT_ITS ---
EXAM: BRAIN/HEAD WITHOUT CONTRAST CLINICAL HISTORY: Head injury COMPARISON: None. TECHNIQUE: Noncontrast images of the head with multiplanar reconstructions. Dose reduction techniques were used including intermediate exposure control (AEC),iterative reconstruction technique, and/or mA and/or KV dose adjustments based on patient's size. FINDINGS: CT HEAD FINDINGS: No acute intracranial hemorrhage, mass, mass effect, midline shift or pathologic extra-axial fluid collection. No hydrocephalus. Age- appropriate cerebral volume and white matter. Mild thickening of the bilateral maxillary sinuses. Mastoid air cells are clear. The calvarium is grossly intact. Subgaleal hematoma overlying the frontal bone CT/Brain/Head without Contrast IMPRESSION: 1. No acute intracranial abnormality. 2. Subgaleal hematoma overlying the frontal bone 3. Mild maxillary sinusitis [facility]
--- NOTE | 2025-01-19 20:59 | EX.ED.DYSGE1 ---
HPI <AG Antonio - Last Filed: 01/19/25 21:44> History of Present Illness Chief Complaint: Head Injury Narrative Narrative: Patient is a 44-year-old female with history of obesity, asthma, daily use of marijuana presenting to the emergency department for head injury. Patient states she was sitting on the toilet at approximately 4 AM this morning when she fell asleep falling forward striking her forehead on a windowsill. Patient states that she did have a small laceration to her forehead. Over the course of the day, she has worsening headache, feeling dizzy, intermittent confusion, and feels nauseous. Tetanus vaccination unknown. PFSH <AG Antonio - Last Filed: 01/19/25 21:44> [facility] Medical History History of posttraumatic stress disorder (PTSD) Bipolar disorder Depression Anxiety Marijuana use Easy bruising Back pain Nausea Smoker COPD (chronic obstructive pulmonary disease) Asthma Shortness of breath on exertion History of echocardiogram Abdominal pain Nausea & vomiting Carpal tunnel syndrome, bilateral Home Medications ?Medication ?Instructions ?Recorded ?Last Taken ?Type gabapentin 300 mg capsule 300 mg PO TID 08/31/21 Unknown History tiotropium bromide 18 mcg capsule 1 cap inhalation BID 09/09/21 Unknown History with inhalation device (Spiriva with HandiHaler) albuterol sulfate 90 mcg/actuation 1 inh inhalation Q6H PRN SOB #1 g 01/30/23 Unknown Rx aerosol inhaler sucralfate 1 gram tablet 1 g PO TIDCM 01/30/23 Unknown History ipratropium bromide 0.02 % 2.5 ml inhalation Q8H PRN 12/27/23 Unknown Rx solution for inhalation shortness of breath or wheezing #75 mL levofloxacin 500 mg tablet 500 mg PO DAILY #7 tabs 12/27/23 Unknown Rx prednisone 20 mg tablet 60 mg (3 x 20 mg) PO DAILY #15 12/27/23 Unknown Rx TABLETS Allergy/AdvReac Type Severity Reaction Status Date / Time carbinoxamine (From [facility]) Allergy Rash Verified 01/19/25 20:47 pseudoephedrine (From [facility]) Allergy Rash Verified 01/19/25 20:47 Surgical History Hx of prior ablation treatment History of hysteroscopy History of History of loop electrical excision procedure (LEEP) History of open reduction and internal fixation (ORIF) procedure History of carpal tunnel surgery of right wrist History of carpal tunnel surgery of left wrist Social History household members: children Smoking Status: Light Smoker (<10/day) substance use type: does not use ROS <AG Antonio - Last Filed: 01/19/25 21:44> ROS ED ROS Narrative Constitutional: Negative for fever, chills, weight loss, weakness Eyes: Negative for vision loss, vision change, double vision ENT: Negative for any sore throat, ear pain, congestion Cardiovascular: Negative for any chest pain, tightness, palpitations Respiratory: Negative for any cough, sputum production, hemoptysis, dyspnea, dyspnea on exertion, orthopnea Gastrointestinal: Negative for any abdominal pain, nausea, vomiting, diarrhea, constipation, blood in stool, blood in vomit : Negative for any urinary frequency, dysuria, retention, blood in urine Muscle skeletal: Negative for any neck pain, back pain Neurological: Negative for any syncope. Positive headache, dizziness Skin: Negative for any rashes, itching, lacerations. Positive for superficial laceration to the forehead Psychiatric: Negative for any depression, anxiety, stress, suicidal ideation, homicidal ideation Hematologic: Negative for any excessive bruising, easy bleeding EXAM <AG Antonio - Last Filed: 01/19/25 21:44> Physical Exam Narrative Exam Narrative: Vital signs reviewed. HEET: Head normocephalic atraumatic, TMs clear bilaterally. Posterior pharynx is clear, moist mucous membranes. Nares clear bilaterally. Patient does have a 1 cm superficial laceration to the forehead. This does not require any suturing. Pupils are equal round reactive to light, negative for any hemotympanum or septal hematoma. Neck: Supple with no lymphadenopathy or tenderness. No signs of meningismus. Cardiac: Regular rate and rhythm no murmurs gallops or rubs, equal peripheral pulses bilaterally. Respiratory: Lungs clear to auscultation bilaterally. No chest tenderness. Abdomen: Soft, nontender, nondistended. No abdominal bruit or pulsatile masses. No hepatosplenomegaly Extremities: No peripheral edema, no signs of gross trauma or deformity. Active full range of motion of all extremities. Neuro: Cranial nerves II through XII intact, no focal neurological deficits. Skin: Clean dry and intact with no rash, purpura, petechiae, vesicles or pustules. Backs/flank: No CVA tenderness, no midline spinal tenderness, no deformity. Psych: Normal mood and affect. No SI, HI or acute psychosis. Const Vital Signs: 01/19/25 20:47 Temperature 98.2 F Temperature Source Oral Pulse Rate 87 Respiratory Rate 19 H Blood Pressure 149/103 H Blood Pressure Mean 118 Pulse Ox 100 Oxygen Delivery Method Room Air <Evelio Addison MD - Last Filed: 01/19/25 21:47> Physical Exam Const Vital Signs: 01/19/25 20:47 Temperature 98.2 F Temperature Source Oral Pulse Rate 87 Respiratory Rate 19 H Blood Pressure 149/103 H Blood Pressure Mean 118 Pulse Ox 100 Oxygen Delivery Method Room Air MDM <AG Antonio - Last Filed: 01/19/25 21:44> MDM Radiography Diagnostic Testing: Clinical Impression(s) from Imaging Studies Brain CT 01/19/25 20:57 IMPRESSION: 1. No acute intracranial abnormality. 2. Subgaleal hematoma overlying the frontal bone 3. Mild maxillary sinusitis Reading Location: [facility] Treatment and Re-Evaluation :: Differential diagnosis includes however is not limited to: Concussion, closed head injury, skull fracture, to cranial bleeding Patient appears generally well, vital signs are stable, patient is nontoxic-appearing. Presenting to the emergency department after falling asleep on toilet striking the top of her head. Secondary to the patient's symptoms, the patient will be given Tylenol, Zofran. Tetanus vaccination will be updated. CT scan of the brain will be obtained. All radiologic examinations were read, reviewed by the emergency department attending. From these reads, a plan of care will be put in place. CT scan was negative for any acute intracranial process. At this time, patient did feel better after the medication. Patient will be discharged home, she was diagnosed with a concussion. She instructed to continue to follow-up outpatient. She was given strict return precaution. Stable for discharge. <Evelio Addison MD - Last Filed: 01/19/25 21:47> [facility] MDM Narrative Medical decision making narrative: Dr. Addison: I have personally performed a face to face assessment of the patient and have reviewed the [facility] Note. I performed a substantive portion of the visit including all aspects of the following. My burleson findings include: History is at 4 AM, over 12 hours ago, patient was sitting on the toilet and fell asleep. She hit her forehead on the windowsill in front of her. Sustained less than 1 cm laceration to her forehead but complains of postconcussive syndrome symptoms such as brain fog and nausea. Mild headache. Unsure of last tetanus immunization. Denies other injuries. Does not take blood thinners. Exam is GCS 15. ABCs intact. PERRL, EOMI. Inspection of the left forehead shows very superficial laceration without gaping less than 1 cm on the forehead, no active bleeding. Cardiovascular examination regular rate and rhythm. Lungs clear to auscultation bilaterally. Abdomen soft and nontender. Neurological examination shows her to be awake, alert, and oriented. Nonfocal, nonlateralizing. Medical Decision Making: I do not feel that the laceration/abrasion on her forehead is amenable to suturing as it is greater than 6 hours old and is not gaping. Check CT brain. I reviewed the radiology report of the CT and there is no acute intracranial hemorrhage. At this point in time, she was given symptomatic treatment in the emergency department for her nausea, as she will take [id number] medications. She was told to follow-up with her primary care provider and that her concussive type symptoms might last 7 to 10 days, possibly longer but she should follow-up with her primary care provider in 7 to 10 days if her symptoms do not resolve. I feel she can be discharged to follow-up. Disposition is discharged home in stable condition. Other additions or changes: [None] Radiography Diagnostic Testing: Clinical Impression(s) from Imaging Studies Brain CT 01/19/25 20:57 IMPRESSION: 1. No acute intracranial abnormality. 2. Subgaleal hematoma overlying the frontal bone 3. Mild maxillary sinusitis Reading Location: [facility] Discharge Plan Triage Chief Complaint: Head Injury ED Midlevel Provider: Leif Chappell ED Provider: Evelio Addison Dx/Rx/DC Orders Clinical Impression: Head injury, Abrasion, Concussion Instructions: Concussion Dc, ED Head Injury (Adult) Prescriptions: No Action gabapentin 300 mg Capsule 300 mg PO TID tiotropium bromide [Spiriva with HandiHaler] 18 mcg Capsule, W/Inhalation Device 1 cap INHALATION BID sucralfate 1 gram tablet 1 g PO TIDCM Patient Comments: Take 1 tablet by mouth before meals and at bedtime. albuterol sulfate 90 mcg/actuation Hfa Aerosol Inhaler 1 inh INHALATION Q6H PRN (Reason: SOB) Qty: 1 0RF prednisone 20 mg tablet 60 mg PO DAILY Qty: 15 0RF levofloxacin [levofloxacin] 500 mg tablet 500 mg PO DAILY Qty: 7 0RF ipratropium bromide 0.02 % solution 2.5 ml inhalation Q8H PRN (Reason: shortness of breath or wheezing) Qty: 75 2RF Primary Care Provider: Joe White Referrals: Joe White MD [Primary Care Provider] - Print Language: Cymro Disposition Disposition: Home, Self Care
[2025-01-19] MEDS: Ondansetron ODT 4 MG Tablet PO (21:01)
[2025-01-19] MEDS: Acetaminophen 500 MG Tablet 1000 MG PO (21:02)
[2025-01-19] MEDS: Diphth,Pertuss(Acell),Tet Vac 0.5 ML Vial IM (21:02)
[2025-01-19 21:49] VITALS: BP 124/87; PULSE 78; RESP 16; TEMP 37.1; O2SAT 99
== END 2025-01-19 21:55 | disposition home or self-care (01) ==
LOC: ED 21:10
PROVIDERS: Emergency Provider Emergency Medicine; PCP Family Medicine; Visit Provider Emergency Medicine
DX: S06.0X0A Concussion without loss of consciousness, initial encounter (principal); J44.9 Chronic obstructive pulmonary disease, unspecified; F17.200 Nicotine dependence, unspecified, uncomplicated; W18.09XA Striking against other object with subsequent fall, initial encounter; S00.81XA Abrasion of other part of head, initial encounter; Z23 Encounter for immunization
CPT/HCPCS: 70450; 90471; 90715; 99283

== ENCOUNTER 2025-01-20 20:33 | Emergency (ER) | payer MEDICAID, SELFPAY ==
[2025-01-20 20:36] VITALS: BP 158/89; PULSE 114; RESP 18; TEMP 36.1; O2SAT 95; BMI 39.7
--- NOTE | 2025-01-20 21:42 | ED.RN ---
Pt taken back to hallway bed and educated that this gets her seen sooner by MD. Pt states I'm not doing all this. States she will be going to an alternate hospital. This RN educated pt that she is welcome to wait for a private room but it will take more time to be seen. Pt not willing to wait.
== END 2025-01-20 21:42 | disposition left against medical advice (07) ==
LOC: ED 21:42
PROVIDERS: PCP Family Medicine
DX: S09.90XA Unspecified injury of head, initial encounter (principal)